=== PATIENT | male | born 1950 | race Caucasian/White ===

== ENCOUNTER 2019-10-19 05:33 | Outpatient (RCR) | payer MEDICARE, MEDICAID, SELFPAY | END 2019-10-20 00:01 | LOC: ONCRAD 05:33 | PROVIDERS: Family Provider Family Medicine; PCP Radiology Radiation Oncology; Referring Provider Thoracic Surgery (Cardiothoracic Vascular Surgery); Visit Provider Internal Medicine Hematology & Oncology | DX: Z51.11 Encounter for antineoplastic chemotherapy (principal); C34.12 Malignant neoplasm of upper lobe, left bronchus or lung; I71.4 Abdominal aortic aneurysm, without rupture; F17.210 Nicotine dependence, cigarettes, uncomplicated; G89.29 Other chronic pain; M54.9 Dorsalgia, unspecified; Z86.711 Personal history of pulmonary embolism; J43.9 Emphysema, unspecified; Z92.25 Personal history of immunosuppression therapy | CPT/HCPCS: 36415; 36591; 80053 ×2; 85025 ×2; 96366; 96367; 96375; 96413; 96417; 99213 ×2; 99214; J1100; J1453; J1642 ×3; J1940; J2469; J3475; J7040; J7050 ×2; J9060; J9201 ==

== ENCOUNTER 2019-11-19 05:38 | Outpatient (RCR) | payer MEDICARE, MEDICAID, SELFPAY ==
[2019-10-26 08:47] LABS: Hematocrit 42.3 % (42.0-52.0); Hemoglobin 14.2 g/dL (11.7-16.6); Lymphocytes # 1.1 10^3/uL (0.8-4.8); Lymphocytes % 23.4 %; Mean Corpuscular HGB Conc 33.6 g/dL (30.0-36.0); Mean Corpuscular Hemoglobin 28.6 pg (28.0-34.0); Mean Corpuscular Volume 85.3 fL (80-94); Mean Platelet Volume 9.6 fL (7.4-10.4); Monocytes % 0.9 %; Neutrophils # 3.4 10^3/uL (1.8-7.7); Neutrophils % 75.3 %; Nucleated Red Blood Cells % 0 %; Platelet Count 194 10^3/cmm (130-400); Red Blood Count 4.96 10^6/uL (4.1-5.3); White Blood Count 4.5 10^3/uL (4.0-10.0)
[2019-10-26 09:08] LABS: Alanine Aminotransferase 14 U/L (0-41); Alkaline Phosphatase 93 IU/L (40-130); Anion Gap 21.2 (5-19); Aspartate Amino Transferase 12 U/L (0-40); Blood Urea Nitrogen 18 mg/dL (8-23); Calcium 10.5 mg/Dl (8.8-10.2); Carbon Dioxide 23 mmol/L (22-29); Chloride 95 mmol/L (98-107); Globulin 2.2 g/dL (1.3-4.6); Glomerular Filtration Rate 83.9 mL/min (90-130); Glucose 199 mg/dL (74-106); Potassium 4.2 mmol/L (3.5-5.1); Sodium 135 mmol/L (136-145); Total Bilirubin 0.4 mg/dL (0.15-1.2); Total Protein 7.2 g/dL (6.6-8.7)
[2019-10-26] MEDS: prochlorperazine 10 mg Tablet PO (10:35)
--- NOTE | 2019-10-26 10:42 | ONC FU_ITS ---
[facility] Patient Note Patient: Raymundo Palm Unit #: [id number]: [id number] Dictated By: Jimbo ShieldsDate of Visit: Oct 26, 2019 Onc MED Follow-Up/Prog Note Chief Complaint: Lung cancer History of Present Illness: Mr. Palm is a 69-year-old gentleman with history of ascending aortic aneurysm, stable and now being observed. 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 He developed a chronic cough for which he underwent CT scan of chest. The scan showed possible narrowing of the superior segment bronchus to the left lower lobe. Mr Palm underwent bronchoscopy on 07/09/2018, which showed non-small cell carcinoma squamous cell type, low-grade keratinizing subsequently. On 07/26/[address] PET scan which showed poorly defined left upper lobe mass with mixed groundglass and solid components measuring 3.7 x 4.8 cm with SUV of 20.1; and malignant left upper hilar nodes with SUV of 12; multiple malignant mediastinal lymph nodes are present in the right paratracheal, precarinal, left peribronchial subcarinal and right hilar territories, with SUV of 8.6. He was not a candidate for surgical resection so recommended that he start on combined chemoradiation with weekly carboplatin and Taxol on 08/11/2018 Long-standing history of smoking and still smokes about half a pack. History of chronic back pain, as per patient, in the past Dr. Palm give him injection to his back, that controlled back pain for 5 months. He has completed combined chemoradiation with weekly carbo/taxol and began immunotherapy with Imfinzi. He presented with an episode of shaking, increased anxiety. He was nauseated and discussed all full in general. He was weak and dizzy. He was sent for a CT pulmonary angiogram after labs were drawn. His d-dimer was elevated warranting a CTA exam. The CTA was performed on 09/19/2018 and did confirm right lower lobe posterior segment and segmental pulmonary emboli. There was new left lobe superior segment atelectasis and consolidation with tumoral progression, postradiation changes and pneumonia being differential considerations. There is increased middle third esophageal, subcarinal and right upper lobe perihilar soft tissue attenuation. Chronic emphysema and arteriosclerotic and unchanged a sending thoracic aorta aneurysm at 5 cm . Mr. Palm was started on Lovenox 80 mg every [address] scan of chest done on 11/12/2018 showed continued improvement in the consolidation superior-medial left lower lobe. 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 Less stranding or soft tissue thickening and mediastinal fat, no significant lymph nodes or increased lymph node seen Mild diffuse circumferential thickening of mid esophagus may be due to postradiation changes; emphysema;Stable ascending thoracic aortic aneurysm at 4.[address] Austin his PMD has been following it for the last 3 years. Mr Palm began maintenance durvalumab on 11/20/2018. MRI scan of thoracic/lumbar spine showed no evidence of neoplastic process. But multiple disc protrusion causing nerve impingement at multiple levels. CT PET scan done on 02/21/2019 showed essential resolution of left lower lobe malignancy, only inflammatory appearing FDG uptake is present in the lung infiltrate. Uptake in malignant mediastinal lymphadenopathy seen on previously is now resolved. He continues immunotherapy with durvalumab and is tolerating it well. echo was done which showed ejection fraction with a 60% CT PET scan done on 09/12/2019 showed there is a new medial left lower lobe nodule measuring 1.1 x 1.7 cm with SUV of 6.1, strongly consistent with recurrent malignancy. New posterior left upper lobe nodules are too small to characterize. Bilateral mediastinal nodes in the bilateral hilar, right parabronchial, subcarinal territory are FDG positive. These may be reactive but recurrence cannot be excluded. Dr. Bill did discuss with Mr. Palm treatment options for the disease recurrence. The immunotherapy has been stopped. Mr. Palm was reluctant to proceed with any further radiation at this point due to toxicities. Therefore he was offered treatment with cisplatin and gemcitabine. He began his first cycle on 10/19/2019. Mr. Palm is here today for follow-up. He states overall he feels pretty good today. He has had no current nausea or vomiting and no diarrhea or constipation. He does have some left lower quadrant pain which is new onset. He states is been there for about 2 weeks and it comes and goes. He cannot find a triggering factor or anything that particularly relieves it either. It is very tender to touch. He denies any fever or chills. He has had no hearing changes. He denies any peripheral neuropathy. He states his appetite is good. His energy is fair. Other than the left lower quadrant pain he has no other concerns today. Mrs. Palm states that for several days after chemo (3 to 4 days) he was really draggy and fatigued. He did have some nausea but that was relieved with 1 tablet of the antiemetic. She states for the last several days he has felt good and has been able to do his normal activities. She states he has been complaining of the left lower quadrant pain coming and going for about approximately 2 weeks. He states he did have a big bowl of ice cream and a lot of popcorn for dinner last night. They state the pain was there prior to the popcorn however. His ECOG is 2. Past Medical History: Aortic anuerysm Bph Chronic obstructive pulmonary disease Hyperlipidemia Hypertension Past Surgical History: Bronchoscopy Colonoscopy Hernia repair Orif right leg Allergies: Bee Sting, Lopid, and Niaspan. Medications: Albuterol Sulfate 1 puff(s) (of 108 (90 base) mcg/act) Aerosol Powder, Breath Activated Inhalation daily Aspirin Adult Low Strength 1 (81 mg) Tablet, enteric coated Oral daily Cabergoline 1 Tablet (of 0.5 mg) Oral q 7 days Crestor 1 Tablet (of 10 mg) Oral daily Cyclobenzaprine HCl 2 Tablet (of 5 mg) Tablet Oral q 8 hours Flomax 1 Capsule (of 0.4 mg) Capsule Oral daily Gabapentin 1 Capsule (of 300 mg) Oral t.i.d. Irbesartan 1 Tablet (of 300 mg) Oral daily Levocetirizine Dihydrochloride 1 Tablet (of 5 mg) Oral daily PRN Metoprolol Tartrate 1 Tablet (of 50 mg) Oral daily predniSONE 3 Tablet (of 5 mg) Oral daily Ventolin HFA Aerosol, solution Inhalation Family History: The family history is unremarkable. Social History: Mr. Palm is and he is retired. He is an occasional smoker who has smoked 0.5 packs/day for 52 years. He has no history of drinking. He has indicated exposure to the following products: pipe. Review Of Symptoms: Constitutional Denies fevers, chills, night sweats, excessive fatigue or weight loss. Allergic/Immunologic No reactions. Eyes Denies significant visual changes. No diplopia. No amaurosis. ENMT Denies changes in hearing, sore throat, mouth sores, difficulty or changes in swallowing ability, and/or sinus drainage. Endocrine No diabetes, thyroid disease or hormone replacement. Denies hot flashes or night sweats. Hematologic/Lymphatic Denies easy bruising or bleeding. The patient denies any tender or palpable lymph nodes. Respiratory Denies dyspnea on exertion, chest pain, cough or hemoptysis. Denies orthopnea. Cardiovascular Denies anginal chest pain, palpitations or orthopnea. Gastrointestinal Denies nausea, vomiting, diarrhea, GI bleeding, or constipation. Denies change in bowel habits and/or stool color, no heartburn or early satiety. He states he is having left lower quadrant pain for about 2 weeks now. It was sudden onset. He states the pain comes and goes but is tender to touch. He denies any diarrhea or constipation. He denies any blood in his stool. Genitourinary (M) Denies hematuria, dysuria, increased frequency, urgency, hesitancy or incontinence. Musculoskeletal Denies joint pain, swelling or redness. No decreased range of motion. Integumentary Denies chronic rashes, inflammation, ulcerations or skin changes. Neurologic Denies headache, blurred vision, and no areas of focal weakness or numbness. Normal gait. No sensory problems. Psychiatric Denies insomnia, depression, chad or mood swings. Vital Signs: Performed on Oct 26, 2019 09:36 Height - 68.00 in Weight - 200.4 lbs (LOW) BSA - 2.05 sq.m BMI - 30.47 (HIGH) Temperature - 97.8 F (LOW) Pulse - 73 /min Respiration - 20 /min BP - 134/97 mm(hg) O2 Sat - 94 % (LOW) Pain - 8,2 - Ambulatory/capable of all self-care, unable to perform any work activities. Up and about more than 50% of waking hours. (ECOG) Physical Examination: Constitutional Alert, oriented, no acute distress. Skin pink, warm and dry. Head Normocephalic; atraumatic. Eyes Conjunctivae and sclerae are clear and without icterus. Pupils are reactive and equal. ENMT No oral exudates, ulcers, masses, thrush or mucositis. Oropharynx clear. Tongue normal. He denies any new hearing changes. He does have chronic hearing loss in the right ear. Neck Supple without masses or thyromegaly. No jugular venous distension. Hematologic/Lymphatic No petechiae or purpura. No tender or palpable lymph nodes in the cervical or supraclavicular areas. Respiratory Lungs are clear to auscultation without rhonchi or wheezing. Cardiovascular Regular rate and rhythm of heart without murmurs,clicks, gallops or rubs. Chest Left chest wall venous access site is unremarkable. Abdomen Non-tender except LLQ, non-distended, no masses, ascites. Good bowel sounds noted in all quads. He does have noticeable tenderness in the left lower quad. He states he has pain on palpation as well. Back/Spine Non-tender to palpation. Extremities No visible deformities, no cyanosis, clubbing or edema. Musculoskeletal No tenderness or swelling, normal range of motion without obvious weakness. Integumentary No rashes or lesions. Neurologic No sensory or motor deficits, normal cerebellar function, normal gait. Psychiatric Alert and oriented times three. Coherent speech. Verbalizes understanding of our discussions today. Laboratory:Test performed on Oct 26, 2019 09:52 Sodium 135 mmol/L Potassium 4.2 mmol/L Chloride 95 mmol/L CO2 23 mmol/L Anion Gap 21.2 BUN 18 mg/dL Creatinine 0.9 mg/dL Cr Clearance (Est) 102.10 mL/min eGFR 83.9 mL/min Glucose 199 mg/dL Calcium 10.5 mg/dL Protein, Total 7.2 g/dL Albumin 5.0 g/dL Globulin 2.2 g/dL Bilirubin, Total 0.4 mg/dL ALT (SGPT) 14 Units/L AST (SGOT) 12 Units/L Alkaline Phosphatase 93 IU/L WBC 4.5 10^3/uL RBC 4.96 10^6/uL HGB 14.2 g/dL HCT 42.3 % MCV 85.3 fl MCH 28.6 pg MCHC 33.6 g/dL RDW 14.0 % Platelet Count 194 10^3/uL MPV 9.6 fl Neutrophils 3.4 10^3/uL Lymphocytes 1.1 10^3/uL Monocytes 0.0 10^3/uL Eosinophils 0.0 10^3/uL Basophils 0.0 10^3/uL Neutrophil % 75.3 % Lymphocyte % 23.4 % Monocyte % 0.96 % Eosinophil % 0.0 % Basophils % 0.0 % Impression: Squamous cell carcinoma, low-grade more keratinizing of left upper lobe of lung per bronchoscopy/biopsy done on 07/09/2018 CT PET scan done on 07/26/2018 showed 3.7 x 4.8 cm mass in left upper lobe with SUV of 20.1 and malignant left upper hilar nodes with SUV of 12.7. Multiple malignant mediastinal lymph nodes are present in the right paratracheal, precarinal, left peribronchial, subcarinal and right hilar Territories c T2b , N3 (contralateral hilar lymph nodes involvement), MX, clinical stage IIIB MRI scan of head done on 08/08/2018 showed no evidence of metastatic disease As per cardiothoracic surgery he is not a candidate for surgery. He was started on combined chemoradiation with weekly carboplatin and Taxol on 08/11/2018. Hard of hearing in right ear, unknown etiology Chronic smoking, still active Ascending Aortic aneurysm, since 2014, stable, being followed by Dr. Luther Remote history of brain mass, as per patient and his , stable for the last 18 years A CTA was performed on 09/19/2018 and did report right lower lobe posterior segment and segmental pulmonary emboli. He was treated initially with Lovenox then transitioned to Eliquis. CT head done on 09/23/2018 showed no intracranial hemorrhage or mass effect and unchanged right mastoid air cell effusion with middle ear opacification. Chest x-ray done on 09/23/2018 shows decreased left perihilar mass or perihilar pneumonia Follow-up CT scan of chest done on 11/12/2018 showed continued improvement in the consolidation superior-medial left lower lobe. Mild residual opacification present which is probably radiation-induced pneumonitis or atelectasis and no significant lymphadenopathy seen. Mild diffuse circumferential thickening of mid esophagus may be due to postradiation changes. Emphysema. Stable ascending thoracic aortic aneurysm at 4.7 cm. History of chronic back pain, as per patient, in the past he he was given injection by Dr. Palm, that helped him for 5 months.MRI scan of thoracic/lumbar spine done on 01/30/2019 showed no evidence of metastatic disease but disc prolapse at multiple level with nerve impingement. Started on maintenance therapy with biweekly durvalumab 10 mg/kg on 11/20/2018. He tolerated it well but did have disease progression on PET/CT from 08/2019. Follow-up CT PET scan done on 02/21/2019 showed there is minimal inflammatory activity in mixed solid/groundglass left lower lobe infiltrate, consistent with residual uptake from radiation therapy, viable malignancy is unlikely, new left lower lobe subpleural nodule-like infiltrate is FDG negative, hypermetabolic mediastinal lymph node in the left hilar, left peribronchial, left precarinal, right hilar territories now demonstrated uptake no greater than mediastinal background, indicating positive response to therapy. He continued with immunotherapy. Follow-up PET/CT from 09/12/2019 reported new medial left lower lobe nodule measuring 1.1 x 1.7 cm with an SUV of 6.1, strongly consistent with recurrent malignancy. There was a new posterior left upper lobe nodules that were too small to characterize. Bilateral mediastinal nodes in the bilateral hilar, right parabronchial, and subcarinal territories are FDG positive. These may be reactive but recurrence cannot be excluded. Dr Bill discussed with Mr & Mrs Palm his disease status and treatment options. Mr Palm wass reluctant to consider radiation therapy due to related toxicity. Case was discussed with Dr. Vazquez radiation oncology, he agreed. Mr Palm was then offered treatment with systemic therapy with cisplatin 25 mg/m??? and gemcitabine 1000 mg/m??? day 1 and day 8 and repeat every 21 days ???3 cycles and repeat follow-up CT PET scan to assess the disease response and then plan accordingly. The immunotherapy was discontinued. Mr Palm began his first cycle of Cisplatin/Gemzar on 10/19/2019. Mrs. Palm states in general he tolerated it pretty well. She states he spent the first couple of days in bed just really washed out and tired. He did have some nausea but no vomiting. She did give him 1 anti-medic and that resolved the nausea. She states since then he has felt much better and has been up eating and doing his normal activities. He has developed new lower quadrant pain which is unexplained. Plan: 1. Proceed with cycle 1 day 8 gemcitabine???single agent. 2. Continue antiemetics as this is working generally well for him. 3. I requested a CT with and without contrast of the abdomen/pelvis for evaluation of the left lower quadrant pain which is new onset. 4. Today's labs were reviewed in detail and discussed with and Mrs. Palm and a copy was given to them. WBC 4.5, hemoglobin 14.2, platelets 194,000 ANC is 3400 potassium 4.2 random glucose is 199 (he states he had a big bowl of ice cream last night and popcorn). BUN is 0.9 LFTs are normal. 5. Mr. Palm is not currently on any medications for hyperglycemia but we will continue monitoring his sugars closely. 6. We will plan to check labs only next week and see him back in 2 weeks for consideration of cycle 2 cisplatin gemcitabine. He will need a CBC and CMP at that time. 7. Mrs. Palm was instructed to contact us in the interim should they have any questions or problems. 8. We did discuss the potential for hearing changes with cisplatin thus far they have not noted any changes at all. Signed By: Jimbo Shields-, CNP Shemar Bill MD <<Signature on File>>
--- NOTE | 2019-10-30 08:25 | CT_ITS ---
WS: [id number] CT scan of the abdomen and pelvis with Oral and with and without IV contrast. Additional two-dimensio nal coronal and sagittal reconstruction was performed. 10/30/2019 Clinical Data: NEW ONSET LLQ PAIN/METASTATIC LUNG CANCER Comparison: CT chest abdomen and pelvis, 03/06/2018. DLP: 2241.[address] scans at [facility] use at least one of these dose optimization techniques: automat ed exposure control; mA and/or kV adjustment per patient size (includes targeted exams where dose is matched to clinical indication); or iterative reconstruction. Findings: The lower lungs show no nodules, masses or effusions. The liver, gallbladder, spleen, adrenal glands and pancreas are normal. The kidneys show equal bilateral contrast excretion with small bilateral cortical cysts.. The abdominal aorta is normal in size with calcification in the wall.. No appendicitis or diverticulitis is seen. Oral contrast is in the stomach and small bowel and there is no bowel dilatation. The bladder is unremarkable. No inguinal hernia is seen. The bones of the lower thorax, lumbar spine, pelvis, and hips and no metastatic lesions. 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 CT/CT abdomen pelvis wo/w 14021 Impression: Negative for acute intra-abdominal or pelvic abnormalities.
[2019-10-30] MEDS: iohexol 300 mg/mL 50 mL Btl IV (09:00)
[2019-10-30] MEDS: iohexol 300 mg/mL 100 mL Btl IV (10:17)
[2019-11-02] MEDS: sodium chloride 0.9% 1,000 ML 999 ML IV (08:15)
[2019-11-02 08:49] LABS: Basophils % 0.6 %; Eosinophils % 2.2 %; Hematocrit 39.7 % (42.0-52.0); Hemoglobin 13.3 g/dL (11.7-16.6); Lymphocytes % 58.1 %; Mean Corpuscular HGB Conc 33.5 g/dL (30.0-36.0); Mean Corpuscular Hemoglobin 30.3 pg (28.0-34.0); Mean Corpuscular Volume 90.4 fL (80-94); Mean Platelet Volume 9.1 fL (7.4-10.4); Monocytes # 0.1 10^3/uL (0.2-0.9); Monocytes % 2.8 %; Neutrophils % 35.7 %; Nucleated Red Blood Cells % 0 %; Platelet Count 77 10^3/cmm (130-400); Red Blood Count 4.39 10^6/uL (4.1-5.3); Red Cell Distribution Width 13.7 % (12.1-15.1); White Blood Count 1.8 10^3/uL (4.0-10.0)
[2019-11-02 08:55] LABS: Neutrophils # 0.6 10^3/uL (1.8-7.7)
[2019-11-09 09:18] LABS: Basophils % 0.5 %; Hematocrit 41.5 % (42.0-52.0); Hemoglobin 13.6 g/dL (11.7-16.6); Lymphocytes # 0.6 10^3/uL (0.8-4.8); Mean Corpuscular HGB Conc 32.8 g/dL (30.0-36.0); Mean Corpuscular Hemoglobin 29.8 pg (28.0-34.0); Mean Corpuscular Volume 90.8 fL (80-94); Mean Platelet Volume 9.9 fL (7.4-10.4); Monocytes % 0.9 %; Neutrophils # 1.4 10^3/uL (1.8-7.7); Neutrophils % 67.7 %; Nucleated Red Blood Cells % 0 %; Platelet Count 489 10^3/cmm (130-400); Red Blood Count 4.57 10^6/uL (4.1-5.3); Red Cell Distribution Width 14.9 % (12.1-15.1); White Blood Count 2.1 10^3/uL (4.0-10.0)
[2019-11-09 09:32] LABS: Alanine Aminotransferase 25 U/L (0-41); Albumin Level 3.8 g/dL (3.5-5.2); Alkaline Phosphatase 106 IU/L (40-130); Anion Gap 20.9 (5-19); Aspartate Amino Transferase 17 U/L (0-40); Blood Urea Nitrogen 11 mg/dL (8-23); Calcium 9.9 mg/Dl (8.8-10.2); Carbon Dioxide 21 mmol/L (22-29); Chloride 97 mmol/L (98-107); Globulin 3.4 g/dL (1.3-4.6); Glomerular Filtration Rate 74.3 mL/min (90-130); Glucose 426 mg/dL (74-106); Potassium 3.9 mmol/L (3.5-5.1); Sodium 135 mmol/L (136-145); Total Bilirubin 0.3 mg/dL (0.15-1.2); Total Protein 7.2 g/dL (6.6-8.7)
[2019-11-09 09:41] LABS: Estmated Average Glucose 157; Hemoglobin A1C 7.1 % (4.0-6.0)
[2019-11-09 11:45] LABS: Add Urine Microscopic? NO
[2019-11-09 11:59] LABS: Bilirubin Urine Neg (NEGATIVE); Blood Urine Neg (Negative); Glucose Urine UA 4+ (Normal); Ketones Urine Negative (Negative); Leukocyte Esterase Urine Negative (Negative); Nitrate Urine Negative (Negative); Protein Urine Neg (Negative); Urine Appearance Clear (CLEAR); Urine Color Straw (Yellow); Urobilinogen Urine Norm (Negative)
--- NOTE | 2019-11-09 13:07 | ONC FU_ITS ---
Dr. Bill follow up note Patient: Raymundo Palm Unit #: [id number]: 1950 Dicatated By: Shemar Bill M.D.Date of Visit:Nov 09, 2019 Onc Med Follow-up/Prog Note History of Present Illness: Mr. Palm is a 69-year-old gentleman with history of ascending aortic aneurysm, stable and now being observed. 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 He developed a chronic cough for which he underwent CT scan of chest. The scan showed possible narrowing of the superior segment bronchus to the left lower lobe. Mr Palm underwent bronchoscopy on 07/09/2018, which showed non-small cell carcinoma squamous cell type, low-grade keratinizing subsequently. On 07/26/[address] PET scan which showed poorly defined left upper lobe mass with mixed groundglass and solid components measuring 3.7 x 4.8 cm with SUV of 20.1; and malignant left upper hilar nodes with SUV of 12; multiple malignant mediastinal lymph nodes are present in the right paratracheal, precarinal, left peribronchial subcarinal and right hilar territories, with SUV of 8.6. He was not a candidate for surgical resection so recommended that he start on combined chemoradiation with weekly carboplatin and Taxol on 08/11/2018 Long-standing history of smoking and still smokes about half a pack. History of chronic back pain, as per patient, in the past Dr. Palm give him injection to his back, that controlled back pain for 5 months. He has completed combined chemoradiation with weekly carbo/taxol and began immunotherapy with Imfinzi. He presented with an episode of shaking, increased anxiety. He was nauseated and discussed all full in general. He was weak and dizzy. He was sent for a CT pulmonary angiogram after labs were drawn. His d-dimer was elevated warranting a CTA exam. The CTA was performed on 09/19/2018 and did confirm right lower lobe posterior segment and segmental pulmonary emboli. There was new left lobe superior segment atelectasis and consolidation with tumoral progression, postradiation changes and pneumonia being differential considerations. There is increased middle third esophageal, subcarinal and right upper lobe perihilar soft tissue attenuation. Chronic emphysema and arteriosclerotic and unchanged a sending thoracic aorta aneurysm at 5 cm . Mr. Palm was started on Lovenox 80 mg every [address] scan of chest done on 11/12/2018 showed continued improvement in the consolidation superior-medial left lower lobe. 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 Less stranding or soft tissue thickening and mediastinal fat, no significant lymph nodes or increased lymph node seen Mild diffuse circumferential thickening of mid esophagus may be due to postradiation changes; emphysema;Stable ascending thoracic aortic aneurysm at 4.[address] Austin his PMD has been following it for the last 3 years. Mr Palm began maintenance durvalumab on 11/20/2018. MRI scan of thoracic/lumbar spine showed no evidence of neoplastic process. But multiple disc protrusion causing nerve impingement at multiple levels. CT PET scan done on 02/21/2019 showed essential resolution of left lower lobe malignancy, only inflammatory appearing FDG uptake is present in the lung infiltrate. Uptake in malignant mediastinal lymphadenopathy seen on previously is now resolved. He continues immunotherapy with durvalumab and is tolerating it well. echo was done which showed ejection fraction with a 60% CT PET scan done on 09/12/2019 showed there is a new medial left lower lobe nodule measuring 1.1 x 1.7 cm with SUV of 6.1, strongly consistent with recurrent malignancy. New posterior left upper lobe nodules are too small to characterize. Bilateral mediastinal nodes in the bilateral hilar, right parabronchial, subcarinal territory are FDG positive. These may be reactive but recurrence cannot be excluded. did discuss with Mr. Palm treatment options for the disease recurrence. The immunotherapy has been stopped. Mr. Palm was reluctant to proceed with any further radiation at this point due to toxicities. Therefore he was offered treatment with cisplatin and gemcitabine. He began his first cycle on 10/19/2019. Came for follow-up, complaining of lightheaded but responded well to IV fluids given in the morning, still complaining of generalized weakness and fatigue as per patient has been consuming lots of orange juice in the last few days. But no nausea or vomiting no diarrhea or constipation occasionally burning micturition but no fever or chills. Cough up whitish phlegm, still smoking about pack a day. No blurred vision or double vision, no focal weakness otherwise. No diarrhea or constipation, no hematuria or hemoptysis or hematemesis or jaundice. Medications: Albuterol Sulfate 1 puff(s) (of 108 (90 base) mcg/act) Aerosol Powder, Breath Activated Inhalation daily, Aspirin Adult Low Strength 1 (81 mg) Tablet, enteric coated Oral daily, Cabergoline 1 Tablet (of 0.5 mg) Oral q 7 days, Crestor 1 Tablet (of 10 mg) Oral daily, Cyclobenzaprine HCl 2 Tablet (of 5 mg) Tablet Oral q 8 hours, Flomax 1 Capsule (of 0.4 mg) Capsule Oral daily, Gabapentin 1 Capsule (of 300 mg) Oral t.i.d., Irbesartan 1 Tablet (of 300 mg) Oral daily, Levocetirizine Dihydrochloride 1 Tablet (of 5 mg) Oral daily PRN, Metoprolol Tartrate 1 Tablet (of 50 mg) Oral daily, Ventolin HFA Aerosol, solution Inhalation Allergies: Bee Sting, Lopid, and Niaspan. Review of Systems: Constitutional - Appetite is fair and weight is decreasing. No fever, chills, hot flashes, or night sweats. Energy level is decreasing, ENMT - No sinus congestion/drainage. No mouth sores. No sore throat or difficulty swallowing, Hematologic/Lymphatic - No abnormal bruising or bleeding, Respiratory - Positive for continued shortness of breath and cough. No pleuritic pain or hemoptysis, Cardiovascular - No angina pain. No palpitations, Gastrointestinal - No nausea or vomiting. No heartburn or acid reflux. No diarrhea or constipation. No blood in the stool or black stools, Genitourinary (M) - No dysuria or hematuria. No urinary frequency. No urgency or incontinence, Musculoskeletal - Pt reports chronic back pain, Neurologic - Pt denies any headache or dizziness, Psychiatric - No anxiety or depression. No insomnia. Vital Signs: Performed on Nov 09, 2019 11:02 Height - 68.00 in Weight - 205.0 lbs (HIGH) BSA - 2.07 sq.m BMI - 31.17 (HIGH) Temperature - 98.0 F (LOW) Pulse - 89 /min Respiration - 20 /min BP - 148/109 mm(hg) (HIGH) O2 Sat - 93 % (LOW) Pain - 0 Performed on Nov 09, 2019 08:47 Height - 68.00 in Temperature - 97 F (LOW) Pulse - 98 /min Respiration - 20 /min BP - 128/88 mm(hg) O2 Sat - 94 % (LOW) Pain - 0 Fatigue - 7 Performance Status: 2 - Ambulatory/capable of all self-care, unable to perform any work activities. Up and about more than 50% of waking hours. (ECOG) Physical Examination: ENMT - No oral exudates, ulcers, masses, thrush or mucositis. Oropharynx clear. Tongue normal, Respiratory - Lungs are clear to auscultation without rhonchi or wheezing, Cardiovascular - Regular rate and rhythm of heart, Abdomen - Non-tender, non-distended, Good bowel sounds. No guarding or rebound tenderness. No pulsatile masses, Extremities - no edema. Lab/Imaging: Test performed on Nov 09, 2019 11:26 Ua Color Straw Ua Appearance Clear Ua Specific [place] 1.010 Ua pH 5.0 Ua Protein Negative Ua Glucose 4+ Ua Ketones Negative Ua Blood Negative Ua Leuk Esterase Negative Ua Nitrites Negative Ua Bilirubin Negative Ua Urobilinogen Normal Test performed on Nov 09, 2019 09:21 WBC 2.1 10^9/L RBC 4.57 10^12/L HGB 13.6 g/dL HCT 41.5 % MCV 90.8 fl MCH 29.8 pg MCHC 32.8 g/dL RDW 14.9 % Platelet Count 489 10^9/L MPV 9.9 fL Neutrophils (Gran) 1.4 10^9/L Lymphocytes 0.6 10^9/L Monocytes 0 10^9/L Eosinophils 0 10^9/L Basophils 0 10^9/L Manual Lymphocytes 30.0 % Manual Monocytes 0.9 % Manual Eosinophils 0 % Manual Basophils 0.5 % NRBCs 0 /100 WBC Test performed on Nov 09, 2019 08:49 Glucose 157 mg/dL BUN 11 mg/dL Creatinine 1.0 mg/dL Cr Clearance (Est) 91.89 mL/min Sodium 135 mmol/L Potassium 3.9 mmol/L Chloride 97 mmol/L CO2 21 mmol/L Calcium 9.9 mg/dL Protein, Total 7.2 g/dL Albumin 3.8 g/dL Globulin 3.4 g/dL Bilirubin, Total 0.3 mg/dL Alkaline Phosphatase 106 IU/L AST (SGOT) 17 IU/L ALT (SGPT) 25 IU/L Hemoglobin A1C 7.1 % Neutrophil % 0.0 % Test performed on Oct 26, 2019 09:52 Anion Gap 21.2 eGFR 83.9 mL/min Lymphocyte % 23.4 % Monocyte % 0.96 % Eosinophil % 0.0 % Basophils % 0.0 % Test performed on Aug 04, 2019 08:09 Manual Neutrophils Abs 7.5 10 3/cmm Manual Lymphocytes Abs 2.1 10 3/cmm Manual Monocytes Abs 1.7 10 3/cmm Manual Basophils Abs 0.1 10 3/cmm Manual Segs % 57 % Manual Bands % 8.0 % Metamyelocytes % 1.0 % Platelet Estimate NORMAL Impression: Squamous cell carcinoma, low-grade more keratinizing of left upper lobe of lung per bronchoscopy/biopsy done on 07/09/2018 CT PET scan done on 07/26/2018 showed 3.7 x 4.8 cm mass in left upper lobe with SUV of 20.1 and malignant left upper hilar nodes with SUV of 12.7. Multiple malignant mediastinal lymph nodes are present in the right paratracheal, precarinal, left peribronchial, subcarinal and right hilar Territories c T2b , N3 (contralateral hilar lymph nodes involvement), MX, clinical stage IIIB MRI scan of head done on 08/08/2018 showed no evidence of metastatic disease As per cardiothoracic surgery he is not a candidate for surgery. H was started on combined chemoradiation with weekly carboplatin and Taxol on 08/11/2018. Hard of hearing in right ear, unknown etiology Chronic smoking, still active Ascending Aortic aneurysm, since 2015, stable, being followed by Dr. Luther Remote history of brain mass, as per patient and his , stable for the last 18 years A CTA was performed on 09/19/2018 and did report right lower lobe posterior segment and segmental pulmonary emboli. He was treated initially with Lovenox then transitioned to Eliquis. CT head done on 09/23/2018 showed no intracranial hemorrhage or mass effect and unchanged right mastoid air cell effusion with middle ear opacification. Chest x-ray done on 09/23/2018 shows decreased left perihilar mass or perihilar pneumonia .Follow-up CT scan of chest done on 11/12/2018 showed continued improvement in the consolidation superior-medial left lower lobe. 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 Austin his PMD has been following his aortic aneurysm for the last 3 years. History of chronic back pain, as per patient, in the past he he was given injection by Dr. Palm, that helped him for 5 months.MRI scan of thoracic/lumbar spine done on 01/30/2019 showed no evidence of metastatic disease but disc prolapse at multiple level with nerve impingement. Started on maintenance therapy with biweekly durvalumab 10 mg/kg on 11/20/2018. He is tolerating it well thus far. Follow-up CT PET scan done on 02/21/2019 showed there is minimal inflammatory activity in mixed solid/groundglass left lower lobe infiltrate, consistent with residual uptake from radiation therapy, viable malignancy is unlikely, new left lower lobe subpleural nodule-like infiltrate is FDG negative, hypermetabolic mediastinal lymph node in the left hilar, left peribronchial, left precarinal, right hilar territories now demonstrated uptake no greater than mediastinal background, indicating positive response to therapy. He continued with immunotherapy. Follow-up PET/CT from 09/12/2019 reported new medial left lower lobe nodule measuring 1.1 x 1.7 cm with an SUV of 6.1, strongly consistent with recurrent malignancy. There was a new posterior left upper lobe nodules that were too small to characterize. Bilateral mediastinal nodes in the bilateral hilar, right parabronchial, and subcarinal territories are FDG positive. These may be reactive but recurrence cannot be excluded. Dr Bill discussed with Mr & Mrs Palm his disease status and treatment options. Mr Palm wass reluctant to consider radiation therapy due to related toxicity. Case was discussed with Dr. Vazquez radiation oncology, he agreed. Mr Palm was then offered treatment with systemic therapy with cisplatin 25 mg/m??? and gemcitabine 1000 mg/m??? day 1 and day 8 and repeat every 21 days ???3 cycles and repeat follow-up CT PET scan to assess the disease response and then plan accordingly. The immunotherapy was discontinued. Mr Palm began his first cycle of Cisplatin/Gemzar on 10/19/2019. Mrs. Palm states in general he tolerated it pretty well. She states he spent the first couple of days in bed just really washed out and tired. He did have some nausea but no vomiting. She did give him 1 anti-medic and that resolved the nausea. She states since then he has felt much better and has been up eating and doing his normal activities. He has developed new lower quadrant pain which is unexplained. Plan: Discussed with patient regarding his labs white blood count 2.1 hemoglobin 13.6 crit 41.5 platelets 459,000 absolute neutrophil count 1400 CMP within normal limit except glucose 426 Clinically, patient is doing reasonably well, tolerating chemotherapy well but with expected side effects. He was due for his next cycle of chemotherapy today but because of progressive leukopenia/neutropenia we will hold his chemotherapy and also patient appears dehydrated due to to hyperglycemia and noncompliant with diabetic diet. Patient was advised to stop drinking orange juice rather follow diabetic diet and his repeat blood sugar is in the mid 300, he was given 8 units of regular insulin and was advised to follow sliding scale.Also advised to maintain hydration with plain water, He will return to clinic in 1 week with CBC CMP. We will also check his urinalysis and start him on prophylactic Levaquin 500 mg by mouth daily for 1 week. Patient was advised in case there is a worsening of symptoms he need to go to emergency room otherwise back in 1 week with CBC CMP and blood counts recover, will consider starting him on second cycle of chemotherapy. Signed By: Shemar Bill M.D. <<Signature on File>>
[2019-11-16] MEDS: sodium chlor 0.9% + KCl 20 mEq 20 MEQ/1,000 ML BAG 500 MEQ IV (08:30)
[2019-11-16 08:50] LABS: Basophils % 0.3 %; Hemoglobin 13.4 g/dL (11.7-16.6); Lymphocytes # 1.1 10^3/uL (0.8-4.8); Lymphocytes % 11.7 %; Mean Corpuscular HGB Conc 33.5 g/dL (30.0-36.0); Mean Corpuscular Hemoglobin 29.1 pg (28.0-34.0); Mean Platelet Volume 9.2 fL (7.4-10.4); Monocytes # 0.2 10^3/uL (0.2-0.9); Monocytes % 2.2 %; Neutrophils # 7.1 10^3/uL (1.8-7.7); Neutrophils % 74.2 %; Nucleated Red Blood Cells % 0 %; Platelet Count 344 10^3/cmm (130-400); Red Cell Distribution Width 15.3 % (12.1-15.1); White Blood Count 9.5 10^3/uL (4.0-10.0)
[2019-11-16 09:04] LABS: Alanine Aminotransferase 24 U/L (0-41); Alkaline Phosphatase 104 IU/L (40-130); Anion Gap 18.2 (5-19); Aspartate Amino Transferase 18 U/L (0-40); Blood Urea Nitrogen 16 mg/dL (8-23); Calcium 9.6 mg/dL (8.5-10.5); Carbon Dioxide 24 mmol/L (22-29); Chloride 99 mmol/L (98-107); Globulin 2.7 g/dL (1.3-4.6); Glomerular Filtration Rate 74.3 mL/min (90-130); Glucose 264 mg/dL (74-106); Potassium 4.2 mmol/L (3.5-5.1); Sodium 137 mmol/L (136-145); Total Bilirubin 0.2 mg/dL (0.15-1.2); Total Protein 6.7 g/dL (6.6-8.7)
[2019-11-16 09:50] LABS: Slide Review Slide Review Perform
--- NOTE | 2019-11-16 10:46 | ONC FU_ITS ---
Dr. Bill follow up note Patient: Raymundo Palm Unit #: [id number]: [id number] Dicatated By: Shemar Bill M.D.Date of Visit:Nov 16, 2019 Onc Med Follow-up/Prog Note History of Present Illness: Mr. Palm is a 69-year-old gentleman with history of ascending aortic aneurysm, stable and now being observed. 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 He developed a chronic cough for which he underwent CT scan of chest. The scan showed possible narrowing of the superior segment bronchus to the left lower lobe. Mr Palm underwent bronchoscopy on 07/09/2018, which showed non-small cell carcinoma squamous cell type, low-grade keratinizing subsequently. On 07/26/[address] PET scan which showed poorly defined left upper lobe mass with mixed groundglass and solid components measuring 3.7 x 4.8 cm with SUV of 20.1; and malignant left upper hilar nodes with SUV of 12; multiple malignant mediastinal lymph nodes are present in the right paratracheal, precarinal, left peribronchial subcarinal and right hilar territories, with SUV of 8.6. He was not a candidate for surgical resection so recommended that he start on combined chemoradiation with weekly carboplatin and Taxol on 08/11/2018 Long-standing history of smoking and still smokes about half a pack. History of chronic back pain, as per patient, in the past Dr. Palm give him injection to his back, that controlled back pain for 5 months. He has completed combined chemoradiation with weekly carbo/taxol and began immunotherapy with Imfinzi. He presented with an episode of shaking, increased anxiety. He was nauseated and discussed all full in general. He was weak and dizzy. He was sent for a CT pulmonary angiogram after labs were drawn. His d-dimer was elevated warranting a CTA exam. The CTA was performed on 09/19/2018 and did confirm right lower lobe posterior segment and segmental pulmonary emboli. There was new left lobe superior segment atelectasis and consolidation with tumoral progression, postradiation changes and pneumonia being differential considerations. There is increased middle third esophageal, subcarinal and right upper lobe perihilar soft tissue attenuation. Chronic emphysema and arteriosclerotic and unchanged a sending thoracic aorta aneurysm at 5 cm . Mr. Palm was started on Lovenox 80 mg every [address] scan of chest done on 11/12/2018 showed continued improvement in the consolidation superior-medial left lower lobe. 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 Less stranding or soft tissue thickening and mediastinal fat, no significant lymph nodes or increased lymph node seen Mild diffuse circumferential thickening of mid esophagus may be due to postradiation changes; emphysema;Stable ascending thoracic aortic aneurysm at 4.[address] Austin his PMD has been following it for the last 3 years. Mr Palm began maintenance durvalumab on 11/20/2018. MRI scan of thoracic/lumbar spine showed no evidence of neoplastic process. But multiple disc protrusion causing nerve impingement at multiple levels. CT PET scan done on 02/21/2019 showed essential resolution of left lower lobe malignancy, only inflammatory appearing FDG uptake is present in the lung infiltrate. Uptake in malignant mediastinal lymphadenopathy seen on previously is now resolved. He continues immunotherapy with durvalumab and is tolerating it well. echo was done which showed ejection fraction with a 60% CT PET scan done on 09/12/2019 showed there is a new medial left lower lobe nodule measuring 1.1 x 1.7 cm with SUV of 6.1, strongly consistent with recurrent malignancy. New posterior left upper lobe nodules are too small to characterize. Bilateral mediastinal nodes in the bilateral hilar, right parabronchial, subcarinal territory are FDG positive. These may be reactive but recurrence cannot be excluded. did discuss with Mr. Palm treatment options for the disease recurrence. The immunotherapy has been stopped. Mr. Palm was reluctant to proceed with any further radiation at this point due to toxicities. Therefore he was offered treatment with cisplatin and gemcitabine. He began his first cycle on 10/19/2019. Came for follow-up, denies any specific complaints, no fever or chills, no nausea or vomiting, no diarrhea constipation, more energetic. No diarrhea constipation, no mouth sores. Medications: Albuterol Sulfate 1 puff(s) (of 108 (90 base) mcg/act) Aerosol Powder, Breath Activated Inhalation daily, Aspirin Adult Low Strength 1 (81 mg) Tablet, enteric coated Oral daily, Cabergoline 1 Tablet (of 0.5 mg) Oral q 7 days, Crestor 1 Tablet (of 10 mg) Oral daily, Cyclobenzaprine HCl 2 Tablet (of 5 mg) Tablet Oral q 8 hours, Flomax 1 Capsule (of 0.4 mg) Capsule Oral daily, Gabapentin 1 Capsule (of 300 mg) Oral t.i.d., Irbesartan 1 Tablet (of 300 mg) Oral daily, Levocetirizine Dihydrochloride 1 Tablet (of 5 mg) Oral daily PRN, Metoprolol Tartrate 1 Tablet (of 50 mg) Oral daily, Ventolin HFA Aerosol, solution Inhalation Allergies: Bee Sting, Lopid, and Niaspan. Review of Systems: Constitutional - Appetite is fair and weight is decreasing. No fever, chills, hot flashes, or night sweats. Energy level is decreasing, ENMT - No sinus congestion/drainage. No mouth sores. No sore throat or difficulty swallowing, Hematologic/Lymphatic - No abnormal bruising or bleeding, Respiratory - Positive for continued shortness of breath and cough. No pleuritic pain or hemoptysis, Cardiovascular - No angina pain. No palpitations, Gastrointestinal - No nausea or vomiting. No heartburn or acid reflux. No diarrhea or constipation. No blood in the stool or black stools, Genitourinary (M) - No dysuria or hematuria. No urinary frequency. No urgency or incontinence, Musculoskeletal - Pt reports chronic back pain, Neurologic - Pt denies any headache or dizziness, Psychiatric - No anxiety or depression. No insomnia. Vital Signs: Performed on Nov 16, 2019 09:57 Height - 68.00 in Weight - 205.2 lbs (HIGH) BSA - 2.07 sq.m BMI - 31.20 (HIGH) Temperature - 97.6 F (LOW) Pulse - 82 /min Respiration - 24 /min BP - 129/92 mm(hg) O2 Sat - 96 % Pain - 0 Performance Status: 1 - No physically strenuous activity, but ambulatory and able to carry out light or sedentary work (e.g. office work, light house work). (ECOG) Physical Examination: ENMT - No oral exudates, ulcers, masses, thrush or mucositis. Oropharynx clear. Tongue normal, Respiratory - Lungs are clear to auscultation without rhonchi or wheezing, Cardiovascular - Regular rate and rhythm of heart, Abdomen - Non-tender, non-distended, Good bowel sounds. No guarding or rebound tenderness. No pulsatile masses, Extremities - no edema. Lab/Imaging: Test performed on Nov 09, 2019 11:26 Ua Color Straw Ua Appearance Clear Ua Specific [place] 1.010 Ua pH 5.0 Ua Protein Negative Ua Glucose 4+ Ua Ketones Negative Ua Blood Negative Ua Leuk Esterase Negative Ua Nitrites Negative Ua Bilirubin Negative Ua Urobilinogen Normal Test performed on Nov 09, 2019 09:21 WBC 2.1 10^9/L RBC 4.57 10^12/L HGB 13.6 g/dL HCT 41.5 % MCV 90.8 fl MCH 29.8 pg MCHC 32.8 g/dL RDW 14.9 % Platelet Count 489 10^9/L MPV 9.9 fL Neutrophils (Gran) 1.4 10^9/L Lymphocytes 0.6 10^9/L Monocytes 0 10^9/L Eosinophils 0 10^9/L Basophils 0 10^9/L Manual Lymphocytes 30.0 % Manual Monocytes 0.9 % Manual Eosinophils 0 % Manual Basophils 0.5 % NRBCs 0 /100 WBC Test performed on Nov 09, 2019 08:49 Glucose 157 mg/dL BUN 11 mg/dL Creatinine 1.0 mg/dL Cr Clearance (Est) 91.89 mL/min Sodium 135 mmol/L Potassium 3.9 mmol/L Chloride 97 mmol/L CO2 21 mmol/L Calcium 9.9 mg/dL Protein, Total 7.2 g/dL Albumin 3.8 g/dL Globulin 3.4 g/dL Bilirubin, Total 0.3 mg/dL Alkaline Phosphatase 106 IU/L AST (SGOT) 17 IU/L ALT (SGPT) 25 IU/L Hemoglobin A1C 7.1 % Neutrophil % 0.0 % Test performed on Oct 26, 2019 09:52 Anion Gap 21.2 eGFR 83.9 mL/min Lymphocyte % 23.4 % Monocyte % 0.96 % Eosinophil % 0.0 % Basophils % 0.0 % Test performed on Aug 04, 2019 08:09 Manual Neutrophils Abs 7.5 10 3/cmm Manual Lymphocytes Abs 2.1 10 3/cmm Manual Monocytes Abs 1.7 10 3/cmm Manual Basophils Abs 0.1 10 3/cmm Manual Segs % 57 % Manual Bands % 8.0 % Metamyelocytes % 1.0 % Platelet Estimate NORMAL Impression: Squamous cell carcinoma, low-grade more keratinizing of left upper lobe of lung per bronchoscopy/biopsy done on 07/09/2018 CT PET scan done on 07/26/2018 showed 3.7 x 4.8 cm mass in left upper lobe with SUV of 20.1 and malignant left upper hilar nodes with SUV of 12.7. Multiple malignant mediastinal lymph nodes are present in the right paratracheal, precarinal, left peribronchial, subcarinal and right hilar Territories c T2b , N3 (contralateral hilar lymph nodes involvement), MX, clinical stage IIIB MRI scan of head done on 08/08/2018 showed no evidence of metastatic disease As per cardiothoracic surgery he is not a candidate for surgery. H was started on combined chemoradiation with weekly carboplatin and Taxol on 08/11/2018. Hard of hearing in right ear, unknown etiology Chronic smoking, still active Ascending Aortic aneurysm, since 2014, stable, being followed by Dr. Luther Remote history of brain mass, as per patient and his , stable for the last 18 years A CTA was performed on 09/19/2018 and did report right lower lobe posterior segment and segmental pulmonary emboli. He was treated initially with Lovenox then transitioned to Eliquis. CT head done on 09/23/2018 showed no intracranial hemorrhage or mass effect and unchanged right mastoid air cell effusion with middle ear opacification. Chest x-ray done on 09/23/2018 shows decreased left perihilar mass or perihilar pneumonia .Follow-up CT scan of chest done on 11/12/2018 showed continued improvement in the consolidation superior-medial left lower lobe. 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 Austin his PMD has been following his aortic aneurysm for the last 3 years. History of chronic back pain, as per patient, in the past he he was given injection by Dr. Palm, that helped him for 5 months.MRI scan of thoracic/lumbar spine done on 01/30/2019 showed no evidence of metastatic disease but disc prolapse at multiple level with nerve impingement. Started on maintenance therapy with biweekly durvalumab 10 mg/kg on 11/20/2018. He is tolerating it well thus far. Follow-up CT PET scan done on 02/21/2019 showed there is minimal inflammatory activity in mixed solid/groundglass left lower lobe infiltrate, consistent with residual uptake from radiation therapy, viable malignancy is unlikely, new left lower lobe subpleural nodule-like infiltrate is FDG negative, hypermetabolic mediastinal lymph node in the left hilar, left peribronchial, left precarinal, right hilar territories now demonstrated uptake no greater than mediastinal background, indicating positive response to therapy. He continued with immunotherapy. Follow-up PET/CT from 09/12/2019 reported new medial left lower lobe nodule measuring 1.1 x 1.7 cm with an SUV of 6.1, strongly consistent with recurrent malignancy. There was a new posterior left upper lobe nodules that were too small to characterize. Bilateral mediastinal nodes in the bilateral hilar, right parabronchial, and subcarinal territories are FDG positive. These may be reactive but recurrence cannot be excluded. Dr Bill discussed with Mr & Mrs Palm his disease status and treatment options. Mr Palm wass reluctant to consider radiation therapy due to related toxicity. Case was discussed with Dr. Vazquez radiation oncology, he agreed. Mr Palm was then offered treatment with systemic therapy with cisplatin 25 mg/m??? and gemcitabine 1000 mg/m??? day 1 and day 8 and repeat every 21 days ???3 cycles and repeat follow-up CT PET scan to assess the disease response and then plan accordingly. The immunotherapy was discontinued. Mr Palm began his first cycle of Cisplatin/Gemzar on 10/19/2019. Mrs. Palm states in general he tolerated it pretty well. She states he spent the first couple of days in bed just really washed out and tired. He did have some nausea but no vomiting. She did give him 1 anti-medic and that resolved the nausea. She states since then he has felt much better and has been up eating and doing his normal activities. He has developed new lower quadrant pain which is unexplained. Plan: Discussed with patient regarding his labs white blood count 9.5 globin 13.4 crit 40 platelets 344,000 CMP within normal limit except glucose 264 Clinically, patient is doing well, his follow-up lab shows leukopenia/neutropenia has resolved. But persistent hyperglycemia. Patient was advised not to take steroids as premedication. And will proceed with cycle #2 day 1 with weekly cisplatin/gemcitabine. But to prevent chemotherapy-induced leukopenia/neutropenia seen after first cycle of chemotherapy we will consider Neupogen 480 ???g subcutaneous daily for 3 days in between chemotherapy cycles, to prevent chemotherapy-induced neutropenia and to maintain chemotherapy schedule. And also consider further dose reduction gemcitabine by 10% to reduce chemotherapy-induced thrombocytopenia. Patient was advised to quit smoking and was offered any assistance he may need. He was also advised to monitor his blood sugar and follow sliding scale and also follow diabetic diet.He will return to clinic in 1 week with CBC CMP and a blood count looks reasonable, for day 8 weekly cisplatin and gemcitabine and as planned we'll continue with weekly cisplatin/gemcitabine on day 1 and 8 and repeat every 21 days. Signed By: Shemar Bill M.D. <<Signature on File>>
[2019-11-16] MEDS: FUROsemide 10 mg/mL SDV 2mL 20 MG IV (13:01)
[2019-11-16] MEDS: sodium chloride 0.9% 250 ML 999 ML IV (13:10)
== END 2019-11-20 23:59 | disposition home or self-care (01) ==
LOC: ONCMED 05:38
PROVIDERS: Nurse Practitioner; Family Provider Family Medicine; PCP Radiology Radiation Oncology; Visit Provider Internal Medicine Hematology & Oncology
DX: Z51.11 Encounter for antineoplastic chemotherapy (principal); C34.12 Malignant neoplasm of upper lobe, left bronchus or lung; C77.1 Secondary and unspecified malignant neoplasm of intrathoracic lymph nodes; D70.1 Agranulocytosis secondary to cancer chemotherapy; D69.59 Other secondary thrombocytopenia; T45.1X5A Adverse effect of antineoplastic and immunosuppressive drugs, initial encounter; R73.9 Hyperglycemia, unspecified; R10.32 Left lower quadrant pain; I71.4 Abdominal aortic aneurysm, without rupture; F17.210 Nicotine dependence, cigarettes, uncomplicated; G89.29 Other chronic pain; M54.9 Dorsalgia, unspecified; J43.9 Emphysema, unspecified; N40.0 Benign prostatic hyperplasia without lower urinary tract symptoms; Z79.82 Long term (current) use of aspirin; Z79.899 Other long term (current) drug therapy; Z79.01 Long term (current) use of anticoagulants; Z79.51 Long term (current) use of inhaled steroids; Z92.3 Personal history of irradiation; Z92.25 Personal history of immunosuppression therapy; Z86.711 Personal history of pulmonary embolism
CPT/HCPCS: 74178; 80053; 81003; 83036; 85025; 96360; 96365; 96366; 96367; 96372; 96375; 96413; 96417; 99214; J1100; J1442; J1453; J1815; J1940; J2469; J3475; J3480; J7030; J7040; J7050; J9060; J9201; Q0164; Q9967

== ENCOUNTER 2019-11-23 10:39 | Emergency (ER) | payer MEDICARE, MEDICAID, SELFPAY ==
[2019-11-23 10:45] VITALS: BP 131/97; PULSE 74; RESP 23; TEMP 36.5; O2SAT 95; BMI 30.9
--- NOTE | 2019-11-23 10:55 | ED_ITS ---
HPI - SOB/Dyspnea General: Chief Complaint: Shortness of Breath/Dyspnea Stated Complaint: SOB Time Seen by Provider: 11/23/19 10:51 Source: patient Mode of arrival: ambulatory Limitations: no limitations History of Present Illness: HPI Narrative: 69-year-old male patient presents emergency department with wheezing and shortness of breath. Patient was seen at doctor's office today and was sent over here for a chest x-ray. Patient did have a CBC CMP and urinalysis done today at the doctor's office that has been resulted. Patient states that shortness of breath is been going on for 2 days. Patient does have COPD as well as lung cancer. Patient states he gets pneumonia frequently with the last episode in June and July. Patient denies any fever. Patient denies any chest pain. Patient denies any lower extremity edema. Patient denies any back pain or abdominal pain. Patient denies any urinary symptoms. Patient is currently receiving chemotherapy MD elicited complaint: shortness of breath and cough Pertinent past history: COPD and other (Lung cancer) Onset (ago): day(s) (2) Timing: progressively worsening Severity: moderate Exacerbating factors: exertion and coughing Relieving factors: nothing Known history of: COPD and other (Lung cancer, AAA) Associated symptoms: Reports cough and orthopnea; Deny abdominal pain, chest congestion, chest pain, diaphoresis, dizziness, extremity pain, fever(s), hemoptysis, lightheadedness, myalgias, nausea, palp itations, paresthesias, polydipsia, polyuria, rash, sense of impending doom, syncope or vomiting Treatment prior to arrival: none Related Data: Home oxygen amount: none Review of Systems Const: Denies: fever or diaphoresis ENMT: Denies: uvular edema Card: Reports: shortness of breath when lying down; Denies: chest pain, palpitations, lightheadedness or syncope Resp: Denies: coughing up blood or chest congestion GI: Denies: abdominal pain, nausea or vomiting Musc: Denies: extremity pain Neuro: Denies: dizziness Endo: Denies: excessive urination or excessive thirst PFSH ED PFSH: Statuses (acute, chronic, etc) shown below reflect problem list status as previously entered and may not be historically accurate Family History (Updated 11/03/19 @ 10:23 by Skylar Shankar LPN) Mother Cancer Father COPD (chronic obstructive pulmonary disease) Social History (Updated 11/03/19 @ 10:23 by Skylar Shankar LPN) Smoking and tobacco status: current every day smoker Physical Exam Const: COMMON NORMALS: no apparent distress, oriented x3, healthy appearing, alert and well nourished GENERAL APPEARANCE: cooperative, comfortable, well kempt and well developed; not ill appearing ORIENTATION/CONSCIOUSNESS: Yes awake, Yes oriented to person, Yes oriented to place and Yes oriented to time HENMT: COMMON NORMALS: normocephalic, head/scalp atraumatic, hearing grossly normal bilaterally, external ears normal, EAC's normal, TM's normal bilaterally, external nose normal, nasal mucous membranes and turbinates normal and moist oral mucous membranes HEAD & SCALP: normal to inspection, normocephalic and atraumatic FACE & SINUS: normal facial exam, sinuses nontender and face symmetric NOSE: external nose normal, nares normal, nasal mucous membranes and turbinates normal, no nasal discharge and external nose abnormal EXTERNAL EAR: Yes external ears normal and Yes mastoids normal EXTERNAL AUDITORY CANAL: EAC's normal TYMPANIC MEMBRANE: TM's normal bilaterally MOUTH: oral and palatal mucosa normal, lip normal, tongue normal and salivary glands and ducts normal THROAT: posterior oropharynx normal, tonsils normal and uvula midline; no uvular edema Eye: COMMON NORMALS: PERRL, EOMs intact bilaterally, conjunctivae normal, no scleral icterus and no papilledema GENERAL EYE: normal appearance of both eyes EYELID: eyelids normal CONJUNCTIVA: Yes conjunctivae normal SCL ERA: sclerae normal CORNEA: Yes corneas normal PUPIL: Yes PERRL DIRECT OPHTHALMOSCOPY: Yes no papilledema Neck/C-Spine: COMMON NORMALS: full ROM, no lymphadenopathy, supple, no meni ngeal signs, no JVD and thyroid normal GENERAL: Yes normal visual inspection and Yes trachea midline THYROID: thyroid normal CERVICAL SPINE: Yes cervical ROM normal Lymph: LYMPHATIC: no lymphadenopathy noted and no lymphedema noted Chest: COMMONS NORMALS: inspection of chest normal and palpation of chest normal Resp: COMMON NORMALS: normal respiratory effort, no retractions and no use of accessory muscles; negative for clear to auscultation bilaterally EFFORT & INSPECTION: Yes able to speak in complete sentences, Yes symmetric chest movement and Yes audible wheezes AUSCULTATION: not clear to auscultation bilaterally and wheezes expiratory wheezes, inspiratory wheezes, scattered wheezes and upper bilaterally Cardio: COMMON NORMALS: no JVD, regular rate and regular rhythm RATE: regular rate RHYTHM: regular rhythm GI: COMMON NORMALS: normal to inspection, nondistended, normoactive bowel sounds, soft to palpation, non-tender, no hepatosplenomegaly, no masses and no bruits INSPECTION: Yes normal to inspection AUSCULTATION: Yes normoactive bowel sounds PALPATION: Yes soft and Yes no hepatosplenomegaly PERCUSSION: normal to percussion RECTAL EXAM: Yes deferred : COMMON NORMALS: Yes no CVA tenderness BLADDER/KIDNEY EXAM: Yes no CVA tenderness Back/Pelvis: COMMON NORMALS: no CVA tenderness, thoracic and lumbar spine nor mal to inspection, no thoracic nor lumbar tenderness, thoraco-lumbar ROM normal and straight leg raise negative bilaterally THORACIC SPINE/UPPER BACK: Yes normal to inspection LUMBAR SPINE/LOWER BACK: Yes normal to inspection Extremity: COMMON NORMALS: normal to inspection, full ROM and normal capillary refill GENERAL: Yes normal exam except as noted Neuro: COMMON NORMALS: oriented x3, CN's II-XII intact bilaterally, moves all extremities, no focal motor deficits, no sensory deficits noted, deep tendon reflexes 2+ bilaterally and gait normal SENSORIUM/ORIENTATION: Yes alert, Yes oriented to person, Yes oriented to place and Yes oriented to time MENINGEAL SIGNS: Yes no meningeal signs CRANIAL NERVES: Yes CN normal except as noted SPEECH: speech normal GAIT: Yes normal gait SENSORY EXAM: Yes extremities MOTOR EXAM: strength 5/5 throughout Psych: COMMON NORMALS: mental status grossly normal, thought process normal, cooperative, affect normal, speech normal, activity/motor behavior normal, denies hallucinations, denies homicidal ideation and denies suicidal ideation APPEARANCE: Yes grossly normal and Yes well kempt ATTITUDE: Yes calm ACTIVITY/MOTOR BEHAVIOR: Yes appropriate eye contact SPEECH: Yes normal speech THOUGHT PROCESS: normal thought process THOUGHT CONTENT: Yes normal thought content ATTENTION/CONCENTRATION: Yes attention grossly intact MEMORY/COGNITION: Yes memory grossly intact INSIGHT: insight good JUDGEMENT: judgment good Skin: COMMON NORMALS: no rashes or lesions noted, no wounds, skin turgor normal, no jaundice, no petechiae and no mottling GENERAL SKIN EXAM: no rashes or lesions noted and turgor normal Course ED course: Patient is well-appearing nontoxic and in no acute distress. Patient is a cancer patient undergoing chemo treatment. Patient was seen by Dr. caruso and had labs performed and office there was no concerning findings there is no elevation of white blood count. Patient was sent here for chest x-ray. Chest x-ray did not show any areas of consolidation or infiltration. However given patient's past medical history of COPD and lung cancer I will go ahead and start patient on steroids and antibiotics at this time. Patient has albuterol at home advised patient to continue to use this as prescribed. Patient was given 125 mg of Solu-Medrol IV while here in the emergency department as well as a DuoNeb treatment. Patient did have clinical improvement with this. Patient had no signs of respiratory distress. Patient was not hypoxic. Patient ambulated without difficulty. Patient's vital signs are stable. Patient will follow-up with his primary care physician. Do not feel any further testing is warranted at this time. Patient was negative for influenza a and B. Patient is medically cleared and appropriate for discharge Vital Signs: Vital signs: Vital Signs Temperature 98.8 F 11/23/19 13:37 Pulse Rate 72 11/23/19 13:37 Respiratory Rate 16 11/23/19 13:37 Blood Pressure 121/85 11/23/19 13:37 Pulse Oximetry 93 11/23/19 13:37 MDM - SOB/Dyspnea Lab Data: Labs: Lab Results 11/23/19 Range/Units 11:28 Influenza Type A A g Negative (Negative) POC Influenza B Ag Negative (Negative) Discharge Plan Discharge Patient Disposition: Home, Self-Care Clinical Impression: Acute exacerbation of chronic obstructive airways disease Condition: Stable Prescriptions: New prednisone 20 mg tablet 20 mg PO BID 5 Days Qty: 10 RF: 0 doxycycline hyclate 100 mg capsule 100 mg PO BID 7 Days Qty: 14 RF: 0 No Action levocetirizine [Allergy Relief (levocetirizin)] 5 mg tablet 5 mg PO DAILY PRNRF: 0 cyclobenzaprine 5 mg tablet 10 mg PO Q8H PRNRF: 0 irbesartan 300 mg tablet 300 mg PO DAILY RF: 0 cabergoline 0.5 mg tablet 0.5 mg PO .weekly RF: 0 albuterol sulfate [Ventolin HFA] 90 mcg/actuation HFA aerosol inhaler 2 puff INHALATION Q6H RF: 0 metoprolol succinate 50 mg tablet extended release 24 hr 50 mg PO DAILY RF: 0 tamsulosin [Flomax] 0.4 mg capsule 0.4 mg PO DAILY RF: 0 gabapentin 300 mg capsule 300 mg PO TID RF: 0 rosuvastatin [Crestor] 10 mg tablet 10 mg PO DAILY RF: 0 Discharge Orders: Discharge Order (Routine); Ordered 11/23/19 Ordered By: Sherly Sorto Referrals: Raymundo Palm MD [Family Provider] - (Please followup as needed) Randy Vazquez [Primary Care Provider] - Discharge Diet: Usual diet Discharge Activity: Increase activity as tolerated Patient Instructions: Chronic Obstructive Pulmonary Disease (ED) Activity Restrictions/Additional Instructions: Please take medications as directed Please use Albuterol inhaler as prescribed Discharge Date/Time: 11/23/19 13:38 Coding Level of Care Code ED 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
--- NOTE | 2019-11-23 11:04 | XRR_ITS ---
PROCEDURE INFORMATION: Exam: XR Chest, 2 Views Exam date and time: 11/23/2019 11:26 AM Age: 69 years old Clinical indication: Shortness of breath; Prior surgery; Surgery date: 6+ months; Surgery type: Port; Additional info: SOB TECHNIQUE: Imaging protocol: XR of the chest Views: 2 views. COMPARISON: CR Chest 1 [place] [id number] 08/04/2019 9:20 AM FINDINGS: Tubes, catheters and devices: Mediport/chest port via the left subclavian approach with the tip projecting over the superior vena cava. Lungs: Emphysema Lungs are well aerated without a focal area of consolidation. Pleural space: Unremarkable. No pleural effusion. No pneumothorax. Heart/Mediastinum: Unremarkable. No cardiomegaly. Bones/joints: Unremarkable. XR/XR chest 2V* [id number] IMPRESSION: Lungs are well aerated without a focal area of consolidation.
--- NOTE | 2019-11-23 11:07 | ECG_ITS ---
Measurements Intervals [place] Rate: 72 P: 44 MS: 164 QRS: 66 QRSD: 86 T: 63 QT: 413 QTc: 454 SINUS RHYTHM Compared to ECG 08/04/2019 14:46:27 No significant changes Electronically Signed On 11-23-2019 21:01:41 IT RECRUITER by Albert Jackson M.D. [id number] f
[2019-11-23] MEDS: ipratropium-albuterol 3 mL Neb NEBULIZER (11:27)
[2019-11-23 11:30] VITALS: PULSE 75; RESP 16; O2SAT 93
[2019-11-23 11:34] VITALS: PULSE 78
[2019-11-23 12:02] LABS: Influenza A by IFA Negative (Negative); Influenza B by IFA Negative (Negative)
[2019-11-23 12:47] VITALS: BP 107/84; PULSE 70; RESP 16; O2SAT 90
[2019-11-23 13:00] VITALS: BP 118/78; PULSE 80; RESP 16; O2SAT 90
[2019-11-23 13:37] VITALS: BP 121/85; PULSE 72; RESP 16; TEMP 37.1; O2SAT 93
--- NOTE | 2019-11-23 13:51 | PC.NURSE ---
Patient had port access in place as he was in oncology prepping for chemo treatment when he was sent to ED. Port was deacessed at discharge as patient was not going to be able to receive treatment today.
== END 2019-11-23 13:38 | disposition home or self-care (01) ==
PROVIDERS: Emergency Provider Registered Nurse; Family Provider Family Medicine; PCP Radiology Radiation Oncology
DX: J44.1 Chronic obstructive pulmonary disease with (acute) exacerbation (principal); F17.210 Nicotine dependence, cigarettes, uncomplicated
CPT/HCPCS: 71046; 87804; 93005; 94640; 96375; 99282; 99284; J2930

== ENCOUNTER 2019-12-01 05:36 | Outpatient (RCR) | payer MEDICARE, MEDICAID, SELFPAY ==
[2019-11-23 09:02] LABS: Basophils # 0.1 10^3/uL (0.0-0.1); Basophils % 0.7 %; Eosinophils # 0.1 10^3/uL (0.0-0.8); Eosinophils % 0.8 %; Hematocrit 41.3 % (42.0-52.0); Hemoglobin 13.7 g/dL (11.7-16.6); Lymphocytes # 1.2 10^3/uL (0.8-4.8); Mean Corpuscular HGB Conc 33.2 g/dL (30.0-36.0); Mean Corpuscular Hemoglobin 29.1 pg (28.0-34.0); Mean Corpuscular Volume 87.7 fL (80-94); Mean Platelet Volume 9.8 fL (7.4-10.4); Monocytes # 0.6 10^3/uL (0.2-0.9); Monocytes % 7.1 %; Neutrophils % 68.7 %; Nucleated Red Blood Cells % 0.3 %; Platelet Count 77 10^3/cmm (130-400); Red Blood Count 4.71 10^6/uL (4.1-5.3); Red Cell Distribution Width 15.3 % (12.1-15.1); White Blood Count 8.7 10^3/uL (4.0-10.0)
[2019-11-23 09:15] LABS: Alanine Aminotransferase 23 U/L (0-41); Albumin Level 3.6 g/dL (3.5-5.2); Alkaline Phosphatase 123 IU/L (40-130); Anion Gap 17.2 (5-19); Aspartate Amino Transferase 15 U/L (0-40); Blood Urea Nitrogen 17 mg/dL (8-23); Calcium 10.1 mg/dL (8.5-10.5); Carbon Dioxide 25 mmol/L (22-29); Chloride 96 mmol/L (98-107); Globulin 3.6 g/dL (1.3-4.6); Glomerular Filtration Rate 112.1 mL/min (90-130); Glucose 133 mg/dL (74-106); Potassium 4.2 mmol/L (3.5-5.1); Sodium 134 mmol/L (136-145); Total Bilirubin 0.3 mg/dL (0.15-1.2); Total Protein 7.2 g/dL (6.6-8.7)
[2019-11-23 10:01] LABS: Slide Review Slide Review Perform
[2019-12-01 09:13] LABS: Basophils % 0.4 %; Eosinophils # 0.5 10^3/uL (0.0-0.8); Eosinophils % 6.7 %; Hematocrit 43.8 % (42.0-52.0); Hemoglobin 14.3 g/dL (11.7-16.6); Lymphocytes # 1.4 10^3/uL (0.8-4.8); Mean Corpuscular HGB Conc 32.6 g/dL (30.0-36.0); Mean Corpuscular Hemoglobin 29.9 pg (28.0-34.0); Mean Corpuscular Volume 91.6 fL (80-94); Mean Platelet Volume 10.2 fL (7.4-10.4); Monocytes # 0.8 10^3/uL (0.2-0.9); Monocytes % 10.9 %; Neutrophils # 4.3 10^3/uL (1.8-7.7); Neutrophils % 60.1 %; Nucleated Red Blood Cells % 0.4 %; Platelet Count 286 10^3/cmm (130-400); Red Blood Count 4.78 10^6/uL (4.1-5.3); Red Cell Distribution Width 16.5 % (12.1-15.1); White Blood Count 7.1 10^3/uL (4.0-10.0)
[2019-12-01 09:17] LABS: Alanine Aminotransferase 19 U/L (0-41); Albumin Level 3.8 g/dL (3.5-5.2); Alkaline Phosphatase 83 IU/L (40-130); Anion Gap 18.3 (5-19); Aspartate Amino Transferase 13 U/L (0-40); Blood Urea Nitrogen 21 mg/dL (8-23); Calcium 9.7 mg/dL (8.5-10.5); Carbon Dioxide 26 mmol/L (22-29); Chloride 100 mmol/L (98-107); Glomerular Filtration Rate 96.1 mL/min (90-130); Glucose 158 mg/dL (65-115); Potassium 4.3 mmol/L (3.5-5.1); Sodium 140 mmol/L (136-145); Total Bilirubin 0.5 mg/dL (0.15-1.2); Total Protein 6.8 g/dL (6.6-8.7)
[2019-12-01] MEDS: LORazepam 2 mg/mL INJ 1 mL 0.5 MG IV (09:35)
== END 2019-12-01 23:59 | disposition home or self-care (01) ==
LOC: ONCMED 05:36
PROVIDERS: Family Provider Family Medicine; PCP Radiology Radiation Oncology; Visit Provider Internal Medicine Hematology & Oncology
DX: C34.12 Malignant neoplasm of upper lobe, left bronchus or lung (principal); E83.42 Hypomagnesemia; E87.6 Hypokalemia; C77.1 Secondary and unspecified malignant neoplasm of intrathoracic lymph nodes; D69.59 Other secondary thrombocytopenia; T45.1X5A Adverse effect of antineoplastic and immunosuppressive drugs, initial encounter; I71.4 Abdominal aortic aneurysm, without rupture; F17.210 Nicotine dependence, cigarettes, uncomplicated; F41.9 Anxiety disorder, unspecified; J43.9 Emphysema, unspecified; G89.29 Other chronic pain; M54.9 Dorsalgia, unspecified; Z79.01 Long term (current) use of anticoagulants; Z79.899 Other long term (current) drug therapy; Z79.82 Long term (current) use of aspirin; Z79.51 Long term (current) use of inhaled steroids; Z92.3 Personal history of irradiation; Z86.711 Personal history of pulmonary embolism; Z92.25 Personal history of immunosuppression therapy
CPT/HCPCS: 36415; 80053; 85025; 96365; 96375; 99214; J2060; J2930; J3475; J3480; J7030

== ENCOUNTER 2019-12-01 09:57 | Observation (INO) | payer MEDICARE, MEDICAID, SELFPAY ==
[2019-12-01] VITALS (9 sets, daily range): BP systolic 93–145; BP diastolic 55–100; PULSE 69–112; RESP 16–26; TEMP 36.6–36.7; O2SAT 93–97; BMI 31.6
--- NOTE | 2019-12-01 10:07 | ED_ITS ---
Entered by Clary Powell, acting as scribe for HPI - SOB/Dyspnea General: Chief Complaint: Shortness of Breath/Dyspnea Stated Complaint: resp distress Time Seen by Provider: 12/01/19 10:04 Source: patient and family Mode of arrival: ambulatory Limitations: no limitations History of Present Illness: HPI Narrative: 69 yo male presents with a cough and increased shortness of breath. pt states this started today. pt is having a hard time swallowing, and choking on things. pt states this is worsened with liquids and solids. pt states nothing makes this better or worse. pt has a hx of chest and lung cancer, pt has had chemo and radiates. pt denies any other symptoms at this time. MD elicited complaint: shortness of breath and cough Onset (ago): day(s) (today) Timing: constant Severity: moderate Exacerbating factors: coughing and deep breaths Relieving factors: nothing Known history of: other (cancer- chemo and radiation) Associated symptoms: Reports chest congestion and cough Treatment prior to arrival: other (breathing treatments at home as needed) Related Data: Home oxygen amount: none Review of Systems General: Reports: 10 or more systems reviewed and unremarkable except in HPI and below Resp: Reports: chest congestion PFSH ED PFSH: Statuses (acute, chronic, etc) shown below reflect problem list status as previously entered and may not be historically accurate Medical History (Updated 12/01/19 @ 10:18 by Clary Powell) Cancer Family History (Updated 11/03/19 @ 10:23 by Skylar Shankar LPN) Mother Cancer Father COPD (chronic obstructive pulmonary disease) Social History (Updated 11/03/19 @ 10:23 by Skylar Shankar LPN) Smoking and tobacco status: current every day smoker Physical Exam Const: COMMON NORMALS: no apparent distress, average body habitus, oriented x3, no limitations, healthy appearing, alert and well nourished HENMT: COMMON NORMALS: normocephalic, head/scalp atraumatic, hearing grossly normal bilaterally, external ears normal, EAC's normal, TM's normal bilaterally, external nose normal, nasal mucous membranes and turbinates normal, moist oral mucous membranes, oropharynx normal, dentition normal and gingiva normal HEAD & SCALP: normocephalic and atraumatic NOSE: external nose normal and nasal mucous membranes and turbinates normal EXTERNAL EAR: Yes external ears normal EXTERNAL AUDITORY CANAL: EAC's normal TYMPANIC MEMBRANE: TM's normal bilaterally Eye: COMMON NORMALS: PERRL, EOMs intact bilaterally, conjunctivae normal, no scleral icterus, no papilledema, normal visual mata by confrontation and fundi normal bilaterally CONJUNCTIVA: Yes conjunctivae normal PUPIL: Yes PERRL DIRECT OPHTHALMOSCOPY: Yes no papilledema and Yes fundi normal bilaterally Neck/C-Spine: COMMON NORMALS: full ROM, no lymphadenopathy, supple, no meningeal signs, no JVD, thyroid normal and no carotid bruits THYROID: thyroid normal Chest: COMMONS NORMALS: inspection of chest normal and palpation of chest normal Cardio: COMMON NORMALS: no JVD, regular rate, regular rhythm, S1 normal heart sound, S2 normal heart sound, no gallops, no clicks, no murmurs, no rub and peripheral pulses 2+ throughout RATE: regular rate RHYTHM: regular rhythm HEART SOUNDS: S1 normal and S2 normal PERIPHERAL PULSES: pulses 2+ throughout GI: COMMON NORMALS: normal to inspection, nondistended, normoactive bowel sounds, soft to palpation, non-tender, no hepatosplenomegaly, no masses and no bruits PALPATION: Yes soft and Yes no hepatosplenomegaly : COMMON NORMALS: Yes no CVA tenderness BLADDER/KIDNEY EXAM: Yes no CVA tenderness Back/Pelvis: COMMON NORMALS: no CVA tenderness, thoracic and lumbar spine normal to inspection, no thoracic nor lumbar tenderness, thoraco-lumbar ROM normal and straight leg raise negative bilaterally Extremity: COMMON NORMALS: normal to inspection, full ROM, normal capillary refill, no joint enlargement, no clubbing, cyanosis or edema, no calf tenderness and no pedal edema Neuro: COMMON NORMALS: oriented x3 SENSORIUM/ORIENTATION: Yes alert MENINGEAL SIGNS: Yes no meningeal signs Skin: COMMON NORMALS: no rashes or lesions noted, no wounds, skin turgor normal, no jaundice, no petechiae and no mottling GENERAL SKIN EXAM: no rashes or lesions noted and turgor normal Course Vital Signs: Vital signs: Vital Signs Temperature 98.1 F 12/01/19 09:58 Pulse Rate 112 H 12/01/19 11:47 Respiratory Rate 18 12/01/19 11:47 Blood Pressure 130/79 12/01/19 11:47 Pulse Oximetry 93 12/01/19 11:47 MDM - SOB/Dyspnea Lab Data: Labs: Lab Results 12/01/19 12/01/19 12/01/19 Range/Units 10:30 10:30 10:30 WBC 6.7 (4.0-10.0) 10^3/ uL RBC 4.58 (4.1-5.3) 10^6/u L Hgb 13.5 (11.7-16.6) g/dL Hct 41.3 L (42.0-52.0) % MCV 90.2 (80-94) fL MCH 29.5 (28.0-34.0) pg MCHC 32.7 (30.0-36.0) g/dL RDW 16.7 H (12.1-15.1) % Plt Count 254 (130-400) 10^3/c mm MPV 9.7 (7.4-10.4) fL Neut % (Auto) 61.7 % Lymph % (Auto) 22.6 % Stokes % (Auto) 6.6 % Eos % (Auto) 6.0 % Baso % (Auto) 0.4 % Neut # (Auto) 4.1 (1.8-7.7) 10^3/u L Lymph # (Auto) 1.5 (0.8-4.8) 10^3/u L Stokes # (Auto) 0.4 (0.2-0.9) 10^3/u L Eos # (Auto) 0.4 (0.0-0.8) 10^3/u L Baso # (Auto) 0.0 (0.0-0.1) 10^3/u L Nucleated RBC % (a uto) 0 % Nucleated RBCs # 0.0 /100WBC Sodium 137 (136-145) mmol/L Potassium 4.4 (3.5-5.1) mmol/L Chloride 101 (98-107) mmol/L Carbon Dioxide 23 (22-29) mmol/L Anion Gap 17.4 (5-19) BUN 22 (8-23) mg/dL Creatinine 0.8 (0.7-1.2) mg/dL GFR Calculation 96.1 (90-130) mL/min Glucose 198 H (65-115) mg/dL Lactate 1.7 (0.5-2.2) mmol/L Calcium 9.8 (8.5-10.5) mg/dL Total Bilirubin 0.4 (0.15-1.2) mg/dL AST 13 (0-40) U/L ALT 20 (0-41) U/L Alkaline Phosphata se 77 (40-130) IU/L Troponin T Baselin e (0-15) ng/mL Troponin T 120 Min [place] (0-15) ng/mL Delta Troponin T (0-10) ABS# NT-Pro-B Natriuret Pep 127 H (0-125) pg/mL Total Protein 6.4 L (6.6-8.7) g/dL Albumin 3.8 (3.5-5.2) g/dL Globulin 2.6 (1.3-4.6) g/dL Lipase 14 (13-60) U/L Influenza Type A A g (Negative) POC Influenza B Ag (Negative) 12/01/19 12/01/19 12/01/19 Range/Units 10:30 10:30 12:38 WBC (4.0-10.0) 10^3/ uL RBC (4.1-5.3) 10^6/u L Hgb (11.7-16.6) g/dL Hct (42.0-52.0) % MCV (80-94) fL MCH (28.0-34.0) pg MCHC (30.0-36.0) g/dL RDW (12.1-15.1) % Plt Count (130-400) 10^3/c mm MPV (7.4-10.4) fL Neut % (Auto) % Lymph % (Auto) % Stokes % (Auto) % Eos % (Auto) % Baso % (Auto) % Neut # (Auto) (1.8-7.7) 10^3/u L Lymph # (Auto) (0.8-4.8) 10^3/u L Stokes # (Auto) (0.2-0.9) 10^3/u L Eos # (Auto) (0.0-0.8) 10^3/u L Baso # (Auto) (0.0-0.1) 10^3/u L Nucleated RBC % (a uto) % Nucleated RBCs # /100WBC Sodium (136-145) mmol/L Potassium (3.5-5.1) mmol/L Chloride (98-107) mmol/L Carbon Dioxide (22-29) mmol/L Anion Gap (5-19) BUN (8-23) mg/dL Creatinine (0.7-1.2) mg/dL GFR Calculation (90-130) mL/min Glucose (65-115) mg/dL Lactate (0.5-2.2) mmol/L Calcium (8.5-10.5) mg/dL Total Bilirubin (0.15-1.2) mg/dL AST (0-40) U/L ALT (0-41) U/L Alkaline Phosphata se (40-130) IU/L Troponin T Baselin e 14 (0-15) ng/mL Troponin T 120 Min [place] 13.27 (0-15) ng/mL Delta Troponin T -0.73 L (0-10) ABS# NT-Pro-B Natriuret Pep (0-125) pg/mL Total Protein (6.6-8.7) g/dL Albumin (3.5-5.2) g/dL Globulin (1.3-4.6) g/dL Lipase (13-60) U/L Influenza Type A A g Negative (Negative) POC Influenza B Ag Negative (Negative) Discharge Plan Discharge Prescriptions: No Action levocetirizine [Allergy Relief (levocetirizin)] 5 mg tablet 5 mg PO DAILY PRN (Reason: Allergy Symptoms) RF: 0 cyclobenzaprine 5 mg tablet 10 mg PO Q8H PRN (Reason: Spasms) RF: 0 irbesartan 300 mg tablet 300 mg PO DAILY RF: 0 cabergoline 0.5 mg tablet 0.5 mg PO .weekly RF: 0 albuterol sulfate [Ventolin HFA] 90 mcg/actuation HFA aerosol inhaler 2 puff INHALATION Q4H PRN (Reason: Shortness Of Breath) RF: 0 metoprolol succinate 50 mg tablet extended release 24 hr 50 mg PO DAILY RF: 0 tamsulosin [Flomax] 0.4 mg capsule 0.4 mg PO DAILY RF: 0 gabapentin 300 mg capsule 300 mg PO TID RF: 0 rosuvastatin [Crestor] 10 mg tablet 10 mg PO DAILY RF: 0 Aspir-Low 81 mg Tablet,Delayed Release (Dr/Ec) 162 mg PO DAILY RF: 0 Coding Level of Care Code ED Care Professional for Chg Fwd Exam Problem Focused The documentation recorded by the Andre kelly Bridget Annette, accurately reflects the service I personally performed and the decisions made by , Kevon Cox DO Dec 01, 2019 09:57
--- NOTE | 2019-12-01 10:21 | CT_ITS ---
WS: [id number] CT scan of the head, with and without IV contrast, 12/01/2019 Clinical Data: brain mets? Comparison: CT head, 10/15/2018. DLP: 1340.[address] scans at [facility] use at least one of these dose optimization techniques: automat ed exposure control; mA and/or kV adjustment per patient size (includes targeted exams where dose is matched to clinical indication); or iterative reconstruction. Findings: The ventricular system is normal without shift. No recent infarct or hemorrhage is seen. There are no abnormal intracerebral masses. The cerebellum and brainstem are not remarkable. No metastatic lesion s are seen. No abnormal contrast enhancement of any structure occurs. Bony windows of the skull and skull base show no fractures or erosions. The mastoid air cells, undergraduate internship al auditory canals, sella turcica, intraorbital contents, and paranasal sinuses are unremarkable. CT/CT head wo/w con [id number] Impression: Negative CT scan of the head with and without IV contrast.
--- NOTE | 2019-12-01 10:21 | XR_ITS ---
WS: [id number] Portable AP upright chest, 12/01/2019 Clinical Data: cough/dyspnea Comparison: PA and lateral chest, 11/23/2019 Findings: No nodules, masses or effusions are seen. The heart is normal. The pulmonary vascularity is not increased. No pneumonia or pneumothorax is seen. There is a left subclavian catheter ending in t he superior vena cava unchanged. The diaphragms are flattened. There are monitor leads over the chest wall. XR/XR chest 1V portable [id number] Impression: Poor inflation.
--- NOTE | 2019-12-01 10:23 | ECG_ITS ---
Measurements Intervals [place] Rate: 92 P: 47 AK: 154 QRS: 73 QRSD: 83 T: 32 QT: 357 QTc: [address] & T-WAVE ABNORMALITY INTERPRETATION BASED ON A DEFAULT AGE OF 40 YEARS Compared to ECG 11/23/2019 11:52:10 T-wave abnormality now present Electronically Signed On 12-01-2019 19:57:49 MOBILE EQUIPMENT SERVICER by Albert Jackson M.D. [id number] f
[2019-12-01] MEDS: sodium chloride 0.9% 500 ML IV (10:34)
[2019-12-01] MEDS: ondansetron 2 mg/ML SDV 2 mL 4 MG IVP (10:34)
[2019-12-01] MEDS: morphine 4 mg/mL SDV 1 mL IVP (10:34)
[2019-12-01 10:46] LABS: Basophils % 0.4 %; Eosinophils # 0.4 10^3/uL (0.0-0.8); Hematocrit 41.3 % (42.0-52.0); Hemoglobin 13.5 g/dL (11.7-16.6); Lymphocytes # 1.5 10^3/uL (0.8-4.8); Lymphocytes % 22.6 %; Mean Corpuscular HGB Conc 32.7 g/dL (30.0-36.0); Mean Corpuscular Hemoglobin 29.5 pg (28.0-34.0); Mean Corpuscular Volume 90.2 fL (80-94); Mean Platelet Volume 9.7 fL (7.4-10.4); Monocytes # 0.4 10^3/uL (0.2-0.9); Monocytes % 6.6 %; Neutrophils # 4.1 10^3/uL (1.8-7.7); Neutrophils % 61.7 %; Nucleated Red Blood Cells % 0 %; Platelet Count 254 10^3/cmm (130-400); Red Blood Count 4.58 10^6/uL (4.1-5.3); Red Cell Distribution Width 16.7 % (12.1-15.1); White Blood Count 6.7 10^3/uL (4.0-10.0)
[2019-12-01 11:02] LABS: Lactate (Lactic Acid level) 1.7 mmol/L (0.5-2.2)
[2019-12-01 11:04] LABS: Troponin(5th) Baseline 14 ng/mL (0-15)
[2019-12-01 11:06] LABS: Influenza A by IFA Negative (Negative); Influenza B by IFA Negative (Negative)
--- NOTE | 2019-12-01 11:09 | PC.PHAR ---
PTS STATES THAT PT IS NO LONGER TAKING THE DEXAMETHASONE, ATIVAN, AND COMPIZINE.
[2019-12-01 11:11] LABS: Alanine Aminotransferase 20 U/L (0-41); Albumin Level 3.8 g/dL (3.5-5.2); Alkaline Phosphatase 77 IU/L (40-130); Anion Gap 17.4 (5-19); Aspartate Amino Transferase 13 U/L (0-40); Blood Urea Nitrogen 22 mg/dL (8-23); Calcium 9.8 mg/dL (8.5-10.5); Carbon Dioxide 23 mmol/L (22-29); Chloride 101 mmol/L (98-107); Globulin 2.6 g/dL (1.3-4.6); Glomerular Filtration Rate 96.1 mL/min (90-130); Glucose 198 mg/dL (65-115); Lipase 14 U/L (13-60); NT Pro B Type Natriuretic Pept 127 pg/mL (0-125); Potassium 4.4 mmol/L (3.5-5.1); Sodium 137 mmol/L (136-145); Total Bilirubin 0.4 mg/dL (0.15-1.2); Total Protein 6.4 g/dL (6.6-8.7)
--- NOTE | 2019-12-01 11:11 | PC.PHAR ---
Addendum entered by Melisa Michel 12/01/19 11:16: PTS ALSO STATES THAT PT IS NO LONGER HAVING TO USE INSULIN Original Note: PTS STATES THAT HE NO LONGER TAKES DEXAMETHASONE, ATIVAN, OR COMPIZINE.
[2019-12-01] MEDS: iohexol 300 mg/mL 100 mL Btl IV (11:25)
--- NOTE | 2019-12-01 12:23 | ECG_ITS ---
Measurements Intervals [place] Rate: 78 P: 29 MN: 175 QRS: 66 QRSD: 87 T: 54 QT: 410 QTc: 468 SINUS RHYTHM Compared to ECG 11/23/2019 11:52:10 No significant changes Electronically Signed On 12-01-2019 20:08:31 CLOTHING WORKER by Albert Jackson M.D. [id number]
[2019-12-01 13:01] LABS: Troponin 5 2HR 13.27 ng/mL (0-15)
[2019-12-01 13:09] LABS: Troponin 5 2HR Delta -0.73 ABS# (0-10)
--- NOTE | 2019-12-01 16:23 | ECG_ITS ---
Measurements Intervals [place] Rate: 76 P: 48 [place]: 174 QRS: 67 QRSD: 92 T: 80 QT: 409 QTc: 461 SINUS RHYTHM POSSIBLE INFERIOR MYOCARDIAL INFARCTION , PROBABLY OLD WITH POSTERIOR EXTENSION [30 ms Q WAVE IN II/aVFPROMINENT R WAVE IN V1/ Compared to ECG 11/23/2019 11:52:10 Myocardial infarct finding now present Electronically Signed On 12-01-2019 20:10:48 IT SUPPORT CONSULTANT by Albert Jackson M.D. [id number]
--- NOTE | 2019-12-01 16:50 | PM.HP ---
Providers/Chief Complaint Primary Care Provider: Randy Vazquez MD,PhD Chief Complaint: resp distress History of Present Illness Raymundo Palm is a 69 year old male with NSCLC, COPD, not on oxygen, current smoker of 1 pack/day, HTN, BPH, thoracic aortic aneurysm, pituitary microadenoma was referred for assessment by his oncologist due to episode of unresponsiveness lasting several seconds today while undergoing chemotherapy after a prolonged episode of cough. Reportedly he has been having some shaking episodes recently, as well as intermittent episodes of syncope or unresponsiveness lasting a short time after either cough or eating, or when standing up and walking. It is somewhat difficult to grasp the exact nature of the problems as there appears to be multiple issues that may sound similar, and patient is not a very good historian. History regarding today's episode was obtained from his oncologist Dr. Bill. It appears patient was unresponsive for several seconds after a stent of cough. He woke up spontaneously, was anxious afterwards, received Ativan, and received a dose of Solu-Medrol. There was no seizure like activity, and he was keenly aware right afterward. Patient himself reports he had an episode of cough. Prescription with him and his , he has been having the feeling of food getting stuck in his chest, but also is coughing with food and drink. also states that he has been having episodes where he will get dizzy or syncopized after standing up and walking, with most recent episode like that about 2 weeks ago. These episodes apparently have been lasting for very long time. Episodes of tremors/shaking, and anxiety started appearing over the last 2 months after his dose of chemotherapy was increased per discussion with his . He is currently doing well. He denies any symptoms at this time. He denies any headache, any loss of vision bitemporally. Denies any palpitations. He reports he has been coughing, productive cough with colorful sputum. He denies any chest pain. Does not have any unilateral swelling. His blood pressures at home have been variable, a few weeks ago were as low as 105/60, and today in ER are 107/75. Occasionally blood pressures run as high as 180 systolic. His glucose reportedly has been variable, although has not been measured during today's episode. He takes irbesartan, metoprolol for hypertension. He takes tamsulosin for BPH. He denies being diagnosed with diabetes, is not on any medications, nor is his aware of him having diabetes, however, A1c is 7.1 on 11/09/2019. In ER he is noted to be mildly hypoxic, requiring 2 L of oxygen by nasal cannula. He is checked for rapid flu and this is negative. He is afebrile, without leukocytosis, without electrolyte abnormalities. Lactic acid is 1.7. Troponin is not elevated. BNP with minute elevation at 127. Lipase is normal. CT of the head was done with contrast to assess for possible metastatic disease to [employer], and was unremarkable. There is no mention of expanding pituitary lesion for which he takes cabergoline. Chest x-ray only shows poor inflation. CT abdomen pelvis on 10/30/2019 was unremarkable. Chronic ascending thoracic aortic aneurysm unchanged in size on echocardiogram in June 2019 at 46 mm. This is being followed by his primary care provider. Ejection fraction 75%. No valvular abnormality is noted. Review of Systems Const: Denies: fever, chills, body aches or malaise Eyes: Denies: change in vision or eye redness ENMT: Denies: throat pain, oral sores/lesions or ear pain Card: Reports: syncope, pre-syncope and shortness of breath on exertion; Denies: chest pain, palpitations or edema Resp: Reports: shortness of breath and productive cough; Denies: change in phlegm color or coughing up blood GI: Reports: difficulty swallowing; Denies: abdominal pain, nausea, vomiting, diarrhea, constipation, blood in stool or black tarry stool : Denies: flank pain, difficulty urinating, urinary frequency or blood in urine Musc: Denies: back pain, joint swelling or redness Skin/Breast: Denies: rash, sores or new lesion Neuro: Denies: headache, numbness in extremities, weakness in extremities, dizziness, confusion or seizure-like activity Endo: Denies: excessive urination or excessive thirst Iggy/Lymph: Denies: easy bleeding or purpura All/Imm: Denies: hives, throat swelling or tongue swelling Medications/Allergies Home Medications Medication Instructions Recorded Confirmed Last Taken Type aspirin [Aspir-Low] 162 mg PO DAILY 12/01/19 12/01/19 12/01/19 History Allergies Allergy/AdvReac Type Severity Reaction Status Date / Time gemfibrozil [From Lopid] Allergy Unknown Unknown Verified 12/01/19 10:07 niacin Allergy Unknown Unknown Verified 12/01/19 10:07 [From Niaspan Extended-Release] PFSH Acute PFSH: Statuses (acute, chronic, etc) shown below reflect problem list status as previously entered and may not be historically accurate Medical History Ascending aortic aneurysm BPH (benign prostatic hyperplasia) COPD (chronic obstructive pulmonary disease) Encounter for insertion of venous access port HLD (hyperlipidemia) HTN (hypertension) NSCLC of left lung Pituitary macroadenoma Smoking addiction Surgical History History of bronchoscopy Family History Mother Cancer Father COPD (chronic obstructive pulmonary disease) CAD (coronary artery disease) Social History Smoking and tobacco status: current every day smoker cigarettes Packs smoked per day: 1 Vitals/I&O/Wt Last Vital Signs Temp 98.1 F 12/01/19 09:58 Pulse 77 12/01/19 13:30 Resp 16 12/01/19 13:30 BP 110/85 12/01/19 13:30 Pulse Ox 95 12/01/19 13:30 Weight last 48 hrs Weight 94.347 kg Physical Exam Const: COMMON NORMALS: no apparent distress and oriented x3 HENMT: COMMON NORMALS: oropharynx normal Neck/C-Spine: COMMON NORMALS: no JVD Chest: CHEST: Yes vascular access (L chest port) Resp: COMMON NORMALS: normal respiratory effort and clear to auscultation bilaterally AUSCULTATION: wheezes throughout and diminished lung sounds Cardio: COMMON NORMALS: no JVD, regular rhythm, S1 normal heart sound, S2 normal heart sound and no murmurs RHYTHM: regular rhythm HEART SOUNDS: S1 normal and S2 normal GI: COMMON NORMALS: normal to inspection, nondistended, normoactive bowel sounds, soft to palpation and non-tender PALPATION: Yes soft Extremity: COMMON NORMALS: no joint enlargement and no pedal edema Neuro: COMMON NORMALS: oriented x3 and moves all extremities Skin: COMMON NORMALS: no rashes or lesions noted GENERAL SKIN EXAM: no rashes or lesions noted Data : 12/01/19 10:30 12/01/19 10:30 Micro: Microbiology 12/01/19 10:35 Blood Culture - Preliminary Blood SPECIMEN COLLECTED 12/01/19 10:30 Blood Culture - Preliminary Blood SPECIMEN COLLECTED A&P Assessment and plan (1) Syncope: With regards to his episodes of unresponsiveness/syncope there appears to be several things going on. For 1 he had a brief, several seconds episode of unresponsiveness today after a bout of cough while receiving chemotherapy. In ER he appears to be in exacerbation COPD, with wheezing throughout, hypoxic requiring 2 L of by nasal cannula whereas normally the not need oxygen. Today's few seconds of unresponsiveness appears to be related to episode of hypoxia due to COPD exacerbation probably triggered by prolonged tussive episode. Reports these episodes have been happening intermittently for a while, also with food getting stuck in his chest, as well as noting that he coughs anytime he eats or drinks. No seizure-like activity was reported. He became alert and aware right afterward, although anxious received Ativan and then Solu-Medrol. He has no chest pain, denies any palpitations, troponin is not elevated. There are no focal neurologic abnormalities. EKG with sinus rhythm. Echocardiogram in June with ejection fraction 75%, no valvular abnormalities. Stable ascending aortic aneurysm. CTA chest back in number without sign of PE. We will not repeat the studies. CT of the head does not show metastatic malignancy or obvious changes in pituitary macroadenoma, nor is he reporting visual symptoms, headaches, etc. due to this. We will monitor him on telemetry. Will treat COPD exacerbation, and I suspect he likely may need oxygen on discharge. There is a less common chance that cabergoline itself may cause orthostasis and syncope, although he has been on it for quite a while. In addition he and his report that he occasionally gets lightheaded standing up and walking, with intermittent episodes of syncope. This appears to be secondary to a different etiology related to orthostasis. Will request for orthostatic blood pressure. In ER his blood pressure is 107/70. His reports blood pressures are variable at home sometimes as high as 180s systolic. He takes blood pressure medication, and also is on Flomax for BPH which may exacerbate orthostasis. He and his reported that he has good appetite and has not been getting dehydrated. He denies polyuria. We will monitor I&O. Will request for orthostatic blood pressure. In case of severe orthostasis, Flomax dose may need to be cut back. He does have soft blood pressure, and mild hyponatremia with normal calcium, with history of seen ED, and steroid use, and adrenal component may need to be considered, although at this time cannot be assessed further since he just got Solu-Medrol. This will need to be followed up on outpatient side. He also appears to have this of which neither he nor his are aware. A1c was 7.1 in October. This I suspect may be at least in part iatrogenic. May be contributing to autonomic instability. There are also reported episodes of tremors and anxiety, and per discussion appears to have worsened starting several months ago when his chemotherapy dose was intensified per discussion with his . I will leave assessment of these to his oncologist. Discussed assessment and plan with patient and his , and they are agreeable. Status: Acute Code(s): R55 - Syncope and collapse (2) Acute exacerbation of chronic obstructive airways disease: At this time we will continue him on Solu-Medrol, start him on breathing treatments, will give antibiotic coverage with Zosyn due to concern for aspiration, with reported dysphagia. Provide oxygen support. He is not normally on oxygen, however, I suspect may need it on discharge. Continue to encourage smoking cessation as he still smokes 1 pack/day. Status: Acute Code(s): J44.1 - Chronic obstructive pulmonary disease with (acute) exacerbation (3) Dysphagia: This also appears may be multicomponent. He complains of food get stuck in his chest, but also reported cough with food or drink by his . He is oncologist is requesting for EGD as is been due to concern for possible sequela of bradycardia patient therapy, however, per discussion with the surgeon concierge receptionist upper GI study is a commended first as it may alter how subsequent EGD may be done. Discussed with radiology, and modified barium swallow which I would like to assess due to concern for oropharyngeal dysphagia can be combined with esophagram right afterward. Discussed with patient and his . Status: Acute Qualifiers: Dysphagia type: esophageal phase Qualified Code(s): R13.10 - Dysphagia, unspecified Code(s): R13.10 - Dysphagia, unspecified (4) NSCLC of left lung: Continue follow-up with oncology. Status: Acute Code(s): C34.92 - Malignant neoplasm of unspecified part of left bronchus or lung (5) Smoking addiction: Smokes 1 pack/day. Encourage cessation. Status: Acute Code(s): F17.200 - Nicotine dependence, unspecified, uncomplicated (6) Ascending aortic aneurysm: 46 mm on echo in June. 49 mm on CTA in June. From 5 centimeters on imaging in 2018. Status: Acute Code(s): I71.2 - Thoracic aortic aneurysm, without rupture (7) Pituitary macroadenoma: CT head with contrast not reporting any obvious changes. No changes to sella turcica. This does not appear to be symptomatic. He denies any bitemporal hemianopsia. No headaches. No seizure-like activity. He is on cabergoline which itself may sometimes cause orthostasis and could be, although suspicion for this would be lower as he has been on this in a long time. If symptoms persist despite addressing both problems, consider that this may be the culprit. Status: Acute Code(s): D35.2 - Benign neoplasm of pituitary gland Attestations Medical Necessity Statement*: Place in observation. Coding Level of Care Code Acute Manager Environmental Health for [facility] Fwd Diagnoses Syncope R55 Acute exacerbation of chronic obstructive airways disease J44.1 Dysphagia R13.10 Dysphagia type: esophageal phase NSCLC of left lung C34.92 Smoking addiction F17.200 Ascending aortic aneurysm I71.2 Pituitary macroadenoma D35.2
[2019-12-01 16:58] LABS: Troponin 5 6HR 10.85 ng/L (0-15)
[2019-12-01 16:59] LABS: Troponin 5 6HR Delta -3.15 ng/L (0-12)
[2019-12-01] MEDS: piperacillin-tazobactam 3.375 GM in sodium chloride 0.9% (plus) 50 ML IV (18:07)
[2019-12-01 21:18] LABS: Thyroid Stimulating Hormone 0.77 uIU/mL (0.27-4.20)
[2019-12-01] MEDS: enoxaparin 40 mg/0.4 mL Syringe SUBCUT (22:09)
[2019-12-01] MEDS: gabapentin 300 mg Capsule PO (22:09)
[2019-12-02] VITALS (13 sets, daily range): BP systolic 109–138; BP diastolic 74–89; PULSE 67–107; RESP 16–22; TEMP 36.4–37.1; O2SAT 88–97
--- NOTE | 2019-12-02 | FL_ITS ---
WS: [id number] MODIFIED BARIUM SWALLOW HISTORY: Oropharyngeal dysphagia FLUOROSCOPY TIME: 1.9 minutes. Modified barium swallow was performed by the speech pathologist. Fluoroscopy was provided with the pa tient in a lateral projection. Multiple food consistencies were provided. Patient swallowed liquids and food products without difficulty. Several times a small collection of l iquid or food was noted near the piriforms which vallecula which cleared with double swallows. No def inite diverticulum was identified. No aspiration or laryngeal penetration. Barium tablet was swallowe d without difficulty. Tablet became briefly lodged at the GE junction. There is mild delay in emptying of the esophagus. Mild distal esophageal stenosis is suspected. FL/FL barium swallow modifd 63716 IMPRESSION: 1. No aspiration or laryngeal penetration. 2. Suspect mild narrowing of the distal esophagus at the GE junction. Please see speech therapist report also for recommendations.
[2019-12-02] MEDS: ipratropium-albuterol 3 mL Neb INHALATION ×5 (00:14→19:43)
[2019-12-02] MEDS: piperacillin-tazobactam 3.375 GM in sodium chloride 0.9% (plus) 50 ML IV ×3 (02:09→18:09)
[2019-12-02 06:19] LABS: Basophils % 0.1 %; Eosinophils % 0.1 %; Hematocrit 39.6 % (42.0-52.0); Hemoglobin 12.9 g/dL (11.7-16.6); Lymphocytes # 1.1 10^3/uL (0.8-4.8); Lymphocytes % 13.3 %; Mean Corpuscular HGB Conc 32.6 g/dL (30.0-36.0); Mean Corpuscular Hemoglobin 29.3 pg (28.0-34.0); Mean Corpuscular Volume 89.8 fL (80-94); Mean Platelet Volume 9.6 fL (7.4-10.4); Monocytes # 0.6 10^3/uL (0.2-0.9); Neutrophils # 6.2 10^3/uL (1.8-7.7); Neutrophils % 77.7 %; Nucleated Red Blood Cells % 0.3 %; Platelet Count 286 10^3/cmm (130-400); Red Blood Count 4.41 10^6/uL (4.1-5.3); Red Cell Distribution Width 16.4 % (12.1-15.1)
[2019-12-02 06:33] LABS: Alanine Aminotransferase 17 U/L (0-41); Albumin Level 3.5 g/dL (3.5-5.2); Alkaline Phosphatase 73 IU/L (40-130); Anion Gap 15.2 (5-19); Aspartate Amino Transferase 11 U/L (0-40); Blood Urea Nitrogen 18 mg/dL (8-23); Calcium 9.3 mg/dL (8.5-10.5); Carbon Dioxide 26 mmol/L (22-29); Chloride 100 mmol/L (98-107); Globulin 2.7 g/dL (1.3-4.6); Glomerular Filtration Rate 83.9 mL/min (90-130); Glucose 192 mg/dL (65-115); Magnesium 2.3 mg/dL (1.7-2.3); Phosphorus 2.8 mg/dL (2.5-4.5); Potassium 4.2 mmol/L (3.5-5.1); Sodium 137 mmol/L (136-145); Total Bilirubin 0.4 mg/dL (0.15-1.2); Total Protein 6.2 g/dL (6.6-8.7)
--- NOTE | 2019-12-02 11:15 | PC.RESP ---
Pt having difficulty with IV placement, refused neb at this time for increased shaking post tx, thinking it would be harder to get IV.
--- NOTE | 2019-12-02 11:49 | PC.RESP ---
Patient given Pulmonary Rehab and Smoking Cessation information.
--- NOTE | 2019-12-02 14:44 | PM.PN ---
Subjective Subjective: Interval history: No new complaints today. Awiating modified ba swallow this afternoon at 2:30pm Medications: Reviewed: Yes Vitals/I&O/Wt Last Vital Signs Temp 97.8 F 12/02/19 11:09 Pulse 85 12/02/19 11:09 Resp 20 H 12/02/19 11:09 BP 125/88 12/02/19 11:09 Pulse Ox 91 12/02/19 11:09 12/01/19 12/02/19 12/02/19 22:59 06:59 14:59 Intake Total 50 / 50 50 / 100 Output Total 250 / 250 Balance 50 / 50 -200 / -150 Weight last 48 hrs Weight 94.347 kg Physical Exam Narrative: EXAM NARRATIVE: GEN: Awake, alert and oriented, no acute distress CVS: S1S2 N RS: CTA B/L Abd: Soft, nt/nd , bs+ COMMUNITY LIVING COACH: no focal neuro deficits Data : 12/02/19 05:37 12/02/19 05:37 Micro: Microbiology 12/01/19 10:30 Blood Culture - Preliminary Blood NEGATIVE TO DATE 12/01/19 10:35 Blood Culture - Preliminary Blood NEGATIVE TO DATE A&P Assessment and plan (1) Syncope: With regards to his episodes of unresponsiveness/syncope there appears to be several things going on. For 1 he had a brief, several seconds episode of unresponsiveness today after a bout of cough while receiving chemotherapy. In ER he appears to be in exacerbation COPD, with wheezing throughout, hypoxic requiring 2 L of by nasal cannula whereas normally the not need oxygen. Today's few seconds of unresponsiveness appears to be related to episode of hypoxia due to COPD exacerbation probably triggered by prolonged tussive episode. Reports these episodes have been happening intermittently for a while, also with food getting stuck in his chest, as well as noting that he coughs anytime he eats or drinks. No seizure-like activity was reported. He became alert and aware right afterward, although anxious received Ativan and then Solu-Medrol. He has no chest pain, denies any palpitations, troponin is not elevated. There are no focal neurologic abnormalities. EKG with sinus rhythm. Echocardiogram in June with ejection fraction 75%, no valvular abnormalities. Stable ascending aortic aneurysm. CTA chest back in number without sign of PE. We will not repeat the studies. CT of the head does not show metastatic malignancy or obvious changes in pituitary macroadenoma, nor is he reporting visual symptoms, headaches, etc. due to this. We will monitor him on telemetry. Will treat COPD exacerbation, and I suspect he likely may need oxygen on discharge. Home 02 evaluation has beeen ordered. Patient is currently on RA today. There is a less common chance that cabergoline itself may cause orthostasis and syncope, although he has been on it for quite a while. In addition he and his report that he occasionally gets lightheaded standing up and walking, with intermittent episodes of syncope. This appears to be secondary to a different etiology related to orthostasis. Will request for orthostatic blood pressure. In ER his blood pressure is 107/70. His reports blood pressures are variable at home sometimes as high as 180s systolic. He takes blood pressure medication, and also is on Flomax for BPH which may exacerbate orthostasis. He and his reported that he has good appetite and has not been getting dehydrated. He denies polyuria. We will monitor I&O. Will request for orthostatic blood pressure. In case of severe orthostasis, Flomax dose may need to be cut back. He does have soft blood pressure, and mild hyponatremia with normal calcium, with history of seen ED, and steroid use, and adrenal component may need to be considered, although at this time cannot be assessed further since he just got Solu-Medrol. This will need to be followed up on outpatient side. He also appears to have this of which neither he nor his are aware. A1c was 7.1 in October. This I suspect may be at least in part iatrogenic. May be contributing to autonomic instability. There are also reported episodes of tremors and anxiety, and per discussion appears to have worsened starting several months ago when his chemotherapy dose was intensified per discussion with his . I will leave assessment of these to his oncologist. Discussed assessment and plan with patient and his , and they are agreeable. Status: Acute Code(s): R55 - Syncope and collapse (2) Acute exacerbation of chronic obstructive airways disease: At this time we will continue him on Solu-Medrol, start him on breathing treatments, will give antibiotic coverage with Zosyn due to concern for aspiration, with reported dysphagia. Provide oxygen support. He is not normally on oxygen, however, I suspect may need it on discharge. Continue to encourage smoking cessation as he still smokes 1 pack/day. Status: Acute Code(s): J44.1 - Chronic obstructive pulmonary disease with (acute) exacerbation (3) Dysphagia: This also appears may be multicomponent. He complains of food get stuck in his chest, but also reported cough with food or drink by his . He is oncologist is requesting for EGD as is been due to concern for possible sequela of bradycardia patient therapy, however, per discussion with the surgeon manager database administration upper GI study is a commended first as it may alter how subsequent EGD may be done. Discussed with radiology, and modified barium swallow which I would like to assess due to concern for oropharyngeal dysphagia can be combined with esophagram right afterward. Discussed with patient and his . Status: Acute Qualifiers: Dysphagia type: esophageal phase Qualified Code(s): R13.10 - Dysphagia, unspecified Code(s): R13.10 - Dysphagia, unspecified (4) NSCLC of left lung: Continue follow-up with oncology. Status: Acute Code(s): C34.92 - Malignant neoplasm of unspecified part of left bronchus or lung (5) Smoking addiction: Smokes 1 pack/day. Encourage cessation. Status: Acute Code(s): F17.200 - Nicotine dependence, unspecified, uncomplicated (6) Ascending aortic aneurysm: 46 mm on echo in June. 49 mm on CTA in June. From 5 centimeters on imaging in 2018. Status: Acute Code(s): I71.2 - Thoracic aortic aneurysm, without rupture (7) Pituitary macroadenoma: CT head with contrast not reporting any obvious changes. No changes to sella turcica. This does not appear to be symptomatic. He denies any bitemporal hemianopsia. No headaches. No seizure-like activity. He is on cabergoline which itself may sometimes cause orthostasis and could be, although suspicion for this would be lower as he has been on this in a long time. If symptoms persist despite addressing both problems, consider that this may be the culprit. Status: Acute Code(s): D35.2 - Benign neoplasm of pituitary gland Attestations Medical Necessity Statement*: pending swallow studies for further evaluation today Coding Level of Care Code Acute Acute Dialysis Registered Nurse for [facility] Fwd Diagnoses Syncope R55 Acute exacerbation of chronic obstructive airways disease J44.1 Dysphagia R13.10 Dysphagia type: esophageal phase NSCLC of left lung C34.92 Smoking addiction F17.200 Ascending aortic aneurysm I71.2 Pituitary macroadenoma D35.2
[2019-12-02] MEDS: gabapentin 300 mg Capsule PO ×2 (15:59→22:14)
--- NOTE | 2019-12-02 20:00 | PC.NURSE ---
Introduction of staff and report received, aidet.
[2019-12-02] MEDS: enoxaparin 40 mg/0.4 mL Syringe SUBCUT (22:14)
[2019-12-03] VITALS (9 sets, daily range): BP systolic 123–150; BP diastolic 81–98; PULSE 76–100; RESP 17–20; TEMP 36.6–36.8; O2SAT 90–93
--- NOTE | 2019-12-03 | FL_ITS ---
WS: [id number] BARIUM SWALLOW WITH FLUOROSCOPY HISTORY: esophageal dysphagia, concern for stricture. COMPARISON: 12/02/2019 modified. FLUOROSCOPY TIME: 1.3 minutes. Patient swallowed the barium mixture without difficulty. There is a prominent RIGHT lateral pharyngea l pouch which is seen multiple times during this examination at the level of the vallecula. Various s izes depending on the amount of contrast retained. There are no filling defects within the pouch. Thi s pharyngeal pouch was also noted on the swallowing study which intermittently collected food product s. Mild esophageal dysmotility distally. There is no significant stricture of the distal esophagus. The barium tablet passed readily through the distal esophagus. There is a small hiatal hernia. No reflux. FL/FL barium swallow [id number] IMPRESSION: 1. Small RIGHT lateral pharyngeal pouch. This pouch may collect food products during eating. 2. Small hiatal hernia. 3. Mild esophageal dysmotility with a distal stricture.
[2019-12-03] MEDS: ipratropium-albuterol 3 mL Neb INHALATION ×2 (00:38→03:35)
[2019-12-03] MEDS: piperacillin-tazobactam 3.375 GM in sodium chloride 0.9% (plus) 50 ML IV ×2 (01:00→09:30)
[2019-12-03 05:22] LABS: Basophils % 0.3 %; Eosinophils # 0.2 10^3/uL (0.0-0.8); Eosinophils % 2.4 %; Hematocrit 40.8 % (42.0-52.0); Hemoglobin 13.2 g/dL (11.7-16.6); Lymphocytes # 2.2 10^3/uL (0.8-4.8); Lymphocytes % 25.1 %; Mean Corpuscular HGB Conc 32.4 g/dL (30.0-36.0); Mean Corpuscular Hemoglobin 29.1 pg (28.0-34.0); Mean Corpuscular Volume 90.1 fL (80-94); Mean Platelet Volume 9.9 fL (7.4-10.4); Monocytes # 0.9 10^3/uL (0.2-0.9); Monocytes % 10.6 %; Neutrophils # 5.2 10^3/uL (1.8-7.7); Neutrophils % 59.7 %; Nucleated Red Blood Cells % 0 %; Platelet Count 332 10^3/cmm (130-400); Red Blood Count 4.53 10^6/uL (4.1-5.3); Red Cell Distribution Width 16.9 % (12.1-15.1); White Blood Count 8.7 10^3/uL (4.0-10.0)
[2019-12-03 05:48] LABS: Alanine Aminotransferase 19 U/L (0-41); Albumin Level 4.2 g/dL (3.5-5.2); Alkaline Phosphatase 74 IU/L (40-130); Anion Gap 15.9 (5-19); Aspartate Amino Transferase 13 U/L (0-40); Blood Urea Nitrogen 24 mg/dL (8-23); Calcium 9.6 mg/dL (8.5-10.5); Carbon Dioxide 25 mmol/L (22-29); Chloride 103 mmol/L (98-107); Globulin 2.3 g/dL (1.3-4.6); Glomerular Filtration Rate 74.3 mL/min (90-130); Glucose 186 mg/dL (65-115); Potassium 3.9 mmol/L (3.5-5.1); Sodium 140 mmol/L (136-145); Total Bilirubin 0.2 mg/dL (0.15-1.2); Total Protein 6.5 g/dL (6.6-8.7)
[2019-12-03] MEDS: aspirin 81 mg EC Tablet 162 MG PO (09:24)
[2019-12-03] MEDS: losartan 50 mg Tablet 100 MG PO (09:25)
[2019-12-03] MEDS: tamsulosin 0.4 mg Capsule PO (09:25)
[2019-12-03] MEDS: metoprolol succinate ER (24 HR) 50 mg Tablet PO (09:27)
[2019-12-03] MEDS: atorvastatin 40 mg Tablet PO (09:27)
[2019-12-03] MEDS: gabapentin 300 mg Capsule PO (09:27)
--- NOTE | 2019-12-03 12:43 | PC.CHAP ---
Pastoral Care Encounter/Spiritual Assessment Type of Contact [] Declined band reamer machine operator visit [] Patient/Family/Request visit [] Outpatient visit [] Follow-up visit [] Physician referral [] Code/Alert [x] Routine visit [] Staff referral [] Actively dying [] Patient sleeping [] Family support [] [] Out of room [] Palliative care [] [] Receiving care in room [] Pre-surgical visit [] Trauma [] Long length of stay [] ICU visit [] Other: Relational/Emotional Strength [x] Patient feels connected with others/family/visitors/staff [] Distress [] Loneliness/isolation [] Abandonment Spirituality of Patient [x] Person of Brianna [x] Attends Faith of their Brianna [] Believes in Prayer [] Reads Bible or Advent materials [x] There are Spiritual issues to be addressed Motorcycle [employer] Interventions [x] Prayer [x] Active listening [x] Non-anxious presence [x] Spiritual/emotional support [] Crisis/trauma care [x] Spiritual counseling [] Bereavement support [] Provided bereavement packet [] Provided Bible/devotional materials [] Provided toy/stuffed animal, coloring book to patient or family member [] Provided Communion [] Anointing/[place] [] Salvation [] Completed spiritual assessment [] Other: Impact on Illness or Injury [] Angry [] Fearful [] Anxious [] Often cries [] Exhaustion [] Unable to work [] Unable to attend anglican [] Unable to walk/stand [] Unable to read [] Unable to drive [] Unable to eat/drink [] Unable to sleep [] Unable to be with family [] Patient intubated [x] Other: n/a Summary Patients was in the room with him. Time spent with patient
--- NOTE | 2019-12-03 14:46 | PC.NURSE ---
Discharge information given per the physician's orders. Patient verbalized understanding and did not have any further questions.
--- NOTE | 2019-12-03 20:25 | PM.DCS ---
Discharge Providers Date of Admission: 12/01/19 17:40 Date of Discharge: December 03, 2019 Attending Provider at Admission: Donnell Sellers Attending Provider at Discharge: Bonita Kurtz MD Primary Care Provider: Randy Vazquez MD,PhD Diagnoses at Discharge Discharge Diagnosis (1) Syncope: Status: Acute (2) Acute exacerbation of chronic obstructive airways disease: Status: Acute (3) Dysphagia: Status: Acute Qualifiers: Dysphagia type: esophageal phase Qualified Code(s): R13.10 - Dysphagia, unspecified (4) NSCLC of left lung: Status: Acute (5) Smoking addiction: Status: Acute (6) Ascending aortic aneurysm: Status: Acute (7) Pituitary macroadenoma: Status: Acute Reason for Visit Reason for Visit: Reason For Visit: resp distress Hospital Course Discharge Summary: Taken from H&P: Raymundo Palm is a 69 year old male with NSCLC, COPD, not on oxygen, current smoker of 1 pack/day, HTN, BPH, thoracic aortic aneurysm, pituitary microadenoma was referred for assessment by his oncologist due to episode of unresponsiveness lasting several seconds on day of admission while undergoing chemotherapy after a prolonged episode of cough. He woke up spontaneously, was anxious afterwards, received Ativan, and received a dose of Solu-Medrol. There was no seizure like activity, and he was keenly aware right afterward. He reported he has been coughing, productive cough with colorful sputum. In ER he was noted to be mildly hypoxic, requiring 2 L of oxygen by nasal cannula. He is checked for rapid flu and this is negative. He is afebrile, without leukocytosis, without electrolyte abnormalities. CXR was without any consolidation. CT abdomen pelvis on 10/30/2019 was unremarkable. Ejection fraction 75%. No valvular abnormality is noted. During course of observation in the hospital there were no further episodes of syncope. Per his he has had similar episodes recently when he gets nervous, hyperventilates and then syncopizes. No such events were noted during admission. He does report a history of dysphagia and recurrent pneumonias. Given his desaturation there was concern for possible aspiration event as well therefore he underwent a modified Ba swallow ans esophagogram which showed a lateral pharyngeal pouch and possible esophageal stricture. Above findings were discussed with dr. Robertson from ENT and outpatient follow up has been arranged. He received 3 days of iv zosyn, however this has bene discontinued upon discharge as patient remained afebrile, hemodynamically stable and no evidence of PNA on CXR. He also remained on room air during admission , declined homee 02 eval. Physical Exam Narrative: EXAM NARRATIVE: GEN: Awake, alert and oriented, no acute distress CVS: S1S2 N RS: CTA B/L Abd: Soft, nt/nd , bs+ CODING MANAGER: no focal neuro deficits Discharge Data Data Completed and Pending: Completed Studies During Hospitalization Category Date Time Status CT head wo/w con 40503 Urgent Cat Scan 12/01/19 10:21 Completed [place] barium swallow 90214 Routine Exams 12/03/19 Completed FL barium swallow modifd 49961 Rout ine Exams 12/02/19 Completed XR chest 1V chris ble 75125 Urgent Exams 12/01/19 10:21 Completed Pending at discharge Category Date Time Status Blood Culture Sta t Lab 12/01/19 10:35 Results Labs from last 24 hours 12/03/19 12/03/19 04:47 04:47 WBC 8.7 RBC 4.53 Hgb 13.2 Hct 40.8 L MCV 90.1 MCH 29.1 MCHC 32.4 RDW 16.9 H Plt Count 332 MPV 9.9 Neut % (Auto) 59.7 Lymph % (Auto) 25.1 Harlan % (Auto) 10.6 Eos % (Auto) 2.4 Baso % (Auto) 0.3 Neut # (Auto) 5.2 Lymph # (Auto) 2.2 Harlan # (Auto) 0.9 Eos # (Auto) 0.2 Baso # (Auto) 0.0 Nucleated RBC % (a uto) 0 Nucleated RBCs # 0.0 Sodium 140 Potassium 3.9 Chloride 103 Carbon Dioxide 25 Anion Gap 15.9 BUN 24 H Creatinine 1.0 GFR Calculation 74.3 L Glucose 186 H Calcium 9.6 Total Bilirubin 0.2 AST 13 ALT 19 Alkaline Phosphata se 74 Total Protein 6.5 L Albumin 4.2 Globulin 2.3 Vitals: Last Vital Signs Temp 97.8 F 12/03/19 14:11 Pulse 91 12/03/19 14:11 Resp 18 12/03/19 14:11 BP 123/81 12/03/19 14:11 Pulse Ox 92 12/03/19 14:11 Discharge Plan Discharge Patient Disposition: Home, Self-Care Condition: Fair Prescriptions: Continued levocetirizine [Allergy Relief (levocetirizin)] 5 mg tablet 5 mg PO DAILY PRN (Reason: Allergy Symptoms) RF: 0 cyclobenzaprine 5 mg tablet 10 mg PO Q8H PRN (Reason: Spasms) RF: 0 irbesartan 300 mg tablet 300 mg PO DAILY RF: 0 cabergoline 0.5 mg tablet 0.5 mg PO .weekly RF: 0 albuterol sulfate [Ventolin HFA] 90 mcg/actuation HFA aerosol inhaler 2 puff INHALATION Q4H PRN (Reason: Shortness Of Breath) RF: 0 metoprolol succinate 50 mg tablet extended release 24 hr 50 mg PO DAILY RF: 0 tamsulosin [Flomax] 0.4 mg capsule 0.4 mg PO DAILY RF: 0 gabapentin 300 mg capsule 300 mg PO TID RF: 0 rosuvastatin [Crestor] 10 mg tablet 10 mg PO DAILY RF: 0 Aspir-Low 81 mg Tablet,Delayed Release (Dr/Ec) 162 mg PO DAILY RF: 0 Discharge Orders: Discharge Order (Routine); Ordered 12/03/19 Ordered By: Bonita Kutrz Referrals: Beau Robertson MD [Physician] - 4-7 days (Please follow up with Dr. Robertson on December 09, 2019 at 3 pm.) Shemar Bill MD [Staff Physician] - 4-7 days (Please follow up with Dr. Bill on December 07, 2019 arrive at 8:30 or labs. Then, see Dr. Bill at 10 for possible chemo. They will set up transportation. ) Raymundo Palm MD [Family Provider] - (Please follow up with Dr. Palm on December 09, 2019 at 1 pm.) Randy Vazquez [Primary Care Provider] - Discharge Diet: GI Soft and Soft Mechanical Discharge Activity: Resume usual activity Patient Instructions: Abdominal Aortic Aneurysm, Syncope, How to Stop Smoking (DC), Syncope (DC) Discharge Date/Time: 12/03/19 14:47 Discharge Attestations Time Spent in Discharge Care*: greater than 30 min Quality Metrics Clinical Quality Measures During this hospital stay, did patient experience: None Coding Level of Care Code Acute Reserve Operator for [facility] Fwd Diagnoses Syncope R55 Acute exacerbation of chronic obstructive airways disease J44.1 Dysphagia R13.10 Dysphagia type: esophageal phase NSCLC of left lung C34.92 Smoking addiction F17.200 Ascending aortic aneurysm I71.2 Pituitary macroadenoma D35.2
== END 2019-12-03 14:47 | disposition home or self-care (01) ==
LOC: ER 13:38 → MEDSURG 19:02
PROVIDERS: Admitting Provider Internal Medicine; Emergency Provider Family Medicine; Family Provider Family Medicine; PCP Radiology Radiation Oncology; Visit Provider Student in an Organized Health Care Education/Training Program
DX: R55 Syncope and collapse (principal); R13.10 Dysphagia, unspecified; J44.1 Chronic obstructive pulmonary disease with (acute) exacerbation; C34.92 Malignant neoplasm of unspecified part of left bronchus or lung; F17.210 Nicotine dependence, cigarettes, uncomplicated; I71.2 Thoracic aortic aneurysm, without rupture; D35.2 Benign neoplasm of pituitary gland; N40.0 Benign prostatic hyperplasia without lower urinary tract symptoms; Z79.82 Long term (current) use of aspirin; Z82.49 Family history of ischemic heart disease and other diseases of the circulatory system; I10 Essential (primary) hypertension
CPT/HCPCS: 12345; 36415; 70470; 71045; 73221; 74220; 74230; 80053; 83605; 83690; 83735; 83880; 84100; 84443; 84484; 85025; 87040; 87804; 92611; 93005; 94640; 96361; 96365; 96372; 96374; 96375; 99284; 99285; G0378; J1642; J1650; J2270; J2405; J2543; J7040; Q9967

== ENCOUNTER → 2019-12-09 13:52 | Outpatient (BNVA) | payer MEDICARE, MEDICAID, SELFPAY | PROVIDERS: Family Provider Family Medicine; PCP Radiology Radiation Oncology; Visit Provider Otolaryngology | DX: R13.10 Dysphagia, unspecified (principal); C34.92 Malignant neoplasm of unspecified part of left bronchus or lung; I71.2 Thoracic aortic aneurysm, without rupture; F17.210 Nicotine dependence, cigarettes, uncomplicated | CPT/HCPCS: 99203; 99214 ==

== ENCOUNTER 2019-12-15 09:00 | Outpatient (RCR) | payer MEDICARE, MEDICAID, SELFPAY ==
[2019-12-07] MEDS: sodium chloride 0.9% 250 ML 999 ML IV (08:42)
[2019-12-07 09:01] LABS: Basophils # 0.1 10^3/uL (0.0-0.1); Basophils % 0.8 %; Eosinophils # 0.3 10^3/uL (0.0-0.8); Eosinophils % 4.1 %; Hematocrit 41.7 % (42.0-52.0); Hemoglobin 13.6 g/dL (11.7-16.6); Lymphocytes # 1.3 10^3/uL (0.8-4.8); Lymphocytes % 16.2 %; Mean Corpuscular HGB Conc 32.6 g/dL (30.0-36.0); Mean Corpuscular Hemoglobin 29.4 pg (28.0-34.0); Mean Corpuscular Volume 90.1 fL (80-94); Mean Platelet Volume 9.7 fL (7.4-10.4); Monocytes # 0.9 10^3/uL (0.2-0.9); Neutrophils # 4.9 10^3/uL (1.8-7.7); Neutrophils % 63.2 %; Nucleated Red Blood Cells % 0.3 %; Platelet Count 328 10^3/cmm (130-400); Red Blood Count 4.63 10^6/uL (4.1-5.3); Red Cell Distribution Width 16.7 % (12.1-15.1); White Blood Count 7.8 10^3/uL (4.0-10.0)
[2019-12-07 09:15] LABS: Alanine Aminotransferase 34 U/L (0-41); Albumin Level 3.8 g/dL (3.5-5.2); Alkaline Phosphatase 99 IU/L (40-130); Anion Gap 15.3 (5-19); Aspartate Amino Transferase 19 U/L (0-40); Blood Urea Nitrogen 15 mg/dL (8-23); Calcium 9.5 mg/dL (8.5-10.5); Carbon Dioxide 25 mmol/L (22-29); Chloride 101 mmol/L (98-107); Globulin 2.9 g/dL (1.3-4.6); Glomerular Filtration Rate 83.9 mL/min (90-130); Glucose 129 mg/dL (65-115); Potassium 4.3 mmol/L (3.5-5.1); Sodium 137 mmol/L (136-145); Total Bilirubin 0.3 mg/dL (0.15-1.2); Total Protein 6.7 g/dL (6.6-8.7)
--- NOTE | 2019-12-08 12:50 | ONC FU_ITS ---
Dr. Bill follow up note Patient: Raymundo Palm Unit #: [id number]: [id number] Dicatated By: Shemar Bill M.D.Date of Visit:Dec 07, 2019 Onc Med Follow-up/Prog Note History of Present Illness: Mr. Palm is a 69-year-old gentleman with history of ascending aortic aneurysm, stable and now being observed. 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 He developed a chronic cough for which he underwent CT scan of chest. The scan showed possible narrowing of the superior segment bronchus to the left lower lobe. Mr Palm underwent bronchoscopy on 07/09/2018, which showed non-small cell carcinoma squamous cell type, low-grade keratinizing subsequently. On 07/26/[address] PET scan which showed poorly defined left upper lobe mass with mixed groundglass and solid components measuring 3.7 x 4.8 cm with SUV of 20.1; and malignant left upper hilar nodes with SUV of 12; multiple malignant mediastinal lymph nodes are present in the right paratracheal, precarinal, left peribronchial subcarinal and right hilar territories, with SUV of 8.6. He was not a candidate for surgical resection so recommended that he start on combined chemoradiation with weekly carboplatin and Taxol on 08/11/2018 Long-standing history of smoking and still smokes about half a pack. History of chronic back pain, as per patient, in the past Dr. Palm give him injection to his back, that controlled back pain for 5 months. He has completed combined chemoradiation with weekly carbo/taxol and began immunotherapy with Imfinzi. He presented with an episode of shaking, increased anxiety. He was nauseated and discussed all full in general. He was weak and dizzy. He was sent for a CT pulmonary angiogram after labs were drawn. His d-dimer was elevated warranting a CTA exam. The CTA was performed on 09/19/2018 and did confirm right lower lobe posterior segment and segmental pulmonary emboli. There was new left lobe superior segment atelectasis and consolidation with tumoral progression, postradiation changes and pneumonia being differential considerations. There is increased middle third esophageal, subcarinal and right upper lobe perihilar soft tissue attenuation. Chronic emphysema and arteriosclerotic and unchanged a sending thoracic aorta aneurysm at 5 cm . Mr. Palm was started on Lovenox 80 mg every [address] scan of chest done on 11/12/2018 showed continued improvement in the consolidation superior-medial left lower lobe. 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 Less stranding or soft tissue thickening and mediastinal fat, no significant lymph nodes or increased lymph node seen Mild diffuse circumferential thickening of mid esophagus may be due to postradiation changes; emphysema;Stable ascending thoracic aortic aneurysm at 4.[address] Austin his PMD has been following it for the last 3 years. Mr Palm began maintenance durvalumab on 11/20/2018. MRI scan of thoracic/lumbar spine showed no evidence of neoplastic process. But multiple disc protrusion causing nerve impingement at multiple levels. CT PET scan done on 02/21/2019 showed essential resolution of left lower lobe malignancy, only inflammatory appearing FDG uptake is present in the lung infiltrate. Uptake in malignant mediastinal lymphadenopathy seen on previously is now resolved. He continues immunotherapy with durvalumab and is tolerating it well. echo was done which showed ejection fraction with a 60% CT PET scan done on 09/12/2019 showed there is a new medial left lower lobe nodule measuring 1.1 x 1.7 cm with SUV of 6.1, strongly consistent with recurrent malignancy. New posterior left upper lobe nodules are too small to characterize. Bilateral mediastinal nodes in the bilateral hilar, right parabronchial, subcarinal territory are FDG positive. These may be reactive but recurrence cannot be excluded. did discuss with Mr. Palm treatment options for the disease recurrence. The immunotherapy has been stopped. Mr. Palm was reluctant to proceed with any further radiation at this point due to toxicities. Therefore he was offered treatment with cisplatin and gemcitabine. He began his first cycle on 10/19/2019. On 12/01/2019, while in the clinic, receiving premedication for chemotherapy patient started having cough with shortness of breath subsequently choking sensation and near syncopal attack, as per patient has been having those episodes more often in the last few weeks and more often with anxiety and usually following swallowing. At that moment patient was sent to emergency room where he was admitted to the hospital treated with supportive care including IV antibiotics and patient underwent barium swallow and esophagogram which showed lateral pharyngeal pouch and possible esophageal stricture, those findings were discussed with Dr. Robertson, ENT who will follow him as an outpatient. Came for follow-up, denies any specific complaints, no more episode of choking sensation, no fever or chills, no nausea or vomiting, no diarrhea constipation, patient was recommended to use home oxygen but he refused and patient was also complaining of problem with a nebulizer treatment, as per patient nebulizer treatment also trigger choking sensation, now has an appointment with class c driver on 12/09/2019. Patient said he was also told about progressive thoracic aneurysm, think this may be causing choking sensation but not sure. Medications: Albuterol Sulfate 1 puff(s) (of 108 (90 base) mcg/act) Aerosol Powder, Breath Activated Inhalation daily, Aspirin Adult Low Strength 1 (81 mg) Tablet, enteric coated Oral daily, Cabergoline 1 Tablet (of 0.5 mg) Oral q 7 days, Crestor 1 Tablet (of 10 mg) Oral daily, Cyclobenzaprine HCl 2 Tablet (of 5 mg) Tablet Oral q 8 hours, Flomax 1 Capsule (of 0.4 mg) Capsule Oral daily, Gabapentin 1 Capsule (of 300 mg) Oral t.i.d., Irbesartan 1 Tablet (of 300 mg) Oral daily, Levocetirizine Dihydrochloride 1 Tablet (of 5 mg) Oral daily PRN, Metoprolol Tartrate 1 Tablet (of 50 mg) Oral daily, Ventolin HFA Aerosol, solution Inhalation Allergies: Bee Sting, Lopid, and Niaspan. Review of Systems: Review of Systems is not available for this patient. Vital Signs: Vitals are not available for this patient. Performance Status: 1 - No physically strenuous activity, but ambulatory and able to carry out light or sedentary work (e.g. office work, light house work). (ECOG) Physical Examination: ENMT - No oral exudates, ulcers, masses, thrush or mucositis. Oropharynx clear. Tongue normal, Respiratory - Lungs are clear to auscultation without rhonchi or wheezing, Cardiovascular - Regular rate and rhythm of heart, Abdomen - Non-tender, non-distended, Good bowel sounds. No guarding or rebound tenderness. No pulsatile masses, Extremities - no edema. Lab/Imaging: Test performed on Dec 01, 2019 08:30 Sodium 140 mmol/L Potassium 4.3 mmol/L Chloride 100 mmol/L CO2 26 mmol/L Anion Gap 18.3 BUN 21 mg/dL Creatinine 0.8 mg/dL Cr Clearance (Est) 116.3500 mL/min eGFR 96.1 mL/min Glucose 158 mg/dL Calcium 9.7 mg/dL Protein, Total 6.8 g/dL Albumin 3.8 g/dL Globulin 3.0 g/dL Bilirubin, Total 0.5 mg/dL ALT (SGPT) 19 U/L AST (SGOT) 13 U/L Alkaline Phosphatase 83 IU/L WBC 7.1 10 3/uL RBC 4.78 10 6/uL HGB 14.3 g/dL HCT 43.8 % MCV 91.6 fL MCH 29.9 pg MCHC 32.6 g/dL RDW 16.5 % Platelet Count 286 10 3/cmm MPV 10.2 fL Neutrophils 4.3 10 3/uL Lymphocytes 1.4 10 3/uL Monocytes 0.8 10 3/uL Eosinophils 0.5 10 3/uL Basophils 0.0 10 3/uL Neutrophil % 60.1 % Lymphocyte % 19.0 % Monocyte % 10.9 % Eosinophil % 6.7 % Basophils % 0.4 % Test performed on Nov 23, 2019 08:29 CBC Slide Review Slide Review Perform SLIDE REVIEW AGREES WITH AUTOMATED RESULTS ST Test performed on Nov 09, 2019 11:26 Ua Color Straw Ua Appearance Clear Ua Specific Calvin 1.010 Ua pH 5.0 Ua Protein Negative Ua Glucose 4+ Ua Ketones Negative Ua Blood Negative Ua Leuk Esterase Negative Ua Nitrites Negative Ua Bilirubin Negative Ua Urobilinogen Normal Test performed on Nov 09, 2019 09:21 Manual Lymphocytes 30.0 % Manual Monocytes 0.9 % Manual Eosinophils 0 % Manual Basophils 0.5 % NRBCs 0 /100 WBC Test performed on Nov 09, 2019 08:49 Hemoglobin A1C 7.1 % Test performed on Aug 04, 2019 08:09 Manual Neutrophils Abs 7.5 10 3/cmm Manual Lymphocytes Abs 2.1 10 3/cmm Manual Monocytes Abs 1.7 10 3/cmm Manual Basophils Abs 0.1 10 3/cmm Manual Segs % 57 % Manual Bands % 8.0 % Metamyelocytes % 1.0 % Platelet Estimate NORMAL Impression: Squamous cell carcinoma, low-grade more keratinizing of left upper lobe of lung per bronchoscopy/biopsy done on 07/09/2018 CT PET scan done on 07/26/2018 showed 3.7 x 4.8 cm mass in left upper lobe with SUV of 20.1 and malignant left upper hilar nodes with SUV of 12.7. Multiple malignant mediastinal lymph nodes are present in the right paratracheal, precarinal, left peribronchial, subcarinal and right hilar Territories c T2b , N3 (contralateral hilar lymph nodes involvement), MX, clinical stage IIIB MRI scan of head done on 08/08/2018 showed no evidence of metastatic disease As per cardiothoracic surgery he is not a candidate for surgery. H was started on combined chemoradiation with weekly carboplatin and Taxol on 08/11/2018. Hard of hearing in right ear, unknown etiology Chronic smoking, still active Ascending Aortic aneurysm, since 2014, stable, being followed by Dr. Luther Remote history of brain mass, as per patient and his , stable for the last 18 years A CTA was performed on 09/19/2018 and did report right lower lobe posterior segment and segmental pulmonary emboli. He was treated initially with Lovenox then transitioned to Eliquis. CT head done on 09/23/2018 showed no intracranial hemorrhage or mass effect and unchanged right mastoid air cell effusion with middle ear opacification. Chest x-ray done on 09/23/2018 shows decreased left perihilar mass or perihilar pneumonia .Follow-up CT scan of chest done on 11/12/2018 showed continued improvement in the consolidation superior-medial left lower lobe. 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 Austin his PMD has been following his aortic aneurysm for the last 3 years. History of chronic back pain, as per patient, in the past he he was given injection by Dr. Palm, that helped him for 5 months.MRI scan of thoracic/lumbar spine done on 01/30/2019 showed no evidence of metastatic disease but disc prolapse at multiple level with nerve impingement. Started on maintenance therapy with biweekly durvalumab 10 mg/kg on 11/20/2018. He is tolerating it well thus far. Follow-up CT PET scan done on 02/21/2019 showed there is minimal inflammatory activity in mixed solid/groundglass left lower lobe infiltrate, consistent with residual uptake from radiation therapy, viable malignancy is unlikely, new left lower lobe subpleural nodule-like infiltrate is FDG negative, hypermetabolic mediastinal lymph node in the left hilar, left peribronchial, left precarinal, right hilar territories now demonstrated uptake no greater than mediastinal background, indicating positive response to therapy. He continued with immunotherapy. Follow-up PET/CT from 09/12/2019 reported new medial left lower lobe nodule measuring 1.1 x 1.7 cm with an SUV of 6.1, strongly consistent with recurrent malignancy. There was a new posterior left upper lobe nodules that were too small to characterize. Bilateral mediastinal nodes in the bilateral hilar, right parabronchial, and subcarinal territories are FDG positive. These may be reactive but recurrence cannot be excluded. Dr Blil discussed with Mr & Mrs Palm his disease status and treatment options. Mr Palm wass reluctant to consider radiation therapy due to related toxicity. Case was discussed with Dr. Vazquez radiation oncology, he agreed. Mr Palm was then offered treatment with systemic therapy with cisplatin 25 mg/m??? and gemcitabine 1000 mg/m??? day 1 and day 8 and repeat every 21 days ???3 cycles and repeat follow-up CT PET scan to assess the disease response and then plan accordingly. The immunotherapy was discontinued. Mr Palm began his first cycle of Cisplatin/Gemzar on 10/19/2019. Mrs. Palm states in general he tolerated it pretty well. She states he spent the first couple of days in bed just really washed out and tired. He did have some nausea but no vomiting. She did give him 1 anti-medic and that resolved the nausea. She states since then he has felt much better and has been up eating and doing his normal activities. He has developed new lower quadrant pain which is unexplained. Plan: Discussed with patient regarding his labs white blood count 7.8 hemoglobin 13.6 crit 41.7 platelets 328,000 CMP within normal limits Clinically, patient is doing well tolerating palliative therapy with cisplatin/gemcitabine well but now chemotherapy is on hold, earlier due to progressive thrombocytopenia then due to repeated episode of choking sensations, requiring inpatient care. Now ENT evaluation is pending, also pulmonary evaluation. And patient is also concerned about thoracic aneurysm, we will refer him to Dr. Luther for evaluation and patient was encouraged to follow with ENT and pulmonology as planned during inpatient care. We will hold his chemotherapy pending ENT/pulmonary evaluation and return to clinic in 1 week Signed By: Shemar Bill M.D. <<Signature on File>>
[2019-12-14 08:42] LABS: Basophils # 0.1 10^3/uL (0.0-0.1); Basophils % 0.9 %; Eosinophils # 0.3 10^3/uL (0.0-0.8); Eosinophils % 3.8 %; Hematocrit 40.5 % (42.0-52.0); Lymphocytes # 1.4 10^3/uL (0.8-4.8); Lymphocytes % 17.2 %; Mean Corpuscular HGB Conc 32.1 g/dL (30.0-36.0); Mean Corpuscular Hemoglobin 29.1 pg (28.0-34.0); Mean Corpuscular Volume 90.8 fL (80-94); Mean Platelet Volume 9.5 fL (7.4-10.4); Monocytes # 0.7 10^3/uL (0.2-0.9); Monocytes % 8.5 %; Neutrophils # 5.5 10^3/uL (1.8-7.7); Neutrophils % 68.3 %; Nucleated Red Blood Cells % 0 %; Platelet Count 236 10^3/cmm (130-400); Red Blood Count 4.46 10^6/uL (4.1-5.3)
[2019-12-14 09:08] LABS: Alanine Aminotransferase 18 U/L (0-41); Albumin Level 3.7 g/dL (3.5-5.2); Alkaline Phosphatase 100 IU/L (40-130); Anion Gap 15.1 (5-19); Aspartate Amino Transferase 16 U/L (0-40); Blood Urea Nitrogen 13 mg/dL (8-23); Calcium 9.7 mg/dL (8.5-10.5); Carbon Dioxide 26 mmol/L (22-29); Chloride 101 mmol/L (98-107); Globulin 3.2 g/dL (1.3-4.6); Glomerular Filtration Rate 74.3 mL/min (90-130); Glucose 155 mg/dL (65-115); Potassium 4.1 mmol/L (3.5-5.1); Sodium 138 mmol/L (136-145); Total Bilirubin 0.4 mg/dL (0.15-1.2); Total Protein 6.9 g/dL (6.6-8.7)
--- NOTE | 2019-12-14 15:37 | ONC FU_ITS ---
Dr. Bill follow up note Patient: Raymundo Palm Unit #: [id number]: 1950 Dicatated By: Shemar Bill M.D.Date of Visit:Dec 14, 2019 Onc Med Follow-up/Prog Note History of Present Illness: Mr. Palm is a 69-year-old gentleman with history of ascending aortic aneurysm, stable and now being observed. 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 He developed a chronic cough for which he underwent CT scan of chest. The scan showed possible narrowing of the superior segment bronchus to the left lower lobe. Mr Palm underwent bronchoscopy on 07/09/2018, which showed non-small cell carcinoma squamous cell type, low-grade keratinizing subsequently. On 07/26/[address] PET scan which showed poorly defined left upper lobe mass with mixed groundglass and solid components measuring 3.7 x 4.8 cm with SUV of 20.1; and malignant left upper hilar nodes with SUV of 12; multiple malignant mediastinal lymph nodes are present in the right paratracheal, precarinal, left peribronchial subcarinal and right hilar territories, with SUV of 8.6. He was not a candidate for surgical resection so recommended that he start on combined chemoradiation with weekly carboplatin and Taxol on 08/11/2018 Long-standing history of smoking and still smokes about half a pack. History of chronic back pain, as per patient, in the past Dr. Palm give him injection to his back, that controlled back pain for 5 months. He has completed combined chemoradiation with weekly carbo/taxol and began immunotherapy with Imfinzi. He presented with an episode of shaking, increased anxiety. He was nauseated and discussed all full in general. He was weak and dizzy. He was sent for a CT pulmonary angiogram after labs were drawn. His d-dimer was elevated warranting a CTA exam. The CTA was performed on 09/19/2018 and did confirm right lower lobe posterior segment and segmental pulmonary emboli. There was new left lobe superior segment atelectasis and consolidation with tumoral progression, postradiation changes and pneumonia being differential considerations. There is increased middle third esophageal, subcarinal and right upper lobe perihilar soft tissue attenuation. Chronic emphysema and arteriosclerotic and unchanged a sending thoracic aorta aneurysm at 5 cm . Mr. Palm was started on Lovenox 80 mg every [address] scan of chest done on 11/12/2018 showed continued improvement in the consolidation superior-medial left lower lobe. 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 Less stranding or soft tissue thickening and mediastinal fat, no significant lymph nodes or increased lymph node seen Mild diffuse circumferential thickening of mid esophagus may be due to postradiation changes; emphysema;Stable ascending thoracic aortic aneurysm at 4.[address] Austin his PMD has been following it for the last 3 years. Mr Palm began maintenance durvalumab on 11/20/2018. MRI scan of thoracic/lumbar spine showed no evidence of neoplastic process. But multiple disc protrusion causing nerve impingement at multiple levels. CT PET scan done on 02/21/2019 showed essential resolution of left lower lobe malignancy, only inflammatory appearing FDG uptake is present in the lung infiltrate. Uptake in malignant mediastinal lymphadenopathy seen on previously is now resolved. He continues immunotherapy with durvalumab and is tolerating it well. echo was done which showed ejection fraction with a 60% CT PET scan done on 09/12/2019 showed there is a new medial left lower lobe nodule measuring 1.1 x 1.7 cm with SUV of 6.1, strongly consistent with recurrent malignancy. New posterior left upper lobe nodules are too small to characterize. Bilateral mediastinal nodes in the bilateral hilar, right parabronchial, subcarinal territory are FDG positive. These may be reactive but recurrence cannot be excluded. did discuss with Mr. Palm treatment options for the disease recurrence. The immunotherapy has been stopped. Mr. Palm was reluctant to proceed with any further radiation at this point due to toxicities. Therefore he was offered treatment with cisplatin and gemcitabine. He began his first cycle on 10/19/2019. On 12/01/2019, while in the clinic, receiving premedication for chemotherapy patient started having cough with shortness of breath subsequently choking sensation and near syncopal attack, as per patient has been having those episodes more often in the last few weeks and more often with anxiety and usually following swallowing. At that moment patient was sent to emergency room where he was admitted to the hospital treated with supportive care including IV antibiotics and patient underwent barium swallow and esophagogram which showed lateral pharyngeal pouch and possible esophageal stricture, those findings were discussed with Dr. Robertson, ENT who will follow him as an outpatient. Came for follow-up, denies any specific complaints except episode of to be sensation with swallowing, patient was seen by Dr. Robertson ENT physician and now upper esophageal dilatation is under consideration, as per patient Dr. Robertson is evaluating him with further scans scheduled for tomorrow. He was also seen by Dr. Luther for thoracic aortic aneurysm and Dr. Luther is requiring transthoracic echocardiogram for evaluation prior to his next visit. 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 Otherwise denies any fever chills denies any nausea vomiting denies any hemoptysis or hematemesis denies any chest pain or palpitation. His last dose of chemotherapy was given on 11/16/2019 with weekly cisplatin/gemcitabine. Medications: Albuterol Sulfate 1 puff(s) (of 108 (90 base) mcg/act) Aerosol Powder, Breath Activated Inhalation daily, Aspirin Adult Low Strength 1 (81 mg) Tablet, enteric coated Oral daily, Cabergoline 1 Tablet (of 0.5 mg) Oral q 7 days, Crestor 1 Tablet (of 10 mg) Oral daily, Cyclobenzaprine HCl 2 Tablet (of 5 mg) Tablet Oral q 8 hours, Flomax 1 Capsule (of 0.4 mg) Capsule Oral daily, Gabapentin 1 Capsule (of 300 mg) Oral t.i.d., Irbesartan 1 Tablet (of 300 mg) Oral daily, Levocetirizine Dihydrochloride 1 Tablet (of 5 mg) Oral daily PRN, Metoprolol Tartrate 1 Tablet (of 50 mg) Oral daily, Ventolin HFA Aerosol, solution Inhalation Allergies: Bee Sting, Lopid, and Niaspan. Review of Systems: Constitutional - Appetite is fair and weight is decreasing. No fever, chills, hot flashes, or night sweats. Energy level is decreasing, ENMT - No sinus congestion/drainage. No mouth sores. No sore throat or difficulty swallowing, Hematologic/Lymphatic - No abnormal bruising or bleeding, Respiratory - Positive for continued shortness of breath and cough. No pleuritic pain or hemoptysis, Cardiovascular - No angina pain. No palpitations, Gastrointestinal - No nausea or vomiting. No heartburn or acid reflux. No diarrhea or constipation. No blood in the stool or black stools, Genitourinary (M) - No dysuria or hematuria. No urinary frequency. No urgency or incontinence, Musculoskeletal - Pt reports chronic back pain, Neurologic - Pt denies any headache or dizziness, Psychiatric - No anxiety or depression. No insomnia. Vital Signs: Performed on Dec 14, 2019 09:45 Height - 68.00 in Weight - 205.0 lbs (HIGH) BSA - 2.07 sq.m BMI - 31.17 (HIGH) Temperature - 97.6 F (LOW) Pulse - 77 /min Respiration - 22 /min BP - 96/66 mm(hg) O2 Sat - 91 % (LOW) Pain - 0 Performance Status: 0 - Fully active, able to carry on all predisease activities without restrictions. (ECOG) Physical Examination: ENMT - No oral exudates, ulcers, masses, thrush or mucositis. Oropharynx clear. Tongue normal, Respiratory - Lungs are clear to auscultation without rhonchi or wheezing, Cardiovascular - Regular rate and rhythm of heart, Abdomen - Non-tender, non-distended,Good bowel sounds. No guarding or rebound tenderness. No pulsatile masses, Extremities - no edema. Lab/Imaging: Test performed on Dec 07, 2019 08:42 Sodium 137 mmol/L Potassium 4.3 mmol/L Chloride 101 mmol/L CO2 25 mmol/L Anion Gap 15.3 BUN 15 mg/dL Creatinine 0.9 mg/dL Cr Clearance (Est) 103.4200 mL/min eGFR 83.9 mL/min Glucose 129 mg/dL Calcium 9.5 mg/dL Protein, Total 6.7 g/dL Albumin 3.8 g/dL Globulin 2.9 g/dL Bilirubin, Total 0.3 mg/dL ALT (SGPT) 34 U/L AST (SGOT) 19 U/L Alkaline Phosphatase 99 IU/L WBC 7.8 10 3/uL RBC 4.63 10 6/uL HGB 13.6 g/dL HCT 41.7 % MCV 90.1 fL MCH 29.4 pg MCHC 32.6 g/dL RDW 16.7 % Platelet Count 328 10 3/cmm MPV 9.7 fL Neutrophils 4.9 10 3/uL Lymphocytes 1.3 10 3/uL Monocytes 0.9 10 3/uL Eosinophils 0.3 10 3/uL Basophils 0.1 10 3/uL Neutrophil % 63.2 % Lymphocyte % 16.2 % Monocyte % 12.0 % Eosinophil % 4.1 % Basophils % 0.8 % Test performed on Nov 23, 2019 08:29 CBC Slide Review Slide Review Perform SLIDE REVIEW AGREES WITH AUTOMATED RESULTS ST Test performed on Nov 09, 2019 11:26 Ua Color Straw Ua Appearance Clear Ua Specific [place] 1.010 Ua pH 5.0 Ua Protein Negative Ua Glucose 4+ Ua Ketones Negative Ua Blood Negative Ua Leuk Esterase Negative Ua Nitrites Negative Ua Bilirubin Negative Ua Urobilinogen Normal Test performed on Nov 09, 2019 09:21 Manual Lymphocytes 30.0 % Manual Monocytes 0.9 % Manual Eosinophils 0 % Manual Basophils 0.5 % NRBCs 0 /100 WBC Test performed on Nov 09, 2019 08:49 Hemoglobin A1C 7.1 % Test performed on Aug 04, 2019 08:09 Manual Neutrophils Abs 7.5 10 3/cmm Manual Lymphocytes Abs 2.1 10 3/cmm Manual Monocytes Abs 1.7 10 3/cmm Manual Basophils Abs 0.1 10 3/cmm Manual Segs % 57 % Manual Bands % 8.0 % Metamyelocytes % 1.0 % Platelet Estimate NORMAL Impression: Squamous cell carcinoma, low-grade more keratinizing of left upper lobe of lung per bronchoscopy/biopsy done on 07/09/2018 CT PET scan done on 07/26/2018 showed 3.7 x 4.8 cm mass in left upper lobe with SUV of 20.1 and malignant left upper hilar nodes with SUV of 12.7. Multiple malignant mediastinal lymph nodes are present in the right paratracheal, precarinal, left peribronchial, subcarinal and right hilar Territories c T2b , N3 (contralateral hilar lymph nodes involvement), MX, clinical stage IIIB MRI scan of head done on 08/08/2018 showed no evidence of metastatic disease As per cardiothoracic surgery he is not a candidate for surgery. H was started on combined chemoradiation with weekly carboplatin and Taxol on 08/11/2018. Hard of hearing in right ear, unknown etiology Chronic smoking, still active Ascending Aortic aneurysm, since 2015, stable, being followed by Dr. Luther Remote history of brain mass, as per patient and his , stable for the last 18 years A CTA was performed on 09/19/2018 and did report right lower lobe posterior segment and segmental pulmonary emboli. He was treated initially with Lovenox then transitioned to Eliquis. CT head done on 09/23/2018 showed no intracranial hemorrhage or mass effect and unchanged right mastoid air cell effusion with middle ear opacification. Chest x-ray done on 09/23/2018 shows decreased left perihilar mass or perihilar pneumonia .Follow-up CT scan of chest done on 11/12/2018 showed continued improvement in the consolidation superior-medial left lower lobe. 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 Austin his PMD has been following his aortic aneurysm for the last 3 years. History of chronic back pain, as per patient, in the past he he was given injection by Dr. Palm, that helped him for 5 months.MRI scan of thoracic/lumbar spine done on 01/30/2019 showed no evidence of metastatic disease but disc prolapse at multiple level with nerve impingement. Started on maintenance therapy with biweekly durvalumab 10 mg/kg on 11/20/2018. He is tolerating it well thus far. Follow-up CT PET scan done on 02/21/2019 showed there is minimal inflammatory activity in mixed solid/groundglass left lower lobe infiltrate, consistent with residual uptake from radiation therapy, viable malignancy is unlikely, new left lower lobe subpleural nodule-like infiltrate is FDG negative, hypermetabolic mediastinal lymph node in the left hilar, left peribronchial, left precarinal, right hilar territories now demonstrated uptake no greater than mediastinal background, indicating positive response to therapy. He continued with immunotherapy. Follow-up PET/CT from 09/12/2019 reported new medial left lower lobe nodule measuring 1.1 x 1.7 cm with an SUV of 6.1, strongly consistent with recurrent malignancy. There was a new posterior left upper lobe nodules that were too small to characterize. Bilateral mediastinal nodes in the bilateral hilar, right parabronchial, and subcarinal territories are FDG positive. These may be reactive but recurrence cannot be excluded. Dr Bill discussed with Mr & Mrs Palm his disease status and treatment options. Mr Palm wass reluctant to consider radiation therapy due to related toxicity. Case was discussed with Dr. Vazquez radiation oncology, he agreed. Mr Palm was then offered treatment with systemic therapy with cisplatin 25 mg/m??? and gemcitabine 1000 mg/m??? day 1 and day 8 and repeat every 21 days ???3 cycles and repeat follow-up CT PET scan to assess the disease response and then plan accordingly. The immunotherapy was discontinued. Mr Palm began his first cycle of Cisplatin/Gemzar on 10/19/2019. Mrs. Palm states in general he tolerated it pretty well. She states he spent the first couple of days in bed just really washed out and tired. He did have some nausea but no vomiting. She did give him 1 anti-medic and that resolved the nausea. She states since then he has felt much better and has been up eating and doing his normal activities. He has developed new lower quadrant pain which is unexplained. Plan: Discussed with patient regarding his labs white blood count 8 hemoglobin 13 crit 40.5 platelets 236,000 CMP normal limit except glucose 155 Clinically, patient is doing well, no new signs symptoms except off and on choking sensation with swallowing now being evaluated by ENT, Dr. Robertson and upper esophageal dilatation is under consideration. And also being evaluated by Dr. Luther regarding thoracic aorta aneurysm. Patient and his requesting to continue to hold his chemotherapy therapy until ENT and thoracic aortic evaluation is completed, We will continue to hold his chemotherapy for another 2 weeks and patient return to clinic in 2 weeks with CBC CMP and possibly to restart his systemic therapy with cisplatin/gemcitabine. Signed By: Shemar Bill M.D. <<Signature on File>>
--- NOTE | 2019-12-15 08:39 | CT_ITS ---
WS: [id number] CT NECK WITH CONTRAST HISTORY: dysphagia TECHNIQUE: Contiguous 5 mm axial images are performed through the neck with intravenous contrast. Sag ittal and coronal reformats are also submitted. All CT scans at [facility] use at least o ne of these dose optimization techniques: automated exposure control; mA and/or kV adjustment per pat ient size (includes targeted exams where dose is matched to clinical indication); or iterative recons truction. CONTRAST: CONTRAST: Omnipaque 300; 95 mL IV. DLP: 3052.42 mGycm COMPARISON: 12/16/2014 Nasopharynx, oropharynx, hypopharynx and larynx are unremarkable. No soft tissue masses or abnormal e nhancement. Torus tubarius and fossa of Rosenmuller and parapharyngeal fat are normal. No significant lymphadenopathy is identified. Thyroid gland and salivary glands are normally enhancing with no masses. Mild spondylitic changes at C5-6. No osseous destruction. No inferior displacement of the cerebellar tonsils. Remote lacunar infarct in the RIGHT caudate. Visualized orbits and globes are negative. Visualized sinuses are clear. Complete opacification of the RIGHT mastoid air cells has progressed si nce the prior study. Lung apices are clear. CT/CT neck w con* [id number] IMPRESSION: 1. No neck mass or adenopathy. 2. No significant pharyngeal diverticula identified. 3. Chronic RIGHT mastoiditis with progression since 2 04/15/2015.
[2019-12-15] MEDS: iohexol 300 mg/mL 100 mL Btl IV (09:05)
== END 2019-12-19 23:59 | disposition home or self-care (01) ==
LOC: ONCMED 09:00
PROVIDERS: Internal Medicine Hematology & Oncology; Family Provider Family Medicine; PCP Radiology Radiation Oncology; Visit Provider Otolaryngology
DX: C34.12 Malignant neoplasm of upper lobe, left bronchus or lung (principal); E83.42 Hypomagnesemia; E87.6 Hypokalemia; F17.210 Nicotine dependence, cigarettes, uncomplicated; G89.29 Other chronic pain; M54.9 Dorsalgia, unspecified; J43.9 Emphysema, unspecified; I25.10 Atherosclerotic heart disease of native coronary artery without angina pectoris; I71.4 Abdominal aortic aneurysm, without rupture; Z79.899 Other long term (current) drug therapy; Z79.51 Long term (current) use of inhaled steroids; Z79.82 Long term (current) use of aspirin; Z92.21 Personal history of antineoplastic chemotherapy; Z92.3 Personal history of irradiation
CPT/HCPCS: 36415; 70491; 80053; 85025; 96365; 96366; G0463; J3475; J3480; J7030; J7050; Q9967

== ENCOUNTER → 2019-12-29 08:49 | Outpatient (BNVA) | payer MEDICARE, MEDICAID, SELFPAY | PROVIDERS: Family Provider Family Medicine; Visit Provider Otolaryngology | DX: R13.10 Dysphagia, unspecified (principal); C34.92 Malignant neoplasm of unspecified part of left bronchus or lung; I71.2 Thoracic aortic aneurysm, without rupture; F17.210 Nicotine dependence, cigarettes, uncomplicated | CPT/HCPCS: 31575; 99214 ==

== ENCOUNTER 2020-01-12 05:36 | Outpatient (RCR) | payer MEDICARE, MEDICAID, SELFPAY ==
[2019-12-28] MEDS: sodium chloride 0.9% 250 ML 999 ML IV (08:30)
[2019-12-28 08:59] LABS: Basophils # 0.1 10^3/uL (0.0-0.1); Basophils % 0.9 %; Eosinophils # 0.3 10^3/uL (0.0-0.8); Eosinophils % 4.2 %; Hematocrit 40.7 % (42.0-52.0); Hemoglobin 13.2 g/dL (11.7-16.6); Lymphocytes # 1.8 10^3/uL (0.8-4.8); Mean Corpuscular HGB Conc 32.4 g/dL (30.0-36.0); Mean Corpuscular Hemoglobin 29.1 pg (28.0-34.0); Mean Corpuscular Volume 89.6 fL (80-94); Mean Platelet Volume 10.1 fL (7.4-10.4); Monocytes # 0.7 10^3/uL (0.2-0.9); Monocytes % 8.9 %; Neutrophils # 4.9 10^3/uL (1.8-7.7); Neutrophils % 62.5 %; Nucleated Red Blood Cells % 0 %; Platelet Count 247 10^3/cmm (130-400); Red Blood Count 4.54 10^6/uL (4.1-5.3); White Blood Count 7.9 10^3/uL (4.0-10.0)
[2019-12-28 09:09] LABS: Alanine Aminotransferase 15 U/L (0-41); Albumin Level 3.5 g/dL (3.5-5.2); Alkaline Phosphatase 92 IU/L (40-130); Aspartate Amino Transferase 15 U/L (0-40); Blood Urea Nitrogen 10 mg/dL (8-23); Calcium 9.9 mg/dL (8.5-10.5); Carbon Dioxide 24 mmol/L (22-29); Chloride 101 mmol/L (98-107); Globulin 3.6 g/dL (1.3-4.6); Glomerular Filtration Rate 83.9 mL/min (90-130); Glucose 132 mg/dL (65-115); Osmolality Calculated 280 mOsm/kg (285-295); Sodium 136 mmol/L (136-145); Total Bilirubin 0.3 mg/dL (0.15-1.2); Total Protein 7.1 g/dL (6.6-8.7)
--- NOTE | 2019-12-28 11:02 | ONC FU_ITS ---
Dr. Bill follow up note Patient: Raymundo Palm Unit #: [id number]: 1950 Dicatated By: Shemar Bill M.D.Date of Visit:Dec 28, 2019 Onc Med Follow-up/Prog Note History of Present Illness: Mr. Palm is a 69-year-old gentleman with history of ascending aortic aneurysm, stable and now being observed. 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 He developed a chronic cough for which he underwent CT scan of chest. The scan showed possible narrowing of the superior segment bronchus to the left lower lobe. Mr Palm underwent bronchoscopy on 07/09/2018, which showed non-small cell carcinoma squamous cell type, low-grade keratinizing subsequently. On 07/26/[address] PET scan which showed poorly defined left upper lobe mass with mixed groundglass and solid components measuring 3.7 x 4.8 cm with SUV of 20.1; and malignant left upper hilar nodes with SUV of 12; multiple malignant mediastinal lymph nodes are present in the right paratracheal, precarinal, left peribronchial subcarinal and right hilar territories, with SUV of 8.6. He was not a candidate for surgical resection so recommended that he start on combined chemoradiation with weekly carboplatin and Taxol on 08/11/2018 Long-standing history of smoking and still smokes about half a pack. History of chronic back pain, as per patient, in the past Dr. Palm give him injection to his back, that controlled back pain for 5 months. He has completed combined chemoradiation with weekly carbo/taxol and began immunotherapy with Imfinzi. He presented with an episode of shaking, increased anxiety. He was nauseated and discussed all full in general. He was weak and dizzy. He was sent for a CT pulmonary angiogram after labs were drawn. His d-dimer was elevated warranting a CTA exam. The CTA was performed on 09/19/2018 and did confirm right lower lobe posterior segment and segmental pulmonary emboli. There was new left lobe superior segment atelectasis and consolidation with tumoral progression, postradiation changes and pneumonia being differential considerations. There is increased middle third esophageal, subcarinal and right upper lobe perihilar soft tissue attenuation. Chronic emphysema and arteriosclerotic and unchanged a sending thoracic aorta aneurysm at 5 cm . Mr. Palm was started on Lovenox 80 mg every [address] scan of chest done on 11/12/2018 showed continued improvement in the consolidation superior-medial left lower lobe. 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 Less stranding or soft tissue thickening and mediastinal fat, no significant lymph nodes or increased lymph node seen Mild diffuse circumferential thickening of mid esophagus may be due to postradiation changes; emphysema;Stable ascending thoracic aortic aneurysm at 4.[address] Austin his PMD has been following it for the last 3 years. Mr Palm began maintenance durvalumab on 11/20/2018. MRI scan of thoracic/lumbar spine showed no evidence of neoplastic process. But multiple disc protrusion causing nerve impingement at multiple levels. CT PET scan done on 02/21/2019 showed essential resolution of left lower lobe malignancy, only inflammatory appearing FDG uptake is present in the lung infiltrate. Uptake in malignant mediastinal lymphadenopathy seen on previously is now resolved. He continues immunotherapy with durvalumab and is tolerating it well. echo was done which showed ejection fraction with a 60% CT PET scan done on 09/12/2019 showed there is a new medial left lower lobe nodule measuring 1.1 x 1.7 cm with SUV of 6.1, strongly consistent with recurrent malignancy. New posterior left upper lobe nodules are too small to characterize. Bilateral mediastinal nodes in the bilateral hilar, right parabronchial, subcarinal territory are FDG positive. These may be reactive but recurrence cannot be excluded. did discuss with Mr. Palm treatment options for the disease recurrence. The immunotherapy has been stopped. Mr. Palm was reluctant to proceed with any further radiation at this point due to toxicities. Therefore he was offered treatment with cisplatin and gemcitabine. He began his first cycle on 10/19/2019. On 12/01/2019, while in the clinic, receiving premedication for chemotherapy patient started having cough with shortness of breath subsequently choking sensation and near syncopal attack, as per patient has been having those episodes more often in the last few weeks and more often with anxiety and usually following swallowing. At that moment patient was sent to emergency room where he was admitted to the hospital treated with supportive care including IV antibiotics and patient underwent barium swallow and esophagogram which showed lateral pharyngeal pouch and possible esophageal stricture, those findings were discussed with Dr. Robertson, ENT who will follow him as an outpatient. Came for follow-up, denies any specific complaints but still having episodes of cough and near syncopal attacks but less frequently, patient is scheduled to see Dr. Robertson in the morning for evaluation and Dr. Luther regarding aortic aneurysm, on coming Saturday. Otherwise no fever or chills no nausea or vomiting no diarrhea constipation no hemoptysis or hematemesis. Medications: Albuterol Sulfate 1 puff(s) (of 108 (90 base) mcg/act) Aerosol Powder, Breath Activated Inhalation daily, Aspirin Adult Low Strength 1 (81 mg) Tablet, enteric coated Oral daily, Cabergoline 1 Tablet (of 0.5 mg) Oral q 7 days, Crestor 1 Tablet (of 10 mg) Oral daily, Cyclobenzaprine HCl 2 Tablet (of 5 mg) Tablet Oral q 8 hours, Flomax 1 Capsule (of 0.4 mg) Capsule Oral daily, Gabapentin 1 Capsule (of 300 mg) Oral t.i.d., Irbesartan 1 Tablet (of 300 mg) Oral daily, Levocetirizine Dihydrochloride 1 Tablet (of 5 mg) Oral daily PRN, Metoprolol Tartrate 1 Tablet (of 50 mg) Oral daily, Ventolin HFA Aerosol, solution Inhalation Allergies: Bee Sting, Lopid, and Niaspan. Review of Systems: Constitutional - Appetite is fair and weight is decreasing. No fever, chills, hot flashes, or night sweats. Energy level is decreasing, ENMT - No sinus congestion/drainage. No mouth sores. No sore throat or difficulty swallowing, Hematologic/Lymphatic - No abnormal bruising or bleeding, Respiratory - Positive for continued shortness of breath and cough. No pleuritic pain or hemoptysis, Cardiovascular - No angina pain. No palpitations, Gastrointestinal - No nausea or vomiting. No heartburn or acid reflux. No diarrhea or constipation. No blood in the stool or black stools, Genitourinary (M) - No dysuria or hematuria. No urinary frequency. No urgency or incontinence, Musculoskeletal - Pt reports chronic back pain, Neurologic - Pt denies any headache or dizziness, Psychiatric - No anxiety or depression. No insomnia. Vital Signs: Vitals are not available for this patient. Performance Status: 0 - Fully active, able to carry on all predisease activities without restrictions. (ECOG) Physical Examination: ENMT - . No oral exudates, ulcers, masses, thrush or mucositis. Oropharynx clear. Tongue normal, Respiratory - Lungs are clear to auscultation without rhonchi or wheezing, Cardiovascular - Regular rate and rhythm of heart, Abdomen - Non-tender, non-distended, Good bowel sounds. No guarding or rebound tenderness. No pulsatile masses, Extremities - no edema. Lab/Imaging: Test performed on Dec 14, 2019 08:25 Sodium 138 mmol/L Potassium 4.1 mmol/L Chloride 101 mmol/L CO2 26 mmol/L Anion Gap 15.1 BUN 13 mg/dL Creatinine 1.0 mg/dL Cr Clearance (Est) 93.0800 mL/min eGFR 74.3 mL/min Glucose 155 mg/dL Calcium 9.7 mg/dL Protein, Total 6.9 g/dL Albumin 3.7 g/dL Globulin 3.2 g/dL Bilirubin, Total 0.4 mg/dL ALT (SGPT) 18 U/L AST (SGOT) 16 U/L Alkaline Phosphatase 100 IU/L WBC 8.0 10 3/uL RBC 4.46 10 6/uL HGB 13.0 g/dL HCT 40.5 % MCV 90.8 fL MCH 29.1 pg MCHC 32.1 g/dL RDW 16.0 % Platelet Count 236 10 3/cmm MPV 9.5 fL Neutrophils 5.5 10 3/uL Lymphocytes 1.4 10 3/uL Monocytes 0.7 10 3/uL Eosinophils 0.3 10 3/uL Basophils 0.1 10 3/uL Neutrophil % 68.3 % Lymphocyte % 17.2 % Monocyte % 8.5 % Eosinophil % 3.8 % Basophils % 0.9 % Test performed on Nov 23, 2019 08:29 CBC Slide Review Slide Review Perform SLIDE REVIEW AGREES WITH AUTOMATED RESULTS ST Test performed on Nov 09, 2019 11:26 Ua Color Straw Ua Appearance Clear Ua Specific [place] 1.010 Ua pH 5.0 Ua Protein Negative Ua Glucose 4+ Ua Ketones Negative Ua Blood Negative Ua Leuk Esterase Negative Ua Nitrites Negative Ua Bilirubin Negative Ua Urobilinogen Normal Test performed on Nov 09, 2019 09:21 Manual Lymphocytes 30.0 % Manual Monocytes 0.9 % Manual Eosinophils 0 % Manual Basophils 0.5 % NRBCs 0 /100 WBC Test performed on Nov 09, 2019 08:49 Hemoglobin A1C 7.1 % Test performed on Aug 04, 2019 08:09 Manual Neutrophils Abs 7.5 10 3/cmm Manual Lymphocytes Abs 2.1 10 3/cmm Manual Monocytes Abs 1.7 10 3/cmm Manual Basophils Abs 0.1 10 3/cmm Manual Segs % 57 % Manual Bands % 8.0 % Metamyelocytes % 1.0 % Platelet Estimate NORMAL Impression: Squamous cell carcinoma, low-grade more keratinizing of left upper lobe of lung per bronchoscopy/biopsy done on 07/09/2018 CT PET scan done on 07/26/2018 showed 3.7 x 4.8 cm mass in left upper lobe with SUV of 20.1 and malignant left upper hilar nodes with SUV of 12.7. Multiple malignant mediastinal lymph nodes are present in the right paratracheal, precarinal, left peribronchial, subcarinal and right hilar Territories c T2b , N3 (contralateral hilar lymph nodes involvement), MX, clinical stage IIIB MRI scan of head done on 08/08/2018 showed no evidence of metastatic disease As per cardiothoracic surgery he is not a candidate for surgery. H was started on combined chemoradiation with weekly carboplatin and Taxol on 08/11/2018. Hard of hearing in right ear, unknown etiology Chronic smoking, still active Ascending Aortic aneurysm, since 2014, stable, being followed by Dr. Luther Remote history of brain mass, as per patient and his , stable for the last 18 years A CTA was performed on 09/19/2018 and did report right lower lobe posterior segment and segmental pulmonary emboli. He was treated initially with Lovenox then transitioned to Eliquis. CT head done on 09/23/2018 showed no intracranial hemorrhage or mass effect and unchanged right mastoid air cell effusion with middle ear opacification. Chest x-ray done on 09/23/2018 shows decreased left perihilar mass or perihilar pneumonia .Follow-up CT scan of chest done on 11/12/2018 showed continued improvement in the consolidation superior-medial left lower lobe. 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 Austin his PMD has been following his aortic aneurysm for the last 3 years. History of chronic back pain, as per patient, in the past he he was given injection by Dr. Palm, that helped him for 5 months.MRI scan of thoracic/lumbar spine done on 01/30/2019 showed no evidence of metastatic disease but disc prolapse at multiple level with nerve impingement. Started on maintenance therapy with biweekly durvalumab 10 mg/kg on 11/20/2018. He is tolerating it well thus far. Follow-up CT PET scan done on 02/21/2019 showed there is minimal inflammatory activity in mixed solid/groundglass left lower lobe infiltrate, consistent with residual uptake from radiation therapy, viable malignancy is unlikely, new left lower lobe subpleural nodule-like infiltrate is FDG negative, hypermetabolic mediastinal lymph node in the left hilar, left peribronchial, left precarinal, right hilar territories now demonstrated uptake no greater than mediastinal background, indicating positive response to therapy. He continued with immunotherapy. Follow-up PET/CT from 09/12/2019 reported new medial left lower lobe nodule measuring 1.1 x 1.7 cm with an SUV of 6.1, strongly consistent with recurrent malignancy. There was a new posterior left upper lobe nodules that were too small to characterize. Bilateral mediastinal nodes in the bilateral hilar, right parabronchial, and subcarinal territories are FDG positive. These may be reactive but recurrence cannot be excluded. Dr Bill discussed with Mr & Mrs Palm his disease status and treatment options. Mr Palm wass reluctant to consider radiation therapy due to related toxicity. Case was discussed with Dr. Vazquez radiation oncology, he agreed. Mr Palm was then offered treatment with systemic therapy with cisplatin 25 mg/m??? and gemcitabine 1000 mg/m??? day 1 and day 8 and repeat every 21 days ???3 cycles and repeat follow-up CT PET scan to assess the disease response and then plan accordingly. The immunotherapy was discontinued. Mr Palm began his first cycle of Cisplatin/Gemzar on 10/19/2019. Mrs. Palm states in general he tolerated it pretty well. She states he spent the first couple of days in bed just really washed out and tired. He did have some nausea but no vomiting. She did give him 1 anti-medic and that resolved the nausea. She states since then he has felt much better and has been up eating and doing his normal activities. He has developed new lower quadrant pain which is unexplained. Plan: Discussed with patient regarding his labs white blood count 7.9 hemoglobin 13.2 crit 40.7 platelets 247,000 CMP within normal limits Clinically, patient doing well with no signs symptoms suggestive of disease progression but his chemotherapy is on hold since 11/16/2019 because of having near syncopal attacks and now being evaluated by ENT. Patient is scheduled to see Dr. Marcelo HANKINS in the morning and Dr. Luther on Saturday. As per patient and his 's request will hold his chemotherapy for another week, by that time evaluation will be completed so, he will return to clinic in 1 week , may consider restarting his palliative therapy unless, ENT or Dr. Luther plans otherwise. Signed By: Shemar Bill M.D. <<Signature on File>>
[2020-01-05 08:39] LABS: Basophils # 0.1 10^3/uL (0.0-0.1); Eosinophils # 0.3 10^3/uL (0.0-0.8); Eosinophils % 4.2 %; Hematocrit 43.4 % (42.0-52.0); Hemoglobin 14.3 g/dL (11.7-16.6); Lymphocytes % 29.5 %; Mean Corpuscular HGB Conc 32.9 g/dL (30.0-36.0); Mean Corpuscular Hemoglobin 29.8 pg (28.0-34.0); Mean Corpuscular Volume 90.4 fL (80-94); Mean Platelet Volume 9.6 fL (7.4-10.4); Monocytes # 0.7 10^3/uL (0.2-0.9); Monocytes % 9.5 %; Neutrophils # 3.8 10^3/uL (1.8-7.7); Neutrophils % 55.4 %; Nucleated Red Blood Cells % 0 %; Platelet Count 293 10^3/cmm (130-400); Red Cell Distribution Width 15.7 % (12.1-15.1); White Blood Count 6.8 10^3/uL (4.0-10.0)
[2020-01-05 08:50] LABS: Alanine Aminotransferase 16 U/L (0-41); Albumin Level 4.1 g/dL (3.5-5.2); Alkaline Phosphatase 90 IU/L (40-130); Aspartate Amino Transferase 15 U/L (0-40); Blood Urea Nitrogen 11 mg/dL (8-23); Calcium 10.1 mg/dL (8.5-10.5); Carbon Dioxide 26 mmol/L (22-29); Chloride 99 mmol/L (98-107); Globulin 2.8 g/dL (1.3-4.6); Glomerular Filtration Rate 83.9 mL/min (90-130); Glucose 133 mg/dL (65-115); Osmolality Calculated 280 mOsm/kg (285-295); Sodium 136 mmol/L (136-145); Total Bilirubin 0.5 mg/dL (0.15-1.2); Total Protein 6.9 g/dL (6.6-8.7)
[2020-01-05] MEDS: sodium chloride 0.9% 250 ML 75 ML IV (11:50)
--- NOTE | 2020-01-05 12:24 | ONC FU_ITS ---
[facility] Patient Note Patient: Raymundo Palm Unit #: [id number]: 1950 Dictated By: Jimbo ShieldsDate of Visit: Jan 05, 2020 Onc MED Follow-Up/Prog Note Chief Complaint: Lung cancer History of Present Illness: Mr. Palm is a 69-year-old gentleman with history of ascending aortic aneurysm, stable and now being observed. 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 He developed a chronic cough for which he underwent CT scan of chest. The scan showed possible narrowing of the superior segment bronchus to the left lower lobe. Mr Palm underwent bronchoscopy on 07/09/2018, which showed non-small cell carcinoma squamous cell type, low-grade keratinizing subsequently. On 07/26/[address] PET scan which showed poorly defined left upper lobe mass with mixed groundglass and solid components measuring 3.7 x 4.8 cm with SUV of 20.1; and malignant left upper hilar nodes with SUV of 12; multiple malignant mediastinal lymph nodes are present in the right paratracheal, precarinal, left peribronchial subcarinal and right hilar territories, with SUV of 8.6. He was not a candidate for surgical resection so recommended that he start on combined chemoradiation with weekly carboplatin and Taxol on 08/11/2018 Long-standing history of smoking and still smokes about half a pack. History of chronic back pain, as per patient, in the past Dr. Palm give him injection to his back, that controlled back pain for 5 months. He has completed combined chemoradiation with weekly carbo/taxol and began immunotherapy with Imfinzi. He presented with an episode of shaking, increased anxiety. He was nauseated and discussed all full in general. He was weak and dizzy. He was sent for a CT pulmonary angiogram after labs were drawn. His d-dimer was elevated warranting a CTA exam. The CTA was performed on 09/19/2018 and did confirm right lower lobe posterior segment and segmental pulmonary emboli. There was new left lobe superior segment atelectasis and consolidation with tumoral progression, postradiation changes and pneumonia being differential considerations. There is increased middle third esophageal, subcarinal and right upper lobe perihilar soft tissue attenuation. Chronic emphysema and arteriosclerotic and unchanged a sending thoracic aorta aneurysm at 5 cm . Mr. Palm was started on Lovenox 80 mg every [address] scan of chest done on 11/12/2018 showed continued improvement in the consolidation superior-medial left lower lobe. 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 Less stranding or soft tissue thickening and mediastinal fat, no significant lymph nodes or increased lymph node seen Mild diffuse circumferential thickening of mid esophagus may be due to postradiation changes; emphysema;Stable ascending thoracic aortic aneurysm at 4.[address] Austin his PMD has been following it for the last 3 years. Mr Palm began maintenance durvalumab on 11/20/2018. MRI scan of thoracic/lumbar spine showed no evidence of neoplastic process. But multiple disc protrusion causing nerve impingement at multiple levels. CT PET scan done on 02/21/2019 showed essential resolution of left lower lobe malignancy, only inflammatory appearing FDG uptake is present in the lung infiltrate. Uptake in malignant mediastinal lymphadenopathy seen on previously is now resolved. He continues immunotherapy with durvalumab and is tolerating it well. echo was done which showed ejection fraction with a 60% CT PET scan done on 09/12/2019 showed there is a new medial left lower lobe nodule measuring 1.1 x 1.7 cm with SUV of 6.1, strongly consistent with recurrent malignancy. New posterior left upper lobe nodules are too small to characterize. Bilateral mediastinal nodes in the bilateral hilar, right parabronchial, subcarinal territory are FDG positive. These may be reactive but recurrence cannot be excluded. did discuss with Mr. Palm treatment options for the disease recurrence. The immunotherapy has been stopped. Mr. Palm was reluctant to proceed with any further radiation at this point due to toxicities. Therefore he was offered treatment with cisplatin and gemcitabine. He began his first cycle on 10/19/2019. On 12/01/2019, while in the clinic, receiving premedication for chemotherapy patient started having cough with shortness of breath subsequently choking sensation and near syncopal attack, as per patient has been having those episodes more often in the last few weeks and more often with anxiety and usually following swallowing. At that moment patient was sent to emergency room where he was admitted to the hospital treated with supportive care including IV antibiotics and patient underwent barium swallow and esophagogram which showed lateral pharyngeal pouch and possible esophageal stricture, those findings were discussed with Dr. Robertson, ENT who will follow him as an outpatient. Mr. Palm did see Dr. Robertson on 12/29/2019. 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 Small hiatal hernia. Mild esophageal dysmotility ability with distal stricture. CT of the neck from 12/15/2019 reported no abnormalities no adenopathy. He did have flexible fiberoptic nasopharyngeal scope and the hypopharynx and larynx were visualized secondary to hyperactive gag reflex. Mr. Palm stated that his symptoms had pretty well gone and had not reoccurred and he did not want to pursue any further treatment at this time. He has been unable to follow with Dr. Luther's office as they have opted to not see patients due to the coed 19 virus and current precautionary guidelines. Mr. Palm is here today to resume his chemotherapy with cisplatin and gemcitabine. IT has been on day 1 and 8 although he has not had day 8 treatments for a variety of reasons. He states that he feels good. He states he is ready to resume the chemotherapy. He recently got a new dog and is very excited about this. He has been helping care for the dog and taken at outside to use the restroom and tolerating this well. He denies any changes in his breathing. He has had no productive cough. He denies any fever or chills. He denies any nausea or vomiting. He denies any diarrhea or constipation. He states overall he feels that he is doing good but just wants to get back on the chemotherapy. His ECOG is 1. He recently got a dog for a family pet and this has made him excited and per Mrs Palm, it makes him get up more than he has been. t Past Medical History: Aortic anuerysm Bph Chronic obstructive pulmonary disease Hyperlipidemia Hypertension Past Surgical History: Bronchoscopy Colonoscopy Hernia repair Orif right leg Allergies: Bee Sting, Lopid, and Niaspan. Medications: Albuterol Sulfate 1 puff(s) (of 108 (90 base) mcg/act) Aerosol Powder, Breath Activated Inhalation daily Aspirin Adult Low Strength 1 (81 mg) Tablet, enteric coated Oral daily Cabergoline 1 Tablet (of 0.5 mg) Oral q 7 days Crestor 1 Tablet (of 10 mg) Oral daily Cyclobenzaprine HCl 2 Tablet (of 5 mg) Tablet Oral q 8 hours Flomax 1 Capsule (of 0.4 mg) Capsule Oral daily Gabapentin 1 Capsule (of 300 mg) Oral t.i.d. Irbesartan 1 Tablet (of 300 mg) Oral daily Levocetirizine Dihydrochloride 1 Tablet (of 5 mg) Oral daily PRN Metoprolol Tartrate 1 Tablet (of 50 mg) Oral daily Ventolin HFA Aerosol, solution Inhalation Family History: The family history is unremarkable. Social History: Mr. Palm is and he is retired. He is an occasional smoker who has smoked 0.5 packs/day for 52 years. He has no history of drinking. He has indicated exposure to the following products: pipe. Review Of Symptoms: Constitutional Denies fevers, chills, night sweats, excessive fatigue or weight loss. Allergic/Immunologic No reactions. Eyes Denies significant visual changes. No diplopia. No amaurosis. ENMT Denies changes in hearing, sore throat, mouth sores, difficulty in swallowing ability, and/or sinus drainage. No more swallowing spells since seeing Dr Robertson. Endocrine No diabetes, thyroid disease or hormone replacement. Denies hot flashes or night sweats. Hematologic/Lymphatic Denies easy bruising or bleeding. The patient denies any tender or palpable lymph nodes. Respiratory Denies dyspnea on exertion, chest pain, cough or hemoptysis. Denies orthopnea. Cardiovascular Denies anginal chest pain, palpitations or orthopnea. Gastrointestinal Denies nausea, vomiting, diarrhea, GI bleeding, or constipation. Denies change in bowel habits and/or stool color, no heartburn or early satiety. Genitourinary (M) Denies hematuria, dysuria, increased frequency, urgency, hesitancy or incontinence. Musculoskeletal Denies joint pain, swelling or redness. No decreased range of motion. Integumentary Denies chronic rashes, inflammation, ulcerations or skin changes. Neurologic Denies headache, blurred vision, and no areas of focal weakness or numbness. Normal gait. No sensory problems. Psychiatric Denies insomnia, depression, chad or mood swings. Vital Signs: Performed on Jan 05, 2020 10:08 Height - 68.00 in Weight - 199.2 lbs (LOW) BSA - 2.04 sq.m BMI - 30.29 (HIGH) Temperature - 97.5 F (LOW) Pulse - 72 /min Respiration - 24 /min BP - 156/99 mm(hg) (HIGH) O2 Sat - 92 % (LOW) Pain - 0,1 - No physically strenuous activity, but ambulatory and able to carry out light or sedentary work (e.g. office work, light house work). (ECOG) Physical Examination: Constitutional Alert, oriented, no acute distress. Skin pink, warm and dry. Head Normocephalic; atraumatic. Eyes Conjunctivae and sclerae are clear and without icterus. Pupils are reactive and equal. ENMT No oral exudates, ulcers, masses, thrush or mucositis. Oropharynx clear. Tongue normal. He denies any new hearing changes. He does have chronic hearing loss in the right ear. Neck Supple without masses or thyromegaly. No jugular venous distension. Hematologic/Lymphatic No petechiae or purpura. No tender or palpable lymph nodes in the cervical or supraclavicular areas. Respiratory Lungs are clear to auscultation without rhonchi or wheezing. Cardiovascular Regular rate and rhythm of heart without murmurs,clicks, gallops or rubs. Chest Left chest wall venous access site is unremarkable. Back/Spine Non-tender to palpation. Extremities No visible deformities, no cyanosis, clubbing or edema. Musculoskeletal No tenderness or swelling, normal range of motion without obvious weakness. Integumentary No rashes or lesions. Neurologic No sensory or motor deficits, normal cerebellar function, normal gait. Psychiatric Alert and oriented times three. Coherent speech. Verbalizes understanding of our discussions today. Laboratory:Test performed on Jan 05, 2020 08:20 Sodium 136 mmol/L Potassium 4.0 mmol/L Chloride 99 mmol/L CO2 26 mmol/L Anion Gap 15.0 BUN 11 mg/dL Creatinine 0.9 mg/dL Cr Clearance (Est) 103.4200 mL/min eGFR 83.9 mL/min Glucose 133 mg/dL Calcium 10.1 mg/dL Protein, Total 6.9 g/dL Albumin 4.1 g/dL Globulin 2.8 g/dL Bilirubin, Total 0.5 mg/dL ALT (SGPT) 16 U/L AST (SGOT) 15 U/L Alkaline Phosphatase 90 IU/L WBC 6.8 10 3/uL RBC 4.80 10 6/uL HGB 14.3 g/dL HCT 43.4 % MCV 90.4 fL MCH 29.8 pg MCHC 32.9 g/dL RDW 15.7 % Platelet Count 293 10 3/cmm MPV 9.6 fL Neutrophils 3.8 10 3/uL Lymphocytes 2.0 10 3/uL Monocytes 0.7 10 3/uL Eosinophils 0.3 10 3/uL Basophils 0.1 10 3/uL Neutrophil % 55.4 % Lymphocyte % 29.5 % Monocyte % 9.5 % Eosinophil % 4.2 % Basophils % 1.0 % Impression: Squamous cell carcinoma, low-grade more keratinizing of left upper lobe of lung per bronchoscopy/biopsy done on 07/09/2018 CT PET scan done on 07/26/2018 showed 3.7 x 4.8 cm mass in left upper lobe with SUV of 20.1 and malignant left upper hilar nodes with SUV of 12.7. Multiple malignant mediastinal lymph nodes are present in the right paratracheal, precarinal, left peribronchial, subcarinal and right hilar Territories c T2b , N3 (contralateral hilar lymph nodes involvement), MX, clinical stage IIIB MRI scan of head done on 08/08/2018 showed no evidence of metastatic disease As per cardiothoracic surgery he is not a candidate for surgery. H was started on combined chemoradiation with weekly carboplatin and Taxol on 08/11/2018. Hard of hearing in right ear, unknown etiology Chronic smoking, still active Ascending Aortic aneurysm, since 2015, stable, being followed by Dr. Luther Remote history of brain mass, as per patient and his , stable for the last 18 years A CTA was performed on 09/19/2018 and did report right lower lobe posterior segment and segmental pulmonary emboli. He was treated initially with Lovenox then transitioned to Eliquis. CT head done on 09/23/2018 showed no intracranial hemorrhage or mass effect and unchanged right mastoid air cell effusion with middle ear opacification. Chest x-ray done on 09/23/2018 shows decreased left perihilar mass or perihilar pneumonia .Follow-up CT scan of chest done on 11/12/2018 showed continued improvement in the consolidation superior-medial left lower lobe. 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 Austin his PMD has been following his aortic aneurysm for the last 3 years. History of chronic back pain, as per patient, in the past he he was given injection by Dr. Palm, that helped him for 5 months.MRI scan of thoracic/lumbar spine done on 01/30/2019 showed no evidence of metastatic disease but disc prolapse at multiple level with nerve impingement. Started on maintenance therapy with biweekly durvalumab 10 mg/kg on 11/20/2018. He is tolerating it well thus far. Follow-up CT PET scan done on 02/21/2019 showed there is minimal inflammatory activity in mixed solid/groundglass left lower lobe infiltrate, consistent with residual uptake from radiation therapy, viable malignancy is unlikely, new left lower lobe subpleural nodule-like infiltrate is FDG negative, hypermetabolic mediastinal lymph node in the left hilar, left peribronchial, left precarinal, right hilar territories now demonstrated uptake no greater than mediastinal background, indicating positive response to therapy. He continued with immunotherapy. Follow-up PET/CT from 09/12/2019 reported new medial left lower lobe nodule measuring 1.1 x 1.7 cm with an SUV of 6.1, strongly consistent with recurrent malignancy. There was a new posterior left upper lobe nodules that were too small to characterize. Bilateral mediastinal nodes in the bilateral hilar, right parabronchial, and subcarinal territories are FDG positive. These may be reactive but recurrence cannot be excluded. Dr Bill discussed with Mr & Mrs Palm his disease status and treatment options. Mr Palm wass reluctant to consider radiation therapy due to related toxicity. Case was discussed with Dr. Vazquez radiation oncology, he agreed. Mr Palm was then offered treatment with systemic therapy with cisplatin 25 mg/m??? and gemcitabine 1000 mg/m??? day 1 and day 8 and repeat every 21 days ???3 cycles and repeat follow-up CT PET scan to assess the disease response and then plan accordingly. The immunotherapy was discontinued. Mr Palm began his first cycle of Cisplatin/Gemzar on 10/19/2019. Mr Palm will resume treatment today as planned. Plan: 1. Resume palliative chemotherapy with cisplatin/gemcitabine. His last treatment was on 11/16/2019. 2. Continue support care as needed between cycles. 3. Today's labs were reviewed in detail and discussed with Mr & Mrs Palm and a copy was given to them. WBC 6.8, Hgb 14.3, platelets 293,000 and ANC 3800. 4. Will proceed with Neupogen as it was already ordered per Dr Bill and the starting ANC is 3800 and he has a history of chemo induced neutropenia. 5. Plan for day 8 followup with CBC, CMP in 1 week. 6. Mr Palm was instructed to call us in the interim if questions or problems arise. Signed By: Jimbo Shields MD <<Signature on File>>
[2020-01-05] MEDS: FUROsemide 10 mg/mL SDV 2mL 20 MG IV ×2 (13:31)
[2020-01-05] MEDS: potassium chloride 20 MEQ in sodium chloride 0.9% 500 ML 500 MEQ IV (13:35)
[2020-01-12 08:48] LABS: Basophils # 0.1 10^3/uL (0.0-0.1); Basophils % 0.7 %; Eosinophils # 0.1 10^3/uL (0.0-0.8); Eosinophils % 1.2 %; Lymphocytes # 1.5 10^3/uL (0.8-4.8); Lymphocytes % 20.1 %; Mean Corpuscular HGB Conc 33.3 g/dL (30.0-36.0); Mean Corpuscular Hemoglobin 30.5 pg (28.0-34.0); Mean Corpuscular Volume 91.5 fL (80-94); Mean Platelet Volume 9.2 fL (7.4-10.4); Monocytes # 0.4 10^3/uL (0.2-0.9); Monocytes % 5.8 %; Neutrophils # 5.1 10^3/uL (1.8-7.7); Nucleated Red Blood Cells % 0 %; Platelet Count 150 10^3/cmm (130-400); Red Blood Count 4.26 10^6/uL (4.1-5.3); Red Cell Distribution Width 15.2 % (12.1-15.1); White Blood Count 7.4 10^3/uL (4.0-10.0)
[2020-01-12 09:07] LABS: Alanine Aminotransferase 20 U/L (0-41); Alkaline Phosphatase 107 IU/L (40-130); Aspartate Amino Transferase 17 U/L (0-40); Blood Urea Nitrogen 13 mg/dL (8-23); Calcium 9.8 mg/dL (8.5-10.5); Carbon Dioxide 27 mmol/L (22-29); Chloride 96 mmol/L (98-107); Globulin 3.1 g/dL (1.3-4.6); Glomerular Filtration Rate 96.1 mL/min (90-130); Glucose 130 mg/dL (65-115); Osmolality Calculated 278 mOsm/kg (285-295); Sodium 135 mmol/L (136-145); Total Bilirubin 0.4 mg/dL (0.15-1.2); Total Protein 7.1 g/dL (6.6-8.7)
[2020-01-12] MEDS: potassium chloride 20 MEQ in sodium chloride 0.9% 500 ML 500 MEQ IV (09:55)
[2020-01-12] MEDS: FUROsemide 10 mg/mL SDV 2mL 20 MG IV (13:53)
--- NOTE | 2020-01-12 16:37 | ONC FU_ITS ---
Dr. Bill follow up note Patient: Raymundo Palm Unit #: [id number]: 1950 Dicatated By: Shemar Bill M.D.Date of Visit:Jan 12, 2020 Onc Med Follow-up/Prog Note History of Present Illness: Mr. Palm is a 69-year-old gentleman with history of ascending aortic aneurysm, stable and now being observed. 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 He developed a chronic cough for which he underwent CT scan of chest. The scan showed possible narrowing of the superior segment bronchus to the left lower lobe. Mr Palm underwent bronchoscopy on 07/09/2018, which showed non-small cell carcinoma squamous cell type, low-grade keratinizing subsequently. On 07/26/[address] PET scan which showed poorly defined left upper lobe mass with mixed groundglass and solid components measuring 3.7 x 4.8 cm with SUV of 20.1; and malignant left upper hilar nodes with SUV of 12; multiple malignant mediastinal lymph nodes are present in the right paratracheal, precarinal, left peribronchial subcarinal and right hilar territories, with SUV of 8.6. He was not a candidate for surgical resection so recommended that he start on combined chemoradiation with weekly carboplatin and Taxol on 08/11/2018 Long-standing history of smoking and still smokes about half a pack. History of chronic back pain, as per patient, in the past Dr. Palm give him injection to his back, that controlled back pain for 5 months. He has completed combined chemoradiation with weekly carbo/taxol and began immunotherapy with Imfinzi. He presented with an episode of shaking, increased anxiety. He was nauseated and discussed all full in general. He was weak and dizzy. He was sent for a CT pulmonary angiogram after labs were drawn. His d-dimer was elevated warranting a CTA exam. The CTA was performed on 09/19/2018 and did confirm right lower lobe posterior segment and segmental pulmonary emboli. There was new left lobe superior segment atelectasis and consolidation with tumoral progression, postradiation changes and pneumonia being differential considerations. There is increased middle third esophageal, subcarinal and right upper lobe perihilar soft tissue attenuation. Chronic emphysema and arteriosclerotic and unchanged a sending thoracic aorta aneurysm at 5 cm . Mr. Palm was started on Lovenox 80 mg every [address] scan of chest done on 11/12/2018 showed continued improvement in the consolidation superior-medial left lower lobe. 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 Less stranding or soft tissue thickening and mediastinal fat, no significant lymph nodes or increased lymph node seen Mild diffuse circumferential thickening of mid esophagus may be due to postradiation changes; emphysema;Stable ascending thoracic aortic aneurysm at 4.[address] Austin his PMD has been following it for the last 3 years. Mr Palm began maintenance durvalumab on 11/20/2018. MRI scan of thoracic/lumbar spine showed no evidence of neoplastic process. But multiple disc protrusion causing nerve impingement at multiple levels. CT PET scan done on 02/21/2019 showed essential resolution of left lower lobe malignancy, only inflammatory appearing FDG uptake is present in the lung infiltrate. Uptake in malignant mediastinal lymphadenopathy seen on previously is now resolved. He continues immunotherapy with durvalumab and is tolerating it well. echo was done which showed ejection fraction with a 60% CT PET scan done on 09/12/2019 showed there is a new medial left lower lobe nodule measuring 1.1 x 1.7 cm with SUV of 6.1, strongly consistent with recurrent malignancy. New posterior left upper lobe nodules are too small to characterize. Bilateral mediastinal nodes in the bilateral hilar, right parabronchial, subcarinal territory are FDG positive. These may be reactive but recurrence cannot be excluded. did discuss with Mr. Palm treatment options for the disease recurrence. The immunotherapy has been stopped. Mr. Palm was reluctant to proceed with any further radiation at this point due to toxicities. Therefore he was offered treatment with cisplatin and gemcitabine. He began his first cycle on 10/19/2019. On 12/01/2019, while in the clinic, receiving premedication for chemotherapy patient started having cough with shortness of breath subsequently choking sensation and near syncopal attack, as per patient has been having those episodes more often in the last few weeks and more often with anxiety and usually following swallowing. At that moment patient was sent to emergency room where he was admitted to the hospital treated with supportive care including IV antibiotics and patient underwent barium swallow and esophagogram which showed lateral pharyngeal pouch and possible esophageal stricture, those findings were discussed with Dr. Robertson, ENT who will follow him as an outpatient. Mr. Palm did see Dr. Robertson on 12/29/2019. 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 Small hiatal hernia. Mild esophageal dysmotility ability with distal stricture. CT of the neck from 12/15/2019 reported no abnormalities no adenopathy. He did have flexible fiberoptic nasopharyngeal scope and the hypopharynx and larynx were visualized secondary to hyperactive gag reflex. Mr. Palm stated that his symptoms had pretty well gone and had not reoccurred and he did not want to pursue any further treatment at this time. He has been unable to follow with Dr. Luther's office as they have opted to not see patients due to the coed 19 virus and current precautionary guidelines. resumed his chemotherapy with cisplatin and gemcitabine on 01/05/2020. Came for follow-up, denies any specific complaints, no nausea vomiting, no diarrhea constipation, tolerated chemotherapy well last week. No more choking sensation no more shortness of breath or near syncopal attack. Swallowing without problem. Medications: Albuterol Sulfate 1 puff(s) (of 108 (90 base) mcg/act) Aerosol Powder, Breath Activated Inhalation daily, Aspirin Adult Low Strength 1 (81 mg) Tablet, enteric coated Oral daily, Cabergoline 1 Tablet (of 0.5 mg) Oral q 7 days, Crestor 1 Tablet (of 10 mg) Oral daily, Cyclobenzaprine HCl 2 Tablet (of 5 mg) Tablet Oral q 8 hours, Flomax 1 Capsule (of 0.4 mg) Capsule Oral daily, Gabapentin 1 Capsule (of 300 mg) Oral t.i.d., Irbesartan 1 Tablet (of 300 mg) Oral daily, Levocetirizine Dihydrochloride 1 Tablet (of 5 mg) Oral daily PRN, Metoprolol Tartrate 1 Tablet (of 50 mg) Oral daily, Ventolin HFA Aerosol, solution Inhalation Allergies: Bee Sting, Lopid, and Niaspan. Review of Systems: Constitutional - Appetite is fair and weight is stable. No fever, chills, hot flashes, or night sweats. Energy level is fair today, ENMT - No sinus congestion/drainage. No mouth sores. No sore throat or difficulty swallowing, Hematologic/Lymphatic - No abnormal bruising or bleeding, Respiratory - No shortness of breathe or cough. No pleuritic pain or hemoptysis, Cardiovascular - No angina pain. No palpitations, Gastrointestinal - No nausea or vomiting. No heartburn or acid reflux. No diarrhea or constipation. No blood in the stool or black stools, Genitourinary (M) - No dysuria or hematuria. No urinary frequency. No urgency or incontinence, Musculoskeletal - Pt reports chronic back pain, Neurologic - Pt denies any headache or dizziness, Psychiatric - No anxiety or depression. No insomnia. Vital Signs: Performed on Jan 12, 2020 09:44 Height - 68.00 in Weight - 200.6 lbs (HIGH) BSA - 2.05 sq.m BMI - 30.50 (HIGH) Temperature - 98.2 F (LOW) Pulse - 77 /min Respiration - 18 /min BP - 118/82 mm(hg) O2 Sat - 92 % (LOW) Pain - 0 Performance Status: 0 - Fully active, able to carry on all predisease activities without restrictions. (ECOG) Physical Examination: ENMT - No oral exudates, ulcers, masses, thrush or mucositis. Oropharynx clear. Tongue normal, Respiratory - Lungs are clear to auscultation without rhonchi or wheezing, Cardiovascular - Regular rate and rhythm of heart, Abdomen - Non-tender, non-distended, Good bowel sounds. No guarding or rebound tenderness. No pulsatile masses, Extremities - no edema. Lab/Imaging: Test performed on Jan 05, 2020 08:20 Sodium 136 mmol/L Potassium 4.0 mmol/L Chloride 99 mmol/L CO2 26 mmol/L Anion Gap 15.0 BUN 11 mg/dL Creatinine 0.9 mg/dL Cr Clearance (Est) 103.4200 mL/min eGFR 83.9 mL/min Glucose 133 mg/dL Calcium 10.1 mg/dL Protein, Total 6.9 g/dL Albumin 4.1 g/dL Globulin 2.8 g/dL Bilirubin, Total 0.5 mg/dL ALT (SGPT) 16 U/L AST (SGOT) 15 U/L Alkaline Phosphatase 90 IU/L WBC 6.8 10 3/uL RBC 4.80 10 6/uL HGB 14.3 g/dL HCT 43.4 % MCV 90.4 fL MCH 29.8 pg MCHC 32.9 g/dL RDW 15.7 % Platelet Count 293 10 3/cmm MPV 9.6 fL Neutrophils 3.8 10 3/uL Lymphocytes 2.0 10 3/uL Monocytes 0.7 10 3/uL Eosinophils 0.3 10 3/uL Basophils 0.1 10 3/uL Neutrophil % 55.4 % Lymphocyte % 29.5 % Monocyte % 9.5 % Eosinophil % 4.2 % Basophils % 1.0 % Test performed on Nov 23, 2019 08:29 CBC Slide Review Slide Review Perform SLIDE REVIEW AGREES WITH AUTOMATED RESULTS ST Test performed on Nov 09, 2019 11:26 Ua Color Straw Ua Appearance Clear Ua Specific [place] 1.010 Ua pH 5.0 Ua Protein Negative Ua Glucose 4+ Ua Ketones Negative Ua Blood Negative Ua Leuk Esterase Negative Ua Nitrites Negative Ua Bilirubin Negative Ua Urobilinogen Normal Test performed on Nov 09, 2019 09:21 Manual Lymphocytes 30.0 % Manual Monocytes 0.9 % Manual Eosinophils 0 % Manual Basophils 0.5 % NRBCs 0 /100 WBC Test performed on Nov 09, 2019 08:49 Hemoglobin A1C 7.1 % Test performed on Aug 04, 2019 08:09 Manual Neutrophils Abs 7.5 10 3/cmm Manual Lymphocytes Abs 2.1 10 3/cmm Manual Monocytes Abs 1.7 10 3/cmm Manual Basophils Abs 0.1 10 3/cmm Manual Segs % 57 % Manual Bands % 8.0 % Metamyelocytes % 1.0 % Platelet Estimate NORMAL Impression: Squamous cell carcinoma, low-grade more keratinizing of left upper lobe of lung per bronchoscopy/biopsy done on 07/09/2018 CT PET scan done on 07/26/2018 showed 3.7 x 4.8 cm mass in left upper lobe with SUV of 20.1 and malignant left upper hilar nodes with SUV of 12.7. Multiple malignant mediastinal lymph nodes are present in the right paratracheal, precarinal, left peribronchial, subcarinal and right hilar Territories c T2b , N3 (contralateral hilar lymph nodes involvement), MX, clinical stage IIIB MRI scan of head done on 08/08/2018 showed no evidence of metastatic disease As per cardiothoracic surgery he is not a candidate for surgery. H was started on combined chemoradiation with weekly carboplatin and Taxol on 08/11/2018. Hard of hearing in right ear, unknown etiology Chronic smoking, still active Ascending Aortic aneurysm, since 2014, stable, being followed by Dr. Luther Remote history of brain mass, as per patient and his , stable for the last 18 years A CTA was performed on 09/19/2018 and did report right lower lobe posterior segment and segmental pulmonary emboli. He was treated initially with Lovenox then transitioned to Eliquis. CT head done on 09/23/2018 showed no intracranial hemorrhage or mass effect and unchanged right mastoid air cell effusion with middle ear opacification. Chest x-ray done on 09/23/2018 shows decreased left perihilar mass or perihilar pneumonia .Follow-up CT scan of chest done on 11/12/2018 showed continued improvement in the consolidation superior-medial left lower lobe. 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 Austin his PMD has been following his aortic aneurysm for the last 3 years. History of chronic back pain, as per patient, in the past he he was given injection by Dr. Palm, that helped him for 5 months.MRI scan of thoracic/lumbar spine done on 01/30/2019 showed no evidence of metastatic disease but disc prolapse at multiple level with nerve impingement. Started on maintenance therapy with biweekly durvalumab 10 mg/kg on 11/20/2018. He is tolerating it well thus far. Follow-up CT PET scan done on 02/21/2019 showed there is minimal inflammatory activity in mixed solid/groundglass left lower lobe infiltrate, consistent with residual uptake from radiation therapy, viable malignancy is unlikely, new left lower lobe subpleural nodule-like infiltrate is FDG negative, hypermetabolic mediastinal lymph node in the left hilar, left peribronchial, left precarinal, right hilar territories now demonstrated uptake no greater than mediastinal background, indicating positive response to therapy. He continued with immunotherapy. Follow-up PET/CT from 09/12/2019 reported new medial left lower lobe nodule measuring 1.1 x 1.7 cm with an SUV of 6.1, strongly consistent with recurrent malignancy. There was a new posterior left upper lobe nodules that were too small to characterize. Bilateral mediastinal nodes in the bilateral hilar, right parabronchial, and subcarinal territories are FDG positive. These may be reactive but recurrence cannot be excluded. Dr Bill discussed with Mr & Mrs Palm his disease status and treatment options. Mr Palm wass reluctant to consider radiation therapy due to related toxicity. Case was discussed with Dr. Vazquez radiation oncology, he agreed. Mr Palm was then offered treatment with systemic therapy with cisplatin 25 mg/m??? and gemcitabine 1000 mg/m??? day 1 and day 8 and repeat every 21 days ???3 cycles and repeat follow-up CT PET scan to assess the disease response and then plan accordingly. The immunotherapy was discontinued. Mr Palm began his first cycle of Cisplatin/Gemzar on 10/19/2019. Mr Palm will resume treatment today as planned. Plan: Discussed with patient regarding his labs white blood count 7.4 hemoglobin 13 hematocrit 39 platelets 150,000 CMP within normal limits Clinically, patient doing well, tolerating palliative therapy with cisplatin/gemcitabine well. We'll proceed with next dose e.g. day 8 chemotherapy with cisplatin/gemcitabine today and then return to clinic in 2 weeks with CBC CMP if reasonable and proceed with the next cycle. Signed By: Shemar Bill M.D. <<Signature on File>>
== END 2020-01-19 23:59 | disposition home or self-care (01) ==
LOC: ONCMED 05:36
PROVIDERS: Nurse Practitioner; Family Provider Family Medicine; Visit Provider Internal Medicine Hematology & Oncology
DX: Z51.11 Encounter for antineoplastic chemotherapy (principal); C34.12 Malignant neoplasm of upper lobe, left bronchus or lung; Z92.3 Personal history of irradiation; F17.210 Nicotine dependence, cigarettes, uncomplicated; G89.29 Other chronic pain; C77.1 Secondary and unspecified malignant neoplasm of intrathoracic lymph nodes; D70.1 Agranulocytosis secondary to cancer chemotherapy; T45.1X5A Adverse effect of antineoplastic and immunosuppressive drugs, initial encounter; M54.9 Dorsalgia, unspecified; J43.9 Emphysema, unspecified; I71.6 Thoracoabdominal aortic aneurysm, without rupture; Q38.7 Congenital pharyngeal pouch; N40.0 Benign prostatic hyperplasia without lower urinary tract symptoms; E78.5 Hyperlipidemia, unspecified; I10 Essential (primary) hypertension; I71.4 Abdominal aortic aneurysm, without rupture; Z79.01 Long term (current) use of anticoagulants; Z92.25 Personal history of immunosuppression therapy; Z86.711 Personal history of pulmonary embolism; Z79.51 Long term (current) use of inhaled steroids; Z79.82 Long term (current) use of aspirin
CPT/HCPCS: 80053; 85025; 96365; 96366; 96367; 96372; 96375; 96413; 96417; 99214; G0463; J1100; J1200; J1442; J1453; J1940; J2469; J3475; J3480; J7030; J7040; J7050; J9060; J9201

== ENCOUNTER 2020-01-26 06:55 | Outpatient (RCR) | payer MEDICARE, MEDICAID, SELFPAY ==
[2020-01-26 08:26] LABS: Basophils % 0.9 %; Eosinophils # 0.2 10^3/uL (0.0-0.8); Eosinophils % 3.7 %; Hematocrit 36.8 % (42.0-52.0); Hemoglobin 11.9 g/dL (11.7-16.6); Lymphocytes # 1.8 10^3/uL (0.8-4.8); Lymphocytes % 39.6 %; Mean Corpuscular HGB Conc 32.3 g/dL (30.0-36.0); Mean Corpuscular Volume 92.7 fL (80-94); Mean Platelet Volume 10.1 fL (7.4-10.4); Monocytes # 0.7 10^3/uL (0.2-0.9); Monocytes % 15.4 %; Neutrophils # 1.8 10^3/uL (1.8-7.7); Nucleated Red Blood Cells % 0.9 %; Platelet Count 332 10^3/cmm (130-400); Red Blood Count 3.97 10^6/uL (4.1-5.3); Red Cell Distribution Width 16.6 % (12.1-15.1); White Blood Count 4.6 10^3/uL (4.0-10.0)
[2020-01-26 08:33] LABS: Alanine Aminotransferase 18 U/L (0-41); Albumin Level 4.1 g/dL (3.5-5.2); Alkaline Phosphatase 102 IU/L (40-130); Anion Gap 17.2 (5-19); Aspartate Amino Transferase 17 U/L (0-40); Blood Urea Nitrogen 12 mg/dL (8-23); Calcium 9.7 mg/dL (8.5-10.5); Carbon Dioxide 23 mmol/L (22-29); Chloride 99 mmol/L (98-107); Globulin 3.2 g/dL (1.3-4.6); Glomerular Filtration Rate 74.3 mL/min (90-130); Glucose 139 mg/dL (65-115); Osmolality Calculated 278 mOsm/kg (285-295); Potassium 4.2 mmol/L (3.5-5.1); Sodium 135 mmol/L (136-145); Total Bilirubin 0.3 mg/dL (0.15-1.2); Total Protein 7.3 g/dL (6.6-8.7)
--- NOTE | 2020-01-26 12:14 | ONC FU_ITS ---
Dr. Bill follow up note Patient: Raymundo Palm Unit #: [id number]: [id number] Dicatated By: Shemar Bill M.D.Date of Visit:Jan 26, 2020 Onc Med Follow-up/Prog Note History of Present Illness: Mr. Palm is a 69-year-old gentleman with history of ascending aortic aneurysm, stable and now being observed. 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 He developed a chronic cough for which he underwent CT scan of chest. The scan showed possible narrowing of the superior segment bronchus to the left lower lobe. Mr Palm underwent bronchoscopy on 07/09/2018, which showed non-small cell carcinoma squamous cell type, low-grade keratinizing subsequently. On 07/26/[address] PET scan which showed poorly defined left upper lobe mass with mixed groundglass and solid components measuring 3.7 x 4.8 cm with SUV of 20.1; and malignant left upper hilar nodes with SUV of 12; multiple malignant mediastinal lymph nodes are present in the right paratracheal, precarinal, left peribronchial subcarinal and right hilar territories, with SUV of 8.6. He was not a candidate for surgical resection so recommended that he start on combined chemoradiation with weekly carboplatin and Taxol on 08/11/2018 Long-standing history of smoking and still smokes about half a pack. History of chronic back pain, as per patient, in the past Dr. Palm give him injection to his back, that controlled back pain for 5 months. He has completed combined chemoradiation with weekly carbo/taxol and began immunotherapy with Imfinzi. He presented with an episode of shaking, increased anxiety. He was nauseated and discussed all full in general. He was weak and dizzy. He was sent for a CT pulmonary angiogram after labs were drawn. His d-dimer was elevated warranting a CTA exam. The CTA was performed on 09/19/2018 and did confirm right lower lobe posterior segment and segmental pulmonary emboli. There was new left lobe superior segment atelectasis and consolidation with tumoral progression, postradiation changes and pneumonia being differential considerations. There is increased middle third esophageal, subcarinal and right upper lobe perihilar soft tissue attenuation. Chronic emphysema and arteriosclerotic and unchanged a sending thoracic aorta aneurysm at 5 cm . Mr. Palm was started on Lovenox 80 mg every [address] scan of chest done on 11/12/2018 showed continued improvement in the consolidation superior-medial left lower lobe. 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 Less stranding or soft tissue thickening and mediastinal fat, no significant lymph nodes or increased lymph node seen Mild diffuse circumferential thickening of mid esophagus may be due to postradiation changes; emphysema;Stable ascending thoracic aortic aneurysm at 4.[address] Austin his PMD has been following it for the last 3 years. Mr Palm began maintenance durvalumab on 11/20/2018. MRI scan of thoracic/lumbar spine showed no evidence of neoplastic process. But multiple disc protrusion causing nerve impingement at multiple levels. CT PET scan done on 02/21/2019 showed essential resolution of left lower lobe malignancy, only inflammatory appearing FDG uptake is present in the lung infiltrate. Uptake in malignant mediastinal lymphadenopathy seen on previously is now resolved. He continues immunotherapy with durvalumab and is tolerating it well. echo was done which showed ejection fraction with a 60% CT PET scan done on 09/12/2019 showed there is a new medial left lower lobe nodule measuring 1.1 x 1.7 cm with SUV of 6.1, strongly consistent with recurrent malignancy. New posterior left upper lobe nodules are too small to characterize. Bilateral mediastinal nodes in the bilateral hilar, right parabronchial, subcarinal territory are FDG positive. These may be reactive but recurrence cannot be excluded. did discuss with Mr. Palm treatment options for the disease recurrence. The immunotherapy has been stopped. Mr. Palm was reluctant to proceed with any further radiation at this point due to toxicities. Therefore he was offered treatment with cisplatin and gemcitabine. He began his first cycle on 10/19/2019. On 12/01/2019, while in the clinic, receiving premedication for chemotherapy patient started having cough with shortness of breath subsequently choking sensation and near syncopal attack, as per patient has been having those episodes more often in the last few weeks and more often with anxiety and usually following swallowing. At that moment patient was sent to emergency room where he was admitted to the hospital treated with supportive care including IV antibiotics and patient underwent barium swallow and esophagogram which showed lateral pharyngeal pouch and possible esophageal stricture, those findings were discussed with Dr. Robertson, ENT who will follow him as an outpatient. Mr. Palm did see Dr. Robertson on 12/29/2019. 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 Small hiatal hernia. Mild esophageal dysmotility ability with distal stricture. CT of the neck from 12/15/2019 reported no abnormalities no adenopathy. He did have flexible fiberoptic nasopharyngeal scope and the hypopharynx and larynx were visualized secondary to hyperactive gag reflex. Mr. Palm stated that his symptoms had pretty well gone and had not reoccurred and he did not want to pursue any further treatment at this time. He has been unable to follow with Dr. Luther's office as they have opted to not see patients due to the [place]ed 19 virus and current precautionary guidelines. resumed his chemotherapy with cisplatin and gemcitabine on 01/05/2020. Came for follow-up, denies any specific complaints, no fever or chills, no nausea or vomiting, no hemoptysis or hematemesis, no dysphagia, no diarrhea constipation. Tolerating systemic therapy with cisplatin/gemcitabine well . Medications: Albuterol Sulfate 1 puff(s) (of 108 (90 base) mcg/act) Aerosol Powder, Breath Activated Inhalation daily, Aspirin Adult Low Strength 1 (81 mg) Tablet, enteric coated Oral daily, Cabergoline 1 Tablet (of 0.5 mg) Oral q 7 days, Crestor 1 Tablet (of 10 mg) Oral daily, Cyclobenzaprine HCl 2 Tablet (of 5 mg) Tablet Oral q 8 hours, Flomax 1 Capsule (of 0.4 mg) Capsule Oral daily, Gabapentin 1 Capsule (of 300 mg) Oral t.i.d., Irbesartan 1 Tablet (of 300 mg) Oral daily, Levocetirizine Dihydrochloride 1 Tablet (of 5 mg) Oral daily PRN, Metoprolol Tartrate 1 Tablet (of 50 mg) Oral daily, Ventolin HFA Aerosol, solution Inhalation Allergies: Bee Sting, Lopid, and Niaspan. Review of Systems: Review of Systems is not available for this patient. Vital Signs: Performed on Jan 26, 2020 10:29 Height - 68.00 in Weight - 205.8 lbs (HIGH) BSA - 2.07 sq.m BMI - 31.29 (HIGH) Temperature - 97.3 F (LOW) Pulse - 72 /min Respiration - 22 /min BP - 128/92 mm(hg) O2 Sat - 93 % (LOW) Pain - 0 Performance Status: 0 - Fully active, able to carry on all predisease activities without restrictions. (ECOG) Physical Examination: ENMT - No oral exudates, ulcers, masses, thrush or mucositis. Oropharynx clear. Tongue normal, Respiratory - Lungs are clear, Cardiovascular - Regular rate and rhythm of heart, Abdomen - Non-tender, non-distended,Good bowel sounds. No guarding or rebound tenderness. No pulsatile masses, Extremities - no edema. Lab/Imaging: Test performed on Jan 12, 2020 08:20 Sodium 135 mmol/L Potassium 4.0 mmol/L Chloride 96 mmol/L CO2 27 mmol/L Anion Gap 16.0 BUN 13 mg/dL Creatinine 0.8 mg/dL Cr Clearance (Est) 116.3500 mL/min eGFR 96.1 mL/min Glucose 130 mg/dL Calcium 9.8 mg/dL Protein, Total 7.1 g/dL Albumin 4.0 g/dL Globulin 3.1 g/dL Bilirubin, Total 0.4 mg/dL ALT (SGPT) 20 U/L AST (SGOT) 17 U/L Alkaline Phosphatase 107 IU/L WBC 7.4 10 3/uL RBC 4.26 10 6/uL HGB 13.0 g/dL HCT 39.0 % MCV 91.5 fL MCH 30.5 pg MCHC 33.3 g/dL RDW 15.2 % Platelet Count 150 10 3/cmm MPV 9.2 fL Neutrophils 5.1 10 3/uL Lymphocytes 1.5 10 3/uL Monocytes 0.4 10 3/uL Eosinophils 0.1 10 3/uL Basophils 0.1 10 3/uL Neutrophil % 69.0 % Lymphocyte % 20.1 % Monocyte % 5.8 % Eosinophil % 1.2 % Basophils % 0.7 % Test performed on Nov 23, 2019 08:29 CBC Slide Review Slide Review Perform SLIDE REVIEW AGREES WITH AUTOMATED RESULTS ST Test performed on Nov 09, 2019 11:26 Ua Color Straw Ua Appearance Clear Ua Specific [place] 1.010 Ua pH 5.0 Ua Protein Negative Ua Glucose 4+ Ua Ketones Negative Ua Blood Negative Ua Leuk Esterase Negative Ua Nitrites Negative Ua Bilirubin Negative Ua Urobilinogen Normal Test performed on Nov 09, 2019 09:21 Manual Lymphocytes 30.0 % Manual Monocytes 0.9 % Manual Eosinophils 0 % Manual Basophils 0.5 % NRBCs 0 /100 WBC Test performed on Nov 09, 2019 08:49 Hemoglobin A1C 7.1 % Test performed on Aug 04, 2019 08:09 Manual Neutrophils Abs 7.5 10 3/cmm Manual Lymphocytes Abs 2.1 10 3/cmm Manual Monocytes Abs 1.7 10 3/cmm Manual Basophils Abs 0.1 10 3/cmm Manual Segs % 57 % Manual Bands % 8.0 % Metamyelocytes % 1.0 % Platelet Estimate NORMAL Impression: Squamous cell carcinoma, low-grade more keratinizing of left upper lobe of lung per bronchoscopy/biopsy done on 07/09/2018 CT PET scan done on 07/26/2018 showed 3.7 x 4.8 cm mass in left upper lobe with SUV of 20.1 and malignant left upper hilar nodes with SUV of 12.7. Multiple malignant mediastinal lymph nodes are present in the right paratracheal, precarinal, left peribronchial, subcarinal and right hilar Territories c T2b , N3 (contralateral hilar lymph nodes involvement), MX, clinical stage IIIB MRI scan of head done on 08/08/2018 showed no evidence of metastatic disease As per cardiothoracic surgery he is not a candidate for surgery. H was started on combined chemoradiation with weekly carboplatin and Taxol on 08/11/2018. Hard of hearing in right ear, unknown etiology Chronic smoking, still active Ascending Aortic aneurysm, since 2015, stable, being followed by Dr. Luther Remote history of brain mass, as per patient and his , stable for the last 18 years A CTA was performed on 09/19/2018 and did report right lower lobe posterior segment and segmental pulmonary emboli. He was treated initially with Lovenox then transitioned to Eliquis. CT head done on 09/23/2018 showed no intracranial hemorrhage or mass effect and unchanged right mastoid air cell effusion with middle ear opacification. Chest x-ray done on 09/23/2018 shows decreased left perihilar mass or perihilar pneumonia .Follow-up CT scan of chest done on 11/12/2018 showed continued improvement in the consolidation superior-medial left lower lobe. 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 Austin his PMD has been following his aortic aneurysm for the last 3 years. History of chronic back pain, as per patient, in the past he he was given injection by Dr. Palm, that helped him for 5 months.MRI scan of thoracic/lumbar spine done on 01/30/2019 showed no evidence of metastatic disease but disc prolapse at multiple level with nerve impingement. Started on maintenance therapy with biweekly durvalumab 10 mg/kg on 11/20/2018. He is tolerating it well thus far. Follow-up CT PET scan done on 02/21/2019 showed there is minimal inflammatory activity in mixed solid/groundglass left lower lobe infiltrate, consistent with residual uptake from radiation therapy, viable malignancy is unlikely, new left lower lobe subpleural nodule-like infiltrate is FDG negative, hypermetabolic mediastinal lymph node in the left hilar, left peribronchial, left precarinal, right hilar territories now demonstrated uptake no greater than mediastinal background, indicating positive response to therapy. He continued with immunotherapy. Follow-up PET/CT from 09/12/2019 reported new medial left lower lobe nodule measuring 1.1 x 1.7 cm with an SUV of 6.1, strongly consistent with recurrent malignancy. There was a new posterior left upper lobe nodules that were too small to characterize. Bilateral mediastinal nodes in the bilateral hilar, right parabronchial, and subcarinal territories are FDG positive. These may be reactive but recurrence cannot be excluded. Dr Bill discussed with Mr & Mrs Palm his disease status and treatment options. Mr Palm wass reluctant to consider radiation therapy due to related toxicity. Case was discussed with Dr. Vazquez radiation oncology, he agreed. Mr Palm was then offered treatment with systemic therapy with cisplatin 25 mg/m??? and gemcitabine 1000 mg/m??? day 1 and day 8 and repeat every 21 days ???3 cycles and repeat follow-up CT PET scan to assess the disease response and then plan accordingly. The immunotherapy was discontinued. Mr Palm began his first cycle of Cisplatin/Gemzar on 10/19/2019. Mr Palm will resume treatment today as planned. Plan: Discussed with patient regarding his labs white blood count 4.6 and globin 11.9 crit 36.8 platelets 332,000 CMP within normal limits except glucose 139 Clinically, patient is doing well, tolerating palliative chemotherapy with cisplatin/gemcitabine well but with expected side effects. Patient is due for next cycle of chemotherapy today but patient and his are requesting to hold chemotherapy until [place] virus episode is over, as per patient his a high risk. And we will respect their wishes and hold chemotherapy for a month and he'll return to clinic in one month with CBC CMP. Signed By: Shemar Bill M.D. <<Signature on File>>
== END 2020-02-18 23:59 | disposition home or self-care (01) ==
LOC: ONCMED 06:55
PROVIDERS: Family Provider Family Medicine; Visit Provider Internal Medicine Hematology & Oncology
DX: C34.12 Malignant neoplasm of upper lobe, left bronchus or lung (principal); H91.91 Unspecified hearing loss, right ear; I71.2 Thoracic aortic aneurysm, without rupture; N40.0 Benign prostatic hyperplasia without lower urinary tract symptoms; J44.9 Chronic obstructive pulmonary disease, unspecified; E78.5 Hyperlipidemia, unspecified; F17.210 Nicotine dependence, cigarettes, uncomplicated; I10 Essential (primary) hypertension; Z92.3 Personal history of irradiation; Z79.899 Other long term (current) drug therapy
CPT/HCPCS: 80053; 85025; 96365; 96366; G0463

== ENCOUNTER 2020-02-23 06:42 | Outpatient (RCR) | payer MEDICARE, MEDICAID, SELFPAY ==
[2020-02-22 13:15] LABS: Alanine Aminotransferase 12 U/L (0-41); Albumin Level 4.2 g/dL (3.5-5.2); Alkaline Phosphatase 109 IU/L (40-130); Anion Gap 17.2 (5-19); Aspartate Amino Transferase 14 U/L (0-40); Basophils # 0.1 10^3/uL (0.0-0.1); Basophils % 1.4 %; Blood Urea Nitrogen 12 mg/dL (8-23); Carbon Dioxide 23 mmol/L (22-29); Chloride 102 mmol/L (98-107); Eosinophils # 0.7 10^3/uL (0.0-0.8); Eosinophils % 9.3 %; Globulin 3.2 g/dL (1.3-4.6); Glomerular Filtration Rate 96.1 mL/min (90-130); Glucose 107 mg/dL (65-115); Hematocrit 42.9 % (42.0-52.0); Hemoglobin 13.8 g/dL (11.7-16.6); Lymphocytes # 1.9 10^3/uL (0.8-4.8); Lymphocytes % 27.3 %; Mean Corpuscular HGB Conc 32.2 g/dL (30.0-36.0); Mean Corpuscular Hemoglobin 30.9 pg (28.0-34.0); Mean Platelet Volume 10.7 fL (7.4-10.4); Monocytes # 0.6 10^3/uL (0.2-0.9); Monocytes % 8.6 %; Neutrophils # 3.7 10^3/uL (1.8-7.7); Neutrophils % 52.8 %; Nucleated Red Blood Cells % 0 %; Osmolality Calculated 283 mOsm/kg (285-295); Platelet Count 248 10^3/cmm (130-400); Potassium 4.2 mmol/L (3.5-5.1); Red Blood Count 4.47 10^6/uL (4.1-5.3); Red Cell Distribution Width 15.3 % (12.1-15.1); Sodium 138 mmol/L (136-145); Total Bilirubin 0.4 mg/dL (0.15-1.2); Total Protein 7.4 g/dL (6.6-8.7)
--- NOTE | 2020-02-23 11:12 | ONC FU_ITS ---
Dr. Bill follow up note Patient: Raymundo Palm Unit #: [id number]: 1950 Dicatated By: Shemar Bill M.D.Date of Visit:February 23, 2020 Onc Med Follow-up/Prog Note History of Present Illness: Mr. Palm is a 69-year-old gentleman with history of ascending aortic aneurysm, stable and now being observed. 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 He developed a chronic cough for which he underwent CT scan of chest. The scan showed possible narrowing of the superior segment bronchus to the left lower lobe. Mr Palm underwent bronchoscopy on 07/09/2018, which showed non-small cell carcinoma squamous cell type, low-grade keratinizing subsequently. On 07/26/[address] PET scan which showed poorly defined left upper lobe mass with mixed groundglass and solid components measuring 3.7 x 4.8 cm with SUV of 20.1; and malignant left upper hilar nodes with SUV of 12; multiple malignant mediastinal lymph nodes are present in the right paratracheal, precarinal, left peribronchial subcarinal and right hilar territories, with SUV of 8.6. He was not a candidate for surgical resection so recommended that he start on combined chemoradiation with weekly carboplatin and Taxol on 08/11/2018 Long-standing history of smoking and still smokes about half a pack. History of chronic back pain, as per patient, in the past Dr. Palm give him injection to his back, that controlled back pain for 5 months. He has completed combined chemoradiation with weekly carbo/taxol and began immunotherapy with Imfinzi. He presented with an episode of shaking, increased anxiety. He was nauseated and discussed all full in general. He was weak and dizzy. He was sent for a CT pulmonary angiogram after labs were drawn. His d-dimer was elevated warranting a CTA exam. The CTA was performed on 09/19/2018 and did confirm right lower lobe posterior segment and segmental pulmonary emboli. There was new left lobe superior segment atelectasis and consolidation with tumoral progression, postradiation changes and pneumonia being differential considerations. There is increased middle third esophageal, subcarinal and right upper lobe perihilar soft tissue attenuation. Chronic emphysema and arteriosclerotic and unchanged a sending thoracic aorta aneurysm at 5 cm . Mr. Palm was started on Lovenox 80 mg every [address] scan of chest done on 11/12/2018 showed continued improvement in the consolidation superior-medial left lower lobe. 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 Less stranding or soft tissue thickening and mediastinal fat, no significant lymph nodes or increased lymph node seen Mild diffuse circumferential thickening of mid esophagus may be due to postradiation changes; emphysema;Stable ascending thoracic aortic aneurysm at 4.[address] Austin his PMD has been following it for the last 3 years. Mr Palm began maintenance durvalumab on 11/20/2018. MRI scan of thoracic/lumbar spine showed no evidence of neoplastic process. But multiple disc protrusion causing nerve impingement at multiple levels. CT PET scan done on 02/21/2019 showed essential resolution of left lower lobe malignancy, only inflammatory appearing FDG uptake is present in the lung infiltrate. Uptake in malignant mediastinal lymphadenopathy seen on previously is now resolved. He continues immunotherapy with durvalumab and is tolerating it well. echo was done which showed ejection fraction with a 60% CT PET scan done on 09/12/2019 showed there is a new medial left lower lobe nodule measuring 1.1 x 1.7 cm with SUV of 6.1, strongly consistent with recurrent malignancy. New posterior left upper lobe nodules are too small to characterize. Bilateral mediastinal nodes in the bilateral hilar, right parabronchial, subcarinal territory are FDG positive. These may be reactive but recurrence cannot be excluded. did discuss with Mr. Palm treatment options for the disease recurrence. The immunotherapy has been stopped. Mr. Palm was reluctant to proceed with any further radiation at this point due to toxicities. Therefore he was offered treatment with cisplatin and gemcitabine. He began his first cycle on 10/19/2019. On 12/01/2019, while in the clinic, receiving premedication for chemotherapy patient started having cough with shortness of breath subsequently choking sensation and near syncopal attack, as per patient has been having those episodes more often in the last few weeks and more often with anxiety and usually following swallowing. At that moment patient was sent to emergency room where he was admitted to the hospital treated with supportive care including IV antibiotics and patient underwent barium swallow and esophagogram which showed lateral pharyngeal pouch and possible esophageal stricture, those findings were discussed with Dr. Robertson, ENT who will follow him as an outpatient. Mr. Palm did see Dr. Robertson on 12/29/2019. 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 Small hiatal hernia. Mild esophageal dysmotility ability with distal stricture. CT of the neck from 12/15/2019 reported no abnormalities no adenopathy. He did have flexible fiberoptic nasopharyngeal scope and the hypopharynx and larynx were visualized secondary to hyperactive gag reflex. Mr. Palm stated that his symptoms had pretty well gone and had not reoccurred and he did not want to pursue any further treatment at this time. He has been unable to follow with Dr. Luther's office as they have opted to not see patients due to the coed 19 virus and current precautionary guidelines. resumed his chemotherapy with cisplatin and gemcitabine on 01/05/2020. And received last dose on 01/12/2020, after that patient developed progressive weakness and fatigue and decided to hold chemotherapy until recover and he was also concerned about coronavirus. Came for follow-up, feeling much better, more energetic, much better quality of life. Appetite is good. No more episode of dizziness or lightheadedness. No dysphagia. No fever or chills, no nausea or vomiting, no diarrhea constipation, no shortness of breath, patient is also cutting down smoking. Said he is feeling much better since chemotherapy is off . Medications: Albuterol Sulfate 1 puff(s) (of 108 (90 base) mcg/act) Aerosol Powder, Breath Activated Inhalation daily, Aspirin Adult Low Strength 1 (81 mg) Tablet, enteric coated Oral daily, Crestor 1 Tablet (of 10 mg) Oral daily, Cyclobenzaprine HCl 2 Tablet (of 5 mg) Tablet Oral q 8 hours, Flomax 1 Capsule (of 0.4 mg) Capsule Oral daily, Gabapentin 1 Capsule (of 300 mg) Oral t.i.d., Irbesartan 1 Tablet (of 300 mg) Oral daily, Levocetirizine Dihydrochloride 1 Tablet (of 5 mg) Oral daily PRN, Metoprolol Tartrate 1 Tablet (of 50 mg) Oral daily, Ventolin HFA Aerosol, solution Inhalation Allergies: Bee Sting, Lopid, and Niaspan. Review of Systems: Review of Systems is not available for this patient. Vital Signs: Performed on February 23, 2020 08:27 Height - 68.00 in Weight - 200.6 lbs (LOW) BSA - 2.05 sq.m BMI - 30.50 (HIGH) Temperature - 98.0 F (LOW) Pulse - 90 /min Respiration - 17 /min BP - 171/110 mm(hg) (HIGH) O2 Sat - 94 % (LOW) Pain - 0 Performance Status: 0 - Fully active, able to carry on all predisease activities without restrictions. (ECOG) Physical Examination: ENMT - no mouth sores, no thrush, Respiratory - Lungs are clear, Cardiovascular - Regular rate and rhythm of heart, Abdomen - soft, bowel sounds present, Extremities - no visible edema. Lab/Imaging: Test performed on Jan 26, 2020 08:00 Sodium 135 mmol/L Potassium 4.2 mmol/L Chloride 99 mmol/L CO2 23 mmol/L Anion Gap 17.2 BUN 12 mg/dL Creatinine 1.0 mg/dL Cr Clearance (Est) 93.0800 mL/min eGFR 74.3 mL/min Glucose 139 mg/dL Calcium 9.7 mg/dL Protein, Total 7.3 g/dL Albumin 4.1 g/dL Globulin 3.2 g/dL Bilirubin, Total 0.3 mg/dL ALT (SGPT) 18 U/L AST (SGOT) 17 U/L Alkaline Phosphatase 102 IU/L WBC 4.6 10 3/uL RBC 3.97 10 6/uL HGB 11.9 g/dL HCT 36.8 % MCV 92.7 fL MCH 30.0 pg MCHC 32.3 g/dL RDW 16.6 % Platelet Count 332 10 3/cmm MPV 10.1 fL Neutrophils 1.8 10 3/uL Lymphocytes 1.8 10 3/uL Monocytes 0.7 10 3/uL Eosinophils 0.2 10 3/uL Basophils 0.0 10 3/uL Neutrophil % 40.0 % Lymphocyte % 39.6 % Monocyte % 15.4 % Eosinophil % 3.7 % Basophils % 0.9 % Test performed on Nov 23, 2019 08:29 CBC Slide Review Slide Review Perform SLIDE REVIEW AGREES WITH AUTOMATED RESULTS ST Test performed on Nov 09, 2019 11:26 Ua Color Straw Ua Appearance Clear Ua Specific [place] 1.010 Ua pH 5.0 Ua Protein Negative Ua Glucose 4+ Ua Ketones Negative Ua Blood Negative Ua Leuk Esterase Negative Ua Nitrites Negative Ua Bilirubin Negative Ua Urobilinogen Normal Test performed on Nov 09, 2019 09:21 Manual Lymphocytes 30.0 % Manual Monocytes 0.9 % Manual Eosinophils 0 % Manual Basophils 0.5 % NRBCs 0 /100 WBC Test performed on Nov 09, 2019 08:49 Hemoglobin A1C 7.1 % Impression: Squamous cell carcinoma, low-grade more keratinizing of left upper lobe of lung per bronchoscopy/biopsy done on 07/09/2018 CT PET scan done on 07/26/2018 showed 3.7 x 4.8 cm mass in left upper lobe with SUV of 20.1 and malignant left upper hilar nodes with SUV of 12.7. Multiple malignant mediastinal lymph nodes are present in the right paratracheal, precarinal, left peribronchial, subcarinal and right hilar Territories c T2b , N3 (contralateral hilar lymph nodes involvement), MX, clinical stage IIIB MRI scan of head done on 08/08/2018 showed no evidence of metastatic disease As per cardiothoracic surgery he is not a candidate for surgery. H was started on combined chemoradiation with weekly carboplatin and Taxol on 08/11/2018. Hard of hearing in right ear, unknown etiology Chronic smoking, still active Ascending Aortic aneurysm, since 2014, stable, being followed by Dr. Luther Remote history of brain mass, as per patient and his , stable for the last 18 years A CTA was performed on 09/19/2018 and did report right lower lobe posterior segment and segmental pulmonary emboli. He was treated initially with Lovenox then transitioned to Eliquis. CT head done on 09/23/2018 showed no intracranial hemorrhage or mass effect and unchanged right mastoid air cell effusion with middle ear opacification. Chest x-ray done on 09/23/2018 shows decreased left perihilar mass or perihilar pneumonia .Follow-up CT scan of chest done on 11/12/2018 showed continued improvement in the consolidation superior-medial left lower lobe. 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 Austin his PMD has been following his aortic aneurysm for the last 3 years. History of chronic back pain, as per patient, in the past he he was given injection by Dr. Palm, that helped him for 5 months.MRI scan of thoracic/lumbar spine done on 01/30/2019 showed no evidence of metastatic disease but disc prolapse at multiple level with nerve impingement. Started on maintenance therapy with biweekly durvalumab 10 mg/kg on 11/20/2018. He is tolerating it well thus far. Follow-up CT PET scan done on 02/21/2019 showed there is minimal inflammatory activity in mixed solid/groundglass left lower lobe infiltrate, consistent with residual uptake from radiation therapy, viable malignancy is unlikely, new left lower lobe subpleural nodule-like infiltrate is FDG negative, hypermetabolic mediastinal lymph node in the left hilar, left peribronchial, left precarinal, right hilar territories now demonstrated uptake no greater than mediastinal background, indicating positive response to therapy. He continued with immunotherapy. Follow-up PET/CT from 09/12/2019 reported new medial left lower lobe nodule measuring 1.1 x 1.7 cm with an SUV of 6.1, strongly consistent with recurrent malignancy. There was a new posterior left upper lobe nodules that were too small to characterize. Bilateral mediastinal nodes in the bilateral hilar, right parabronchial, and subcarinal territories are FDG positive. These may be reactive but recurrence cannot be excluded. discussed with Mr & Mrs Palm his disease status and treatment options. Mr Palm wass reluctant to consider radiation therapy due to related toxicity. Case was discussed with Dr. Vazquez radiation oncology, he agreed. Mr Palm was then offered treatment with systemic therapy with cisplatin 25 mg/m??? and gemcitabine 1000 mg/m??? day 1 and day 8 and repeat every 21 days ???3 cycles and repeat follow-up CT PET scan to assess the disease response and then plan accordingly. The immunotherapy was discontinued. Mr Palm began his first cycle of Cisplatin/Gemzar on 10/19/2019. Plan: Discussed with patient regarding his labs white blood count 7 globin 13.8 hematocrit 42.9 platelets 248,000 CMP within normal limits Clinically, patient is doing well, more energetic, with improvement in overall performance status since he is off chemotherapy. At this point we will consider follow-up CT PET scan and if it shows no evidence of disease progression or stable findings, then will continue to observe , on the other hand if there is evidence of disease progression, we will discuss about treatment options. Patient return to clinic in one month with a follow-up CT PET scan. Signed By: Shemar Bill M.D. <<Signature on File>>
== END 2020-03-20 23:59 | disposition home or self-care (01) ==
LOC: ONCMED 06:42
PROVIDERS: Family Provider Family Medicine; Visit Provider Internal Medicine Hematology & Oncology
DX: C34.12 Malignant neoplasm of upper lobe, left bronchus or lung (principal); J43.9 Emphysema, unspecified; I71.2 Thoracic aortic aneurysm, without rupture; G89.29 Other chronic pain; M54.9 Dorsalgia, unspecified; H91.91 Unspecified hearing loss, right ear; F17.210 Nicotine dependence, cigarettes, uncomplicated; N40.0 Benign prostatic hyperplasia without lower urinary tract symptoms; J44.9 Chronic obstructive pulmonary disease, unspecified; E78.5 Hyperlipidemia, unspecified; I10 Essential (primary) hypertension; Z92.21 Personal history of antineoplastic chemotherapy; Z92.3 Personal history of irradiation; Z45.2 Encounter for adjustment and management of vascular access device
CPT/HCPCS: 80053; 85025; 96523; G0463

== ENCOUNTER 2020-03-29 06:57 | Outpatient (RCR) | payer MEDICARE, MEDICAID, SELFPAY ==
--- NOTE | 2020-03-29 17:27 | ONC FU_ITS ---
Dr. Bill follow up note Patient: Raymundo Palm Unit #: [id number]: [id number] Dicatated By: Shemar Bill M.D.Date of Visit:Mar 29, 2020 Onc Med Follow-up/Prog Note History of Present Illness: Mr. Palm is a 69-year-old gentleman with history of ascending aortic aneurysm, stable and now being observed. 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 He developed a chronic cough for which he underwent CT scan of chest. The scan showed possible narrowing of the superior segment bronchus to the left lower lobe. Mr Palm underwent bronchoscopy on 07/09/2018, which showed non-small cell carcinoma squamous cell type, low-grade keratinizing subsequently. On 07/26/[address] PET scan which showed poorly defined left upper lobe mass with mixed groundglass and solid components measuring 3.7 x 4.8 cm with SUV of 20.1; and malignant left upper hilar nodes with SUV of 12; multiple malignant mediastinal lymph nodes are present in the right paratracheal, precarinal, left peribronchial subcarinal and right hilar territories, with SUV of 8.6. He was not a candidate for surgical resection so recommended that he start on combined chemoradiation with weekly carboplatin and Taxol on 08/11/2018 Long-standing history of smoking and still smokes about half a pack. History of chronic back pain, as per patient, in the past Dr. Palm give him injection to his back, that controlled back pain for 5 months. He has completed combined chemoradiation with weekly carbo/taxol and began immunotherapy with Imfinzi. He presented with an episode of shaking, increased anxiety. He was nauseated and discussed all full in general. He was weak and dizzy. He was sent for a CT pulmonary angiogram after labs were drawn. His d-dimer was elevated warranting a CTA exam. The CTA was performed on 09/19/2018 and did confirm right lower lobe posterior segment and segmental pulmonary emboli. There was new left lobe superior segment atelectasis and consolidation with tumoral progression, postradiation changes and pneumonia being differential considerations. There is increased middle third esophageal, subcarinal and right upper lobe perihilar soft tissue attenuation. Chronic emphysema and arteriosclerotic and unchanged a sending thoracic aorta aneurysm at 5 cm . Mr. Palm was started on Lovenox 80 mg every [address] scan of chest done on 11/12/2018 showed continued improvement in the consolidation superior-medial left lower lobe. 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 Less stranding or soft tissue thickening and mediastinal fat, no significant lymph nodes or increased lymph node seen Mild diffuse circumferential thickening of mid esophagus may be due to postradiation changes; emphysema;Stable ascending thoracic aortic aneurysm at 4.[address] Austin his PMD has been following it for the last 3 years. Mr Palm began maintenance durvalumab on 11/20/2018. MRI scan of thoracic/lumbar spine showed no evidence of neoplastic process. But multiple disc protrusion causing nerve impingement at multiple levels. CT PET scan done on 02/21/2019 showed essential resolution of left lower lobe malignancy, only inflammatory appearing FDG uptake is present in the lung infiltrate. Uptake in malignant mediastinal lymphadenopathy seen on previously is now resolved. He continues immunotherapy with durvalumab and is tolerating it well. echo was done which showed ejection fraction with a 60% CT PET scan done on 09/12/2019 showed there is a new medial left lower lobe nodule measuring 1.1 x 1.7 cm with SUV of 6.1, strongly consistent with recurrent malignancy. New posterior left upper lobe nodules are too small to characterize. Bilateral mediastinal nodes in the bilateral hilar, right parabronchial, subcarinal territory are FDG positive. These may be reactive but recurrence cannot be excluded. did discuss with Mr. Palm treatment options for the disease recurrence. The immunotherapy has been stopped. Mr. Palm was reluctant to proceed with any further radiation at this point due to toxicities. Therefore he was offered treatment with cisplatin and gemcitabine. He began his first cycle on 10/19/2019. On 12/01/2019, while in the clinic, receiving premedication for chemotherapy patient started having cough with shortness of breath subsequently choking sensation and near syncopal attack, as per patient has been having those episodes more often in the last few weeks and more often with anxiety and usually following swallowing. At that moment patient was sent to emergency room where he was admitted to the hospital treated with supportive care including IV antibiotics and patient underwent barium swallow and esophagogram which showed lateral pharyngeal pouch and possible esophageal stricture, those findings were discussed with Dr. Robertson, ENT who will follow him as an outpatient. Mr. Palm did see Dr. Robertson on 12/29/2019. 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 Small hiatal hernia. Mild esophageal dysmotility ability with distal stricture. CT of the neck from 12/15/2019 reported no abnormalities no adenopathy. He did have flexible fiberoptic nasopharyngeal scope and the hypopharynx and larynx were visualized secondary to hyperactive gag reflex. Mr. Palm stated that his symptoms had pretty well gone and had not reoccurred and he did not want to pursue any further treatment at this time. He has been unable to follow with Dr. Luther's office as they have opted to not see patients due to the coed 19 virus and current precautionary guidelines. resumed his chemotherapy with cisplatin and gemcitabine on 01/05/2020. And received last dose on 01/12/2020, after that patient developed progressive weakness and fatigue and decided to hold chemotherapy until recover and he was also concerned about coronavirus. Follow-up CT PET scan done on March 12, 2020 showed there has been no significant change in the medial left lower lobe nodule this is stable in size at 1.0 x 1.8 cm with an SUV of 7.4, no significant change. Other, nodule-like infiltrates in the left upper lobe and left lower lobe are unchanged in size and number and remained FDG negative. Same abnormality was seen on his previous CT PET scan done in August 2019, at that time case was discussed with radiation oncology regarding role of SBRT to this only active site but it was not considered as this nodules is present in the previously radiated lung field. . Came for follow-up, denies any specific complaints, no fever chills, no nausea or vomiting, overall feeling much better and quality of life is improving since he is off immunotherapy. Medications: Albuterol Sulfate 1 puff(s) (of 108 (90 base) mcg/act) Aerosol Powder, Breath Activated Inhalation daily, Aspirin Adult Low Strength 1 (81 mg) Tablet, enteric coated Oral daily, Crestor 1 Tablet (of 10 mg) Oral daily, Cyclobenzaprine HCl 2 Tablet (of 5 mg) Tablet Oral q 8 hours, Flomax 1 Capsule (of 0.4 mg) Capsule Oral daily, Gabapentin 1 Capsule (of 300 mg) Oral t.i.d., Irbesartan 1 Tablet (of 300 mg) Oral daily, Levocetirizine Dihydrochloride 1 Tablet (of 5 mg) Oral daily PRN, Metoprolol Tartrate 1 Tablet (of 50 mg) Oral daily, Ventolin HFA Aerosol, solution Inhalation Allergies: Bee Sting, Lopid, and Niaspan. Review of Systems: Review of Systems is not available for this patient. Vital Signs: Performed on Mar 29, 2020 13:45 Height - 68.00 in Weight - 201.0 lbs (HIGH) BSA - 2.05 sq.m BMI - 30.56 (HIGH) Temperature - 97.4 F (LOW) Pulse - 71 /min Respiration - 24 /min BP - 140/96 mm(hg) O2 Sat - 92 % (LOW) Pain - 0 Performance Status: 0 - Fully active, able to carry on all predisease activities without restrictions. (ECOG) Physical Examination: ENMT - No mouth sores, no thrush, no jaundice, Respiratory - Clear, Cardiovascular - Regular rate and rhythm of heart, Abdomen - Soft, bowel sounds present, Extremities - No visible edema. Lab/Imaging: Test performed on February 22, 2020 06:00 Sodium 138 mmol/L Potassium 4.2 mmol/L Chloride 102 mmol/L CO2 23 mmol/L Anion Gap 17.2 BUN 12 mg/dL Creatinine 0.8 mg/dL Cr Clearance (Est) 116.3500 mL/min eGFR 96.1 mL/min Glucose 107 mg/dL Calcium 10.0 mg/dL Protein, Total 7.4 g/dL Albumin 4.2 g/dL Globulin 3.2 g/dL Bilirubin, Total 0.4 mg/dL ALT (SGPT) 12 U/L AST (SGOT) 14 U/L Alkaline Phosphatase 109 IU/L WBC 7.0 10 3/uL RBC 4.47 10 6/uL HGB 13.8 g/dL HCT 42.9 % MCV 96.0 fL MCH 30.9 pg MCHC 32.2 g/dL RDW 15.3 % Platelet Count 248 10 3/cmm MPV 10.7 fL Neutrophils 3.7 10 3/uL Lymphocytes 1.9 10 3/uL Monocytes 0.6 10 3/uL Eosinophils 0.7 10 3/uL Basophils 0.1 10 3/uL Neutrophil % 52.8 % Lymphocyte % 27.3 % Monocyte % 8.6 % Eosinophil % 9.3 % Basophils % 1.4 % Test performed on Nov 23, 2019 08:29 CBC Slide Review Slide Review Perform SLIDE REVIEW AGREES WITH AUTOMATED RESULTS ST Test performed on Nov 09, 2019 11:26 Ua Color Straw Ua Appearance Clear Ua Specific [place] 1.010 Ua pH 5.0 Ua Protein Negative Ua Glucose 4+ Ua Ketones Negative Ua Blood Negative Ua Leuk Esterase Negative Ua Nitrites Negative Ua Bilirubin Negative Ua Urobilinogen Normal Test performed on Nov 09, 2019 09:21 Manual Lymphocytes 30.0 % Manual Monocytes 0.9 % Manual Eosinophils 0 % Manual Basophils 0.5 % NRBCs 0 /100 WBC Test performed on Nov 09, 2019 08:49 Hemoglobin A1C 7.1 % Impression: Squamous cell carcinoma, low-grade more keratinizing of left upper lobe of lung per bronchoscopy/biopsy done on 07/09/2018 CT PET scan done on 07/26/2018 showed 3.7 x 4.8 cm mass in left upper lobe with SUV of 20.1 and malignant left upper hilar nodes with SUV of 12.7. Multiple malignant mediastinal lymph nodes are present in the right paratracheal, precarinal, left peribronchial, subcarinal and right hilar Territories c T2b , N3 (contralateral hilar lymph nodes involvement), MX, clinical stage IIIB MRI scan of head done on 08/08/2018 showed no evidence of metastatic disease As per cardiothoracic surgery he is not a candidate for surgery. H was started on combined chemoradiation with weekly carboplatin and Taxol on 08/11/2018. Hard of hearing in right ear, unknown etiology Chronic smoking, still active Ascending Aortic aneurysm, since 2014, stable, being followed by Dr. Luther Remote history of brain mass, as per patient and his , stable for the last 18 years A CTA was performed on 09/19/2018 and did report right lower lobe posterior segment and segmental pulmonary emboli. He was treated initially with Lovenox then transitioned to Eliquis. CT head done on 09/23/2018 showed no intracranial hemorrhage or mass effect and unchanged right mastoid air cell effusion with middle ear opacification. Chest x-ray done on 09/23/2018 shows decreased left perihilar mass or perihilar pneumonia .Follow-up CT scan of chest done on 11/12/2018 showed continued improvement in the consolidation superior-medial left lower lobe. 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 Austin his PMD has been following his aortic aneurysm for the last 3 years. History of chronic back pain, as per patient, in the past he he was given injection by Dr. Palm, that helped him for 5 months.MRI scan of thoracic/lumbar spine done on 01/30/2019 showed no evidence of metastatic disease but disc prolapse at multiple level with nerve impingement. Started on maintenance therapy with biweekly durvalumab 10 mg/kg on 11/20/2018. He is tolerating it well thus far. Follow-up CT PET scan done on 02/21/2019 showed there is minimal inflammatory activity in mixed solid/groundglass left lower lobe infiltrate, consistent with residual uptake from radiation therapy, viable malignancy is unlikely, new left lower lobe subpleural nodule-like infiltrate is FDG negative, hypermetabolic mediastinal lymph node in the left hilar, left peribronchial, left precarinal, right hilar territories now demonstrated uptake no greater than mediastinal background, indicating positive response to therapy. He continued with immunotherapy. Follow-up PET/CT from 09/12/2019 reported new medial left lower lobe nodule measuring 1.1 x 1.7 cm with an SUV of 6.1, strongly consistent with recurrent malignancy. There was a new posterior left upper lobe nodules that were too small to characterize. Bilateral mediastinal nodes in the bilateral hilar, right parabronchial, and subcarinal territories are FDG positive. These may be reactive but recurrence cannot be excluded. discussed with Mr & Mrs Palm his disease status and treatment options. Mr Palm wass reluctant to consider radiation therapy due to related toxicity. Case was discussed with Dr. Vazquez radiation oncology, he agreed. Mr Palm was then offered treatment with systemic therapy with cisplatin 25 mg/m??? and gemcitabine 1000 mg/m??? day 1 and day 8 and repeat every 21 days ???3 cycles and repeat follow-up CT PET scan to assess the disease response and then plan accordingly. The immunotherapy was discontinued. Mr Palm began his first cycle of Cisplatin/Gemzar on 10/19/2019. Plan: Discussed with patient and his regarding his follow-up CT PET scan which was done on March 12, 2020, showed persistent but stable medial left lower lobe nodule, no other active disease and this nodule is unchanged since August 2019. Patient is off immunotherapy and his overall performance status and quality of life is improving, patient and his is very pleased with this improvement and with follow-up CT PET scan findings and would prefer no further treatment other than observation alone, knowing the risk versus benefits involved with observation alone. So at this point at patient's request we will continue to observe and we will flush his Port-A-Cath today and then monthly and will see him back in 3 months with CBC CMP unless patient has any new symptoms. Signed By: Shemar Bill M.D. <<Signature on File>>
== END 2020-04-19 23:59 | disposition home or self-care (01) ==
LOC: ONCMED 06:57
PROVIDERS: PCP Nurse Practitioner Family; Visit Provider Internal Medicine Hematology & Oncology
DX: C34.12 Malignant neoplasm of upper lobe, left bronchus or lung (principal); I71.4 Abdominal aortic aneurysm, without rupture; N40.0 Benign prostatic hyperplasia without lower urinary tract symptoms; J44.9 Chronic obstructive pulmonary disease, unspecified; I10 Essential (primary) hypertension; Z92.3 Personal history of irradiation; Z45.2 Encounter for adjustment and management of vascular access device
CPT/HCPCS: 96523; G0463

== ENCOUNTER 2020-04-28 07:03 | Outpatient (RCR) | payer MEDICARE, MEDICAID, SELFPAY | END 2020-05-20 23:59 | disposition home or self-care (01) | LOC: ONCMED 07:03 | PROVIDERS: PCP Nurse Practitioner Family; Visit Provider Internal Medicine Hematology & Oncology | DX: Z45.2 Encounter for adjustment and management of vascular access device (principal); C34.12 Malignant neoplasm of upper lobe, left bronchus or lung | CPT/HCPCS: 96523 ==

== ENCOUNTER 2020-05-27 05:44 | Outpatient (RCR) | payer MEDICARE, MEDICAID, SELFPAY | END 2020-06-20 23:59 | disposition home or self-care (01) | LOC: ONCMED 05:44 | PROVIDERS: PCP Nurse Practitioner Family; Visit Provider Internal Medicine Hematology & Oncology | DX: Z45.2 Encounter for adjustment and management of vascular access device (principal) | CPT/HCPCS: 96523 ==

== ENCOUNTER 2020-07-14 06:31 | Outpatient (CLI) | payer MEDICARE, MEDICAID, SELFPAY ==
[2020-07-14 12:05] LABS: Basophils # 0.1 10^3/uL (0.0-0.1); Eosinophils # 0.3 10^3/uL (0.0-0.8); Hematocrit 43.3 % (42.0-52.0); Hemoglobin 14.1 g/dL (11.7-16.6); Lymphocytes # 2.1 10^3/uL (0.8-4.8); Lymphocytes % 29.9 %; Mean Corpuscular HGB Conc 32.6 g/dL (30.0-36.0); Mean Corpuscular Volume 89.1 fL (80-94); Mean Platelet Volume 9.5 fL (7.4-10.4); Monocytes # 0.5 10^3/uL (0.2-0.9); Monocytes % 7.3 %; Neutrophils # 4.04 10^3/uL (1.8-7.7); Neutrophils % 57.5 %; Nucleated Red Blood Cells % 0 %; Platelet Count 258 10^3/cmm (130-400); Red Blood Count 4.86 10^6/uL (4.1-5.3)
[2020-07-14 12:25] LABS: Alanine Aminotransferase 13 U/L (0-41); Alkaline Phosphatase 105 IU/L (40-130); Anion Gap 15.1 (5-19); Aspartate Amino Transferase 19 U/L (0-40); Blood Urea Nitrogen 15 mg/dL (8-23); Calcium 9.5 mg/dL (8.5-10.5); Carbon Dioxide 24 mmol/L (22-29); Chloride 103 mmol/L (98-107); Globulin 2.8 g/dL (1.3-4.6); Glomerular Filtration Rate 83.7 mL/min (90-130); Glucose 109 mg/dL (65-115); Osmolality Calculated 287 mOsm/kg (285-295); Potassium 4.1 mmol/L (3.5-5.1); Sodium 138 mmol/L (136-145); Total Bilirubin 0.4 mg/dL (0.15-1.2); Total Protein 6.8 g/dL (6.6-8.7)
--- NOTE | 2020-07-14 14:42 | ONC FU_ITS ---
Dr. Bill follow up note Patient: Raymundo Palm Unit #: [id number]: [id number] Dicatated By: Shemar Bill M.D.Date of Visit:Jul 14, 2020 Onc Med Follow-up/Prog Note History of Present Illness: Mr. Palm is a 69-year-old gentleman with history of ascending aortic aneurysm, stable and now being observed. 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 He developed a chronic cough for which he underwent CT scan of chest. The scan showed possible narrowing of the superior segment bronchus to the left lower lobe. Mr Palm underwent bronchoscopy on 07/09/2018, which showed non-small cell carcinoma squamous cell type, low-grade keratinizing subsequently. On 07/26/[address] PET scan which showed poorly defined left upper lobe mass with mixed groundglass and solid components measuring 3.7 x 4.8 cm with SUV of 20.1; and malignant left upper hilar nodes with SUV of 12; multiple malignant mediastinal lymph nodes are present in the right paratracheal, precarinal, left peribronchial subcarinal and right hilar territories, with SUV of 8.6. He was not a candidate for surgical resection so recommended that he start on combined chemoradiation with weekly carboplatin and Taxol on 08/11/2018 Long-standing history of smoking and still smokes about half a pack. History of chronic back pain, as per patient, in the past Dr. Palm give him injection to his back, that controlled back pain for 5 months. He has completed combined chemoradiation with weekly carbo/taxol and began immunotherapy with Imfinzi. He presented with an episode of shaking, increased anxiety. He was nauseated and discussed all full in general. He was weak and dizzy. He was sent for a CT pulmonary angiogram after labs were drawn. His d-dimer was elevated warranting a CTA exam. The CTA was performed on 09/19/2018 and did confirm right lower lobe posterior segment and segmental pulmonary emboli. There was new left lobe superior segment atelectasis and consolidation with tumoral progression, postradiation changes and pneumonia being differential considerations. There is increased middle third esophageal, subcarinal and right upper lobe perihilar soft tissue attenuation. Chronic emphysema and arteriosclerotic and unchanged a sending thoracic aorta aneurysm at 5 cm . Mr. Palm was started on Lovenox 80 mg every [address] scan of chest done on 11/12/2018 showed continued improvement in the consolidation superior-medial left lower lobe. 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 Less stranding or soft tissue thickening and mediastinal fat, no significant lymph nodes or increased lymph node seen Mild diffuse circumferential thickening of mid esophagus may be due to postradiation changes; emphysema;Stable ascending thoracic aortic aneurysm at 4.[address] Austin his PMD has been following it for the last 3 years. Mr Palm began maintenance durvalumab on 11/20/2018. MRI scan of thoracic/lumbar spine showed no evidence of neoplastic process. But multiple disc protrusion causing nerve impingement at multiple levels. CT PET scan done on 02/21/2019 showed essential resolution of left lower lobe malignancy, only inflammatory appearing FDG uptake is present in the lung infiltrate. Uptake in malignant mediastinal lymphadenopathy seen on previously is now resolved. He continues immunotherapy with durvalumab and is tolerating it well. echo was done which showed ejection fraction with a 60% CT PET scan done on 09/12/2019 showed there is a new medial left lower lobe nodule measuring 1.1 x 1.7 cm with SUV of 6.1, strongly consistent with recurrent malignancy. New posterior left upper lobe nodules are too small to characterize. Bilateral mediastinal nodes in the bilateral hilar, right parabronchial, subcarinal territory are FDG positive. These may be reactive but recurrence cannot be excluded. did discuss with Mr. Palm treatment options for the disease recurrence. The immunotherapy has been stopped. Mr. Palm was reluctant to proceed with any further radiation at this point due to toxicities. Therefore he was offered treatment with cisplatin and gemcitabine. He began his first cycle on 10/19/2019. On 12/01/2019, while in the clinic, receiving premedication for chemotherapy patient started having cough with shortness of breath subsequently choking sensation and near syncopal attack, as per patient has been having those episodes more often in the last few weeks and more often with anxiety and usually following swallowing. At that moment patient was sent to emergency room where he was admitted to the hospital treated with supportive care including IV antibiotics and patient underwent barium swallow and esophagogram which showed lateral pharyngeal pouch and possible esophageal stricture, those findings were discussed with Dr. Robertson, ENT who will follow him as an outpatient. Mr. Palm did see Dr. Robertson on 12/29/2019. 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 Small hiatal hernia. Mild esophageal dysmotility ability with distal stricture. CT of the neck from 12/15/2019 reported no abnormalities no adenopathy. He did have flexible fiberoptic nasopharyngeal scope and the hypopharynx and larynx were visualized secondary to hyperactive gag reflex. Mr. Palm stated that his symptoms had pretty well gone and had not reoccurred and he did not want to pursue any further treatment at this time. He has been unable to follow with Dr. Luther's office as they have opted to not see patients due to the coed 19 virus and current precautionary guidelines. resumed his chemotherapy with cisplatin and gemcitabine on 01/05/2020. And received last dose on 01/12/2020, after that patient developed progressive weakness and fatigue and decided to hold chemotherapy until recover and he was also concerned about coronavirus. Follow-up CT PET scan done on March 12, 2020 showed there has been no significant change in the medial left lower lobe nodule this is stable in size at 1.0 x 1.8 cm with an SUV of 7.4, no significant change. Other, nodule-like infiltrates in the left upper lobe and left lower lobe are unchanged in size and number and remained FDG negative. Same abnormality was seen on his previous CT PET scan done in August 2019, at that time case was discussed with radiation oncology regarding role of SBRT to this only active site but it was not considered as this nodules is present in the previously radiated lung field. . Came for follow-up, denies any specific complaints, no fever chills, no nausea or vomiting, no diarrhea or constipation, no hemoptysis or hematemesis, no new bony pains overall feeling much better since he is off chemotherapy, quality of life is improving. Medications: Albuterol Sulfate 1 puff(s) (of 108 (90 base) mcg/act) Aerosol Powder, Breath Activated Inhalation daily, Aspirin Adult Low Strength 1 (81 mg) Tablet, enteric coated Oral daily, Crestor 1 Tablet (of 10 mg) Oral daily, Cyclobenzaprine HCl 2 Tablet (of 5 mg) Tablet Oral q 8 hours, Flomax 1 Capsule (of 0.4 mg) Capsule Oral daily, Gabapentin 1 Capsule (of 300 mg) Oral t.i.d., Irbesartan 1 Tablet (of 300 mg) Oral daily, Levocetirizine Dihydrochloride 1 Tablet (of 5 mg) Oral daily PRN, Metoprolol Tartrate 1 Tablet (of 50 mg) Oral daily, Ventolin HFA Aerosol, solution Inhalation Allergies: Bee Sting, Lopid, and Niaspan. Review of Systems: Review of Systems is not available for this patient. Vital Signs: Performed on Jul 14, 2020 13:35 Height - 68.00 in Weight - 193.0 lbs (LOW) BSA - 2.01 sq.m BMI - 29.35 Temperature - 98.2 F (LOW) Pulse - 65 /min Respiration - 20 /min BP - 151/94 mm(hg) (HIGH) O2 Sat - 94 % (LOW) Pain - 0 Performance Status: 0 - Fully active, able to carry on all predisease activities without restrictions. (ECOG) Physical Examination: ENMT - No mouth sores, no thrush, no jaundice, Respiratory - Bilateral mild wheezing otherwise clear, Cardiovascular - Regular rate and rhythm of heart, Abdomen - Soft, bowel sounds present, Extremities - No visible edema or rash. Lab/Imaging: Test performed on February 22, 2020 06:00 Sodium 138 mmol/L Potassium 4.2 mmol/L Chloride 102 mmol/L CO2 23 mmol/L Anion Gap 17.2 BUN 12 mg/dL Creatinine 0.8 mg/dL Cr Clearance (Est) 116.3500 mL/min eGFR 96.1 mL/min Glucose 107 mg/dL Calcium 10.0 mg/dL Protein, Total 7.4 g/dL Albumin 4.2 g/dL Globulin 3.2 g/dL Bilirubin, Total 0.4 mg/dL ALT (SGPT) 12 U/L AST (SGOT) 14 U/L Alkaline Phosphatase 109 IU/L WBC 7.0 10 3/uL RBC 4.47 10 6/uL HGB 13.8 g/dL HCT 42.9 % MCV 96.0 fL MCH 30.9 pg MCHC 32.2 g/dL RDW 15.3 % Platelet Count 248 10 3/cmm MPV 10.7 fL Neutrophils 3.7 10 3/uL Lymphocytes 1.9 10 3/uL Monocytes 0.6 10 3/uL Eosinophils 0.7 10 3/uL Basophils 0.1 10 3/uL Neutrophil % 52.8 % Lymphocyte % 27.3 % Monocyte % 8.6 % Eosinophil % 9.3 % Basophils % 1.4 % Impression: Squamous cell carcinoma, low-grade more keratinizing of left upper lobe of lung per bronchoscopy/biopsy done on 07/09/2018 CT PET scan done on 07/26/2018 showed 3.7 x 4.8 cm mass in left upper lobe with SUV of 20.1 and malignant left upper hilar nodes with SUV of 12.7. Multiple malignant mediastinal lymph nodes are present in the right paratracheal, precarinal, left peribronchial, subcarinal and right hilar Territories c T2b , N3 (contralateral hilar lymph nodes involvement), MX, clinical stage IIIB MRI scan of head done on 08/08/2018 showed no evidence of metastatic disease As per cardiothoracic surgery he is not a candidate for surgery. H was started on combined chemoradiation with weekly carboplatin and Taxol on 08/11/2018. Hard of hearing in right ear, unknown etiology Chronic smoking, still active Ascending Aortic aneurysm, since 2014, stable, being followed by Dr. Luther Remote history of brain mass, as per patient and his , stable for the last 18 years A CTA was performed on 09/19/2018 and did report right lower lobe posterior segment and segmental pulmonary emboli. He was treated initially with Lovenox then transitioned to Eliquis. CT head done on 09/23/2018 showed no intracranial hemorrhage or mass effect and unchanged right mastoid air cell effusion with middle ear opacification. Chest x-ray done on 09/23/2018 shows decreased left perihilar mass or perihilar pneumonia .Follow-up CT scan of chest done on 11/12/2018 showed continued improvement in the consolidation superior-medial left lower lobe. 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 Austin his PMD has been following his aortic aneurysm for the last 3 years. History of chronic back pain, as per patient, in the past he he was given injection by Dr. Palm, that helped him for 5 months.MRI scan of thoracic/lumbar spine done on 01/30/2019 showed no evidence of metastatic disease but disc prolapse at multiple level with nerve impingement. Started on maintenance therapy with biweekly durvalumab 10 mg/kg on 11/20/2018. He is tolerating it well thus far. Follow-up CT PET scan done on 02/21/2019 showed there is minimal inflammatory activity in mixed solid/groundglass left lower lobe infiltrate, consistent with residual uptake from radiation therapy, viable malignancy is unlikely, new left lower lobe subpleural nodule-like infiltrate is FDG negative, hypermetabolic mediastinal lymph node in the left hilar, left peribronchial, left precarinal, right hilar territories now demonstrated uptake no greater than mediastinal background, indicating positive response to therapy. He continued with immunotherapy. Follow-up PET/CT from 09/12/2019 reported new medial left lower lobe nodule measuring 1.1 x 1.7 cm with an SUV of 6.1, strongly consistent with recurrent malignancy. There was a new posterior left upper lobe nodules that were too small to characterize. Bilateral mediastinal nodes in the bilateral hilar, right parabronchial, and subcarinal territories are FDG positive. These may be reactive but recurrence cannot be excluded. discussed with Mr & Mrs Palm his disease status and treatment options. Mr Palm wass reluctant to consider radiation therapy due to related toxicity. Case was discussed with Dr. Vazquez radiation oncology, he agreed. Mr Palm was then offered treatment with systemic therapy with cisplatin 25 mg/m??? and gemcitabine 1000 mg/m??? day 1 and day 8 and repeat every 21 days ???3 cycles and repeat follow-up CT PET scan to assess the disease response and then plan accordingly. The immunotherapy was discontinued. Mr Palm began his first cycle of Cisplatin/Gemzar on 10/19/2019. Plan: Discussed with patient regarding his labs white blood count 7 hemoglobin 14.1 crit 43.3 platelets 258,000 CMP within normal limits Clinically, patient doing well with no signs symptom suggestive of disease progression his lab work-up is within normal range overall quality of life is improving. We will continue to monitor and he will return to clinic in 3 months with CBC CMP and follow-up CT scan of chest in the meantime continue with monthly port maintenance. Signed By: Shemar Bill M.D. <<Signature on File>>
== END 2020-07-14 06:32 | disposition home or self-care (01) ==
PROVIDERS: PCP Nurse Practitioner Family; Visit Provider Internal Medicine Hematology & Oncology
DX: C34.12 Malignant neoplasm of upper lobe, left bronchus or lung (principal); F17.210 Nicotine dependence, cigarettes, uncomplicated; I71.2 Thoracic aortic aneurysm, without rupture; J43.9 Emphysema, unspecified; G89.29 Other chronic pain; M54.9 Dorsalgia, unspecified; Z92.22 Personal history of monoclonal drug therapy
CPT/HCPCS: 36591; 80053; 85025; G0463

== ENCOUNTER 2020-08-11 06:21 | Outpatient (CLI) | payer MEDICARE, MEDICAID, SELFPAY | END 2020-08-11 06:22 | disposition home or self-care (01) | LOC: ONCMED 06:22 | PROVIDERS: PCP Nurse Practitioner Family; Visit Provider Internal Medicine Hematology & Oncology | DX: Z45.2 Encounter for adjustment and management of vascular access device (principal) | CPT/HCPCS: 96523 ==

== ENCOUNTER 2020-09-12 05:56 | Outpatient (CLI) | payer MEDICARE, MEDICAID, SELFPAY | END 2020-09-12 05:57 | disposition home or self-care (01) | LOC: ONCMED 06:01 | PROVIDERS: PCP Nurse Practitioner Family; Visit Provider Internal Medicine Hematology & Oncology | DX: Z45.2 Encounter for adjustment and management of vascular access device (principal) | CPT/HCPCS: 96523 ==

== ENCOUNTER 2020-11-10 14:13 | Outpatient (CLI) | payer MEDICARE, MEDICAID, SELFPAY ==
[2020-11-10 15:02] LABS: Basophils # 0.1 10^3/uL (0.0-0.1); Basophils % 0.9 %; Eosinophils # 0.4 10^3/uL (0.0-0.8); Eosinophils % 5.7 %; Hematocrit 44.2 % (42.0-52.0); Hemoglobin 14.4 g/dL (11.7-16.6); Lymphocytes # 2.2 10^3/uL (0.8-4.8); Lymphocytes % 33.5 %; Mean Corpuscular HGB Conc 32.6 g/dL (30.0-36.0); Mean Corpuscular Hemoglobin 29.6 pg (28.0-34.0); Mean Corpuscular Volume 90.9 fL (80-94); Mean Platelet Volume 9.6 fL (7.4-10.4); Monocytes # 0.5 10^3/uL (0.2-0.9); Neutrophils # 3.36 10^3/uL (1.8-7.7); Neutrophils % 51.6 %; Nucleated Red Blood Cells % 0 %; Platelet Count 261 10^3/cmm (130-400); Red Blood Count 4.86 10^6/uL (4.1-5.3); Red Cell Distribution Width 14.3 % (12.1-15.1); White Blood Count 6.5 10^3/uL (4.0-10.0)
[2020-11-10 15:20] LABS: Alanine Aminotransferase 15 U/L (0-41); Albumin Level 3.8 g/dL (3.5-5.2); Alkaline Phosphatase 111 IU/L (40-130); Aspartate Amino Transferase 14 U/L (0-40); Blood Urea Nitrogen 17 mg/dL (8-23); Calcium 9.2 mg/dL (8.5-10.5); Carbon Dioxide 28 mmol/L (22-29); Chloride 103 mmol/L (98-107); Glomerular Filtration Rate 43.1 mL/min (90-130); Glucose 130 mg/dL (65-115); Osmolality Calculated 291 mOsm/kg (285-295); Sodium 139 mmol/L (136-145); Total Bilirubin 0.5 mg/dL (0.15-1.2); Total Protein 6.8 g/dL (6.6-8.7)
--- NOTE | 2020-11-10 16:12 | ONC FU_ITS ---
Dr. Bill follow up note Patient: Raymundo Palm Unit #: [id number]: 1950 Dicatated By: Shemar Bill M.D.Date of Visit:Nov 10, 2020 Onc Med Follow-up/Prog Note History of Present Illness: Mr. Palm is a 70-year-old gentleman with history of ascending aortic aneurysm, stable and now being observed. 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 He developed a chronic cough for which he underwent CT scan of chest. The scan showed possible narrowing of the superior segment bronchus to the left lower lobe. Mr Palm underwent bronchoscopy on 07/09/2018, which showed non-small cell carcinoma squamous cell type, low-grade keratinizing subsequently. On 07/26/[address] PET scan which showed poorly defined left upper lobe mass with mixed groundglass and solid components measuring 3.7 x 4.8 cm with SUV of 20.1; and malignant left upper hilar nodes with SUV of 12; multiple malignant mediastinal lymph nodes are present in the right paratracheal, precarinal, left peribronchial subcarinal and right hilar territories, with SUV of 8.6. He was not a candidate for surgical resection so recommended that he start on combined chemoradiation with weekly carboplatin and Taxol on 08/11/2018 Long-standing history of smoking and still smokes about half a pack. History of chronic back pain, as per patient, in the past Dr. Palm give him injection to his back, that controlled back pain for 5 months. He has completed combined chemoradiation with weekly carbo/taxol and began immunotherapy with Imfinzi. He presented with an episode of shaking, increased anxiety. He was nauseated and discussed all full in general. He was weak and dizzy. He was sent for a CT pulmonary angiogram after labs were drawn. His d-dimer was elevated warranting a CTA exam. The CTA was performed on 09/19/2018 and did confirm right lower lobe posterior segment and segmental pulmonary emboli. There was new left lobe superior segment atelectasis and consolidation with tumoral progression, postradiation changes and pneumonia being differential considerations. There is increased middle third esophageal, subcarinal and right upper lobe perihilar soft tissue attenuation. Chronic emphysema and arteriosclerotic and unchanged a sending thoracic aorta aneurysm at 5 cm . Mr. Palm was started on Lovenox 80 mg every [address] scan of chest done on 11/12/2018 showed continued improvement in the consolidation superior-medial left lower lobe. 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 Less stranding or soft tissue thickening and mediastinal fat, no significant lymph nodes or increased lymph node seen Mild diffuse circumferential thickening of mid esophagus may be due to postradiation changes; emphysema;Stable ascending thoracic aortic aneurysm at 4.[address] Austin his PMD has been following it for the last 3 years. Mr Palm began maintenance durvalumab on 11/20/2018. MRI scan of thoracic/lumbar spine showed no evidence of neoplastic process. But multiple disc protrusion causing nerve impingement at multiple levels. CT PET scan done on 02/21/2019 showed essential resolution of left lower lobe malignancy, only inflammatory appearing FDG uptake is present in the lung infiltrate. Uptake in malignant mediastinal lymphadenopathy seen on previously is now resolved. He continues immunotherapy with durvalumab and is tolerating it well. echo was done which showed ejection fraction with a 60% CT PET scan done on 09/12/2019 showed there is a new medial left lower lobe nodule measuring 1.1 x 1.7 cm with SUV of 6.1, strongly consistent with recurrent malignancy. New posterior left upper lobe nodules are too small to characterize. Bilateral mediastinal nodes in the bilateral hilar, right parabronchial, subcarinal territory are FDG positive. These may be reactive but recurrence cannot be excluded. did discuss with Mr. Palm treatment options for the disease recurrence. The immunotherapy has been stopped. Mr. Palm was reluctant to proceed with any further radiation at this point due to toxicities. Therefore he was offered treatment with cisplatin and gemcitabine. He began his first cycle on 10/19/2019. On 12/01/2019, while in the clinic, receiving premedication for chemotherapy patient started having cough with shortness of breath subsequently choking sensation and near syncopal attack, as per patient has been having those episodes more often in the last few weeks and more often with anxiety and usually following swallowing. At that moment patient was sent to emergency room where he was admitted to the hospital treated with supportive care including IV antibiotics and patient underwent barium swallow and esophagogram which showed lateral pharyngeal pouch and possible esophageal stricture, those findings were discussed with Dr. Robertson, ENT who will follow him as an outpatient. Mr. Palm did see Dr. Robertson on 12/29/2019. 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 Small hiatal hernia. Mild esophageal dysmotility ability with distal stricture. CT of the neck from 12/15/2019 reported no abnormalities no adenopathy. He did have flexible fiberoptic nasopharyngeal scope and the hypopharynx and larynx were visualized secondary to hyperactive gag reflex. Mr. Palm stated that his symptoms had pretty well gone and had not reoccurred and he did not want to pursue any further treatment at this time. He has been unable to follow with Dr. Luther's office as they have opted to not see patients due to the coed 19 virus and current precautionary guidelines. resumed his chemotherapy with cisplatin and gemcitabine on 01/05/2020. And received last dose on 01/12/2020, after that patient developed progressive weakness and fatigue and decided to hold chemotherapy until recover and he was also concerned about coronavirus. Follow-up CT PET scan done on March 12, 2020 showed there has been no significant change in the medial left lower lobe nodule this is stable in size at 1.0 x 1.8 cm with an SUV of 7.4, no significant change. Other, nodule-like infiltrates in the left upper lobe and left lower lobe are unchanged in size and number and remained FDG negative. Same abnormality was seen on his previous CT PET scan done in August 2019, at that time case was discussed with radiation oncology regarding role of SBRT to this only active site but it was not considered as this nodules is present in the previously radiated lung field. . Came for follow-up, denies any specific complaints, except generalized weakness and fatigue. No fever chills, no nausea or vomiting, no diarrhea constipation, no hemoptysis hematemesis, no palpitation or dyspnea on exertion. No jaundice, no new bony pains, no headaches blurred vision or double vision., Still smoke about half pack a day Medications: Albuterol Sulfate 1 puff(s) (of 108 (90 base) mcg/act) Aerosol Powder, Breath Activated Inhalation daily, Aspirin Adult Low Strength 1 (81 mg) Tablet, enteric coated Oral daily, Crestor 1 Tablet (of 10 mg) Oral daily, Cyclobenzaprine HCl 2 Tablet (of 5 mg) Tablet Oral q 8 hours, Flomax 1 Capsule (of 0.4 mg) Capsule Oral daily, Gabapentin 1 Capsule (of 300 mg) Oral t.i.d., Irbesartan 1 Tablet (of 300 mg) Oral daily, Levocetirizine Dihydrochloride 1 Tablet (of 5 mg) Oral daily PRN, Metoprolol Tartrate 1 Tablet (of 50 mg) Oral daily, Ventolin HFA Aerosol, solution Inhalation Allergies: Bee Sting, Lopid, and Niaspan. Review of Systems: Review of Systems is not available for this patient. Vital Signs: Performed on Nov 10, 2020 15:32 Height - 68.00 in Weight - 196.0 lbs (HIGH) BSA - 2.03 sq.m BMI - 29.80 Temperature - 97.2 F (LOW) Pulse - 72 /min Respiration - 16 /min BP - 133/82 mm(hg) O2 Sat - 92 % (LOW) Pain - 0 Performance Status: 0 - Fully active, able to carry on all predisease activities without restrictions. (ECOG) Physical Examination: ENMT - No mouth sores, no thrush, no jaundice, Respiratory - Poor air entry with bilateral wheezing, Cardiovascular - Regular rate and rhythm of heart, Abdomen - Soft, bowel sounds present, Extremities - No visible edema. Lab/Imaging: Test performed on Jul 14, 2020 11:50 Sodium 138 mmol/L Potassium 4.1 mmol/L Chloride 103 mmol/L CO2 24 mmol/L Anion Gap 15.1 BUN 15 mg/dL Creatinine 0.9 mg/dL Cr Clearance (Est) 101.9800 mL/min eGFR 83.7 mL/min Glucose 109 mg/dL Osmolality - Calculated 287 mOsm/kg Calcium 9.5 mg/dL Protein, Total 6.8 g/dL Albumin 4.0 g/dL Globulin 2.8 g/dL Bilirubin, Total 0.4 mg/dL ALT (SGPT) 13 U/L AST (SGOT) 19 U/L Alkaline Phosphatase 105 IU/L WBC 7.0 10 3/uL RBC 4.86 10 6/uL HGB 14.1 g/dL HCT 43.3 % MCV 89.1 fL MCH 29.0 pg MCHC 32.6 g/dL RDW 16.0 % Platelet Count 258 10 3/cmm MPV 9.5 fL Neutrophils 4.04 10 3/uL Lymphocytes 2.1 10 3/uL Monocytes 0.5 10 3/uL Eosinophils 0.3 10 3/uL Basophils 0.1 10 3/uL Neutrophil % 57.5 % Lymphocyte % 29.9 % Monocyte % 7.3 % Eosinophil % 4.0 % Basophils % 1.0 % NRBC % 0 % Impression: Squamous cell carcinoma, low-grade more keratinizing of left upper lobe of lung per bronchoscopy/biopsy done on 07/09/2018 CT PET scan done on 07/26/2018 showed 3.7 x 4.8 cm mass in left upper lobe with SUV of 20.1 and malignant left upper hilar nodes with SUV of 12.7. Multiple malignant mediastinal lymph nodes are present in the right paratracheal, precarinal, left peribronchial, subcarinal and right hilar Territories c T2b , N3 (contralateral hilar lymph nodes involvement), MX, clinical stage IIIB MRI scan of head done on 08/08/2018 showed no evidence of metastatic disease As per cardiothoracic surgery he is not a candidate for surgery. H was started on combined chemoradiation with weekly carboplatin and Taxol on 08/11/2018. Hard of hearing in right ear, unknown etiology Chronic smoking, still active Ascending Aortic aneurysm, since 2014, stable, being followed by Dr. Luther Remote history of brain mass, as per patient and his , stable for the last 18 years A CTA was performed on 09/19/2018 and did report right lower lobe posterior segment and segmental pulmonary emboli. He was treated initially with Lovenox then transitioned to Eliquis. CT head done on 09/23/2018 showed no intracranial hemorrhage or mass effect and unchanged right mastoid air cell effusion with middle ear opacification. Chest x-ray done on 09/23/2018 shows decreased left perihilar mass or perihilar pneumonia .Follow-up CT scan of chest done on 11/12/2018 showed continued improvement in the consolidation superior-medial left lower lobe. 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 Austin his PMD has been following his aortic aneurysm for the last 3 years. History of chronic back pain, as per patient, in the past he he was given injection by Dr. Palm, that helped him for 5 months.MRI scan of thoracic/lumbar spine done on 01/30/2019 showed no evidence of metastatic disease but disc prolapse at multiple level with nerve impingement. Started on maintenance therapy with biweekly durvalumab 10 mg/kg on 11/20/2018. He is tolerating it well thus far. Follow-up CT PET scan done on 02/21/2019 showed there is minimal inflammatory activity in mixed solid/groundglass left lower lobe infiltrate, consistent with residual uptake from radiation therapy, viable malignancy is unlikely, new left lower lobe subpleural nodule-like infiltrate is FDG negative, hypermetabolic mediastinal lymph node in the left hilar, left peribronchial, left precarinal, right hilar territories now demonstrated uptake no greater than mediastinal background, indicating positive response to therapy. He continued with immunotherapy. Follow-up PET/CT from 09/12/2019 reported new medial left lower lobe nodule measuring 1.1 x 1.7 cm with an SUV of 6.1, strongly consistent with recurrent malignancy. There was a new posterior left upper lobe nodules that were too small to characterize. Bilateral mediastinal nodes in the bilateral hilar, right parabronchial, and subcarinal territories are FDG positive. These may be reactive but recurrence cannot be excluded. discussed with Mr & Mrs Palm his disease status and treatment options. Mr Palm wass reluctant to consider radiation therapy due to related toxicity. Case was discussed with Dr. Vazquez radiation oncology, he agreed. Mr Palm was then offered treatment with systemic therapy with cisplatin 25 mg/m??? and gemcitabine 1000 mg/m??? day 1 and day 8 and repeat every 21 days ???3 cycles and repeat follow-up CT PET scan to assess the disease response and then plan accordingly. The immunotherapy was discontinued. Mr Palm began his first cycle of Cisplatin/Gemzar on 10/19/2019.And chemotherapy was discontinued on January 12, 2020 as patient developed progressive weakness and fatigue and at patient's request chemotherapy was discontinued and observation was planned Plan: Discussed with patient regarding his labs white blood count 6.5 hemoglobin 14.4 hematocrit 44.2 platelets 261,000 CMP within normal limits except creatinine 1.6 Clinically, patient doing well with no new signs symptom suggestive of recurrence of disease, we will consider follow-up CT scan of chest and upper abdomen to assess disease status As for generalized weakness and fatigue concern is hemoglobin is in normal range, will check his TSH and testosterone level. If low, consider supplement Patient was advised to quit smoking was offered any assistance he may need Return to clinic after CT scan of chest and upper abdomen. Signed By: Shemar Bill M.D. <<Signature on File>>
== END 2020-11-10 14:14 | disposition home or self-care (01) ==
LOC: ONCMED 14:17
PROVIDERS: PCP Nurse Practitioner Family; Visit Provider Internal Medicine Hematology & Oncology
DX: C34.12 Malignant neoplasm of upper lobe, left bronchus or lung (principal); R53.1 Weakness; R53.83 Other fatigue; J43.9 Emphysema, unspecified; F17.200 Nicotine dependence, unspecified, uncomplicated; Z92.21 Personal history of antineoplastic chemotherapy; Z92.3 Personal history of irradiation
CPT/HCPCS: 36591; 80053; 85025; 99214

== ENCOUNTER 2020-11-11 07:49 | Outpatient (CLI) | payer MEDICARE, MEDICAID, SELFPAY ==
--- NOTE | 2020-11-11 08:07 | CT_ITS ---
WS: [id number] CT CHEST TECHNIQUE: Contrast enhanced CT of the chest with coronal and sagittal reformatted images. CLINICAL INFORMATION: LUNG CANCER COMPARISON: PET/CT 03/12/2020 and 09/12/[address] chest and DLP: 974.[address] scans at [facility] use at least one of these dose optimization techniques: automat ed exposure control; mA and/or kV adjustment per patient size (includes targeted exams where dose is matched to clinical indication); or iterative reconstruction. FINDINGS: Again seen is the previously described FDG positive nodule consistent with known malignancy in the le ft inferior hilum. This measures approximately 1.3 x 0.7 cm not significantly changed in size compare d to the prior PET/CT considering differences in technique. No evidence of disease progression.Slight patchy infiltrates or fibrosis in the perihilar region and left lower lobe medially likely due to ra diation pneumonitis. This is not significantly changed from the prior studies.Moderate chronic emphys ematous changes. Calcified granulomas right upper lobe.Tiny hazy ground glass nodule in the right upp er lobe measuring 4 mm is unchanged since 2019 Slightly ectatic ascending thoracic aorta measuring 4.6 cm. This is not significantly changed since t he prior examinations. Proximal main pulmonary arteries are normal. No progressed mediastinal or logan r lymphadenopathy. Adrenal glands are normal. Normal GE junction. CT/CT chest w con* [id number] IMPRESSION: 1. Left lower lobe previously described FDG avid nodule measures 1.3 x 0.7 cm not significantly changed from previous in the left inferior hilum. 2. Stable patchy infiltrates about the perihilar region and left lower lobe me dially likely due to treatment-related changes and radiation pneumonitis is sim ilar in appearance to the prior studies. 3. No evidence of progressed disease. 4. No progressed anterior mediastinal or hilar lymphadenopathy. 5. Stable ectatic ascending thoracic aorta measuring 4.6 cm 6. Tiny hazy ground glass nodule in the right upper lobe measuring 4 mm is unc hanged since 2018
[2020-11-11] MEDS: iodixanol 320 mg/mL 100mL Btl IV (08:28)
== END 2020-11-11 07:50 | disposition home or self-care (01) ==
LOC: RADWPI 07:53
PROVIDERS: PCP Nurse Practitioner Family; Visit Provider Internal Medicine Hematology & Oncology
DX: C34.12 Malignant neoplasm of upper lobe, left bronchus or lung (principal); R91.1 Solitary pulmonary nodule; I77.810 Thoracic aortic ectasia
CPT/HCPCS: 71260; Q9967

== ENCOUNTER 2020-11-23 05:48 | Outpatient (CLI) | payer MEDICARE, MEDICAID, SELFPAY ==
[2020-11-23 14:40] LABS: Basophils # 0.1 10^3/uL (0.0-0.1); Basophils % 1.2 %; Eosinophils # 0.4 10^3/uL (0.0-0.8); Hematocrit 43.8 % (42.0-52.0); Hemoglobin 14.4 g/dL (11.7-16.6); Lymphocytes # 2.4 10^3/uL (0.8-4.8); Lymphocytes % 32.5 %; Mean Corpuscular HGB Conc 32.9 g/dL (30.0-36.0); Mean Corpuscular Hemoglobin 29.8 pg (28.0-34.0); Mean Corpuscular Volume 90.7 fL (80-94); Mean Platelet Volume 9.6 fL (7.4-10.4); Monocytes # 0.7 10^3/uL (0.2-0.9); Monocytes % 8.8 %; Neutrophils % 52.2 %; Nucleated Red Blood Cells % 0 %; Platelet Count 248 10^3/cmm (130-400); Red Blood Count 4.83 10^6/uL (4.1-5.3); Red Cell Distribution Width 14.6 % (12.1-15.1); White Blood Count 7.5 10^3/uL (4.0-10.0)
[2020-11-23 15:09] LABS: Alanine Aminotransferase 14 U/L (0-41); Albumin Level 3.9 g/dL (3.5-5.2); Alkaline Phosphatase 116 IU/L (40-130); Aspartate Amino Transferase 12 U/L (0-40); Blood Urea Nitrogen 15 mg/dL (8-23); Calcium 9.3 mg/dL (8.5-10.5); Carbon Dioxide 28 mmol/L (22-29); Chloride 104 mmol/L (98-107); Globulin 2.9 g/dL (1.3-4.6); Glomerular Filtration Rate 83.7 mL/min (90-130); Glucose 89 mg/dL (65-115); Osmolality Calculated 290 mOsm/kg (285-295); Sodium 140 mmol/L (136-145); Thyroid Stimulating Hormone 3.27 uIU/mL (0.27-4.20); Total Bilirubin 0.3 mg/dL (0.15-1.2); Total Protein 6.8 g/dL (6.6-8.7)
[2020-11-23 15:45] LABS: Testosterone Total 126.2 ng/dL (193-740)
--- NOTE | 2020-11-25 13:19 | ONC FU_ITS ---
Dr. Bill follow up note Patient: Raymundo Palm Unit #: [id number]: 1950 Dicatated By: Shemar Bill M.D.Date of Visit:Nov 23, 2020 Onc Med Follow-up/Prog Note History of Present Illness: Mr. Palm is a 70-year-old gentleman with history of ascending aortic aneurysm, stable and now being observed. 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 He developed a chronic cough for which he underwent CT scan of chest. The scan showed possible narrowing of the superior segment bronchus to the left lower lobe. Mr Palm underwent bronchoscopy on 07/09/2018, which showed non-small cell carcinoma squamous cell type, low-grade keratinizing subsequently. On 07/26/[address] PET scan which showed poorly defined left upper lobe mass with mixed groundglass and solid components measuring 3.7 x 4.8 cm with SUV of 20.1; and malignant left upper hilar nodes with SUV of 12; multiple malignant mediastinal lymph nodes are present in the right paratracheal, precarinal, left peribronchial subcarinal and right hilar territories, with SUV of 8.6. He was not a candidate for surgical resection so recommended that he start on combined chemoradiation with weekly carboplatin and Taxol on 08/11/2018 Long-standing history of smoking and still smokes about half a pack. History of chronic back pain, as per patient, in the past Dr. Palm give him injection to his back, that controlled back pain for 5 months. He has completed combined chemoradiation with weekly carbo/taxol and began immunotherapy with Imfinzi. He presented with an episode of shaking, increased anxiety. He was nauseated and discussed all full in general. He was weak and dizzy. He was sent for a CT pulmonary angiogram after labs were drawn. His d-dimer was elevated warranting a CTA exam. The CTA was performed on 09/19/2018 and did confirm right lower lobe posterior segment and segmental pulmonary emboli. There was new left lobe superior segment atelectasis and consolidation with tumoral progression, postradiation changes and pneumonia being differential considerations. There is increased middle third esophageal, subcarinal and right upper lobe perihilar soft tissue attenuation. Chronic emphysema and arteriosclerotic and unchanged a sending thoracic aorta aneurysm at 5 cm . Mr. Plam was started on Lovenox 80 mg every [address] scan of chest done on 11/12/2018 showed continued improvement in the consolidation superior-medial left lower lobe. 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 Less stranding or soft tissue thickening and mediastinal fat, no significant lymph nodes or increased lymph node seen Mild diffuse circumferential thickening of mid esophagus may be due to postradiation changes; emphysema;Stable ascending thoracic aortic aneurysm at 4.[address] Austin his PMD has been following it for the last 3 years. Mr Palm began maintenance durvalumab on 11/20/2018. MRI scan of thoracic/lumbar spine showed no evidence of neoplastic process. But multiple disc protrusion causing nerve impingement at multiple levels. CT PET scan done on 02/21/2019 showed essential resolution of left lower lobe malignancy, only inflammatory appearing FDG uptake is present in the lung infiltrate. Uptake in malignant mediastinal lymphadenopathy seen on previously is now resolved. He continues immunotherapy with durvalumab and is tolerating it well. echo was done which showed ejection fraction with a 60% CT PET scan done on 09/12/2019 showed there is a new medial left lower lobe nodule measuring 1.1 x 1.7 cm with SUV of 6.1, strongly consistent with recurrent malignancy. New posterior left upper lobe nodules are too small to characterize. Bilateral mediastinal nodes in the bilateral hilar, right parabronchial, subcarinal territory are FDG positive. These may be reactive but recurrence cannot be excluded. did discuss with Mr. Palm treatment options for the disease recurrence. The immunotherapy has been stopped. Mr. Palm was reluctant to proceed with any further radiation at this point due to toxicities. Therefore he was offered treatment with cisplatin and gemcitabine. He began his first cycle on 10/19/2019. On 12/01/2019, while in the clinic, receiving premedication for chemotherapy patient started having cough with shortness of breath subsequently choking sensation and near syncopal attack, as per patient has been having those episodes more often in the last few weeks and more often with anxiety and usually following swallowing. At that moment patient was sent to emergency room where he was admitted to the hospital treated with supportive care including IV antibiotics and patient underwent barium swallow and esophagogram which showed lateral pharyngeal pouch and possible esophageal stricture, those findings were discussed with Dr. Robertson, ENT who will follow him as an outpatient. Mr. Palm did see Dr. Robertson on 12/29/2019. 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 Small hiatal hernia. Mild esophageal dysmotility ability with distal stricture. CT of the neck from 12/15/2019 reported no abnormalities no adenopathy. He did have flexible fiberoptic nasopharyngeal scope and the hypopharynx and larynx were visualized secondary to hyperactive gag reflex. Mr. Palm stated that his symptoms had pretty well gone and had not reoccurred and he did not want to pursue any further treatment at this time. He has been unable to follow with Dr. Luther's office as they have opted to not see patients due to the coed 19 virus and current precautionary guidelines. resumed his chemotherapy with cisplatin and gemcitabine on 01/05/2020. And received last dose on 01/12/2020, after that patient developed progressive weakness and fatigue and decided to hold chemotherapy until recover and he was also concerned about coronavirus. Follow-up CT PET scan done on March 12, 2020 showed there has been no significant change in the medial left lower lobe nodule this is stable in size at 1.0 x 1.8 cm with an SUV of 7.4, no significant change. Other, nodule-like infiltrates in the left upper lobe and left lower lobe are unchanged in size and number and remained FDG negative. Same abnormality was seen on his previous CT PET scan done in August 2019, at that time case was discussed with radiation oncology regarding role of SBRT to this only active site but it was not considered as this nodules is present in the previously radiated lung field. Follow-up CT scan of chest done on November 11, 2020 showed left lower lobe previously described FDG avid nodule 1.3 x 0.7 cm not significantly changed from previous in the left inferior hilum. Stable patchy infiltrate about perihilar region and left lower lobe medially likely to treatment related changes and radiation pneumonitis is similar in appearance. No progressed anterior mediastinal or hilar lymphadenopathy no evidence of progressive disease. Stable ectatic ascending thoracic aorta measuring 4.6 cm. Tiny hazy groundglass nodule in the right upper lobe measuring 4 mm unchanged since 2019 Came for follow-up, denies any specific complaints, no fever chills, no nausea or vomiting, no diarrhea constipation, no hemoptysis or hematemesis, no shortness of breath, overall more energetic, appetite is good. . Medications: Albuterol Sulfate 1 puff(s) (of 108 (90 base) mcg/act) Aerosol Powder, Breath Activated Inhalation daily, Aspirin Adult Low Strength 1 (81 mg) Tablet, enteric coated Oral daily, Crestor 1 Tablet (of 10 mg) Oral daily, Cyclobenzaprine HCl 2 Tablet (of 5 mg) Tablet Oral q 8 hours, Flomax 1 Capsule (of 0.4 mg) Capsule Oral daily, Gabapentin 1 Capsule (of 300 mg) Oral t.i.d., Irbesartan 1 Tablet (of 300 mg) Oral daily, Levocetirizine Dihydrochloride 1 Tablet (of 5 mg) Oral daily PRN, Metoprolol Tartrate 1 Tablet (of 50 mg) Oral daily, Ventolin HFA Aerosol, solution Inhalation Allergies: Bee Sting, Lopid, and Niaspan. Review of Systems: Review of Systems is not available for this patient. Vital Signs: Performed on Nov 23, 2020 15:54 Height - 68.00 in Weight - 195.8 lbs (LOW) BSA - 2.03 sq.m BMI - 29.77 Temperature - 96.9 F (LOW) Pulse - 73 /min Respiration - 16 /min BP - 146/87 mm(hg) (HIGH) O2 Sat - 90 % (LOW) Pain - 0 Performance Status: 0 - Fully active, able to carry on all predisease activities without restrictions. (ECOG) Physical Examination: ENMT - No mouth sores, no thrush, no jaundice, Respiratory - Poor air entry otherwise clear, Cardiovascular - Regular rate and rhythm of heart, Abdomen - Soft, bowel sounds present, Extremities - No visible edema. Lab/Imaging: Test performed on Jul 14, 2020 11:50 Sodium 138 mmol/L Potassium 4.1 mmol/L Chloride 103 mmol/L CO2 24 mmol/L Anion Gap 15.1 BUN 15 mg/dL Creatinine 0.9 mg/dL Cr Clearance (Est) 101.9800 mL/min eGFR 83.7 mL/min Glucose 109 mg/dL Osmolality - Calculated 287 mOsm/kg Calcium 9.5 mg/dL Protein, Total 6.8 g/dL Albumin 4.0 g/dL Globulin 2.8 g/dL Bilirubin, Total 0.4 mg/dL ALT (SGPT) 13 U/L AST (SGOT) 19 U/L Alkaline Phosphatase 105 IU/L WBC 7.0 10 3/uL RBC 4.86 10 6/uL HGB 14.1 g/dL HCT 43.3 % MCV 89.1 fL MCH 29.0 pg MCHC 32.6 g/dL RDW 16.0 % Platelet Count 258 10 3/cmm MPV 9.5 fL Neutrophils 4.04 10 3/uL Lymphocytes 2.1 10 3/uL Monocytes 0.5 10 3/uL Eosinophils 0.3 10 3/uL Basophils 0.1 10 3/uL Neutrophil % 57.5 % Lymphocyte % 29.9 % Monocyte % 7.3 % Eosinophil % 4.0 % Basophils % 1.0 % NRBC % 0 % Impression: Squamous cell carcinoma, low-grade more keratinizing of left upper lobe of lung per bronchoscopy/biopsy done on 07/09/2018 CT PET scan done on 07/26/2018 showed 3.7 x 4.8 cm mass in left upper lobe with SUV of 20.1 and malignant left upper hilar nodes with SUV of 12.7. Multiple malignant mediastinal lymph nodes are present in the right paratracheal, precarinal, left peribronchial, subcarinal and right hilar Territories c T2b , N3 (contralateral hilar lymph nodes involvement), MX, clinical stage IIIB MRI scan of head done on 08/08/2018 showed no evidence of metastatic disease As per cardiothoracic surgery he is not a candidate for surgery. H was started on combined chemoradiation with weekly carboplatin and Taxol on 08/11/2018. Hard of hearing in right ear, unknown etiology Chronic smoking, still active Ascending Aortic aneurysm, since 2014, stable, being followed by Dr. Luther Remote history of brain mass, as per patient and his , stable for the last 18 years A CTA was performed on 09/19/2018 and did report right lower lobe posterior segment and segmental pulmonary emboli. He was treated initially with Lovenox then transitioned to Eliquis. CT head done on 09/23/2018 showed no intracranial hemorrhage or mass effect and unchanged right mastoid air cell effusion with middle ear opacification. Chest x-ray done on 09/23/2018 shows decreased left perihilar mass or perihilar pneumonia .Follow-up CT scan of chest done on 11/12/2018 showed continued improvement in the consolidation superior-medial left lower lobe. 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 Austin his PMD has been following his aortic aneurysm for the last 3 years. History of chronic back pain, as per patient, in the past he he was given injection by Dr. Palm, that helped him for 5 months.MRI scan of thoracic/lumbar spine done on 01/30/2019 showed no evidence of metastatic disease but disc prolapse at multiple level with nerve impingement. Started on maintenance therapy with biweekly durvalumab 10 mg/kg on 11/20/2018. He is tolerating it well thus far. Follow-up CT PET scan done on 02/21/2019 showed there is minimal inflammatory activity in mixed solid/groundglass left lower lobe infiltrate, consistent with residual uptake from radiation therapy, viable malignancy is unlikely, new left lower lobe subpleural nodule-like infiltrate is FDG negative, hypermetabolic mediastinal lymph node in the left hilar, left peribronchial, left precarinal, right hilar territories now demonstrated uptake no greater than mediastinal background, indicating positive response to therapy. He continued with immunotherapy. Follow-up PET/CT from 09/12/2019 reported new medial left lower lobe nodule measuring 1.1 x 1.7 cm with an SUV of 6.1, strongly consistent with recurrent malignancy. There was a new posterior left upper lobe nodules that were too small to characterize. Bilateral mediastinal nodes in the bilateral hilar, right parabronchial, and subcarinal territories are FDG positive. These may be reactive but recurrence cannot be excluded. discussed with Mr & Mrs Palm his disease status and treatment options. Mr Palm wass reluctant to consider radiation therapy due to related toxicity. Case was discussed with Dr. Vazquez radiation oncology, he agreed. Mr Palm was then offered treatment with systemic therapy with cisplatin 25 mg/m??? and gemcitabine 1000 mg/m??? day 1 and day 8 and repeat every 21 days ???3 cycles and repeat follow-up CT PET scan to assess the disease response and then plan accordingly. The immunotherapy was discontinued. Mr Palm began his first cycle of Cisplatin/Gemzar on 10/19/2019.Follow-up CT scan of chest done on November 11, 2020 showed left lower lobe previously described FDG avid nodule 1.3 x 0.7 cm is not significantly changed No evidence of progressive disease. No progressed anterior mediastinal or hilar lymphadenopathy. Stable ectatic ascending thoracic aorta measuring 4.6 cm. Tiny hazy groundglass nodule in the right upper lobe measuring 4 mm unchanged since 2019 Stable patchy infiltrate about perihilar region and left lower lobe medially likely due to radiation-induced pneumonitis and stable Plan: Discussed with patient regarding his labs white blood count 7.5 hemoglobin 14.4 hematocrit 43.8 platelets 248,000 CMP within normal limits TSH 3.27 and follow-up CT scan of chest which shows no evidence of disease progression stable left lower lobe nodule Clinically, patient is doing well with no new signs symptoms just developed recurrence or progression of disease his follow-up CT scan chest shows stable left lower lobe nodule and no evidence of progressive disease. His lab work-up is within normal range. Overall patient is feeling better and more energetic and enjoying quality of life, will continue to monitor and he will return to clinic in 4 months with CBC CMP and CT chest scan in the meantime continue with monthly port maintenance Patient was advised to quit smoking and was offered any assistance he may need Signed By: Shemar Bill M.D. <<Signature on File>>
== END 2020-11-23 05:49 | disposition home or self-care (01) ==
PROVIDERS: PCP Family Medicine; Visit Provider Internal Medicine Hematology & Oncology
DX: C34.12 Malignant neoplasm of upper lobe, left bronchus or lung (principal); N40.0 Benign prostatic hyperplasia without lower urinary tract symptoms; J43.9 Emphysema, unspecified; F17.210 Nicotine dependence, cigarettes, uncomplicated; I71.9 Aortic aneurysm of unspecified site, without rupture; Z92.21 Personal history of antineoplastic chemotherapy; Z92.3 Personal history of irradiation
CPT/HCPCS: 36591; 80053; 84403; 84443; 85025; G0463

== ENCOUNTER 2020-12-23 05:49 | Outpatient (CLI) | payer MEDICARE, MEDICAID, SELFPAY | END 2020-12-23 05:50 | disposition home or self-care (01) | LOC: ONCMED 05:51 | PROVIDERS: PCP Family Medicine; Visit Provider Internal Medicine Hematology & Oncology | DX: Z45.2 Encounter for adjustment and management of vascular access device (principal) | CPT/HCPCS: 96523 ==

== ENCOUNTER → 2021-01-12 09:23 | Outpatient (BNVA) | payer MEDICARE, MEDICAID, SELFPAY | PROVIDERS: PCP Family Medicine; Visit Provider Family Medicine | DX: I10 Essential (primary) hypertension (principal); E78.2 Mixed hyperlipidemia; E11.9 Type 2 diabetes mellitus without complications; D35.2 Benign neoplasm of pituitary gland; F17.219 Nicotine dependence, cigarettes, with unspecified nicotine-induced disorders; Z12.5 Encounter for screening for malignant neoplasm of prostate | CPT/HCPCS: 80053; 80061; 81015; 82043; 83036; 84146; 85025; G0103 ==

== ENCOUNTER 2021-01-27 07:58 | Outpatient (CLI) | payer MEDICARE, MEDICAID, SELFPAY | END 2021-01-27 07:59 | disposition home or self-care (01) | LOC: ONCMED 08:00 | PROVIDERS: PCP Family Medicine; Visit Provider Internal Medicine Hematology & Oncology | DX: Z45.2 Encounter for adjustment and management of vascular access device (principal) | CPT/HCPCS: 96523 ==

== ENCOUNTER 2021-02-22 10:36 | Outpatient (CLI) | payer MEDICARE, MEDICAID, SELFPAY ==
--- NOTE | 2021-02-22 10:42 | CT_ITS ---
WS: [id number] CT CHEST TECHNIQUE: Contrast enhanced CT of the chest with coronal and sagittal reformatted images. CLINICAL INFORMATION: RESTAGING EVALUATION/LUNG CANCER COMPARISON: CT November 11, 2020 and PET/CT February 2020. PET CT August 2019. CTA chest June 2019. DLP: 817.[address] scans at [facility] use at least one of these dose optimization techniques: automat ed exposure control; mA and/or kV adjustment per patient size (includes targeted exams where dose is matched to clinical indication); or iterative reconstruction. FINDINGS: Previously described FDG avid nodule along the left inferior hilum measuring 13 x 6 mm is unchanged. There is new soft tissue thickening and nodularity about the right hilum and right mainstem bronchus measuring 17 x 12 mm with spiculation consistent with recurrent/progressed disease. Additional suspic ious spiculated nodule right upper lobe laterally also new from previous measuring 1.7 cm suspicious for metastatic disease. Adjacent noncalcified suspicious nodule measuring 5 mm is also new from previ ous. Patchy opacities in the left lower lobe and about the left inferior hilum are similar in appearance c ompared to previous. No new or progressive mediastinal lymphadenopathy. A few shotty anterior mediast inal lymph nodes. Stable ectatic ascending thoracic aorta measuring 4.6 cm. Proximal main pulmonary arteries are normal . No axillary lymphadenopathy. Adrenal glands are normal. Hepatomegaly with diffuse fatty infiltration. Normal GE junction. CT/CT chest w con* [id number] IMPRESSION: 1. New spiculated soft tissue nodules about the right hilum involving the righ t upper lobe bronchi. Largest nodule measures 17 x 12 mm consistent with recurr ent/progressed disease. This can be further evaluated with PET/CT. 2. In addition, right upper lobe suspicious spiculated opacity measuring 1.7 c m with adjacent 4 mm satellite nodule suspicious for metastatic disease. 3. No other significant changes from previous. 4. Small previously described FDG avid nodule along the left inferior hilum me asuring 13 x 6 mm is stable. 5. Patchy fibrotic opacities about the left hilum and left lower lobe are stab le. 6. Stable ectatic ascending thoracic aorta measuring 4.6 cm.
[2021-02-22] MEDS: iohexol 300 mg/mL 100 mL Btl IV (11:19)
== END 2021-02-22 10:37 | disposition home or self-care (01) ==
LOC: RAD 10:40
PROVIDERS: PCP Family Medicine; Visit Provider Internal Medicine Hematology & Oncology
DX: C34.12 Malignant neoplasm of upper lobe, left bronchus or lung (principal); I77.810 Thoracic aortic ectasia
CPT/HCPCS: 71260

== ENCOUNTER 2021-02-23 09:20 | Outpatient (CLI) | payer MEDICARE, MEDICAID, SELFPAY ==
[2021-02-23] MEDS: alteplase 1 mg/mL SDV 2 mL 2 MG IV (09:48)
[2021-02-23 10:11] LABS: Basophils # 0.1 10^3/uL (0.0-0.1); Basophils % 0.7 %; Eosinophils # 0.3 10^3/uL (0.0-0.8); Hematocrit 42.1 % (42.0-52.0); Hemoglobin 13.8 g/dL (11.7-16.6); Lymphocytes # 1.7 10^3/uL (0.8-4.8); Lymphocytes % 18.1 %; Mean Corpuscular HGB Conc 32.8 g/dL (30.0-36.0); Mean Corpuscular Hemoglobin 29.6 pg (28.0-34.0); Mean Corpuscular Volume 90.1 fL (80-94); Mean Platelet Volume 9.4 fL (7.4-10.4); Monocytes # 0.4 10^3/uL (0.2-0.9); Monocytes % 4.5 %; Neutrophils # 6.84 10^3/uL (1.8-7.7); Neutrophils % 73.1 %; Nucleated Red Blood Cells % 0 %; Platelet Count 380 10^3/cmm (130-400); Red Blood Count 4.67 10^6/uL (4.1-5.3); Red Cell Distribution Width 14.4 % (12.1-15.1); White Blood Count 9.4 10^3/uL (4.0-10.0)
[2021-02-23 10:43] LABS: Alanine Aminotransferase 16 U/L (0-41); Albumin Level 3.6 g/dL (3.5-5.2); Alkaline Phosphatase 125 IU/L (40-130); Anion Gap 12.4 (5-19); Aspartate Amino Transferase 11 U/L (0-40); Blood Urea Nitrogen 15 mg/dL (8-23); Carbon Dioxide 30 mmol/L (22-29); Chloride 101 mmol/L (98-107); Globulin 3.3 g/dL (1.3-4.6); Glomerular Filtration Rate 74.1 mL/min (90-130); Glucose 169 mg/dL (65-115); Osmolality Calculated 293 mOsm/kg (285-295); Potassium 4.4 mmol/L (3.5-5.1); Sodium 139 mmol/L (136-145); Total Bilirubin 0.3 mg/dL (0.15-1.2); Total Protein 6.9 g/dL (6.6-8.7)
== END 2021-02-23 09:21 | disposition home or self-care (01) ==
LOC: ONCMED 09:22
PROVIDERS: PCP Family Medicine; Visit Provider Internal Medicine Hematology & Oncology
DX: C34.12 Malignant neoplasm of upper lobe, left bronchus or lung (principal); Z92.3 Personal history of irradiation
CPT/HCPCS: 36593; 80053; 85025; 96374; J2997

== ENCOUNTER 2021-02-24 05:52 | Outpatient (CLI) | payer MEDICARE, MEDICAID, SELFPAY ==
--- NOTE | 2021-02-24 09:32 | ONC FU_ITS ---
Dr. Bill follow up note Patient: Raymundo Palm Unit #: [id number]: [id number] Dicatated By: Shemar Bill M.D.Date of Visit:February 24, 2021 Onc Med Follow-up/Prog Note History of Present Illness: Mr. Palm is a 70-year-old gentleman with history of ascending aortic aneurysm, stable and now being observed. 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 He developed a chronic cough for which he underwent CT scan of chest. The scan showed possible narrowing of the superior segment bronchus to the left lower lobe. Mr Palm underwent bronchoscopy on 07/09/2018, which showed non-small cell carcinoma squamous cell type, low-grade keratinizing subsequently. On 07/26/[address] PET scan which showed poorly defined left upper lobe mass with mixed groundglass and solid components measuring 3.7 x 4.8 cm with SUV of 20.1; and malignant left upper hilar nodes with SUV of 12; multiple malignant mediastinal lymph nodes are present in the right paratracheal, precarinal, left peribronchial subcarinal and right hilar territories, with SUV of 8.6. He was not a candidate for surgical resection so recommended that he start on combined chemoradiation with weekly carboplatin and Taxol on 08/11/2018 Long-standing history of smoking and still smokes about half a pack. History of chronic back pain, as per patient, in the past Dr. Palm give him injection to his back, that controlled back pain for 5 months. He has completed combined chemoradiation with weekly carbo/taxol and began immunotherapy with Imfinzi. He presented with an episode of shaking, increased anxiety. He was nauseated and discussed all full in general. He was weak and dizzy. He was sent for a CT pulmonary angiogram after labs were drawn. His d-dimer was elevated warranting a CTA exam. The CTA was performed on 09/19/2018 and did confirm right lower lobe posterior segment and segmental pulmonary emboli. There was new left lobe superior segment atelectasis and consolidation with tumoral progression, postradiation changes and pneumonia being differential considerations. There is increased middle third esophageal, subcarinal and right upper lobe perihilar soft tissue attenuation. Chronic emphysema and arteriosclerotic and unchanged a sending thoracic aorta aneurysm at 5 cm . Mr. Palm was started on Lovenox 80 mg every [address] scan of chest done on 11/12/2018 showed continued improvement in the consolidation superior-medial left lower lobe. 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 Less stranding or soft tissue thickening and mediastinal fat, no significant lymph nodes or increased lymph node seen Mild diffuse circumferential thickening of mid esophagus may be due to postradiation changes; emphysema;Stable ascending thoracic aortic aneurysm at 4.[address] Austin his PMD has been following it for the last 3 years. Mr Palm began maintenance durvalumab on 11/20/2018. MRI scan of thoracic/lumbar spine showed no evidence of neoplastic process. But multiple disc protrusion causing nerve impingement at multiple levels. CT PET scan done on 02/21/2019 showed essential resolution of left lower lobe malignancy, only inflammatory appearing FDG uptake is present in the lung infiltrate. Uptake in malignant mediastinal lymphadenopathy seen on previously is now resolved. He continues immunotherapy with durvalumab and is tolerating it well. echo was done which showed ejection fraction with a 60% CT PET scan done on 09/12/2019 showed there is a new medial left lower lobe nodule measuring 1.1 x 1.7 cm with SUV of 6.1, strongly consistent with recurrent malignancy. New posterior left upper lobe nodules are too small to characterize. Bilateral mediastinal nodes in the bilateral hilar, right parabronchial, subcarinal territory are FDG positive. These may be reactive but recurrence cannot be excluded. did discuss with Mr. Palm treatment options for the disease recurrence. The immunotherapy has been stopped. Mr. Palm was reluctant to proceed with any further radiation at this point due to toxicities. Therefore he was offered treatment with cisplatin and gemcitabine. He began his first cycle on 10/19/2019. On 12/01/2019, while in the clinic, receiving premedication for chemotherapy patient started having cough with shortness of breath subsequently choking sensation and near syncopal attack, as per patient has been having those episodes more often in the last few weeks and more often with anxiety and usually following swallowing. At that moment patient was sent to emergency room where he was admitted to the hospital treated with supportive care including IV antibiotics and patient underwent barium swallow and esophagogram which showed lateral pharyngeal pouch and possible esophageal stricture, those findings were discussed with Dr. Robertson, ENT who will follow him as an outpatient. Mr. Palm did see Dr. Robertson on 12/29/2019. 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 Small hiatal hernia. Mild esophageal dysmotility ability with distal stricture. CT of the neck from 12/15/2019 reported no abnormalities no adenopathy. He did have flexible fiberoptic nasopharyngeal scope and the hypopharynx and larynx were visualized secondary to hyperactive gag reflex. Mr. Palm stated that his symptoms had pretty well gone and had not reoccurred and he did not want to pursue any further treatment at this time. He has been unable to follow with Dr. Luther's office as they have opted to not see patients due to the coed 19 virus and current precautionary guidelines. resumed his chemotherapy with cisplatin and gemcitabine on 01/05/2020. And received last dose on 01/12/2020, after that patient developed progressive weakness and fatigue and decided to hold chemotherapy until recover and he was also concerned about coronavirus. Follow-up CT PET scan done on March 12, 2020 showed there has been no significant change in the medial left lower lobe nodule this is stable in size at 1.0 x 1.8 cm with an SUV of 7.4, no significant change. Other, nodule-like infiltrates in the left upper lobe and left lower lobe are unchanged in size and number and remained FDG negative. Same abnormality was seen on his previous CT PET scan done in August 2019, at that time case was discussed with radiation oncology regarding role of SBRT to this only active site but it was not considered as this nodules is present in the previously radiated lung field. Follow-up CT scan of chest done on November 11, 2020 showed left lower lobe previously described FDG avid nodule 1.3 x 0.7 cm not significantly changed from previous in the left inferior hilum. Stable patchy infiltrate about perihilar region and left lower lobe medially likely to treatment related changes and radiation pneumonitis is similar in appearance. No progressed anterior mediastinal or hilar lymphadenopathy no evidence of progressive disease. Stable ectatic ascending thoracic aorta measuring 4.6 cm. Tiny hazy groundglass nodule in the right upper lobe measuring 4 mm unchanged since 2019 Follow-up CT scan of the chest done on February 22, 2021 showed new spiculated soft tissue nodules along the right hilum and right mainstem bronchus measuring 17 x 12 mm with spiculation and additional suspicious spiculated nodule right upper lobe is also new from previous measuring 1.7 cm. Adjacent noncalcified suspicious nodule measuring 5 mm is also new. And along the left inferior hilum there is a 13 x 6 mm nodule which is unchanged. Patchy fibrotic opacities about the left hilum and left lower lobe are stable. Came for follow-up, denies any specific complaint except pain in the right lateral chest for the last 4 to 6 weeks, patient denies any trauma to the right chest wall denies any overlying skin changes or rash, denies any new exercise or stretching. Denies any hemoptysis or hematemesis. Denies any fever or chills but cough with runny nose, clear watery. No fever or chills. No jaundice. As per patient he was evaluated by PMD and MRI scan of the brain was ordered and due on March 02, 2021. . Medications: Albuterol Sulfate 1 puff(s) (of 108 (90 base) mcg/act) Aerosol Powder, Breath Activated Inhalation daily, Aspirin Adult Low Strength 1 (81 mg) Tablet, enteric coated Oral daily, Crestor 1 Tablet (of 10 mg) Oral daily, Flomax 1 Capsule (of 0.4 mg) Capsule Oral daily, Gabapentin 1 Capsule (of 300 mg) Oral t.i.d., Levocetirizine Dihydrochloride 1 Tablet (of 5 mg) Oral daily PRN, Metoprolol Tartrate 1 Tablet (of 50 mg) Oral daily Allergies: Bee Sting, Lopid, and Niaspan. Review of Systems: Review of Systems is not available for this patient. Vital Signs: Performed on February 24, 2021 08:32 Height - 68.00 in Weight - 192.0 lbs (LOW) BSA - 2.01 sq.m BMI - 29.19 Temperature - 97.0 F (LOW) Pulse - 68 /min Respiration - 18 /min BP - 145/96 mm(hg) (HIGH) O2 Sat - 94 % (LOW) Pain - 0 Performance Status: 1 - No physically strenuous activity, but ambulatory and able to carry out light or sedentary work (e.g. office work, light house work). (ECOG) Physical Examination: ENMT - No mouth sores, no thrush, no jaundice, Respiratory - Lungs are clear to auscultation without rhonchi or wheezing.Poor air entry mild wheezing otherwise clear, Discomfort/pain on deep palpation in the right lateral chest wall but no overlying skin changes, Cardiovascular - Regular rate and rhythm of heart, Abdomen - Soft, bowel sounds present, Extremities - No visible edema. Lab/Imaging: Test performed on Nov 23, 2020 14:21 Sodium 140 mmol/L Testosterone, Total 126.2 ng/dL TSH 3.27 uIU/mL Potassium 4.0 mmol/L Chloride 104 mmol/L CO2 28 mmol/L Anion Gap 12.0 BUN 15 mg/dL Creatinine 0.9 mg/dL Cr Clearance (Est) 101.9800 mL/min eGFR 83.7 mL/min Glucose 89 mg/dL Osmolality - Calculated 290 mOsm/kg Calcium 9.3 mg/dL Protein, Total 6.8 g/dL Albumin 3.9 g/dL Globulin 2.9 g/dL Bilirubin, Total 0.3 mg/dL ALT (SGPT) 14 U/L AST (SGOT) 12 U/L Alkaline Phosphatase 116 IU/L WBC 7.5 10 3/uL RBC 4.83 10 6/uL HGB 14.4 g/dL HCT 43.8 % MCV 90.7 fL MCH 29.8 pg MCHC 32.9 g/dL RDW 14.6 % Platelet Count 248 10 3/cmm MPV 9.6 fL Neutrophils 3.90 10 3/uL Lymphocytes 2.4 10 3/uL Monocytes 0.7 10 3/uL Eosinophils 0.4 10 3/uL Basophils 0.1 10 3/uL Neutrophil % 52.2 % Lymphocyte % 32.5 % Monocyte % 8.8 % Eosinophil % 5.0 % Basophils % 1.2 % NRBC % 0 % Impression: Squamous cell carcinoma, low-grade more keratinizing of left upper lobe of lung per bronchoscopy/biopsy done on 07/09/2018 CT PET scan done on 07/26/2018 showed 3.7 x 4.8 cm mass in left upper lobe with SUV of 20.1 and malignant left upper hilar nodes with SUV of 12.7. Multiple malignant mediastinal lymph nodes are present in the right paratracheal, precarinal, left peribronchial, subcarinal and right hilar Territories c T2b , N3 (contralateral hilar lymph nodes involvement), MX, clinical stage IIIB MRI scan of head done on 08/08/2018 showed no evidence of metastatic disease As per cardiothoracic surgery he is not a candidate for surgery. H was started on combined chemoradiation with weekly carboplatin and Taxol on 08/11/2018. Hard of hearing in right ear, unknown etiology Chronic smoking, still active Ascending Aortic aneurysm, since 2014, stable, being followed by Dr. Luther Remote history of brain mass, as per patient and his , stable for the last 18 years A CTA was performed on 09/19/2018 and did report right lower lobe posterior segment and segmental pulmonary emboli. He was treated initially with Lovenox then transitioned to Eliquis. CT head done on 09/23/2018 showed no intracranial hemorrhage or mass effect and unchanged right mastoid air cell effusion with middle ear opacification. Chest x-ray done on 09/23/2018 shows decreased left perihilar mass or perihilar pneumonia .Follow-up CT scan of chest done on 11/12/2018 showed continued improvement in the consolidation superior-medial left lower lobe. 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 Austin his PMD has been following his aortic aneurysm for the last 3 years. History of chronic back pain, as per patient, in the past he he was given injection by Dr. Palm, that helped him for 5 months.MRI scan of thoracic/lumbar spine done on 01/30/2019 showed no evidence of metastatic disease but disc prolapse at multiple level with nerve impingement. Started on maintenance therapy with biweekly durvalumab 10 mg/kg on 11/20/2018. He is tolerating it well thus far. Follow-up CT PET scan done on 02/21/2019 showed there is minimal inflammatory activity in mixed solid/groundglass left lower lobe infiltrate, consistent with residual uptake from radiation therapy, viable malignancy is unlikely, new left lower lobe subpleural nodule-like infiltrate is FDG negative, hypermetabolic mediastinal lymph node in the left hilar, left peribronchial, left precarinal, right hilar territories now demonstrated uptake no greater than mediastinal background, indicating positive response to therapy. He continued with immunotherapy. Follow-up PET/CT from 09/12/2019 reported new medial left lower lobe nodule measuring 1.1 x 1.7 cm with an SUV of 6.1, strongly consistent with recurrent malignancy. There was a new posterior left upper lobe nodules that were too small to characterize. Bilateral mediastinal nodes in the bilateral hilar, right parabronchial, and subcarinal territories are FDG positive. These may be reactive but recurrence cannot be excluded. discussed with & Mrs Palm his disease status and treatment options. Mr Palm wass reluctant to consider radiation therapy due to related toxicity. Case was discussed with Dr. Vazquez radiation oncology, he agreed. Mr Palm was then offered treatment with systemic therapy with cisplatin 25 mg/m??? and gemcitabine 1000 mg/m??? day 1 and day 8 and repeat every 21 days ???3 cycles and repeat follow-up CT PET scan to assess the disease response and then plan accordingly. The immunotherapy was discontinued. Mr Palm began his first cycle of Cisplatin/Gemzar on 10/19/2019.Follow-up CT scan of chest done on November 11, 2020 showed left lower lobe previously described FDG avid nodule 1.3 x 0.7 cm is not significantly changed No evidence of progressive disease. No progressed anterior mediastinal or hilar lymphadenopathy. Stable ectatic ascending thoracic aorta measuring 4.6 cm. Tiny hazy groundglass nodule in the right upper lobe measuring 4 mm unchanged since 2019 Stable patchy infiltrate about perihilar region and left lower lobe medially likely due to radiation-induced pneumonitis and stable Plan: Discussed With patient regarding his labs white blood count 9.4 hemoglobin 13.8 hematocrit 42.1 platelets 380,000 and CMP within normal limits and CT scan of the chest which showed new soft tissue nodules in the right upper lung Clinically, patient doing reasonably well in mild to moderate distress due to right chest wall pain as per patient pain is more when he sneeze or cough otherwise very mild with regular breathing. On exam there is no overlying skin changes but mild ribs tenderness on palpation. Which could be due to rib damage either due to cough or sneezing as patient has signs symptom suggestive of allergies e.g. runny nose postnasal drip cough with clear watery phlegm. At this point, will order CT PET scan to assess new findings seen on CT scan of chest. And also order plain right lateral rib films to rule out rib fracture. In the meantime patient was advised to Zyrtec or Claritin for allergies symptoms and gargles. Patient return to clinic after CT PET scan for further discussion. Patient was advised in case there is a worsening of right rib films he need to call us or go to hospital for evaluation. Patient was also advised to quit smoking and was offered any assistance he may need. Signed By: Shemar Bill M.D. <<Signature on File>>
== END 2021-02-24 05:53 | disposition home or self-care (01) ==
LOC: ONCMED 05:54
PROVIDERS: PCP Family Medicine; Visit Provider Internal Medicine Hematology & Oncology
DX: C34.12 Malignant neoplasm of upper lobe, left bronchus or lung (principal); C77.8 Secondary and unspecified malignant neoplasm of lymph nodes of multiple regions; F17.210 Nicotine dependence, cigarettes, uncomplicated; I71.4 Abdominal aortic aneurysm, without rupture; J43.9 Emphysema, unspecified; J18.9 Pneumonia, unspecified organism; I26.99 Other pulmonary embolism without acute cor pulmonale; Z79.01 Long term (current) use of anticoagulants; Z79.899 Other long term (current) drug therapy; Z92.21 Personal history of antineoplastic chemotherapy; Z92.3 Personal history of irradiation
CPT/HCPCS: 99214

== ENCOUNTER 2021-03-02 12:55 | Outpatient (CLI) | payer MEDICARE, MEDICAID, SELFPAY ==
--- NOTE | 2021-03-02 13:00 | MR_ITS ---
WS: [id number] MRI HEAD WITH CONTRAST TECHNIQUE: Sagittal T1, T2 axial, T2 axial FLAIR, axial susceptibility weighted imaging, axial diffus ion weighted images, and coronal T2 images were obtained. Pre and post-T1 axial and post T1 coronal i mages. ADC and FSPGR images. CLINICAL INFORMATION: pituatary microadenoma COMPARISON: MRI FINDINGS: No evidence of restricted diffusion to suggest acute ischemia. Ventricular system and basilar cistern s are patent. Mild small vessel changes. Moderate parenchymal volume loss. Chronic lacunar infarcts c erebellum bilaterally. Chronic lacunar infarct right caudate new from previous. Normal vascular flow voids at the skull base. No extra-axial fluid collections. No evidence of mass or mass effect. Partia l opacification of the right mastoid air cells. Paranasal sinuses are well aerated. No hemosiderin on the susceptibility weighted images. Prior history of treated pituitary macroadenoma with residual normal-appearing pituitary tissue in the right aspect of the sella unchanged from prev ious. No evidence of recurrent or progressive pituitary tumor. Normal optic chiasm. Incidental benign venous angioma in the left parasagittal frontal lobe. MR/MR head wo/w con [id number] IMPRESSION: 1. No evidence of restricted diffusion to suggest acute ischemia. 2. Mild small vessel changes with moderate parenchymal volume loss. 3. Chronic lacunar infarcts in the cerebellum. Chronic lacunar infarct in the r ight caudate new from previous. 4. Partial opacification of the right mastoid air cells. 6. Prior treated pituitary macroadenoma. No evidence of recurrent or progressiv e disease. No suprasellar lesions.
[2021-03-02] MEDS: gadobenate dimeglumine 20 mL vial IV (13:51)
== END 2021-03-02 12:56 | disposition home or self-care (01) ==
PROVIDERS: PCP Family Medicine; Visit Provider Family Medicine
DX: D35.2 Benign neoplasm of pituitary gland (principal); I63.81 Other cerebral infarction due to occlusion or stenosis of small artery
CPT/HCPCS: 70553; A9577

== ENCOUNTER 2021-03-30 08:06 | Outpatient (CLI) | payer MEDICARE, MEDICAID, SELFPAY | END 2021-03-30 08:07 | disposition home or self-care (01) | LOC: ONCMED 08:08 | PROVIDERS: PCP Family Medicine; Visit Provider Internal Medicine Hematology & Oncology | DX: Z45.2 Encounter for adjustment and management of vascular access device (principal) | CPT/HCPCS: 96523 ==

== ENCOUNTER 2021-04-14 06:57 | Outpatient (CLI) | payer MEDICARE, MEDICAID, SELFPAY ==
[2021-04-14 10:25] LABS: Basophils # 0.1 10^3/uL (0.0-0.1); Basophils % 1.2 %; Eosinophils # 0.3 10^3/uL (0.0-0.8); Eosinophils % 3.8 %; Hematocrit 41.4 % (42.0-52.0); Hemoglobin 13.4 g/dL (11.7-16.6); Lymphocytes # 1.9 10^3/uL (0.8-4.8); Lymphocytes % 28.8 %; Mean Corpuscular HGB Conc 32.4 g/dL (30.0-36.0); Mean Corpuscular Hemoglobin 29.1 pg (28.0-34.0); Mean Platelet Volume 9.5 fL (7.4-10.4); Monocytes # 0.5 10^3/uL (0.2-0.9); Neutrophils # 3.86 10^3/uL (1.8-7.7); Neutrophils % 57.9 %; Nucleated Red Blood Cells % 0 %; Platelet Count 286 10^3/cmm (130-400); Red Cell Distribution Width 15.9 % (12.1-15.1); White Blood Count 6.7 10^3/uL (4.0-10.0)
[2021-04-14 11:02] LABS: Alanine Aminotransferase 12 U/L (0-41); Albumin Level 3.9 g/dL (3.5-5.2); Alkaline Phosphatase 109 IU/L (40-130); Anion Gap 16.1 (5-19); Aspartate Amino Transferase 14 U/L (0-40); Blood Urea Nitrogen 12 mg/dL (8-23); Calcium 9.1 mg/dL (8.5-10.5); Carbon Dioxide 24 mmol/L (22-29); Chloride 102 mmol/L (98-107); Globulin 2.8 g/dL (1.3-4.6); Glomerular Filtration Rate 95.8 mL/min (90-130); Glucose 104 mg/dL (65-115); Osmolality Calculated 286 mOsm/kg (285-295); Potassium 4.1 mmol/L (3.5-5.1); Sodium 138 mmol/L (136-145); Testosterone Total 167.8 ng/dL (193-740); Thyroid Stimulating Hormone 2.05 uIU/mL (0.27-4.20); Total Bilirubin 0.3 mg/dL (0.15-1.2); Total Protein 6.7 g/dL (6.6-8.7)
== END 2021-04-14 06:58 | disposition home or self-care (01) ==
LOC: ONCMED 07:09
PROVIDERS: PCP Family Medicine; Visit Provider Internal Medicine Hematology & Oncology
DX: C34.12 Malignant neoplasm of upper lobe, left bronchus or lung (principal); C77.8 Secondary and unspecified malignant neoplasm of lymph nodes of multiple regions; E03.9 Hypothyroidism, unspecified; Z79.899 Other long term (current) drug therapy
CPT/HCPCS: 36591; 80053; 84403; 84443; 85025

== ENCOUNTER 2021-04-17 06:01 | Outpatient (CLI) | payer MEDICARE, MEDICAID, SELFPAY ==
--- NOTE | 2021-04-17 13:03 | ONC FU_ITS ---
Dr. Bill follow up note Patient: Raymundo Palm Unit #: [id number]: [id number] Dicatated By: Shemar Bill M.D.Date of Visit:Apr 17, 2021 Onc Med Follow-up/Prog Note History of Present Illness: Mr. Palm is a 70-year-old gentleman with history of ascending aortic aneurysm, stable and now being observed. 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 He developed a chronic cough for which he underwent CT scan of chest. The scan showed possible narrowing of the superior segment bronchus to the left lower lobe. Mr Palm underwent bronchoscopy on 07/09/2018, which showed non-small cell carcinoma squamous cell type, low-grade keratinizing subsequently. On 07/26/[address] PET scan which showed poorly defined left upper lobe mass with mixed groundglass and solid components measuring 3.7 x 4.8 cm with SUV of 20.1; and malignant left upper hilar nodes with SUV of 12; multiple malignant mediastinal lymph nodes are present in the right paratracheal, precarinal, left peribronchial subcarinal and right hilar territories, with SUV of 8.6. He was not a candidate for surgical resection so recommended that he start on combined chemoradiation with weekly carboplatin and Taxol on 08/11/2018 Long-standing history of smoking and still smokes about half a pack. History of chronic back pain, as per patient, in the past Dr. Palm give him injection to his back, that controlled back pain for 5 months. He has completed combined chemoradiation with weekly carbo/taxol and began immunotherapy with Imfinzi. He presented with an episode of shaking, increased anxiety. He was nauseated and discussed all full in general. He was weak and dizzy. He was sent for a CT pulmonary angiogram after labs were drawn. His d-dimer was elevated warranting a CTA exam. The CTA was performed on 09/19/2018 and did confirm right lower lobe posterior segment and segmental pulmonary emboli. There was new left lobe superior segment atelectasis and consolidation with tumoral progression, postradiation changes and pneumonia being differential considerations. There is increased middle third esophageal, subcarinal and right upper lobe perihilar soft tissue attenuation. Chronic emphysema and arteriosclerotic and unchanged a sending thoracic aorta aneurysm at 5 cm . Mr. Palm was started on Lovenox 80 mg every [address] scan of chest done on 11/12/2018 showed continued improvement in the consolidation superior-medial left lower lobe. 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 Less stranding or soft tissue thickening and mediastinal fat, no significant lymph nodes or increased lymph node seen Mild diffuse circumferential thickening of mid esophagus may be due to postradiation changes; emphysema;Stable ascending thoracic aortic aneurysm at 4.[address] Austin his PMD has been following it for the last 3 years. Mr Palm began maintenance durvalumab on 11/20/2018. MRI scan of thoracic/lumbar spine showed no evidence of neoplastic process. But multiple disc protrusion causing nerve impingement at multiple levels. CT PET scan done on 02/21/2019 showed essential resolution of left lower lobe malignancy, only inflammatory appearing FDG uptake is present in the lung infiltrate. Uptake in malignant mediastinal lymphadenopathy seen on previously is now resolved. He continues immunotherapy with durvalumab and is tolerating it well. echo was done which showed ejection fraction with a 60% CT PET scan done on 09/12/2019 showed there is a new medial left lower lobe nodule measuring 1.1 x 1.7 cm with SUV of 6.1, strongly consistent with recurrent malignancy. New posterior left upper lobe nodules are too small to characterize. Bilateral mediastinal nodes in the bilateral hilar, right parabronchial, subcarinal territory are FDG positive. These may be reactive but recurrence cannot be excluded. did discuss with Mr. Palm treatment options for the disease recurrence. The immunotherapy has been stopped. Mr. Palm was reluctant to proceed with any further radiation at this point due to toxicities. Therefore he was offered treatment with cisplatin and gemcitabine. He began his first cycle on 10/19/2019. On 12/01/2019, while in the clinic, receiving premedication for chemotherapy patient started having cough with shortness of breath subsequently choking sensation and near syncopal attack, as per patient has been having those episodes more often in the last few weeks and more often with anxiety and usually following swallowing. At that moment patient was sent to emergency room where he was admitted to the hospital treated with supportive care including IV antibiotics and patient underwent barium swallow and esophagogram which showed lateral pharyngeal pouch and possible esophageal stricture, those findings were discussed with Dr. Robertson, ENT who will follow him as an outpatient. Mr. Palm did see Dr. Robertson on 12/29/2019. 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 Small hiatal hernia. Mild esophageal dysmotility ability with distal stricture. CT of the neck from 12/15/2019 reported no abnormalities no adenopathy. He did have flexible fiberoptic nasopharyngeal scope and the hypopharynx and larynx were visualized secondary to hyperactive gag reflex. Mr. Palm stated that his symptoms had pretty well gone and had not reoccurred and he did not want to pursue any further treatment at this time. He has been unable to follow with Dr. Luther's office as they have opted to not see patients due to the coed 19 virus and current precautionary guidelines. resumed his chemotherapy with cisplatin and gemcitabine on 01/05/2020. And received last dose on 01/12/2020, after that patient developed progressive weakness and fatigue and decided to hold chemotherapy until recover and he was also concerned about coronavirus. Follow-up CT PET scan done on March 12, 2020 showed there has been no significant change in the medial left lower lobe nodule this is stable in size at 1.0 x 1.8 cm with an SUV of 7.4, no significant change. Other, nodule-like infiltrates in the left upper lobe and left lower lobe are unchanged in size and number and remained FDG negative. Same abnormality was seen on his previous CT PET scan done in August 2019, at that time case was discussed with radiation oncology regarding role of SBRT to this only active site but it was not considered as this nodules is present in the previously radiated lung field. Follow-up CT scan of chest done on November 11, 2020 showed left lower lobe previously described FDG avid nodule 1.3 x 0.7 cm not significantly changed from previous in the left inferior hilum. Stable patchy infiltrate about perihilar region and left lower lobe medially likely to treatment related changes and radiation pneumonitis is similar in appearance. No progressed anterior mediastinal or hilar lymphadenopathy no evidence of progressive disease. Stable ectatic ascending thoracic aorta measuring 4.6 cm. Tiny hazy groundglass nodule in the right upper lobe measuring 4 mm unchanged since 2019 Follow-up CT scan of the chest done on February 22, 2021 showed new spiculated soft tissue nodules along the right hilum and right mainstem bronchus measuring 17 x 12 mm with spiculation and additional suspicious spiculated nodule right upper lobe is also new from previous measuring 1.7 cm. Adjacent noncalcified suspicious nodule measuring 5 mm is also new. And along the left inferior hilum there is a 13 x 6 mm nodule which is unchanged. Patchy fibrotic opacities about the left hilum and left lower lobe are stable. Came for follow-up, denies any specific complaint except pain in the right lateral chest for the last 4 to 6 weeks, patient denies any trauma to the right chest wall denies any overlying skin changes or rash, denies any new exercise or stretching. Denies any hemoptysis or hematemesis. Denies any fever or chills but cough with runny nose, clear watery. No fever or chills. No jaundice. As per patient he was evaluated by PMD and MRI scan of the brain was ordered and due on March 02, 2021. CT PET scan to confirm CT findings done on March 04, 2021 showed left lower lobe nodule seen on prior studies mildly progressed, now with SUV of 8.4 from 7.4 previously on March 12, 2020. Other left inflammatory nodules are unchanged and remain FDG negative. There is new solid nodule in the right upper lobe measuring 1.6 x 1 cm with central cavitation and SUV of 7.4 consistent with new metastatic disease. A central right upper lobe nodule measuring 1.9 x 1.3 cm has an SUV of 5.4. Uptake in inferior right hilar node is slightly more prominent could be malignant called inflammatory Came for follow-up, denies any specific complaints, no fever chills, no nausea or vomiting, no diarrhea constipation, no hemoptysis or hematemesis, appetite is good, no new bony pains. . Medications: Albuterol Sulfate 1 puff(s) (of 108 (90 base) mcg/act) Aerosol Powder, Breath Activated Inhalation daily, Aspirin Adult Low Strength 1 (81 mg) Tablet, enteric coated Oral daily, Crestor 1 Tablet (of 10 mg) Oral daily, Flomax 1 Capsule (of 0.4 mg) Capsule Oral daily, Gabapentin 1 Capsule (of 300 mg) Oral t.i.d., Levocetirizine Dihydrochloride 1 Tablet (of 5 mg) Oral daily PRN, Metoprolol Tartrate 1 Tablet (of 50 mg) Oral daily Allergies: Bee Sting, Lopid, and Niaspan. Review of Systems: Review of Systems is not available for this patient. Vital Signs: Performed on Apr 17, 2021 11:54 Height - 68.00 in Weight - 192 lbs BSA - 2.01 sq.m BMI - 29.19 Temperature - 97.7 F (LOW) Pulse - 65 /min Respiration - 18 /min BP - 136/87 mm(hg) O2 Sat - 92 % (LOW) Pain - 0 Fatigue - 0 Performance Status: 0 - Fully active, able to carry on all predisease activities without restrictions. (ECOG) Physical Examination: ENMT - No mouth sores, no thrush, no jaundice, Respiratory - Lungs are clear to auscultation, Cardiovascular - Regular rate and rhythm of heart, Abdomen - Soft, bowel sounds present, Extremities - No visible edema. Lab/Imaging: Test performed on Nov 23, 2020 14:21 Sodium 140 mmol/L Testosterone, Total 126.2 ng/dL TSH 3.27 uIU/mL Potassium 4.0 mmol/L Chloride 104 mmol/L CO2 28 mmol/L Anion Gap 12.0 BUN 15 mg/dL Creatinine 0.9 mg/dL Cr Clearance (Est) 101.9800 mL/min eGFR 83.7 mL/min Glucose 89 mg/dL Osmolality - Calculated 290 mOsm/kg Calcium 9.3 mg/dL Protein, Total 6.8 g/dL Albumin 3.9 g/dL Globulin 2.9 g/dL Bilirubin, Total 0.3 mg/dL ALT (SGPT) 14 U/L AST (SGOT) 12 U/L Alkaline Phosphatase 116 IU/L WBC 7.5 10 3/uL RBC 4.83 10 6/uL HGB 14.4 g/dL HCT 43.8 % MCV 90.7 fL MCH 29.8 pg MCHC 32.9 g/dL RDW 14.6 % Platelet Count 248 10 3/cmm MPV 9.6 fL Neutrophils 3.90 10 3/uL Lymphocytes 2.4 10 3/uL Monocytes 0.7 10 3/uL Eosinophils 0.4 10 3/uL Basophils 0.1 10 3/uL Neutrophil % 52.2 % Lymphocyte % 32.5 % Monocyte % 8.8 % Eosinophil % 5.0 % Basophils % 1.2 % NRBC % 0 % Impression: Squamous cell carcinoma, low-grade more keratinizing of left upper lobe of lung per bronchoscopy/biopsy done on 07/09/2018 CT PET scan done on 07/26/2018 showed 3.7 x 4.8 cm mass in left upper lobe with SUV of 20.1 and malignant left upper hilar nodes with SUV of 12.7. Multiple malignant mediastinal lymph nodes are present in the right paratracheal, precarinal, left peribronchial, subcarinal and right hilar Territories c T2b , N3 (contralateral hilar lymph nodes involvement), MX, clinical stage IIIB MRI scan of head done on 08/08/2018 showed no evidence of metastatic disease As per cardiothoracic surgery he is not a candidate for surgery. H was started on combined chemoradiation with weekly carboplatin and Taxol on 08/11/2018. Hard of hearing in right ear, unknown etiology Chronic smoking, still active Ascending Aortic aneurysm, since 2014, stable, being followed by Dr. Luther Remote history of brain mass, as per patient and his , stable for the last 18 years A CTA was performed on 09/19/2018 and did report right lower lobe posterior segment and segmental pulmonary emboli. He was treated initially with Lovenox then transitioned to Eliquis. CT head done on 09/23/2018 showed no intracranial hemorrhage or mass effect and unchanged right mastoid air cell effusion with middle ear opacification. Chest x-ray done on 09/23/2018 shows decreased left perihilar mass or perihilar pneumonia .Follow-up CT scan of chest done on 11/12/2018 showed continued improvement in the consolidation superior-medial left lower lobe. 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 Austin his PMD has been following his aortic aneurysm for the last 3 years. History of chronic back pain, as per patient, in the past he he was given injection by Dr. Palm, that helped him for 5 months.MRI scan of thoracic/lumbar spine done on 01/30/2019 showed no evidence of metastatic disease but disc prolapse at multiple level with nerve impingement. Started on maintenance therapy with biweekly durvalumab 10 mg/kg on 11/20/2018. He is tolerating it well thus far. Follow-up CT PET scan done on 02/21/2019 showed there is minimal inflammatory activity in mixed solid/groundglass left lower lobe infiltrate, consistent with residual uptake from radiation therapy, viable malignancy is unlikely, new left lower lobe subpleural nodule-like infiltrate is FDG negative, hypermetabolic mediastinal lymph node in the left hilar, left peribronchial, left precarinal, right hilar territories now demonstrated uptake no greater than mediastinal background, indicating positive response to therapy. He continued with immunotherapy. Follow-up PET/CT from 09/12/2019 reported new medial left lower lobe nodule measuring 1.1 x 1.7 cm with an SUV of 6.1, strongly consistent with recurrent malignancy. There was a new posterior left upper lobe nodules that were too small to characterize. Bilateral mediastinal nodes in the bilateral hilar, right parabronchial, and subcarinal territories are FDG positive. These may be reactive but recurrence cannot be excluded. discussed with Mr & Mrs Palm his disease status and treatment options. Mr Palm wass reluctant to consider radiation therapy due to related toxicity. Case was discussed with Dr. Vazquez radiation oncology, he agreed. Mr Palm was then offered treatment with systemic therapy with cisplatin 25 mg/m??? and gemcitabine 1000 mg/m??? day 1 and day 8 and repeat every 21 days ???3 cycles and repeat follow-up CT PET scan to assess the disease response and then plan accordingly. The immunotherapy was discontinued. Mr Palm began his first cycle of Cisplatin/Gemzar on 10/19/2019.Follow-up CT scan of chest done on November 11, 2020 showed left lower lobe previously described FDG avid nodule 1.3 x 0.7 cm is not significantly changed No evidence of progressive disease. No progressed anterior mediastinal or hilar lymphadenopathy. Stable ectatic ascending thoracic aorta measuring 4.6 cm. 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 To new right upper lobe nodules representing metastatic disease. Probable reactive uptake in the inferior right hilar node. Plan: Discussed with patient regarding his labs white blood count 6.7 hemoglobin 13.4 hematocrit 41.4 platelets 286,000 CMP within normal limits CT PET scan done on March 04, 2021 showed rather confirmed to new right upper lobe nodules, mild progression in the left lower lobe nodule Clinically, patient doing well with no new signs symptom Suggestive of disease progression, but his follow-up CT PET scan confirmed development of 2 new right upper lobe nodules, FDG positive, at this point, will refer him to pulmonology for evaluation for possible bronchoscopy to confirm malignancy Patient return to clinic 1 week after pulmonary evaluation for further discussion, Patient is still smoking about 1 pack a day, he was advised to quit smoking and was offered any assistance he may need Signed By: Shemar Bill M.D. <<Signature on File>>
== END 2021-04-17 06:02 | disposition home or self-care (01) ==
LOC: ONCMED 06:04
PROVIDERS: PCP Family Medicine; Visit Provider Internal Medicine Hematology & Oncology
DX: C34.12 Malignant neoplasm of upper lobe, left bronchus or lung (principal); R91.1 Solitary pulmonary nodule; I71.4 Abdominal aortic aneurysm, without rupture; C77.8 Secondary and unspecified malignant neoplasm of lymph nodes of multiple regions
CPT/HCPCS: 99214

== ENCOUNTER → 2021-04-21 10:42 | Outpatient (BNVA) | payer MEDICARE, MEDICAID, SELFPAY | PROVIDERS: PCP Family Medicine; Visit Provider Internal Medicine Critical Care Medicine | DX: Z01.812 Encounter for preprocedural laboratory examination (principal); Z20.822 Contact with and (suspected) exposure to COVID-19 | CPT/HCPCS: 87635 ==

== ENCOUNTER 2021-04-25 05:43 | Day surgery (SDC) | payer MEDICARE, MEDICAID, SELFPAY ==
--- NOTE | 2021-04-25 | CT_ITS ---
Guided Bronchoscopy Planning CT images; total exam DLP: 886.52 mGy-cm MTDD
[2021-04-25 06:16] VITALS: BMI 28.8
[2021-04-25] MEDS: sodium chloride 0.9% 1,000 ML 30 ML IV (06:35)
--- NOTE | 2021-04-25 06:53 | ANES.PREANE2 ---
Pre-Anesthetic Assessment Pre-Anesthetic Assessment: Height/Weight: Height 1.73 m Weight 86.183 kg Preop Diagnosis: Lung cancer Proposed Procedure: Operation Date: 04/25/21 07:10 Proposed Procedures p Navigational Bronchoscopy [id number] R91.1(Not Applicable) - Janine Larry MD Familial anesthetic complications: none Was Beta Deidra taken within 24 hours: Yes Was Clonidine taken within 24 hours: N/A Last intake: Intake Last Liquid Date 04/24/21 Last Liquid Time 19:30 Last Solid Date 04/24/21 Last Solid Time 19:30 Last Intake: 19:30 Social: Social History: Tobacco and No alcohol Packs per day: 1ppd Pack years: 50+ Exam: Pre-Anes Outpt Exam: alert, oriented x 3, clear to auscultation bilaterally (wheezes bilaterally) and regular rate & rhythm Airway: Submandibular: WNL Cervical ROM: WNL MP: 2 Dentition: False Pulmonary: Pulmonary: COPD, Cough, RIOS and SOB Comments: lung CA. no radiation for 1 year CV/HEM: CV/HEM: HTN : : None reported Hepatic: Hepatic: None reported GI: GI: None reported Metabolic: Metabolic: None reported Musc/skel: Musc/skel: Lower Back Pain and OA/DJD Neuropsych: Neuropsych: CVA (Left sided numbness that resolved) Anesthetic Plan: ASA status: 3 Anesthesia: General Meds/Allergies Current Medications: Current Medications Generic Name Dose Route Start Last Admin Trade Name Freq PRN Reason Stop Dose Admin Sodium Chloride 1,000 mls @ 30 ml s/hr 04/25/21 06:30 04/25/21 06:35 Sodium Chloride 0.9% IV 30 mls/hr .Q24H ANTONETTE Administration PFSH Anesthesia PFSH: Medical History Angina pectoris, unspecified Ascending aortic aneurysm BPH (benign prostatic hyperplasia) COPD (chronic obstructive pulmonary disease) Diabetes mellitus Encounter for insertion of venous access port HLD (hyperlipidemia) HTN (hypertension) NSCLC of left lung Pituitary macroadenoma He was seeing endo in [place]. Smoking addiction Surgical History H/O hernia repair History of bronchoscopy S/P hernia repair Family History Mother Cancer Father COPD (chronic obstructive pulmonary disease) CAD (coronary artery disease) Social History Smoking and tobacco status: current every day smoker cigarettes Packs smoked per day: 0.5 Years cigarettes smoked: 54 Smoking risk assessment/counseling performed?: Yes Alcohol intake: former Counseling given: No Counseling given: No Lives independently: Yes Household members: spouse Marital status: Current occupational status: retired History of recent travel: No Current gender identity: Male Data Anesthesia Cardiac Studies: No Data to Display
--- NOTE | 2021-04-25 06:57 | P.HPUD_ITS ---
Surgery/Procedure H&P Update DATE OF PROCEDURE: April 25, 2021 DATE H&P PERFORMED: 04/19/21 H&P UPDATE INFORMATION: I have reviewed H&P completed within last 30 days, I have examined patient prior to procedure and No changes to prior documentation PREOP DIAGNOSIS: Lung cancer PLANNED PROCEDURE: Bronchoscopy with inspection of the airway, possible endobronchial biopsy, navigational bronchoscopy guided transbronchial needle biopsy, fine-needle aspiration of right upper lobe lung nodule. Operation Date: 04/25/21 07:10 Proposed Procedures p Navigational Bronchoscopy [id number] R91.1(Not Applicable) - [facility] MD Kendy
[2021-04-25] MEDS: lidocaine 1% INJ 20 mL XX (07:39)
--- NOTE | 2021-04-25 08:31 | PM.OP ---
Operative Report Date of procedure: April 25, 2021 Pre-op Diagnosis: Lung cancer Post-op diagnosis: same Brief History: This is a 70-year-old gentleman with previous history of metastatic cancer coming in for bronchoscopic evaluation for recently identified PET positive lung nodule. Procedure: Name of the procedure: Bronchoscopy with inspection of the airway, navigational bronchoscopy guided fine needle aspiration of right upper lobe lung nodule, endobronchial ultrasound-guided transbronchial needle aspiration of lymph nodes and control of bleeding. Indication: Suspected lung cancer Anesthesia: General anesthesia. Local anesthesia: The barron in the right and left mainstem bronchi were anesthetized with 1% lidocaine, 3 mL. Description of the procedure: The procedure was explained to the patient and the consent was obtained. The patient was brought to the OR. The patient underwent endotracheal intubation for general anesthesia. Following induction of general anesthesia, the bronchoscope was advanced through the ET tube. The lower trachea appeared to be normal. The barron was sharp. The barron, the right and left mainstem bronchi are anesthetized with 1% lidocaine. In a systematic manner bilateral bronchial tree was then examined. The bronchoscope was advanced into the left mainstem bronchus. The left upper lobe, lingula and left lower lobe bronchi were examined up to the third subsegmental level and no abnormalities were identified. There is no endobronchial lesion, active bleeding or mucous plug. The bronchoscope was then introduced into the right mainstem bronchus. The right upper lobe, right middle lobe and right lower lobe bronchi were examined up to the third subsegmental level and no abnormalities were identified. There was mucus throughout the lung. Using navigational bronchoscopy, fine-needle aspiration was obtained from right upper lobe lung nodule. Multiple samples were obtained and put in formalin. The endobronchial ultrasound was introduced through the ET tube. Mild right mediastinal lymphadenopathy was identified. Fine-needle aspiration was performed from station 10 R. Samples: 1. Right upper lobe lung nodule FNA was sent for histopathology. 2. The transbronchial needle aspiration of station 10R was sent for histopathology. Complications: There was no immediate complications.
[2021-04-25 08:40] VITALS: BP 121/84; PULSE 72; RESP 16; TEMP 36.6; O2SAT 100
[2021-04-25 08:45] VITALS: BP 120/80; PULSE 71; RESP 16; O2SAT 95
[2021-04-25 08:50] VITALS: BP 110/61; PULSE 75; RESP 18; O2SAT 94
[2021-04-25 08:55] VITALS: BP 108/70; PULSE 73; RESP 20; O2SAT 95
[2021-04-25 09:00] VITALS: BP 111/70; PULSE 71; RESP 18; TEMP 36.6; O2SAT 96
[2021-04-25 09:10] VITALS: BP 98/65; PULSE 71; RESP 18; TEMP 36.6; O2SAT 93
--- NOTE | 2021-04-25 14:02 | ANE.PACU2 ---
Inpatient post-anesthesia follow up: Airway intact: Yes Vital signs: Temperature 97.8 F Pulse Rate 71 Respiratory Rate 18 Blood Pressure 98/65 Pulse Oximetry 93 Oxygen Delivery Me thod Simple Mask Oxygen Flow Rate 5 Fraction of Inspir ed Oxygen Hydration adequate: Yes Nausea and vomiting: No Pain level: 1 Mental status: Baseline
== END 2021-04-25 09:50 | disposition home or self-care (01) ==
PROVIDERS: PCP Family Medicine; Visit Provider Internal Medicine Critical Care Medicine
PROC: 0BJ08ZZ Inspection of Tracheobronchial Tree, Via Natural or Artificial Opening Endoscopic (ICD-10-PCS; CPT 31622; principal; 2021-04-25 07:00)
PROC: BB4BZZZ Ultrasonography of Pleura (ICD-10-PCS; CPT 31652; 2021-04-25 07:00)
DX: C34.11 Malignant neoplasm of upper lobe, right bronchus or lung (principal); Z85.118 Personal history of other malignant neoplasm of bronchus and lung; Z92.3 Personal history of irradiation; F17.210 Nicotine dependence, cigarettes, uncomplicated; Z79.82 Long term (current) use of aspirin; J44.9 Chronic obstructive pulmonary disease, unspecified
CPT/HCPCS: 31652; 31622; 31627; 77011; 88305; 96360; 96361; J0330; J2370; J2405; J2704; J3490; J7030

== ENCOUNTER 2021-05-26 10:00 | Outpatient (CLI) | payer MEDICARE, MEDICAID, SELFPAY | END 2021-05-26 10:01 | disposition home or self-care (01) | LOC: ONCMED 10:02 | PROVIDERS: PCP Family Medicine; Visit Provider Internal Medicine Hematology & Oncology | DX: Z45.2 Encounter for adjustment and management of vascular access device (principal) | CPT/HCPCS: 96523 ==

== ENCOUNTER 2021-06-30 08:39 | Outpatient (CLI) | payer MEDICARE, MEDICAID, SELFPAY ==
[2021-06-30 09:47] LABS: Basophils # 0.1 10^3/uL (0.0-0.1); Basophils % 1.4 %; Eosinophils # 0.3 10^3/uL (0.0-0.8); Eosinophils % 4.3 %; Hemoglobin 14.5 g/dL (11.7-16.6); Lymphocytes # 2.2 10^3/uL (0.8-4.8); Lymphocytes % 33.1 %; Mean Corpuscular Hemoglobin 29.4 pg (28.0-34.0); Mean Corpuscular Volume 89.1 fl (80-94); Mean Platelet Volume 10.1 fL (7.4-10.4); Monocytes # 0.6 10^3/uL (0.2-0.9); Monocytes % 9.8 %; Neutrophils # 3.35 10^3/uL (1.8-7.7); Neutrophils % 51.2 %; Nucleated Red Blood Cells % 0 %; Platelet Count 238 10^3/cmm (130-400); Red Blood Count 4.94 10^6/uL (4.1-5.3); Red Cell Distribution Width 15.5 % (12.1-15.1); White Blood Count 6.5 10^3/uL (4.0-10.0)
[2021-06-30 10:02] LABS: Alanine Aminotransferase 15 U/L (0-41); Albumin Level 3.7 g/dL (3.5-5.2); Alkaline Phosphatase 103 IU/L (40-130); Anion Gap 14.2 (5-19); Aspartate Amino Transferase 14 U/L (0-40); Blood Urea Nitrogen 14 mg/dL (8-23); Calcium 8.8 mg/dL (8.5-10.5); Carbon Dioxide 27 mmol/L (22-29); Chloride 98 mmol/L (98-107); Globulin 3.5 g/dL (1.3-4.6); Glomerular Filtration Rate 95.6 mL/min (90-130); Glucose 95 mg/dL (65-115); Osmolality Calculated 280 mOsm/kg (285-295); Potassium 4.2 mmol/L (3.5-5.1); Sodium 135 mmol/L (136-145); Total Bilirubin 0.3 mg/dL (0.15-1.2); Total Protein 7.2 g/dL (6.6-8.7)
== END 2021-06-30 08:40 | disposition home or self-care (01) ==
LOC: ONCMED 08:43
PROVIDERS: PCP Family Medicine; Visit Provider Internal Medicine Hematology & Oncology
DX: C34.12 Malignant neoplasm of upper lobe, left bronchus or lung (principal)
CPT/HCPCS: 36591; 80053; 85025

== ENCOUNTER → 2021-07-03 09:19 | Outpatient (BNVA) | payer MEDICARE, MEDICAID, SELFPAY | PROVIDERS: PCP Family Medicine; Visit Provider Family Medicine | DX: E78.2 Mixed hyperlipidemia (principal); I10 Essential (primary) hypertension; J30.2 Other seasonal allergic rhinitis; F17.219 Nicotine dependence, cigarettes, with unspecified nicotine-induced disorders | CPT/HCPCS: 80061 ==

== ENCOUNTER 2021-07-04 06:04 | Outpatient (CLI) | payer MEDICARE, MEDICAID, SELFPAY ==
--- NOTE | 2021-07-04 17:13 | ONC FU_ITS ---
Dr. Bill follow up note Patient: Raymundo Palm Unit #: [id number]: 1950 Dicatated By: Shemar Bill M.D.Date of Visit:Jul 04, 2021 Onc Med Follow-up/Prog Note History of Present Illness: Mr. Palm is a 71 -year-old gentleman with history of ascending aortic aneurysm, stable and now being observed. 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 He developed a chronic cough for which he underwent CT scan of chest. The scan showed possible narrowing of the superior segment bronchus to the left lower lobe. Mr Palm underwent bronchoscopy on 07/09/2018, which showed non-small cell carcinoma squamous cell type, low-grade keratinizing subsequently. On 07/26/[address] PET scan which showed poorly defined left upper lobe mass with mixed groundglass and solid components measuring 3.7 x 4.8 cm with SUV of 20.1; and malignant left upper hilar nodes with SUV of 12; multiple malignant mediastinal lymph nodes are present in the right paratracheal, precarinal, left peribronchial subcarinal and right hilar territories, with SUV of 8.6. He was not a candidate for surgical resection so recommended that he start on combined chemoradiation with weekly carboplatin and Taxol on 08/11/2018 Long-standing history of smoking and still smokes about half a pack. History of chronic back pain, as per patient, in the past Dr. Palm give him injection to his back, that controlled back pain for 5 months. He has completed combined chemoradiation with weekly carbo/taxol and began immunotherapy with Imfinzi. He presented with an episode of shaking, increased anxiety. He was nauseated and discussed all full in general. He was weak and dizzy. He was sent for a CT pulmonary angiogram after labs were drawn. His d-dimer was elevated warranting a CTA exam. The CTA was performed on 09/19/2018 and did confirm right lower lobe posterior segment and segmental pulmonary emboli. There was new left lobe superior segment atelectasis and consolidation with tumoral progression, postradiation changes and pneumonia being differential considerations. There is increased middle third esophageal, subcarinal and right upper lobe perihilar soft tissue attenuation. Chronic emphysema and arteriosclerotic and unchanged a sending thoracic aorta aneurysm at 5 cm . Mr. Palm was started on Lovenox 80 mg every [address] scan of chest done on 11/12/2018 showed continued improvement in the consolidation superior-medial left lower lobe. 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 Less stranding or soft tissue thickening and mediastinal fat, no significant lymph nodes or increased lymph node seen Mild diffuse circumferential thickening of mid esophagus may be due to postradiation changes; emphysema;Stable ascending thoracic aortic aneurysm at 4.[address] Austin his PMD has been following it for the last 3 years. Mr Palm began maintenance durvalumab on 11/20/2018. MRI scan of thoracic/lumbar spine showed no evidence of neoplastic process. But multiple disc protrusion causing nerve impingement at multiple levels. CT PET scan done on 02/21/2019 showed essential resolution of left lower lobe malignancy, only inflammatory appearing FDG uptake is present in the lung infiltrate. Uptake in malignant mediastinal lymphadenopathy seen on previously is now resolved. He continues immunotherapy with durvalumab and is tolerating it well. echo was done which showed ejection fraction with a 60% CT PET scan done on 09/12/2019 showed there is a new medial left lower lobe nodule measuring 1.1 x 1.7 cm with SUV of 6.1, strongly consistent with recurrent malignancy. New posterior left upper lobe nodules are too small to characterize. Bilateral mediastinal nodes in the bilateral hilar, right parabronchial, subcarinal territory are FDG positive. These may be reactive but recurrence cannot be excluded. did discuss with Mr. Palm treatment options for the disease recurrence. The immunotherapy has been stopped. Mr. Palm was reluctant to proceed with any further radiation at this point due to toxicities. Therefore he was offered treatment with cisplatin and gemcitabine. He began his first cycle on 10/19/2019. On 12/01/2019, while in the clinic, receiving premedication for chemotherapy patient started having cough with shortness of breath subsequently choking sensation and near syncopal attack, as per patient has been having those episodes more often in the last few weeks and more often with anxiety and usually following swallowing. At that moment patient was sent to emergency room where he was admitted to the hospital treated with supportive care including IV antibiotics and patient underwent barium swallow and esophagogram which showed lateral pharyngeal pouch and possible esophageal stricture, those findings were discussed with Dr. Robertson, ENT who will follow him as an outpatient. Mr. Palm did see Dr. Robertson on 12/29/2019. 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 Small hiatal hernia. Mild esophageal dysmotility ability with distal stricture. CT of the neck from 12/15/2019 reported no abnormalities no adenopathy. He did have flexible fiberoptic nasopharyngeal scope and the hypopharynx and larynx were visualized secondary to hyperactive gag reflex. Mr. Palm stated that his symptoms had pretty well gone and had not reoccurred and he did not want to pursue any further treatment at this time. He has been unable to follow with Dr. Luther's office as they have opted to not see patients due to the coed 19 virus and current precautionary guidelines. resumed his chemotherapy with cisplatin and gemcitabine on 01/05/2020. And received last dose on 01/12/2020, after that patient developed progressive weakness and fatigue and decided to hold chemotherapy until recover and he was also concerned about coronavirus. Follow-up CT PET scan done on March 12, 2020 showed there has been no significant change in the medial left lower lobe nodule this is stable in size at 1.0 x 1.8 cm with an SUV of 7.4, no significant change. Other, nodule-like infiltrates in the left upper lobe and left lower lobe are unchanged in size and number and remained FDG negative. Same abnormality was seen on his previous CT PET scan done in August 2019, at that time case was discussed with radiation oncology regarding role of SBRT to this only active site but it was not considered as this nodules is present in the previously radiated lung field. Follow-up CT scan of chest done on November 11, 2020 showed left lower lobe previously described FDG avid nodule 1.3 x 0.7 cm not significantly changed from previous in the left inferior hilum. Stable patchy infiltrate about perihilar region and left lower lobe medially likely to treatment related changes and radiation pneumonitis is similar in appearance. No progressed anterior mediastinal or hilar lymphadenopathy no evidence of progressive disease. Stable ectatic ascending thoracic aorta measuring 4.6 cm. Tiny hazy groundglass nodule in the right upper lobe measuring 4 mm unchanged since 2019 Follow-up CT scan of the chest done on February 22, 2021 showed new spiculated soft tissue nodules along the right hilum and right mainstem bronchus measuring 17 x 12 mm with spiculation and additional suspicious spiculated nodule right upper lobe is also new from previous measuring 1.7 cm. Adjacent noncalcified suspicious nodule measuring 5 mm is also new. And along the left inferior hilum there is a 13 x 6 mm nodule which is unchanged. Patchy fibrotic opacities about the left hilum and left lower lobe are stable. Came for follow-up, denies any specific complaint except pain in the right lateral chest for the last 4 to 6 weeks, patient denies any trauma to the right chest wall denies any overlying skin changes or rash, denies any new exercise or stretching. Denies any hemoptysis or hematemesis. Denies any fever or chills but cough with runny nose, clear watery. No fever or chills. No jaundice. As per patient he was evaluated by PMD and MRI scan of the brain was ordered and due on March 02, 2021. CT PET scan to confirm CT findings done on March 04, 2021 showed left lower lobe nodule seen on prior studies mildly progressed, now with SUV of 8.4 from 7.4 previously on March 12, 2020. Other left inflammatory nodules are unchanged and remain FDG negative. There is new solid nodule in the right upper lobe measuring 1.6 x 1 cm with central cavitation and SUV of 7.4 consistent with new metastatic disease. A central right upper lobe nodule measuring 1.9 x 1.3 cm has an SUV of 5.4. Uptake in inferior right hilar node is slightly more prominent could be malignant called inflammatory, Underwent bronchoscopy on April 25, 2021, right hilar lymph node biopsy was negative for malignancy, right upper lobe nodule FNA shows no evidence of malignancy Came for follow-up, denies any specific complaint except generalized weakness and fatigue, dyspnea on exertion but no chest pain or palpitation, no hemoptysis or hematemesis, no melena or hematochezia, no fever chills, recently underwent bronchoscopy and transbronchial biopsy of right upper lobe lung nodule as well as lymph node both came back negative, patient still smoke about half pack a day. . Medications: Albuterol Sulfate 1 puff(s) (of 108 (90 base) mcg/act) Aerosol Powder, Breath Activated Inhalation daily, Aspirin Adult Low Strength 1 (81 mg) Tablet, enteric coated Oral daily, Crestor 1 Tablet (of 10 mg) Oral daily, Flomax 1 Capsule (of 0.4 mg) Capsule Oral daily, Gabapentin 1 Capsule (of 300 mg) Oral t.i.d., Levocetirizine Dihydrochloride 1 Tablet (of 5 mg) Oral daily PRN, Metoprolol Tartrate 1 Tablet (of 50 mg) Oral daily Allergies: Bee Sting, Lopid, and Niaspan. Review of Systems: Review of Systems is not available for this patient. Vital Signs: Performed on Jul 04, 2021 15:42 Height - 68.00 in Weight - 185.8 lbs (LOW) BSA - 1.98 sq.m BMI - 28.25 Temperature - 98.0 F (LOW) Pulse - 84 /min Respiration - 18 /min BP - 129/77 mm(hg) O2 Sat - 94 % (LOW) Pain - 0 Fatigue - 5 Performance Status: 0 - Fully active, able to carry on all predisease activities without restrictions. (ECOG) Physical Examination: ENMT - No mouth sores, no thrush, no jaundice, Respiratory - Poor air entry otherwise clear, Cardiovascular - Regular rate and rhythm of heart, Abdomen - Soft, bowel sounds present, Extremities - No visible edema. Lab/Imaging: Most recent lab results are not available for this patient. Impression: Squamous cell carcinoma, low-grade more keratinizing of left upper lobe of lung per bronchoscopy/biopsy done on 07/09/2018 CT PET scan done on 07/26/2018 showed 3.7 x 4.8 cm mass in left upper lobe with SUV of 20.1 and malignant left upper hilar nodes with SUV of 12.7. Multiple malignant mediastinal lymph nodes are present in the right paratracheal, precarinal, left peribronchial, subcarinal and right hilar Territories c T2b , N3 (contralateral hilar lymph nodes involvement), MX, clinical stage IIIB MRI scan of head done on 08/08/2018 showed no evidence of metastatic disease As per cardiothoracic surgery he is not a candidate for surgery. H was started on combined chemoradiation with weekly carboplatin and Taxol on 08/11/2018. Hard of hearing in right ear, unknown etiology Chronic smoking, still active Ascending Aortic aneurysm, since 2014, stable, being followed by Dr. Luther Remote history of brain mass, as per patient and his , stable for the last 18 years A CTA was performed on 09/19/2018 and did report right lower lobe posterior segment and segmental pulmonary emboli. He was treated initially with Lovenox then transitioned to Eliquis. CT head done on 09/23/2018 showed no intracranial hemorrhage or mass effect and unchanged right mastoid air cell effusion with middle ear opacification. Chest x-ray done on 09/23/2018 shows decreased left perihilar mass or perihilar pneumonia .Follow-up CT scan of chest done on 11/12/2018 showed continued improvement in the consolidation superior-medial left lower lobe. 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 Austin his PMD has been following his aortic aneurysm for the last 3 years. History of chronic back pain, as per patient, in the past he he was given injection by Dr. Palm, that helped him for 5 months.MRI scan of thoracic/lumbar spine done on 01/30/2019 showed no evidence of metastatic disease but disc prolapse at multiple level with nerve impingement. Started on maintenance therapy with biweekly durvalumab 10 mg/kg on 11/20/2018. He is tolerating it well thus far. Follow-up CT PET scan done on 02/21/2019 showed there is minimal inflammatory activity in mixed solid/groundglass left lower lobe infiltrate, consistent with residual uptake from radiation therapy, viable malignancy is unlikely, new left lower lobe subpleural nodule-like infiltrate is FDG negative, hypermetabolic mediastinal lymph node in the left hilar, left peribronchial, left precarinal, right hilar territories now demonstrated uptake no greater than mediastinal background, indicating positive response to therapy. He continued with immunotherapy. Follow-up PET/CT from 09/12/2019 reported new medial left lower lobe nodule measuring 1.1 x 1.7 cm with an SUV of 6.1, strongly consistent with recurrent malignancy. There was a new posterior left upper lobe nodules that were too small to characterize. Bilateral mediastinal nodes in the bilateral hilar, right parabronchial, and subcarinal territories are FDG positive. These may be reactive but recurrence cannot be excluded. discussed with Mr & Mrs Palm his disease status and treatment options. Mr Palm wass reluctant to consider radiation therapy due to related toxicity. Case was discussed with Dr. Vazquez radiation oncology, he agreed. Mr Palm was then offered treatment with systemic therapy with cisplatin 25 mg/m??? and gemcitabine 1000 mg/m??? day 1 and day 8 and repeat every 21 days ???3 cycles and repeat follow-up CT PET scan to assess the disease response and then plan accordingly. The immunotherapy was discontinued. Mr Palm began his first cycle of Cisplatin/Gemzar on 10/19/2019.Follow-up CT scan of chest done on November 11, 2020 showed left lower lobe previously described FDG avid nodule 1.3 x 0.7 cm is not significantly changed No evidence of progressive disease. No progressed anterior mediastinal or hilar lymphadenopathy. Stable ectatic ascending thoracic aorta measuring 4.6 cm. 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 To new right upper lobe nodules representing metastatic disease. Probable reactive uptake in the inferior right hilar node. Underwent bronchoscopy on April 25, 2021, right hilar lymph node biopsy was negative for malignancy, right upper lobe nodule FNA shows no evidence of malignancy Plan: Discussed with patient regarding his labs white blood count 6.5 hemoglobin 14.5 hematocrit 44 platelets 238,000 CMP within normal limits except sodium 135 Clinically, patient doing well with no new signs symptom suggestive of disease progression, recently underwent bronchoscopy and transbronchial biopsy of right upper lobe mass and hilar lymph node both came back negative for malignancy In that case, we will continue to monitor and patient will return to clinic in 2 months with follow-up CT scan of chest As far as generalized weakness and fatigue is concerned, his lab work-up is within normal limits, concern is whether patient is developing exertional hypoxemia, will consider exertional pulse oximetry if it shows hypoxia, we will request pulmonology to evaluate for possible home to oxygen, patient was also advised to try [id number] multivitamin and he will continue with monthly port maintenance and return to clinic in 2 months with follow-up CT scan of chest as mentioned above.Patient was also advised to quit smoking and was offered any assistance he may need Signed By: Shemar Bill M.D. <<Signature on File>>
== END 2021-07-04 06:05 | disposition home or self-care (01) ==
LOC: ONCMED 06:04
PROVIDERS: PCP Family Medicine; Visit Provider Internal Medicine Hematology & Oncology
DX: C34.12 Malignant neoplasm of upper lobe, left bronchus or lung (principal); I71.2 Thoracic aortic aneurysm, without rupture; J43.9 Emphysema, unspecified; G89.29 Other chronic pain; M54.9 Dorsalgia, unspecified; Z86.711 Personal history of pulmonary embolism; F17.210 Nicotine dependence, cigarettes, uncomplicated; Z79.82 Long term (current) use of aspirin; Z79.899 Other long term (current) drug therapy
CPT/HCPCS: 99214

== ENCOUNTER 2021-07-28 10:25 | Outpatient (CLI) | payer MEDICARE, MEDICAID, SELFPAY | END 2021-07-28 10:26 | disposition home or self-care (01) | LOC: ONCMED 10:28 | PROVIDERS: PCP Family Medicine; Visit Provider Internal Medicine Hematology & Oncology | DX: Z45.2 Encounter for adjustment and management of vascular access device (principal) | CPT/HCPCS: 82565; 96523 ==

== ENCOUNTER 2021-08-28 12:59 | Outpatient (CLI) | payer MEDICARE, SELFPAY ==
--- NOTE | 2021-08-28 13:10 | CT_ITS ---
WS: [id number] CT CHEST TECHNIQUE: Contrast enhanced CT of the chest with coronal and sagittal reformatted images. CLINICAL INFORMATION: MALIGNANT NEOPLASM OF UPPER LOBE, L BRONCHUS OR LUNG COMPARISON: CT February 22, 2021 and PET/CT March 04, 2021 DLP: 897.[address] scans at [facility] use at least one of these dose optimization techniques: automated e xposure control; mA and/or kV adjustment per patient size (includes targeted exams where dose is matc hed to clinical indication); or iterative reconstruction. FINDINGS:Mild chronic emphysematous changes. Previously described opacities in right upper lobe have nearly resolved with small residual opacity measuring 9 mm. Stable appearing atelectasis and bronchov ascular thickening along the left hilum. Stable appearing soft tissue thickening along the left infer ior hilum unchanged since prior PET/CT. Adjacent pleural thickening and slight patchy infiltrates lef t lower lobe posterior medially slightly progressed likely inflammatory. Ectatic ascending thoracic aorta measuring 4.6 cm is unchanged. Proximal main pulmonary arteries are normal. Bilateral bronchovascular thickening is unchanged. No mediastinal or hilar lymphadenopathy. No axillary lymphadenopathy. Adrenal glands are normal. Splenic granulomas. Normal GE junction. Small esophageal hiatal hernia. No other interval changes. Mild thoracic kyphosis. Moderate spondylitic changes thoracic spine with dis c space narrowing. CT/CT chest w con* [id number] IMPRESSION: 1. Previous described right upper lobe opacities have nearly resolved with sma ll residual 9 mm opacity. 2. Stable bilateral bronchovascular hilar thickening is 3. Stable soft tissue thickening along the left inferior hilum similar to prev ious 4. Stable ectatic ascending thoracic aorta. 5. No other significant change from previous.
[2021-08-28] MEDS: iohexol 300 mg/mL 100 mL Btl IV (14:20)
[2021-08-28 15:12] LABS: Blood Urea Nitrogen 16 mg/dL (8-23); Glomerular Filtration Rate 73.9 mL/min (90-130)
== END 2021-08-28 13:00 | disposition home or self-care (01) ==
PROVIDERS: PCP Family Medicine; Visit Provider Internal Medicine Hematology & Oncology
DX: C34.12 Malignant neoplasm of upper lobe, left bronchus or lung (principal); I77.810 Thoracic aortic ectasia
CPT/HCPCS: 71260; 82565; 84520; Q9967

== ENCOUNTER 2021-09-04 10:38 | Outpatient (CLI) | payer MEDICARE, MEDICAID, SELFPAY ==
[2021-09-04 11:09] LABS: Basophils # 0.1 10^3/uL (0.0-0.1); Basophils % 1.2 %; Eosinophils # 0.4 10^3/uL (0.0-0.8); Eosinophils % 6.4 %; Hematocrit 42.4 % (42.0-52.0); Hemoglobin 13.9 g/dL (11.7-16.6); Lymphocytes # 2.1 10^3/uL (0.8-4.8); Lymphocytes % 29.9 %; Mean Corpuscular HGB Conc 32.8 g/dL (30.0-36.0); Mean Corpuscular Hemoglobin 29.5 pg (28.0-34.0); Mean Platelet Volume 9.5 fL (7.4-10.4); Monocytes # 0.6 10^3/uL (0.2-0.9); Neutrophils # 3.68 10^3/uL (1.8-7.7); Neutrophils % 53.2 %; Nucleated Red Blood Cells % 0 %; Platelet Count 259 10^3/cmm (130-400); Red Blood Count 4.71 10^6/uL (4.1-5.3); White Blood Count 6.9 10^3/uL (4.0-10.0)
[2021-09-04 11:32] LABS: Alanine Aminotransferase 15 U/L (0-41); Albumin Level 3.8 g/dL (3.5-5.2); Alkaline Phosphatase 113 IU/L (40-130); Anion Gap 13.3 (5-19); Aspartate Amino Transferase 14 U/L (0-40); Blood Urea Nitrogen 13 mg/dL (8-23); Calcium 9.3 mg/dL (8.5-10.5); Carbon Dioxide 26 mmol/L (22-29); Chloride 102 mmol/L (98-107); Globulin 3.1 g/dL (1.3-4.6); Glomerular Filtration Rate 83.4 mL/min (90-130); Glucose 97 mg/dL (65-115); Osmolality Calculated 284 mOsm/kg (285-295); Potassium 4.3 mmol/L (3.5-5.1); Sodium 137 mmol/L (136-145); Total Bilirubin 0.4 mg/dL (0.15-1.2); Total Protein 6.9 g/dL (6.6-8.7)
--- NOTE | 2021-09-05 17:14 | ONC FU_ITS ---
Dr. Bill follow up note Patient: Raymundo Palm Unit #: [id number]: [id number] Dicatated By: Shemar Bill M.D.Date of Visit:Sep 04, 2021 Onc Med Follow-up/Prog Note History of Present Illness: Mr. Palm is a 71 -year-old gentleman with history of ascending aortic aneurysm, stable and now being observed. 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 He developed a chronic cough for which he underwent CT scan of chest. The scan showed possible narrowing of the superior segment bronchus to the left lower lobe. Mr Palm underwent bronchoscopy on 07/09/2018, which showed non-small cell carcinoma squamous cell type, low-grade keratinizing subsequently. On 07/26/[address] PET scan which showed poorly defined left upper lobe mass with mixed groundglass and solid components measuring 3.7 x 4.8 cm with SUV of 20.1; and malignant left upper hilar nodes with SUV of 12; multiple malignant mediastinal lymph nodes are present in the right paratracheal, precarinal, left peribronchial subcarinal and right hilar territories, with SUV of 8.6. He was not a candidate for surgical resection so recommended that he start on combined chemoradiation with weekly carboplatin and Taxol on 08/11/2018 Long-standing history of smoking and still smokes about half a pack. History of chronic back pain, as per patient, in the past Dr. Palm give him injection to his back, that controlled back pain for 5 months. He has completed combined chemoradiation with weekly carbo/taxol and began immunotherapy with Imfinzi. He presented with an episode of shaking, increased anxiety. He was nauseated and discussed all full in general. He was weak and dizzy. He was sent for a CT pulmonary angiogram after labs were drawn. His d-dimer was elevated warranting a CTA exam. The CTA was performed on 09/19/2018 and did confirm right lower lobe posterior segment and segmental pulmonary emboli. There was new left lobe superior segment atelectasis and consolidation with tumoral progression, postradiation changes and pneumonia being differential considerations. There is increased middle third esophageal, subcarinal and right upper lobe perihilar soft tissue attenuation. Chronic emphysema and arteriosclerotic and unchanged a sending thoracic aorta aneurysm at 5 cm . Mr. Palm was started on Lovenox 80 mg every [address] scan of chest done on 11/12/2018 showed continued improvement in the consolidation superior-medial left lower lobe. 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 Less stranding or soft tissue thickening and mediastinal fat, no significant lymph nodes or increased lymph node seen Mild diffuse circumferential thickening of mid esophagus may be due to postradiation changes; emphysema;Stable ascending thoracic aortic aneurysm at 4.[address] Austin his PMD has been following it for the last 3 years. Mr Palm began maintenance durvalumab on 11/20/2018. MRI scan of thoracic/lumbar spine showed no evidence of neoplastic process. But multiple disc protrusion causing nerve impingement at multiple levels. CT PET scan done on 02/21/2019 showed essential resolution of left lower lobe malignancy, only inflammatory appearing FDG uptake is present in the lung infiltrate. Uptake in malignant mediastinal lymphadenopathy seen on previously is now resolved. He continues immunotherapy with durvalumab and is tolerating it well. echo was done which showed ejection fraction with a 60% CT PET scan done on 09/12/2019 showed there is a new medial left lower lobe nodule measuring 1.1 x 1.7 cm with SUV of 6.1, strongly consistent with recurrent malignancy. New posterior left upper lobe nodules are too small to characterize. Bilateral mediastinal nodes in the bilateral hilar, right parabronchial, subcarinal territory are FDG positive. These may be reactive but recurrence cannot be excluded. did discuss with Mr. Palm treatment options for the disease recurrence. The immunotherapy has been stopped. Mr. Palm was reluctant to proceed with any further radiation at this point due to toxicities. Therefore he was offered treatment with cisplatin and gemcitabine. He began his first cycle on 10/19/2019. On 12/01/2019, while in the clinic, receiving premedication for chemotherapy patient started having cough with shortness of breath subsequently choking sensation and near syncopal attack, as per patient has been having those episodes more often in the last few weeks and more often with anxiety and usually following swallowing. At that moment patient was sent to emergency room where he was admitted to the hospital treated with supportive care including IV antibiotics and patient underwent barium swallow and esophagogram which showed lateral pharyngeal pouch and possible esophageal stricture, those findings were discussed with Dr. Robertson, ENT who will follow him as an outpatient. Mr. Paml did see Dr. Robertson on 12/29/2019. 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 Small hiatal hernia. Mild esophageal dysmotility ability with distal stricture. CT of the neck from 12/15/2019 reported no abnormalities no adenopathy. He did have flexible fiberoptic nasopharyngeal scope and the hypopharynx and larynx were visualized secondary to hyperactive gag reflex. Mr. Palm stated that his symptoms had pretty well gone and had not reoccurred and he did not want to pursue any further treatment at this time. He has been unable to follow with Dr. Luther's office as they have opted to not see patients due to the coed 19 virus and current precautionary guidelines. resumed his chemotherapy with cisplatin and gemcitabine on 01/05/2020. And received last dose on 01/12/2020, after that patient developed progressive weakness and fatigue and decided to hold chemotherapy until recover and he was also concerned about coronavirus. Follow-up CT PET scan done on March 12, 2020 showed there has been no significant change in the medial left lower lobe nodule this is stable in size at 1.0 x 1.8 cm with an SUV of 7.4, no significant change. Other, nodule-like infiltrates in the left upper lobe and left lower lobe are unchanged in size and number and remained FDG negative. Same abnormality was seen on his previous CT PET scan done in August 2019, at that time case was discussed with radiation oncology regarding role of SBRT to this only active site but it was not considered as this nodules is present in the previously radiated lung field. Follow-up CT scan of chest done on November 11, 2020 showed left lower lobe previously described FDG avid nodule 1.3 x 0.7 cm not significantly changed from previous in the left inferior hilum. Stable patchy infiltrate about perihilar region and left lower lobe medially likely to treatment related changes and radiation pneumonitis is similar in appearance. No progressed anterior mediastinal or hilar lymphadenopathy no evidence of progressive disease. Stable ectatic ascending thoracic aorta measuring 4.6 cm. Tiny hazy groundglass nodule in the right upper lobe measuring 4 mm unchanged since 2019 Follow-up CT scan of the chest done on February 22, 2021 showed new spiculated soft tissue nodules along the right hilum and right mainstem bronchus measuring 17 x 12 mm with spiculation and additional suspicious spiculated nodule right upper lobe is also new from previous measuring 1.7 cm. Adjacent noncalcified suspicious nodule measuring 5 mm is also new. And along the left inferior hilum there is a 13 x 6 mm nodule which is unchanged. Patchy fibrotic opacities about the left hilum and left lower lobe are stable. Came for follow-up, denies any specific complaint except pain in the right lateral chest for the last 4 to 6 weeks, patient denies any trauma to the right chest wall denies any overlying skin changes or rash, denies any new exercise or stretching. Denies any hemoptysis or hematemesis. Denies any fever or chills but cough with runny nose, clear watery. No fever or chills. No jaundice. As per patient he was evaluated by PMD and MRI scan of the brain was ordered and due on March 02, 2021. CT PET scan to confirm CT findings done on March 04, 2021 showed left lower lobe nodule seen on prior studies mildly progressed, now with SUV of 8.4 from 7.4 previously on March 12, 2020. Other left inflammatory nodules are unchanged and remain FDG negative. There is new solid nodule in the right upper lobe measuring 1.6 x 1 cm with central cavitation and SUV of 7.4 consistent with new metastatic disease. A central right upper lobe nodule measuring 1.9 x 1.3 cm has an SUV of 5.4. Uptake in inferior right hilar node is slightly more prominent could be malignant called inflammatory, Underwent bronchoscopy on April 25, 2021, right hilar lymph node biopsy was negative for malignancy, right upper lobe nodule FNA shows no evidence of malignancy Follow-up CT scan of chest done on August 28, 2021 shows previous described right upper lobe opacities have nearly resolved with small residual 9 mm opacity. Stable soft tissue thickening along the left inferior hilar similar to previous. Came for follow-up, denies any specific complaints, no fever chills, no nausea or vomiting, no diarrhea constipation, no hemoptysis or hematemesis, no headaches blurred vision double vision, no new bony pains, still smoking about pack a day AGAINST MEDICAL ADVICE . Medications: Albuterol Sulfate 1 puff(s) (of 108 (90 base) mcg/act) Aerosol Powder, Breath Activated Inhalation daily, Aspirin Adult Low Strength 1 (81 mg) Tablet, enteric coated Oral daily, Crestor 1 Tablet (of 10 mg) Oral daily, Flomax 1 Capsule (of 0.4 mg) Capsule Oral daily, Gabapentin 1 Capsule (of 300 mg) Oral t.i.d., Levocetirizine Dihydrochloride 1 Tablet (of 5 mg) Oral daily PRN, Metoprolol Tartrate 1 Tablet (of 50 mg) Oral daily Allergies: Bee Sting, Lopid, and Niaspan. Review of Systems: Review of Systems is not available for this patient. Vital Signs: Performed on Sep 04, 2021 15:49 Height - 68.00 in Weight - 187 lbs (HIGH) BSA - 1.99 sq.m BMI - 28.43 Temperature - 98.3 F (LOW) Pulse - 71 /min Respiration - 18 /min BP - 144/91 mm(hg) (HIGH) O2 Sat - 94 % (LOW) Pain - 0 Fatigue - 0 Performance Status: 0 - Fully active, able to carry on all predisease activities without restrictions. (ECOG) Physical Examination: ENMT - No mouth sores, no thrush, no jaundice, Respiratory - Poor air entry otherwise clear, Cardiovascular - Regular rate and rhythm of heart, Abdomen - Soft, bowel sounds present, Extremities - No visible edema. Lab/Imaging: Most recent lab results are not available for this patient. Impression: Squamous cell carcinoma, low-grade more keratinizing of left upper lobe of lung per bronchoscopy/biopsy done on 07/09/2018 CT PET scan done on 07/26/2018 showed 3.7 x 4.8 cm mass in left upper lobe with SUV of 20.1 and malignant left upper hilar nodes with SUV of 12.7. Multiple malignant mediastinal lymph nodes are present in the right paratracheal, precarinal, left peribronchial, subcarinal and right hilar Territories c T2b , N3 (contralateral hilar lymph nodes involvement), MX, clinical stage IIIB MRI scan of head done on 08/08/2018 showed no evidence of metastatic disease As per cardiothoracic surgery he is not a candidate for surgery. H was started on combined chemoradiation with weekly carboplatin and Taxol on 08/11/2018. Hard of hearing in right ear, unknown etiology Chronic smoking, still active Ascending Aortic aneurysm, since 2014, stable, being followed by Dr. Luther Remote history of brain mass, as per patient and his , stable for the last 18 years A CTA was performed on 09/19/2018 and did report right lower lobe posterior segment and segmental pulmonary emboli. He was treated initially with Lovenox then transitioned to Eliquis. CT head done on 09/23/2018 showed no intracranial hemorrhage or mass effect and unchanged right mastoid air cell effusion with middle ear opacification. Chest x-ray done on 09/23/2018 shows decreased left perihilar mass or perihilar pneumonia .Follow-up CT scan of chest done on 11/12/2018 showed continued improvement in the consolidation superior-medial left lower lobe. 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 Austin his PMD has been following his aortic aneurysm for the last 3 years. History of chronic back pain, as per patient, in the past he he was given injection by Dr. Palm, that helped him for 5 months.MRI scan of thoracic/lumbar spine done on 01/30/2019 showed no evidence of metastatic disease but disc prolapse at multiple level with nerve impingement. Started on maintenance therapy with biweekly durvalumab 10 mg/kg on 11/20/2018. He is tolerating it well thus far. Follow-up CT PET scan done on 02/21/2019 showed there is minimal inflammatory activity in mixed solid/groundglass left lower lobe infiltrate, consistent with residual uptake from radiation therapy, viable malignancy is unlikely, new left lower lobe subpleural nodule-like infiltrate is FDG negative, hypermetabolic mediastinal lymph node in the left hilar, left peribronchial, left precarinal, right hilar territories now demonstrated uptake no greater than mediastinal background, indicating positive response to therapy. He continued with immunotherapy. Follow-up PET/CT from 09/12/2019 reported new medial left lower lobe nodule measuring 1.1 x 1.7 cm with an SUV of 6.1, strongly consistent with recurrent malignancy. There was a new posterior left upper lobe nodules that were too small to characterize. Bilateral mediastinal nodes in the bilateral hilar, right parabronchial, and subcarinal territories are FDG positive. These may be reactive but recurrence cannot be excluded. discussed with Mr & Mrs Palm his disease status and treatment options. Mr Palm wass reluctant to consider radiation therapy due to related toxicity. Case was discussed with Dr. Vazquez radiation oncology, he agreed. Mr Palm was then offered treatment with systemic therapy with cisplatin 25 mg/m??? and gemcitabine 1000 mg/m??? day 1 and day 8 and repeat every 21 days ???3 cycles and repeat follow-up CT PET scan to assess the disease response and then plan accordingly. The immunotherapy was discontinued. Mr Palm began his first cycle of Cisplatin/Gemzar on 10/19/2019.Follow-up CT scan of chest done on November 11, 2020 showed left lower lobe previously described FDG avid nodule 1.3 x 0.7 cm is not significantly changed No evidence of progressive disease. No progressed anterior mediastinal or hilar lymphadenopathy. Stable ectatic ascending thoracic aorta measuring 4.6 cm. 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 To new right upper lobe nodules representing metastatic disease. Probable reactive uptake in the inferior right hilar node. Plan: Discussed with patient regarding his labs white blood count 6.9 hemoglobin 13.9 hematocrit 42.4 platelets 259,000 CMP within normal limits and CT scan of chest shows no new lesions rather near resolution of previously described right upper lobe opacities have nearly resolved with small residual 9 mm pasty Clinically, patient doing well with no new signs symptom suggestive of recurrence of disease, overall, doing well with excellent quality of life. Patient continues to smoke AGAINST MEDICAL ADVICE, patient was advised to quit smoking and was offered any assistance he may need, patient return to clinic in 4 months with CBC CMP Signed By: Shemar Bill M.D. <<Signature on File>>
== END 2021-09-04 10:39 | disposition home or self-care (01) ==
LOC: ONCMED 10:41
PROVIDERS: PCP Family Medicine; Visit Provider Internal Medicine Hematology & Oncology
DX: Z08 Encounter for follow-up examination after completed treatment for malignant neoplasm (principal); Z85.118 Personal history of other malignant neoplasm of bronchus and lung; F17.210 Nicotine dependence, cigarettes, uncomplicated; I71.4 Abdominal aortic aneurysm, without rupture; I26.99 Other pulmonary embolism without acute cor pulmonale; Z79.01 Long term (current) use of anticoagulants; J43.9 Emphysema, unspecified; Z79.899 Other long term (current) drug therapy; Z92.21 Personal history of antineoplastic chemotherapy
CPT/HCPCS: 36591; 80053; 85025; 99214

== ENCOUNTER 2021-11-28 08:43 | Outpatient (CLI) | payer MEDICARE, MEDICAID, SELFPAY | END 2021-11-28 08:44 | disposition home or self-care (01) | PROVIDERS: PCP Family Medicine; Visit Provider Internal Medicine Hematology & Oncology | DX: Z45.2 Encounter for adjustment and management of vascular access device (principal) | CPT/HCPCS: 96523 ==

== ENCOUNTER 2021-12-25 11:52 | Outpatient (CLI) | payer MEDICARE, MEDICAID, SELFPAY ==
[2021-12-25 12:25] LABS: Basophils # 0.1 10^3/uL (0.0-0.1); Basophils % 0.8 %; Eosinophils # 0.5 10^3/uL (0.0-0.8); Eosinophils % 5.5 %; Hematocrit 42.6 % (42.0-52.0); Lymphocytes # 2.6 10^3/uL (0.8-4.8); Lymphocytes % 30.9 %; Mean Corpuscular HGB Conc 32.9 g/dL (30.0-36.0); Mean Corpuscular Hemoglobin 29.8 pg (28.0-34.0); Mean Corpuscular Volume 90.6 fl (80-94); Mean Platelet Volume 10.3 fL (7.4-10.4); Monocytes # 0.7 10^3/uL (0.2-0.9); Monocytes % 8.1 %; Neutrophils # 4.57 10^3/uL (1.8-7.7); Neutrophils % 54.5 %; Nucleated Red Blood Cells % 0 %; Platelet Count 157 10^3/cmm (130-400); Red Cell Distribution Width 14.9 % (12.1-15.1); White Blood Count 8.4 10^3/uL (4.0-10.0)
--- NOTE | 2021-12-25 13:32 | ONC FU_ITS ---
Brooke Avila Progress Note Patient: Raymundo Palm Unit #: [id number]: [id number] Dicatated By: Brooke Avila N.P.Date of Visit:Dec 25, 2021 Onc MED Follow-up/Prog Note Chief Complaint: Lung cancer History of Present Illness: Mr. Palm is a 71 -year-old gentleman with history of ascending aortic aneurysm, stable and now being observed. 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 He developed a chronic cough for which he underwent CT scan of chest. The scan showed possible narrowing of the superior segment bronchus to the left lower lobe. Mr Palm underwent bronchoscopy on 07/09/2018, which showed non-small cell carcinoma squamous cell type, low-grade keratinizing subsequently. On 07/26/[address] PET scan which showed poorly defined left upper lobe mass with mixed groundglass and solid components measuring 3.7 x 4.8 cm with SUV of 20.1; and malignant left upper hilar nodes with SUV of 12; multiple malignant mediastinal lymph nodes are present in the right paratracheal, precarinal, left peribronchial subcarinal and right hilar territories, with SUV of 8.6. He was not a candidate for surgical resection so recommended that he start on combined chemoradiation with weekly carboplatin and Taxol on 08/11/2018 Long-standing history of smoking and still smokes about half a pack. History of chronic back pain, as per patient, in the past Dr. Palm give him injection to his back, that controlled back pain for 5 months. He has completed combined chemoradiation with weekly carbo/taxol and began immunotherapy with Imfinzi. He presented with an episode of shaking, increased anxiety. He was nauseated and discussed all full in general. He was weak and dizzy. He was sent for a CT pulmonary angiogram after labs were drawn. His d-dimer was elevated warranting a CTA exam. The CTA was performed on 09/19/2018 and did confirm right lower lobe posterior segment and segmental pulmonary emboli. There was new left lobe superior segment atelectasis and consolidation with tumoral progression, postradiation changes and pneumonia being differential considerations. There is increased middle third esophageal, subcarinal and right upper lobe perihilar soft tissue attenuation. Chronic emphysema and arteriosclerotic and unchanged a sending thoracic aorta aneurysm at 5 cm . Mr. Palm was started on Lovenox 80 mg every [address] scan of chest done on 11/12/2018 showed continued improvement in the consolidation superior-medial left lower lobe. 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 Less stranding or soft tissue thickening and mediastinal fat, no significant lymph nodes or increased lymph node seen Mild diffuse circumferential thickening of mid esophagus may be due to postradiation changes; emphysema;Stable ascending thoracic aortic aneurysm at 4.[address] Austin his PMD has been following it for the last 3 years. Mr Palm began maintenance durvalumab on 11/20/2018. MRI scan of thoracic/lumbar spine showed no evidence of neoplastic process. But multiple disc protrusion causing nerve impingement at multiple levels. CT PET scan done on 02/21/2019 showed essential resolution of left lower lobe malignancy, only inflammatory appearing FDG uptake is present in the lung infiltrate. Uptake in malignant mediastinal lymphadenopathy seen on previously is now resolved. He continues immunotherapy with durvalumab and is tolerating it well. echo was done which showed ejection fraction with a 60% CT PET scan done on 09/12/2019 showed there is a new medial left lower lobe nodule measuring 1.1 x 1.7 cm with SUV of 6.1, strongly consistent with recurrent malignancy. New posterior left upper lobe nodules are too small to characterize. Bilateral mediastinal nodes in the bilateral hilar, right parabronchial, subcarinal territory are FDG positive. These may be reactive but recurrence cannot be excluded. did discuss with Mr. Palm treatment options for the disease recurrence. The immunotherapy has been stopped. Mr. Palm was reluctant to proceed with any further radiation at this point due to toxicities. Therefore he was offered treatment with cisplatin and gemcitabine. He began his first cycle on 10/19/2019. On 12/01/2019, while in the clinic, receiving premedication for chemotherapy patient started having cough with shortness of breath subsequently choking sensation and near syncopal attack, as per patient has been having those episodes more often in the last few weeks and more often with anxiety and usually following swallowing. At that moment patient was sent to emergency room where he was admitted to the hospital treated with supportive care including IV antibiotics and patient underwent barium swallow and esophagogram which showed lateral pharyngeal pouch and possible esophageal stricture, those findings were discussed with Dr. Robertson, ENT who will follow him as an outpatient. Mr. Palm did see Dr. Robertson on 12/29/2019. 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 Small hiatal hernia. Mild esophageal dysmotility ability with distal stricture. CT of the neck from 12/15/2019 reported no abnormalities no adenopathy. He did have flexible fiberoptic nasopharyngeal scope and the hypopharynx and larynx were visualized secondary to hyperactive gag reflex. Mr. Palm stated that his symptoms had pretty well gone and had not reoccurred and he did not want to pursue any further treatment at this time. He has been unable to follow with Dr. Luther's office as they have opted to not see patients due to the coed 19 virus and current precautionary guidelines. resumed his chemotherapy with cisplatin and gemcitabine on 01/05/2020. And received last dose on 01/12/2020, after that patient developed progressive weakness and fatigue and decided to hold chemotherapy until recover and he was also concerned about coronavirus. Follow-up CT PET scan done on March 12, 2020 showed there has been no significant change in the medial left lower lobe nodule this is stable in size at 1.0 x 1.8 cm with an SUV of 7.4, no significant change. Other, nodule-like infiltrates in the left upper lobe and left lower lobe are unchanged in size and number and remained FDG negative. Same abnormality was seen on his previous CT PET scan done in August 2019, at that time case was discussed with radiation oncology regarding role of SBRT to this only active site but it was not considered as this nodules is present in the previously radiated lung field. Follow-up CT scan of chest done on November 11, 2020 showed left lower lobe previously described FDG avid nodule 1.3 x 0.7 cm not significantly changed from previous in the left inferior hilum. Stable patchy infiltrate about perihilar region and left lower lobe medially likely to treatment related changes and radiation pneumonitis is similar in appearance. No progressed anterior mediastinal or hilar lymphadenopathy no evidence of progressive disease. Stable ectatic ascending thoracic aorta measuring 4.6 cm. Tiny hazy groundglass nodule in the right upper lobe measuring 4 mm unchanged since [address] Follow-[address] CT scan of the chest done on February 22, 2021 showed new spiculated soft tissue nodules along the right hilum and right mainstem bronchus measuring 17 x 12 mm with spiculation and additional suspicious spiculated nodule right upper lobe is also new from previous measuring 1.7 cm. Adjacent noncalcified suspicious nodule measuring 5 mm is also new. And along the left inferior hilum there is a 13 x 6 mm nodule which is unchanged. Patchy fibrotic opacities about the left hilum and left lower lobe are stable. CT PET scan to confirm CT findings done on March 04, 2021 showed left lower lobe nodule seen on prior studies mildly progressed, now with SUV of 8.4 from 7.4 previously on March 12, 2020. Other left inflammatory nodules are unchanged and remain FDG negative. There is new solid nodule in the right upper lobe measuring 1.6 x 1 cm with central cavitation and SUV of 7.4 consistent with new metastatic disease. A central right upper lobe nodule measuring 1.9 x 1.3 cm has an SUV of 5.4. Uptake in inferior right hilar node is slightly more prominent could be malignant called inflammatory, Underwent bronchoscopy on April 25, 2021, right hilar lymph node biopsy was negative for malignancy, right upper lobe nodule FNA shows no evidence of malignancy Follow-up CT scan of chest done on August 28, 2021 shows previous described right upper lobe opacities have nearly resolved with small residual 9 mm opacity. Stable soft tissue thickening along the left inferior hilar similar to previous. Patient presents today for follow-up. He states he has been feeling good and has been able to do work around the house. He denies fever chills, night sweats. No shortness of breath, or chest pain. He has occasional cough and wheezing for which he uses an inhaler. He denies any GI or problems. No joint pain or muscle pain. No headaches or dizziness. He states he has decreased his cigarette use to 6 cigarettes/day. Review Of Symptoms: See above. Past Medical History: Aortic anuerysm Bph Chronic obstructive pulmonary disease Hyperlipidemia Hypertension Past Surgical History: Bronchoscopy Colonoscopy Hernia repair Orif right leg Covid vaccine #3 in 2020 Allergies: Bee Sting, Lopid, and Niaspan. Medications: Albuterol Sulfate 1 puff(s) (of 108 (90 base) mcg/act) Aerosol Powder, Breath Activated Inhalation daily Aspirin Adult Low Strength 1 (81 mg) Tablet, enteric coated Oral daily Crestor 1 Tablet (of 10 mg) Oral daily Flomax 1 Capsule (of 0.4 mg) Capsule Oral daily Gabapentin 1 Capsule (of 300 mg) Oral t.i.d. Levocetirizine Dihydrochloride 1 Tablet (of 5 mg) Oral daily PRN Metoprolol Tartrate 1 Tablet (of 50 mg) Oral daily Family History: The family history is unremarkable. Social History: Mr. Palm has a life partner and he is retired. He is an occasional smoker who has smoked 0.5 packs/day for 54 years. He has no history of drinking. He has indicated exposure to the following products: pipe. Physical Examination: Performed on Dec 25, 2021 12:55: Height - 68.00 in, Weight - 192.6 lbs (HIGH), BSA - 2.01 sq.m, BMI - 29.28, Temperature - 97.7 F (LOW), Pulse - 82 /min, Respiration - 16 /min, BP - 103/69 mm(hg), O2 Sat - 94 % (LOW), Pain - 0, and Fatigue - 5. Performance Status: 0 - Fully active, able to carry on all predisease activities without restrictions. (ECOG) Constitutional Alert, cooperative, oriented. Mood and affect appropriate. Appears close to chronological age. Well nourished. Well developed. Head Normocephalic; no scars. Eyes Conjunctivae and sclerae are clear and without icterus. Pupils are reactive and equal. Respiratory Diminished breath sounds bases of lungs bilaterally. Cardiovascular Regular rate and rhythm of heart without murmurs, gallops or rubs. Abdomen Non-tender, non-distended, no masses, ascites or hepatosplenomegaly. Good bowel sounds. No guarding or rebound tenderness. Extremities No visible deformities, no cyanosis, clubbing or edema. Pulses 3+ and equal bilaterally. Musculoskeletal No tenderness or swelling, normal range of motion without obvious weakness. Psychiatric Alert and oriented times three. Coherent speech. Verbalizes understanding of our discussions today. Laboratory: Test performed on Dec 25, 2021 12:15 WBC 8.4 10 3/uL RBC 4.70 10 6/uL HGB 14.0 g/dL HCT 42.6 % MCV 90.6 fl MCH 29.8 pg MCHC 32.9 g/dL RDW 14.9 % Platelet Count 157 10 3/cmm MPV 10.3 fL Neutrophils 4.57 10 3/uL Lymphocytes 2.6 10 3/uL Monocytes 0.7 10 3/uL Eosinophils 0.5 10 3/uL Basophils 0.1 10 3/uL Neutrophil % 54.5 % Lymphocyte % 30.9 % Monocyte % 8.1 % Eosinophil % 5.5 % Basophils % 0.8 % NRBC % 0 % Impression: Squamous cell carcinoma, low-grade more keratinizing of left upper lobe of lung per bronchoscopy/biopsy done on 07/09/2018 CT PET scan done on 07/26/2018 showed 3.7 x 4.8 cm mass in left upper lobe with SUV of 20.1 and malignant left upper hilar nodes with SUV of 12.7. Multiple malignant mediastinal lymph nodes are present in the right paratracheal, precarinal, left peribronchial, subcarinal and right hilar Territories c T2b , N3 (contralateral hilar lymph nodes involvement), MX, clinical stage IIIB MRI scan of head done on 08/08/2018 showed no evidence of metastatic disease As per cardiothoracic surgery he is not a candidate for surgery. H was started on combined chemoradiation with weekly carboplatin and Taxol on 08/11/2018. Hard of hearing in right ear, unknown etiology Chronic smoking, still active Ascending Aortic aneurysm, since 2014, stable, being followed by Dr. Luther Remote history of brain mass, as per patient and his , stable for the last 18 years A CTA was performed on 09/19/2018 and did report right lower lobe posterior segment and segmental pulmonary emboli. He was treated initially with Lovenox then transitioned to Eliquis. CT head done on 09/23/2018 showed no intracranial hemorrhage or mass effect and unchanged right mastoid air cell effusion with middle ear opacification. Chest x-ray done on 09/23/2018 shows decreased left perihilar mass or perihilar pneumonia .Follow-up CT scan of chest done on 11/12/2018 showed continued improvement in the consolidation superior-medial left lower lobe. 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 Austin his PMD has been following his aortic aneurysm for the last 3 years. History of chronic back pain, as per patient, in the past he he was given injection by Dr. Palm, that helped him for 5 months.MRI scan of thoracic/lumbar spine done on 01/30/2019 showed no evidence of metastatic disease but disc prolapse at multiple level with nerve impingement. Started on maintenance therapy with biweekly durvalumab 10 mg/kg on 11/20/2018. He is tolerating it well thus far. Follow-up CT PET scan done on 02/21/2019 showed there is minimal inflammatory activity in mixed solid/groundglass left lower lobe infiltrate, consistent with residual uptake from radiation therapy, viable malignancy is unlikely, new left lower lobe subpleural nodule-like infiltrate is FDG negative, hypermetabolic mediastinal lymph node in the left hilar, left peribronchial, left precarinal, right hilar territories now demonstrated uptake no greater than mediastinal background, indicating positive response to therapy. He continued with immunotherapy. Follow-up PET/CT from 09/12/2019 reported new medial left lower lobe nodule measuring 1.1 x 1.7 cm with an SUV of 6.1, strongly consistent with recurrent malignancy. There was a new posterior left upper lobe nodules that were too small to characterize. Bilateral mediastinal nodes in the bilateral hilar, right parabronchial, and subcarinal territories are FDG positive. These may be reactive but recurrence cannot be excluded. discussed with Mr & Mrs Palm his disease status and treatment options. Mr Palm wass reluctant to consider radiation therapy due to related toxicity. Case was discussed with Dr. Vazquze radiation oncology, he agreed. Mr Palm was then offered treatment with systemic therapy with cisplatin 25 mg/m??? and gemcitabine 1000 mg/m??? day 1 and day 8 and repeat every 21 days ???3 cycles and repeat follow-up CT PET scan to assess the disease response and then plan accordingly. The immunotherapy was discontinued. Mr Palm began his first cycle of Cisplatin/Gemzar on 10/19/2019.Follow-up CT scan of chest done on November 11, 2020 showed left lower lobe previously described FDG avid nodule 1.3 x 0.7 cm is not significantly changed No evidence of progressive disease. No progressed anterior mediastinal or hilar lymphadenopathy. Stable ectatic ascending thoracic aorta measuring 4.6 cm. Tiny hazy groundglass nodule in the right upper lobe measuring 4 mm unchanged since 2018 Stable patchy infiltrate about perihilar region and left lower lobe medially likely due to radiation-induced pneumonitis and stable Follow-up CT PET scan done on March 04, 2021 showed mild progression of left lower lobe perihilar nodule. To new right upper lobe nodules representing metastatic disease. Probable reactive uptake in the inferior right hilar node. Plan: Labs were reviewed with patient. WBC 8.4, hemoglobin 14.0, hematocrit 42.6, and platelet count is 157,000. Patient is doing well without signs or symptoms of disease progression. We will repeat CT scan of the chest in February just prior to follow-up appointment with CBC and CMP. Signed By: Brooke Avila N.Ashleigh. <<Signature on File>>
== END 2021-12-25 11:53 | disposition home or self-care (01) ==
PROVIDERS: PCP Family Medicine; Visit Provider Internal Medicine Hematology & Oncology
DX: C34.32 Malignant neoplasm of lower lobe, left bronchus or lung (principal); I71.2 Thoracic aortic aneurysm, without rupture; J43.9 Emphysema, unspecified; N40.0 Benign prostatic hyperplasia without lower urinary tract symptoms; E78.5 Hyperlipidemia, unspecified; I10 Essential (primary) hypertension; F17.210 Nicotine dependence, cigarettes, uncomplicated; Z79.899 Other long term (current) drug therapy; Z92.21 Personal history of antineoplastic chemotherapy
CPT/HCPCS: 36591; 85025; 99214

== ENCOUNTER 2022-01-26 08:02 | Outpatient (CLI) | payer MEDICARE, MEDICAID, SELFPAY | END 2022-01-26 08:03 | disposition home or self-care (01) | PROVIDERS: PCP Family Medicine; Visit Provider Internal Medicine Hematology & Oncology | DX: Z45.2 Encounter for adjustment and management of vascular access device (principal) | CPT/HCPCS: 96523 ==

== ENCOUNTER 2022-01-26 08:43 | Emergency (ER) | payer MEDICARE, MEDICAID, SELFPAY ==
[2022-01-26 09:03] VITALS: BP 142/100; PULSE 62; RESP 16; TEMP 36.6; O2SAT 93
--- NOTE | 2022-01-26 09:12 | ED_ITS ---
HPI - Dizziness General: Chief Complaint: Dizziness Stated Complaint: dizziness Time Seen by Provider: 01/26/22 09:05 Source: patient Mode of arrival: ambulatory Limitations: no limitations History of Present Illness: HPI Narrative: 71-year-old male presents emergency room with complaint of lightheadedness and dizziness near syncopal episode he was at the doctor's office at the cancer center and when he sat up he became extremely dizzy. Did reposition him to flush his port. Patient states he has this frequently at home. They became concerned and advised him to come here to be evaluated he had no chest pain he is been otherwise asymptomatic no recent fever sweats chills cough or shortness of breath and he is not currently receiving any treatment for his lung cancer. MD elicited complaint: dizziness, lightheadedness and near syncope Onset (ago): minute(s) Timing: sudden onset Severity: mild Description: lightheadedness Exacerbating factors: nothing Relieving factors: nothing Associated symptoms: Denies change in hearing, chest pain, chills, cough, diaphoresis, ear discharge, ear pressure, fevers/chills, headache(s), malaise, nausea, nasal congestion, palpitations, rash, short of breath, syncope, tinnitus, vomiting or weakness Associated neuro symptoms: Deny confusion, difficulty speaking, dysphagia, dipl opia, extremity weakness, facial numbness, facial weakness, gait changes, numbness in extremities or visual changes Review of Systems Const: Denies: chills, malaise or diaphoresis ENMT: Denies: ear discharge, change in hearing, tinnitus or nasal congestion Card: Denies: chest pain, palpitations or syncope GI: Denies: abdominal pain, nausea, vomiting or dysphagia Neuro: Denies: headache(s), numbness in extremities or confusion PFSH ED PFSH: Medical History Angina pectoris, unspecified Ascending aortic aneurysm BPH (benign prostatic hyperplasia) COPD (chronic obstructive pulmonary disease) Diabetes mellitus Encounter for insertion of venous access port HLD (hyperlipidemia) HTN (hypertension) NSCLC of left lung Pituitary macroadenoma He was seeing endo in [place]. Smoking addiction Surgical History H/O hernia repair History of bronchoscopy S/P hernia repair Family History Mother Cancer Father COPD (chronic obstructive pulmonary disease) CAD (coronary artery disease) Social History Smoking and tobacco status: current every day smoker cigarettes Packs smoked per day: 0.5 Years cigarettes smoked: 54 Smoking risk assessment/counseling performed?: Yes Alcohol intake: former Counseling given: No Counseling given: No Lives independently: Yes Household members: spouse Marital status: Current occupational status: retired History of recent travel: No Current gender identity: Male Physical Exam Const: COMMON NORMALS: average body habitus, patient oriented x3 and alert GENERAL APPEARANCE: cooperative, comfortable, well kempt and well developed NUTRITIONAL APPEARANCE: obese ORIENTATION/CONSCIOUSNESS: Yes awake, Yes oriented to person and Yes oriented to place HENMT: COMMON NORMALS: normocephalic and atraumatic HEAD & SCALP: normocephalic and atraumatic Neck/C-Spine: COMMON NORMALS: no meningeal signs Resp: COMMON NORMALS: normal respiratory effort, No retractions, No use of accessory muscles and clear to auscultation bilaterally AUSCULTATION: clear to auscultation bilaterally Cardio: COMMON NORMALS: regular rate and regular rhythm RATE: regular rate RHYTHM: regular rhythm HEART SOUNDS: no murmurs GI: COMMON NORMALS: Normal to inspection, nondistended, normoactive bowel sounds present, Soft to palpation and No hepatosplenomegaly present PALPATION: Yes Soft to palpation and Yes No hepatosplenomegaly present : COMMON NORMALS: Yes no CVA tenderness BLADDER/KIDNEY EXAM: Yes no CVA tenderness Back/Pelvis: COMMON NORMALS: no CVA tenderness LUMBAR SPINE/LOWER BACK: Yes normal to inspection Extremity: COMMON NORMALS: no clubbing, cyanosis or edema, no calf tenderness and no pedal edema Neuro: COMMON NORMALS: patient oriented x3 SENSORIUM/ORIENTATION: Yes alert, Yes oriented to person and Yes oriented to place MENINGEAL SIGNS: Yes no meningeal signs Psych: APPEARANCE: Yes well kempt Skin: COMMON NORMALS: no rashes or lesions noted and turgor normal GENERAL SKIN EXAM: no rashes or lesions noted and turgor normal Course Vital Signs: Vital signs: Vital Signs Temperature 97.9 F 01/26/22 09:16 Pulse Rate 60 01/26/22 10:50 Respiratory Rate 16 01/26/22 09:16 Blood Pressure 145/95 01/26/22 10:50 Pulse Oximetry 94 01/26/22 10:50 MDM - Dizziness Medical Decision Making Labs and imaging reviewed. Exam is normal patient states she is feeling much better. We will go discharged home and he has had some postural hypotension is resolved follow-up as needed. Medical Records I reviewed the patient's medical records. Lab Data I reviewed the patient's lab results. : 01/26/22 09:40 01/26/22 09:40 Laboratory Results WBC 7.2 10^3/uL (4.0-10.0) 01/26/22 09:40 RBC 4.89 10^6/uL (4.1-5.3) 01/26/22 09:40 Hgb 14.5 g/dL (11.7-16.6) 01/26/22 09:40 Hct 44.2 % (42.0-52.0) 01/26/22 09:40 MCV 90.4 fl (80-94) 01/26/22 09:40 MCH 29.7 pg (28.0-34.0) 01/26/22 09:40 MCHC 32.8 g/dL (30.0-36.0) 01/26/22 09:40 RDW 15.4 % (12.1-15.1) H 01/26/22 09:40 Plt Count 273 10^3/cmm (130-400) 01/26/22 09:40 MPV 9.2 fL (7.4-10.4) 01/26/22 09:40 Neut % (Auto) 54.8 % 01/26/22 09:40 Lymph % (Auto) 28.8 % 01/26/22 09:40 [place] % (Auto) 8.7 % 01/26/22 09:40 Eos % (Auto) 6.4 % 01/26/22 09:40 Baso % (Auto) 1.0 % 01/26/22 09:40 Neut # (Auto) 3.92 10^3/uL (1.8-7.7) 01/26/22 09:40 Lymph # (Auto) 2.1 10^3/uL (0.8-4.8) 01/26/22 09:40 [place] # (Auto) 0.6 10^3/uL (0.2-0.9) 01/26/22 09:40 Eos # (Auto) 0.5 10^3/uL (0.0-0.8) 01/26/22 09:40 Baso # (Auto) 0.1 10^3/uL (0.0-0.1) 01/26/22 09:40 Nucleated RBC % (auto) 0 % 01/26/22 09:40 Nucleated RBCs # 0.0 /100WBC 01/26/22 09:40 Sodium 135 mmol/L (136-145) L 01/26/22 09:40 Potassium 4.5 mmol/L (3.5-5.1) 01/26/22 09:40 Chloride 103 mmol/L (98-107) 01/26/22 09:40 Carbon Dioxide 23 mmol/L (22-29) 01/26/22 09:40 Anion Gap 13.5 (5-19) 01/26/22 09:40 BUN 12 mg/dL (8-23) 01/26/22 09:40 Creatinine 0.8 mg/dL (0.7-1.2) 01/26/22 09:40 GFR Calculation 95.6 mL/min (90-130) 01/26/22 09:40 Glucose 121 mg/dL (65-115) H 01/26/22 09:40 Calculated Osmolality 281 mOsm/kg (285-295) L 01/26/22 09:40 Calcium 9.3 mg/dL (8.5-10.5) 01/26/22 09:40 Total Bilirubin 0.4 mg/dL (0.15-1.2) 01/26/22 09:40 AST 25 U/L (0-40) 01/26/22 09:40 ALT 27 U/L (0-41) 01/26/22 09:40 Alkaline Phosphatase 123 IU/L (40-130) 01/26/22 09:40 Total Protein 6.8 g/dL (6.6-8.7) 01/26/22 09:40 Albumin 4.0 g/dL (3.5-5.2) 01/26/22 09:40 Globulin 2.8 g/dL (1.3-4.6) 01/26/22 09:40 Urine Color Yellow (Yellow) 01/26/22 09:27 Urine Appearance Clear (CLEAR) 01/26/22 09:27 Urine pH 5 (5-7) 01/26/22 09:27 Ur Specific [place] 1.020 (1.005-1.030) 01/26/22 09:27 Urine Protein Neg (Negative) 01/26/22 09:27 Urine Glucose (UA) Norm (Normal) 01/26/22 09:27 Urine Ketones Negative (Negative) 01/26/22 09:27 Urine Blood Neg (Negative) 01/26/22 09:27 Urine Nitrate Negative (Negative) 01/26/22 09:27 Urine Bilirubin Neg (Negative) 01/26/22 09:27 Urine Urobilinogen Norm mg/dL (Negative) 01/26/22 09:27 Ur Leukocyte Esterase Negative (Negative) 01/26/22 09:27 Discharge Plan Discharge Patient Disposition: Home Clinical Impression: Postural hypotension Condition: Stable Prescriptions: No Action Bevespi Aerosphere 9-4.8 mcg HFA aerosol inhaler 2 puff inhalation BID 30 Days Qty: 10.7 3RF albuterol sulfate [Ventolin HFA] 90 mcg/actuation HFA aerosol inhaler 2 puff INHALATION Q4H PRN (Reason: Shortness Of Breath) 0RF gabapentin 300 mg capsule 900 mg PO QAM 0RF sumatriptan succinate 100 mg tablet See Rx Instructions .ROUTE .COMPLEX Qty: 9 2RF Dose Instruction: TAKE 1 TABLET BY MOUTH EVERY 2 HOURS NEEDED FOR MIGRAINE HEADACHE, MAX 2 TABLETS IN 24 HOURS Rx Instructions: TAKE 1 TABLET BY MOUTH EVERY 2 HOURS NEEDED FOR MIGRAINE HEADACHE, MAX 2 TABLETS IN 24 HOURS aspirin [Aspir-81] 81 mg Tablet,Delayed Release (Dr/Ec) 162 mg PO QAM 0RF metoprolol succinate 50 mg tablet extended release 24 hr 50 mg PO QAM 0RF tamsulosin [Flomax] 0.4 mg capsule 0.4 mg PO QAM 0RF fluticasone propionate [Flonase Allergy Relief] 50 mcg/actuation spray,suspension 2 spray intranasal DAILY PRN (Reason: Allergy Symptoms) 0RF Rx Instructions: administer into each nostril rosuvastatin [Crestor] 10 mg tablet 10 mg PO QAM 0RF levocetirizine [Allergy Relief (levocetirizin)] 5 mg tablet 5 mg PO QAM 0RF Discharge Orders: Discharge ED (Routine); Ordered 01/26/22 Ordered By: Stan Marroquin Referrals: Krystal Queen DO [Primary Care Provider] - Coding Level of Care Code ED [address] [facility] Bailiff for Adrianna Sanchez
[2022-01-26 09:16] VITALS: BP 142/100; PULSE 62; RESP 16; TEMP 36.6; O2SAT 93
[2022-01-26] MEDS: lactated ringers 1,000 ML 999 ML IV (09:26)
[2022-01-26 09:39] LABS: Add Urine Microscopic? NO; Charge for UA Resulting for Rev
[2022-01-26 09:46] LABS: Basophils # 0.1 10^3/uL (0.0-0.1); Eosinophils # 0.5 10^3/uL (0.0-0.8); Eosinophils % 6.4 %; Hematocrit 44.2 % (42.0-52.0); Hemoglobin 14.5 g/dL (11.7-16.6); Lymphocytes # 2.1 10^3/uL (0.8-4.8); Lymphocytes % 28.8 %; Mean Corpuscular HGB Conc 32.8 g/dL (30.0-36.0); Mean Corpuscular Hemoglobin 29.7 pg (28.0-34.0); Mean Corpuscular Volume 90.4 fl (80-94); Mean Platelet Volume 9.2 fL (7.4-10.4); Monocytes # 0.6 10^3/uL (0.2-0.9); Monocytes % 8.7 %; Neutrophils # 3.92 10^3/uL (1.8-7.7); Neutrophils % 54.8 %; Nucleated Red Blood Cells % 0 %; Platelet Count 273 10^3/cmm (130-400); Red Blood Count 4.89 10^6/uL (4.1-5.3); Red Cell Distribution Width 15.4 % (12.1-15.1); White Blood Count 7.2 10^3/uL (4.0-10.0)
[2022-01-26 09:47] LABS: Bilirubin Urine Neg (Negative); Blood Urine Neg (Negative); Glucose Urine UA Norm (Normal); Ketones Urine Negative (Negative); Leukocyte Esterase Urine Negative (Negative); Nitrate Urine Negative (Negative); Protein Urine Neg (Negative); Urine Appearance Clear (CLEAR); Urine Color Yellow (Yellow); Urobilinogen Urine Norm (Negative); pH Urine 5 (5-7)
[2022-01-26 10:08] LABS: Alanine Aminotransferase 27 U/L (0-41); Alkaline Phosphatase 123 IU/L (40-130); Anion Gap 13.5 (5-19); Aspartate Amino Transferase 25 U/L (0-40); Blood Urea Nitrogen 12 mg/dL (8-23); Calcium 9.3 mg/dL (8.5-10.5); Carbon Dioxide 23 mmol/L (22-29); Chloride 103 mmol/L (98-107); Globulin 2.8 g/dL (1.3-4.6); Glomerular Filtration Rate 95.6 mL/min (90-130); Glucose 121 mg/dL (65-115); Osmolality Calculated 281 mOsm/kg (285-295); Potassium 4.5 mmol/L (3.5-5.1); Sodium 135 mmol/L (136-145); Total Bilirubin 0.4 mg/dL (0.15-1.2); Total Protein 6.8 g/dL (6.6-8.7)
[2022-01-26 10:40] VITALS: BP 142/97; BP 145/95; BP 150/103; PULSE 54; PULSE 56; PULSE 60
[2022-01-26 10:50] VITALS: BP 145/95; PULSE 60; O2SAT 94
== END 2022-01-26 10:51 | disposition home or self-care (01) ==
PROVIDERS: Physician Assistant; Emergency Provider Family Medicine; PCP Family Medicine
DX: I95.1 Orthostatic hypotension (principal); I10 Essential (primary) hypertension; E11.9 Type 2 diabetes mellitus without complications; E78.5 Hyperlipidemia, unspecified; J44.9 Chronic obstructive pulmonary disease, unspecified; F17.210 Nicotine dependence, cigarettes, uncomplicated; Z79.899 Other long term (current) drug therapy
CPT/HCPCS: 80053; 81003; 85025; 96360; 99284

== ENCOUNTER 2022-02-26 12:44 | Oncology outpatient (recurring) (ONCR) | payer MEDICARE, MEDICAID, SELFPAY ==
[2022-02-26 13:18] VITALS: BP 109/70; PULSE 77; RESP 18; TEMP 36.1; O2SAT 93
== END 2022-03-20 23:59 | disposition home or self-care (01) ==
PROVIDERS: PCP Family Medicine; Visit Provider Internal Medicine Hematology & Oncology
DX: C34.12 Malignant neoplasm of upper lobe, left bronchus or lung (principal)
CPT/HCPCS: 96523

== ENCOUNTER 2022-03-28 14:01 | Oncology outpatient (recurring) (ONCR) | payer MEDICARE, MEDICAID, SELFPAY ==
--- NOTE | 2022-03-27 10:19 | CT_ITS ---
WS: [id number] CT CHEST TECHNIQUE: Contrast enhanced CT of the chest with coronal and sagittal reformatted images. CLINICAL INFORMATION: LUNG CANCER COMPARISON: CT August 28, 2021 and PET/CT March 04, 2021 DLP: 696.[address] scans at [facility] use at least one of these dose optimization techniques: automated e xposure control; mA and/or kV adjustment per patient size (includes targeted exams where dose is matc hed to clinical indication); or iterative reconstruction. FINDINGS: Stable ectatic ascending thoracic aorta measuring 4.9 CM. Previously described atelectasis and bronch ovascular thickening along the LEFT hilum extending along the LEFT inferior hilum is unchanged since the prior studies. Associated pleural thickening. No evidence of progression. 9 mm nodule RIGHT upper lobe is unchanged. Tree-in-bud nodularity in the RIGHT upper lobe is unchanged in appearance. Tiny hazy nodule RIGHT upp er lobe measuring 3 mm is unchanged. No mediastinal or hilar lymphadenopathy. No axillary lymphadenopathy. Adrenal glands are normal. Smal l esophageal hiatal hernia. Mild thoracic kyphosis. Moderate spondylitic changes thoracic spine. CT/CT chest w con* [id number] IMPRESSION: 1. No significant changes compared to August 28, 2021 2. Stable soft tissue thickening at the LEFT hilum and inferior hilum is uncha nged. No evidence of progression. 3. 9 mm nodule RIGHT upper lobe is unchanged. 4. Stable ectatic ascending thoracic aorta. 5. No other significant interval changes.
[2022-03-27 10:33] LABS: Alanine Aminotransferase 25 U/L (0-41); Alkaline Phosphatase 115 IU/L (40-130); Anion Gap 11.6 (5-19); Aspartate Amino Transferase 16 U/L (0-40); Blood Urea Nitrogen 12 mg/dL (8-23); Calcium 9.2 mg/dL (8.5-10.5); Carbon Dioxide 27 mmol/L (22-29); Chloride 103 mmol/L (98-107); Globulin 2.9 g/dL (1.3-4.6); Glomerular Filtration Rate 95.6 mL/min (90-130); Glucose 112 mg/dL (65-115); Osmolality Calculated 285 mOsm/kg (285-295); Potassium 4.6 mmol/L (3.5-5.1); Sodium 137 mmol/L (136-145); Total Bilirubin 0.2 mg/dL (0.15-1.2); Total Protein 6.9 g/dL (6.6-8.7)
[2022-03-27 10:34] LABS: Basophils # 0.1 10^3/uL (0.0-0.1); Basophils % 1.1 %; Eosinophils # 0.5 10^3/uL (0.0-0.8); Eosinophils % 6.3 %; Hematocrit 42.9 % (42.0-52.0); Lymphocytes # 2.1 10^3/uL (0.8-4.8); Lymphocytes % 27.7 %; Mean Corpuscular HGB Conc 32.6 g/dL (30.0-36.0); Mean Corpuscular Hemoglobin 29.5 pg (28.0-34.0); Mean Corpuscular Volume 90.5 fl (80-94); Mean Platelet Volume 9.8 fL (7.4-10.4); Monocytes # 0.8 10^3/uL (0.2-0.9); Neutrophils # 4.15 10^3/uL (1.8-7.7); Neutrophils % 54.6 %; Nucleated Red Blood Cells % 0 %; Platelet Count 268 10^3/cmm (130-400); Red Blood Count 4.74 10^6/uL (4.1-5.3); White Blood Count 7.6 10^3/uL (4.0-10.0)
[2022-03-27] MEDS: iohexol 300 mg/mL 100 mL Btl IV (10:55)
== END 2022-04-19 23:59 | disposition home or self-care (01) ==
PROVIDERS: Nurse Practitioner Family; PCP Family Medicine; Visit Provider Internal Medicine Hematology & Oncology
DX: C34.12 Malignant neoplasm of upper lobe, left bronchus or lung (principal); J44.9 Chronic obstructive pulmonary disease, unspecified; I10 Essential (primary) hypertension; Z87.891 Personal history of nicotine dependence; E11.9 Type 2 diabetes mellitus without complications; D35.2 Benign neoplasm of pituitary gland
CPT/HCPCS: 36591; 71260; 80053; 85025; 99214; Q9967

== ENCOUNTER 2022-05-04 08:10 | Oncology outpatient (recurring) (ONCR) | payer MEDICARE, MEDICAID, SELFPAY | END 2022-05-20 23:59 | disposition home or self-care (01) | PROVIDERS: PCP Family Medicine; Visit Provider Internal Medicine Hematology & Oncology | DX: Z45.2 Encounter for adjustment and management of vascular access device (principal) | CPT/HCPCS: 96523 ==

== ENCOUNTER 2022-05-28 14:53 | Oncology outpatient (recurring) (ONCR) | payer MEDICARE, MEDICAID, SELFPAY ==
[2022-05-28 15:09] VITALS: BP 122/79; PULSE 71; RESP 16; TEMP 36.4; O2SAT 94
== END 2022-06-20 23:59 | disposition home or self-care (01) ==
LOC: ONCMED 14:53
PROVIDERS: PCP Family Medicine; Visit Provider Internal Medicine Hematology & Oncology
DX: Z45.2 Encounter for adjustment and management of vascular access device (principal)
CPT/HCPCS: 96523

== ENCOUNTER → 2022-06-26 08:33 | Outpatient (BNVA) | payer MEDICARE, MEDICAID, SELFPAY | PROVIDERS: PCP Family Medicine; Visit Provider Family Medicine | DX: E78.2 Mixed hyperlipidemia (principal); J30.2 Other seasonal allergic rhinitis; I10 Essential (primary) hypertension; J43.1 Panlobular emphysema; C34.12 Malignant neoplasm of upper lobe, left bronchus or lung; N40.1 Benign prostatic hyperplasia with lower urinary tract symptoms; R35.1 Nocturia; F17.219 Nicotine dependence, cigarettes, with unspecified nicotine-induced disorders | CPT/HCPCS: 80061 ==

== ENCOUNTER 2022-06-29 09:29 | Oncology outpatient (recurring) (ONCR) | payer MEDICARE, MEDICAID, SELFPAY | END 2022-07-20 23:59 | disposition home or self-care (01) | LOC: ONCMED 09:30 | PROVIDERS: PCP Family Medicine; Visit Provider Internal Medicine Hematology & Oncology | DX: Z45.2 Encounter for adjustment and management of vascular access device (principal) | CPT/HCPCS: 96523 ==

== ENCOUNTER 2022-07-30 15:06 | Oncology outpatient (recurring) (ONCR) | payer MEDICARE, MEDICAID, SELFPAY | END 2022-08-20 23:59 | disposition home or self-care (01) | LOC: ONCMED 15:07 | PROVIDERS: PCP Family Medicine; Visit Provider Internal Medicine Hematology & Oncology | DX: Z45.2 Encounter for adjustment and management of vascular access device (principal) | CPT/HCPCS: 96523 ==

== ENCOUNTER 2022-08-24 13:43 | Outpatient (CLI) | payer MEDICARE, MEDICAID, SELFPAY ==
[2022-08-24] MEDS: iohexol 350 mg/mL 100 mL Btl IV (14:08)
--- NOTE | 2022-08-24 14:30 | CT_ITS ---
WS: [id number] Exam: CT chest w con* [id number] Date/Time of Exam: 08/24/2022 1:45 PM Reason For Exam: Compare to last DLP: 763.[address] scans at [facility] use at least one of these dose optimization techniques: automated e xposure control; mA and/or kV adjustment per patient size (includes targeted exams where dose is matc hed to clinical indication); or iterative reconstruction. Comparison 03/27/2022. Stable appearing 9 mm irregular nodule in the right upper lobe. The lungs are fully expanded. Stable appearing soft tissue thickening and fibrosis involving the left hilar and suprahilar region. Unchang ed atelectasis and scarring in the medial aspect of the left upper lobe. Stable nodularity along the posterior pleura in the apex of the right pleural cavity. The airway is patent. Again noted is ectati c dilatation of the ascending aorta it is stable in appearance. Benign-appearing fatty replaced lymph node in the anterior pericarinal region. No suspicious mediastinal lymphadenopathy. No pleural or pe ricardial effusion seen. Stable subcarinal lymph node measuring 10.7 mm at greatest short axis dimens ion. Pulmonary hyperinflation. No destructive bone lesions seen. Degenerative changes of the T-spine. Intact chest wall. CT/CT chest w con* [id number] IMPRESSION: 1. Stable soft tissue thickening and fibrosis involving the left hilar and supr ahilar region. Stable atelectasis in the medial aspect of the left upper lobe. 2. Slightly prominent subcarinal lymph node measuring slightly over a centimete r greatest short axis dimension unchanged. No new suspicious lymphadenopathy. 3. Stable appearing 9 mm nodule in the right upper lobe. 4. Dilatation and ectasia of the ascending aorta unchanged in appearance. No di ssection seen.
[2022-08-24 14:57] LABS: Blood Urea Nitrogen 18 mg/dL (8-23)
== END 2022-08-24 13:44 | disposition home or self-care (01) ==
LOC: RAD 13:43
PROVIDERS: PCP Family Medicine; Visit Provider Internal Medicine Hematology & Oncology
DX: C34.12 Malignant neoplasm of upper lobe, left bronchus or lung (principal); J98.11 Atelectasis; I77.810 Thoracic aortic ectasia; R91.1 Solitary pulmonary nodule
CPT/HCPCS: 71260; 82565; 84520

== ENCOUNTER 2022-08-29 09:04 | Inpatient (IN) | payer MEDICARE, MEDICAID, SELFPAY ==
[2022-08-29] VITALS (26 sets, daily range): BP systolic 89–127; BP diastolic 62–92; PULSE 61–114; RESP 15–27; TEMP 36.6; O2SAT 87–99; BMI 27.3
--- NOTE | 2022-08-29 10:17 | ECG_ITS ---
[facility] Test Date: 2022-08-29 Pat Name: Raymundo Palm Department: Room: Gender: Male Visitor Information Assistant: : 1950 Requested By: Stan Rosa Order Number: [id number] Chacho MD: Nadia Lynne M.D. Measurements Intervals [place] Rate: 99 P: 65 MT: 166 QRS: 80 QRSD: 84 T: 64 QT: 339 QTc: 436 Interpretive Statements SINUS RHYTHM MINIMAL ST DEPRESSION [0.025+ mV ST DEPRESSION] Compared to ECG 12/01/2019 16:57:14 ST (T wave) deviation now present Myocardial infarct finding no longer present Electronically Signed On 08-30-2022 11:38:03 ANNEALING OVEN OPERATOR by Nadia Lynne M.D. [id number]
--- NOTE | 2022-08-29 10:42 | XR_ITS ---
WS: [id number] Portable AP upright chest, 08/29/2022 Clinical Data: dyspnea/cough Comparison: Portable chest, 12/01/2019. Findings: No nodules, masses or effusions are seen. The heart is normal. The pulmonary vascularity is not increased. No pneumonia or pneumothorax is seen. There is a left infusion catheter ending in the superior vena cava. The diaphragms are flattened. The aortic arch shows mild calcification and tortu osity. There is a levoscoliosis. Monitor leads are on the chest wall. XR/XR chest 1V portable [id number] Impression: Atherosclerosis and hyperinflation.
--- NOTE | 2022-08-29 10:51 | PC.NURSE ---
PT PLACED ON CONTINUOUS NIBP, SPO2, AND CM
[2022-08-29 10:54] LABS: Basophils % 0.3 %; Eosinophils % 0.2 %; Hematocrit 42.7 % (42.0-52.0); Hemoglobin 13.9 g/dL (11.7-16.6); Lymphocytes # 1.6 10^3/uL (0.8-4.8); Lymphocytes % 12.5 %; Mean Corpuscular HGB Conc 32.6 g/dL (30.0-36.0); Mean Corpuscular Hemoglobin 28.3 pg (28.0-34.0); Mean Corpuscular Volume 86.8 fl (80-94); Mean Platelet Volume 9.8 fL (7.4-10.4); Monocytes # 0.9 10^3/uL (0.2-0.9); Monocytes % 7.2 %; Neutrophils # 9.94 10^3/uL (1.8-7.7); Neutrophils % 78.9 %; Nucleated Red Blood Cells % 0 %; Platelet Count 249 10^3/cmm (130-400); Red Blood Count 4.92 10^6/uL (4.1-5.3); Red Cell Distribution Width 15.5 % (12.1-15.1); White Blood Count 12.6 10^3/uL (4.0-10.0)
[2022-08-29 11:00] LABS: ABG PCO2 35.3 mmHg (35-45); ABG PH Result 7.44 (7.35-7.45); Alveolar-Arterial Oxygen Gradi 26.8 mmHg (5-10); Arterial Blood Gas Hematocrit 41.1 % (42-52); Base Excess ABG 0.4 mmol/L (-2.0-2.0); Blood Gas Operator Identificat AMH; Blood Gas Sample Site Brachial, left; Blood Gas Sample Type Arterial; HCO3 ABG 24.1 mmol/L (22-26); Ionized Calcium Level - ABG 1.1 mmol/L (1.1-1.4); Methemoglobin 0.7 % (0.4-1.5); Oxygen Device NC; Oxygen Saturation ABG 94.6; PO2 ABG 65.3 mmHg (80.0-100.0); Total Hemoglobin 13.4 g/dL (14-18)
--- NOTE | 2022-08-29 11:04 | CT_ITS ---
WS: [id number] CT CHEST ANGIOGRAPHY WITH REFORMATS HISTORY: hypoxia/hx lung CA TECHNIQUE: Contiguous axial images are obtained through the chest during arterial injection of intrav enous contrast. Images are reconstructed to evaluate the pulmonary arteries. MIP imaging also reviewe d. All CT scans at [facility] use at least one of these dose optimization techniques: automat ed exposure control; mA and/or kV adjustment per patient size (includes targeted exams where dose is matched to clinical indication); or iterative reconstruction. CONTRAST: Omnipaque 350; 81 mL IV. DLP: 374.66 mGy.cm COMPARISON: 08/24/2022 Good opacification of the pulmonary artery. No central and proximal pulmonary artery emboli. Ectasia thoracic aorta. Mild aneurysmal dilatation of 4.6 cm is unchanged. Postsurgical fibrosis and scarring at the LEFT hilum and along the medial LEFT lower lobe is stable. New tree-in-bud airspace disease in the LEFT upper and LEFT lower lobes. No change in the spiculated nodule at the RIGHT apex. No adenopathy. Small mediastinal and hilar lymph nodes. Cirrhotic appearance of the liver. No adrenal mass. Very slight hyperplasia of the LEFT adrenal gland . Moderate thoracic spondylosis. CT/CT angio chest PE protcl [id number] IMPRESSION: 1. No pulmonary embolism. 2. New tree-in-bud airspace disease is moderate throughout the LEFT upper and lower lobes. Endobronchial pneumonia. Aspiration pneumonia may appear similar. 3. Posttreatment changes with fibrosis and atelectasis in the central LEFT claudio g are unchanged.
--- NOTE | 2022-08-29 11:06 | ED_ITS ---
HPI - SOB/Dyspnea General: Chief Complaint: Shortness of Breath/Dyspnea Stated Complaint: Congestion, cough, SOB Time Seen by Provider: 08/29/22 09:09 Source: patient Mode of arrival: ambulatory History of Present Illness: HPI Narrative: 72-year-old male with a history of lung CA is currently thought to be in remission is followed by Dr. Bill. Presents emergency room complaining of shortness of breath congestion wheezing weakness fever sweats and chills productive cough for the last 5 to 6 days. He is progressively been getting worse. He denies any hemoptysis. He has not had any diarrhea. Has not been anybody around his been known to have COVID. He has been immunized. Recent CT shows some fibrotic changes in the left hilum and suprahilar region but no suspicious lymphadenopathy there is a nodule in the right upper lobe that appeared to be stable. That CT was done on August 24 he did not have an angiogram at that time. MD elicited complaint: shortness of breath and cough Pertinent past history: COPD Onset (ago): minute(s) Timing: constant Severity: mild Exacerbating factors: nothing Relieving factors: nothing Known history of: COPD Associated symptoms: Reports cough, diaphoresis and fever(s); Deny abdominal pain, chest congestion, chest pain, dizziness, extremity pain, hemoptysis, lightheadedness, myalgias, nausea, orthopnea, palpitations, paresthesias, polydipsia, polyuria, rash, sense of impending doom, syncope or vomiting Treatment prior to arrival: oxygen Review of Systems Const: Reports: fever(s), chills, fatigue, malaise and diaphoresis ENMT: Denies: throat pain, ear or mastoid pain, nasal discharge or nasal congestion Card: Denies: chest pain, palpitations, lightheadedness, syncope or orthopnea Resp: Reports: dyspnea, productive cough and wheezing; Denies: hemoptysis or chest congestion GI: Denies: abdominal pain, nausea or vomiting : Denies: flank pain, dysuria, urinary frequency or urinary urgency Musc: Denies: extremity pain Skin/Breast: Denies: rash or pruritus Neuro: Denies: dizziness Endo: Denies: polyuria or polydipsia PFSH ED PFSH: Medical History Angina pectoris, unspecified Ascending aortic aneurysm BPH (benign prostatic hyperplasia) COPD (chronic obstructive pulmonary disease) Diabetes mellitus Encounter for insertion of venous access port HLD (hyperlipidemia) HTN (hypertension) Migraine headache with aura Nicotine dependence, cigarettes, with unspecified nicotine-induced disorders NSCLC of left lung Pituitary macroadenoma He was seeing endo in [place]. Smoking addiction Surgical History H/O hernia repair History of bronchoscopy S/P hernia repair Family History Mother Cancer Father COPD (chronic obstructive pulmonary disease) CAD (coronary artery disease) Social History (Updated 08/29/22 @ 12:38 by Miles Franklin MD) Smoking and tobacco status: current some day smoker cigarettes Packs smoked per day: 0.5 Years cigarettes smoked: 54 Smoking risk assessment/counseling performed?: Yes Alcohol intake: former Counseling given: No Counseling given: No Lives independently: Yes Household members: spouse Marital status: Current occupational status: retired History of recent travel: No Current gender identity: Male Physical Exam Const: COMMON NORMALS: no acute distress GENERAL APPEARANCE: cooperative and comfortable ORIENTATION/CONSCIOUSNESS: Yes awake, Yes oriented to person, Yes oriented to place and Yes oriented to time HENMT: COMMON NORMALS: normocephalic and atraumatic HEAD & SCALP: normocephalic and atraumatic Resp: AUSCULTATION: rhonchi and wheezes Cardio: COMMON NORMALS: regular rate, regular rhythm and No murmurs present (Cardio) RATE: regular rate RHYTHM: regular rhythm GI: COMMON NORMALS: Soft to palpation and No hepatosplenomegaly present AUSCULTATION: Yes normoactive bowel sounds PALPATION: Yes Soft to palpation, No Tenderness to palpation present (GI), No Guarding due to palpation present (GI) and Yes No hepatosplenomegaly present Extremity: COMMON NORMALS: normal to inspection, capillary refill normal, no clubbing, cyanosis or edema, no calf tenderness and no pedal edema Neuro: SENSORIUM/ORIENTATION: Yes oriented to person, Yes oriented to place and Yes oriented to time Skin: COMMON NORMALS: no rashes or lesions noted GENERAL SKIN EXAM: no rashes or lesions noted Course Vital Signs: Vital signs: Vital Signs Pulse Rate 85 08/29/22 12:01 Respiratory Rate 21 H 08/29/22 12:01 Blood Pressure 98/68 08/29/22 11:32 Pulse Oximetry 95 08/29/22 12:01 Oxygen Delivery Me thod 08/29/22 12:01 Oxygen Flow Rate 10 08/29/22 12:01 MDM - SOB/Dyspnea Medical Decision Making CTA is negative for PE possible Endo bronchial pneumonia with new tree-in-bud signs. There is also question of aspiration. Patient is hypotensive and hypoxic requiring large amounts of oxygen discussed with hospitalist initially given Levaquin and fluids as he was hypotensive. His blood pressure improved with the fluids. There was no sign of recurrence of cancer no PE patient admitted to the ICU. Medical Records I reviewed the patient's medical records. Lab Data I reviewed the patient's lab results. : 08/29/22 10:45 08/29/22 10:45 Labs/Radiology: Radiology Impressions Chest X-Ray 08/29/22 10:42 Impression: Atherosclerosis and hyperinflation. Chest CTA 08/29/22 11:04 IMPRESSION: 1. No pulmonary embolism. 2. New tree-in-bud airspace disease is moderate throughout the LEFT upper and lower lobes. Endobronchial pneumonia. Aspiration pneumonia may appear similar. 3. Posttreatment changes with fibrosis and atelectasis in the central LEFT lung are unchanged. Laboratory Results WBC 12.6 10^3/uL (4.0-10.0) H 08/29/22 10:45 RBC 4.92 10^6/uL (4.1-5.3) 08/29/22 10:45 Hgb 13.9 g/dL (11.7-16.6) 08/29/22 10:45 Hct 42.7 % (42.0-52.0) 08/29/22 10:45 MCV 86.8 fl (80-94) 08/29/22 10:45 MCH 28.3 pg (28.0-34.0) 08/29/22 10:45 MCHC 32.6 g/dL (30.0-36.0) 08/29/22 10:45 RDW 15.5 % (12.1-15.1) H 08/29/22 10:45 Plt Count 249 10^3/cmm (130-400) 08/29/22 10:45 MPV 9.8 fL (7.4-10.4) 08/29/22 10:45 Neut % (Auto) 78.9 % 08/29/22 10:45 Lymph % (Auto) 12.5 % 08/29/22 10:45 [place] % (Auto) 7.2 % 08/29/22 10:45 Eos % (Auto) 0.2 % 08/29/22 10:45 Baso % (Auto) 0.3 % 08/29/22 10:45 Neut # (Auto) 9.94 10^3/uL (1.8-7.7) H 08/29/22 10:45 Lymph # (Auto) 1.6 10^3/uL (0.8-4.8) 08/29/22 10:45 [place] # (Auto) 0.9 10^3/uL (0.2-0.9) 08/29/22 10:45 Eos # (Auto) 0.0 10^3/uL (0.0-0.8) 08/29/22 10:45 Baso # (Auto) 0.0 10^3/uL (0.0-0.1) 08/29/22 10:45 Nucleated RBC % (auto) 0 % 08/29/22 10:45 Nucleated RBCs # 0.0 /100WBC 08/29/22 10:45 Specimen Type Arterial 08/29/22 10:48 Sample Site Brachial, left 08/29/22 10:48 ABG pH 7.44 (7.35-7.45) 08/29/22 10:48 ABG pCO2 35.3 mmHg (35-45) 08/29/22 10:48 ABG pO2 65.3 mmHg (80.0-100.0) L 08/29/22 10:48 ABG HCO3 24.1 mmol/L (22-26) 08/29/22 10:48 ABG O2 Saturation 94.6 08/29/22 10:48 ABG Base Excess 0.4 mmol/L (-2.0-2.0) 08/29/22 10:48 Jovani Test N/a 08/29/22 10:48 A-a O2 Gradient 26.8 mmHg (5-10) H 08/29/22 10:48 Hematocrit 41.1 % (42-52) L 08/29/22 10:48 Hgb O2 Saturation 92.0 % (95-100) L 08/29/22 10:48 Carboxyhemoglobin 2.0 %THgb (0.4-20.1) 08/29/22 10:48 Methemoglobin 0.7 % (0.4-1.5) 08/29/22 10:48 Total Hemoglobin 13.4 g/dL (14-18) L 08/29/22 10:48 Sodium 130.0 mmol/L (131-143) L 08/29/22 10:48 Potassium 4.0 mmol/L (3.5-5.0) 08/29/22 10:48 Glucose 150.0 mg/dL (70-115) H 08/29/22 10:48 Ionized Calcium 1.1 mmol/L (1.1-1.4) 08/29/22 10:48 O2 Delivery Device Nc 08/29/22 10:48 O2 Liters/Min 6.0 % 08/29/22 10:48 FiO2 44.0 % 08/29/22 10:48 Traveling Crane Operator ID [id number] 08/29/22 10:48 Sodium 131 mmol/L (136-145) L 08/29/22 10:45 Potassium 4.2 mmol/L (3.5-5.1) 08/29/22 10:45 Chloride 94 mmol/L (98-107) L 08/29/22 10:45 Carbon Dioxide 23 mmol/L (22-29) 08/29/22 10:45 Anion Gap 18.2 (5-19) 08/29/22 10:45 BUN 17 mg/dL (8-23) 08/29/22 10:45 Creatinine 1.2 mg/dL (0.7-1.2) 08/29/22 10:45 GFR Calculation Not Reportable 08/29/22 10:45 Glucose 144 mg/dL (65-115) H 08/29/22 10:45 Calculated Osmolality 276 mOsm/kg (285-295) L 08/29/22 10:45 Lactic Acid 2.0 mmol/L (0.5-2.2) 08/29/22 10:45 Calcium 8.8 mg/dL (8.5-10.5) 08/29/22 10:45 Total Bilirubin 0.4 mg/dL (0.15-1.2) 08/29/22 10:45 AST 15 U/L (0-40) 08/29/22 10:45 ALT 14 U/L (0-41) 08/29/22 10:45 Alkaline Phosphatase 135 U/L (40-130) H 08/29/22 10:45 Total Protein 7.6 g/dL (6.6-8.7) 08/29/22 10:45 Albumin 3.5 g/dL (3.5-5.2) 08/29/22 10:45 Globulin 4.1 g/dL (1.3-4.6) 08/29/22 10:45 Coronavirus 229E (PCR) Not detected (NOT DETECT) 08/29/22 10:45 Parainfluenza 1 (PCR) Detected (NOT DETECT) A 08/29/22 13:18 Parainfluenza 2 (PCR) Not detected (NOT DETECT) 08/29/22 13:18 Parainfluenza 3 (PCR) Not detected (NOT DETECT) 08/29/22 13:18 Parainfluenza 4 (PCR) Not detected (NOT DETECT) 08/29/22 13:18 SARS-CoV-2 (PCR) Not detected (NOT DETECT) 08/29/22 10:45 Discharge Plan Discharge Patient Disposition: Admitted As Inpatient Clinical Impression: Pneumonia, Malignant neoplasm of upper lobe, left bronchus or lung, Acute exacerbation of chronic obstructive airways disease Condition: Stable Prescriptions: No Action sumatriptan succinate 100 mg tablet See Rx Instructions .ROUTE .COMPLEX Qty: 9 2RF Dose Instruction: TAKE 1 TABLET BY MOUTH EVERY 2 HOURS NEEDED FOR MIGRAINE HEADACHE, MAX 2 TABLETS IN 24 HOURS Rx Instructions: TAKE 1 TABLET BY MOUTH EVERY 2 HOURS NEEDED FOR MIGRAINE HEADACHE, MAX 2 TABLETS IN 24 HOURS levocetirizine [Allergy Relief (levocetirizin)] 5 mg tablet 5 mg PO QAM Qty: 90 1RF metoprolol succinate 50 mg tablet extended release 24 hr 50 mg PO DAILY Flomax 0.4 mg capsule 0.4 mg PO BEDTIME montelukast 10 mg tablet 10 mg PO QPM ProAir HFA 90 mcg/actuation HFA aerosol inhaler 2 puff inhalation Q4H PRN (Reason: Shortness Of Breath Or Wheezing) rosuvastatin 10 mg tablet 10 mg PO QAM aspirin [Aspir-81] 81 mg Tablet,Delayed Release (Dr/Ec) 162 mg PO QAM Referrals: Krystal Queen DO [Primary Care Provider] - Patient Instructions: Opioid Safety, Pain Management Coding Level of Care Code ED Film Coater for Chg Fwd Exam Detailed
[2022-08-29 11:13] LABS: Alanine Aminotransferase 14 U/L (0-41); Albumin Level 3.5 g/dL (3.5-5.2); Alkaline Phosphatase 135 U/L (40-130); Anion Gap 18.2 (5-19); Aspartate Amino Transferase 15 U/L (0-40); Blood Urea Nitrogen 17 mg/dL (8-23); Calcium 8.8 mg/dL (8.5-10.5); Carbon Dioxide 23 mmol/L (22-29); Chloride 94 mmol/L (98-107); Globulin 4.1 g/dL (1.3-4.6); Glucose 144 mg/dL (65-115); Osmolality Calculated 276 mOsm/kg (285-295); Potassium 4.2 mmol/L (3.5-5.1); Sodium 131 mmol/L (136-145); Total Bilirubin 0.4 mg/dL (0.15-1.2); Total Protein 7.6 g/dL (6.6-8.7)
[2022-08-29] MEDS: sodium chloride 0.9% 2,449.41 ML 2449.41 ML IV (11:13)
[2022-08-29] MEDS: iohexol 350 mg/mL 500 mL Btl (per mL) IV (11:42)
[2022-08-29] MEDS: ipratropium-albuterol 3 mL Neb INHALATION ×2 (11:54→20:40)
--- NOTE | 2022-08-29 12:35 | PM.HP ---
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 He reports he is worsened to such a degree he finally came in. He typically does not use home oxygen but currently is requiring 10 L in the emergency department. He denies any chest discomfort, other than that with coughing. He reports occasionally there is a little bit of blood in his sputum. He has had no diarrhea. He reports no prior history of pulmonary embolism. Review of Systems General: Reports: 10 or more systems reviewed and unremarkable except in HPI and below Const: Reports: fever(s), chills, fatigue and malaise Eyes: Denies: change in vision ENMT: Denies: throat pain Card: Denies: chest pain Resp: Reports: dyspnea, productive cough and wheezing GI: Reports: vomiting; Denies: abdominal pain, hematemesis, hematochezia or melena : Denies: flank pain Musc: Denies: neck pain Skin/Breast: Denies: rash Neuro: Denies: headache(s) Psych: Denies: anxiety or depression Endo: Denies: polyuria Iggy/Lymph: Denies: easy bruising All/Imm: Denies: urticaria Medications/Allergies Home Medications Medication Instructions Recorded Confirmed Last Taken Type sumatriptan succinate 100 mg tablet See Rx Instructions .Route 01/12/22 08/29/22 Unknown Rx .COMPLEX #9 tabs aspirin 81 mg tablet,delayed 162 mg PO QAM 01/26/22 08/29/22 08/29/22 History release levocetirizine 5 mg tablet 5 mg PO QAM #90 tabs 08/16/22 08/29/22 08/29/22 Rx (Allergy Relief (levocetirizine)) albuterol sulfate 90 mcg/actuation 2 puff inhalation Q4H PRN 08/29/22 08/29/22 Unknown History aerosol inhaler (ProAir HFA) Shortness Of Breath Or Wheezing metoprolol succinate 50 mg 50 mg PO DAILY 08/29/22 08/29/22 08/29/22 History tablet,extended release 24 hr montelukast 10 mg tablet 10 mg PO QPM 08/29/22 08/29/22 08/28/22 History rosuvastatin 10 mg tablet 10 mg PO QAM 08/29/22 08/29/22 08/29/22 History tamsulosin 0.4 mg capsule (Flomax) 0.4 mg PO BEDTIME 08/29/22 08/29/22 08/28/22 History Allergies Allergy/AdvReac Type Severity Reaction Status Date / Time bee venom protein (honey bee) Allergy Severe Unknown Verified 08/29/22 10:49 gemfibrozil [From Lopid] Allergy Unknown Unknown Verified 08/29/22 10:49 niacin Allergy Unknown Unknown Verified 08/29/22 10:49 [From Niaspan Extended-Release] PFSH Acute PFSH: Medical History Angina pectoris, unspecified Ascending aortic aneurysm BPH (benign prostatic hyperplasia) COPD (chronic obstructive pulmonary disease) Diabetes mellitus Encounter for insertion of venous access port HLD (hyperlipidemia) HTN (hypertension) Migraine headache with aura Nicotine dependence, cigarettes, with unspecified nicotine-induced disorders NSCLC of left lung Pituitary macroadenoma He was seeing endo in [place]. Smoking addiction Surgical History H/O hernia repair History of bronchoscopy S/P hernia repair Family History Mother Cancer Father COPD (chronic obstructive pulmonary disease) CAD (coronary artery disease) Social History (Updated 08/29/22 @ 12:38 by Miles Franklin MD) Smoking and tobacco status: current some day smoker cigarettes Packs smoked per day: 0.5 Years cigarettes smoked: 54 Smoking risk assessment/counseling performed?: Yes Alcohol intake: former Counseling given: No Counseling given: No Lives independently: Yes Household members: spouse Marital status: Current occupational status: retired History of recent travel: No Current gender identity: Male Vitals/I&O/Wt Last Vital Signs Pulse 85 08/29/22 12:01 Resp 21 H 08/29/22 12:01 BP 98/68 08/29/22 11:32 Pulse Ox 95 08/29/22 12:01 O2 Del Method 08/29/22 12:01 O2 Flow Rate 10 08/29/22 12:01 Weight last 48 hrs Weight 81.647 kg Physical Exam Narrative: General exam is a white male, on 10 L of oxygen, with tachypnea and persistent coughing. Audible wheezing is noted. HEENT: Atraumatic normocephalic. Pupils equally round. Oropharynx clear. Neck is supple no lymphadenopathy thyromegaly Cardiovascular regular rate and rhythm, no murmur. Port is noted Lungs bilateral expiratory wheezes. Coarse breath sounds bilaterally Abdomen is soft with positive bowel sounds. No obvious organomegaly exam deferred Extremities no cyanosis clubbing or edema, cap refill brisk Skin no rash Neuro no obvious focal deficits. Data : 08/29/22 10:45 08/29/22 10:45 Other Labs: Chest x-ray appears clear with changes consistent with COPD EKG demonstrates normal sinus rhythm with nonspecific ST-T wave changes and normal axis ABG in the emergency department demonstrated a pH of 7.44, PCO2 35, PO2 of 65 on 44% FiO2, 6 L LFTs are normal with the exception of alk phos of 135 Calcium 8.8 Lactic acid 2.0 Coronavirus PCR pending CTA chest no pulmonary embolism, infiltrate left lung upper and lower lobes consistent with pneumonia as well as some posttreatment changes of fibrosis. Micro: Microbiology 08/29/22 11:05 Blood Culture - Preliminary Blood SPECIMEN COLLECTED 08/29/22 10:58 Blood Culture - Preliminary Blood SPECIMEN COLLECTED A&P Assessment and plan (1) Acute respiratory failure with hypoxemia: Secondary to pneumonia Wean oxygen as tolerated High risk for worsening, need for intubation. (2) Pneumonia: IV antibiotics consisting of Zosyn and vancomycin Sputum and blood cultures Check MRSA PCR Wean oxygen as tolerated N.p.o. for now (3) NSCLC of left lung: Recently had PET scan, with concern of recurrence. Oncology is to follow-up regarding this. (4) Acute exacerbation of chronic obstructive airways disease: IV steroids, Solu-Medrol 60 mg every 12 hours Budesonide twice daily DuoNeb every 4 hours (5) Dysphagia: N.p.o. for now As improves consider speech therapy evaluation Qualifiers: Dysphagia type: esophageal phase Qualified Code(s): R13.10 - Dysphagia, unspecified (6) Diabetes mellitus: Sliding scale insulin Qualifiers: Diabetes mellitus type: type 2 Diabetes mellitus filler leaf cutter long insulin use: without nursing home use Diabetes mellitus complication status: without complication Qualified Code(s): E11.9 - Type 2 diabetes mellitus without complications Plan Multiple other medical problems as outlined in past medical history Full code currently Lovenox for DVT prophylaxis Attestations Medical Necessity Statement*: Will require greater than 2 midnight stay secondary to acute COPD exacerbation with high oxygen need and high risk for decompensation Coding Level of Care Code Acute Commercial Collections Driver for [facility] Diagnoses Acute respiratory failure with hypoxemia J96.01 Pneumonia J18.9 NSCLC of left lung C34.92 Acute exacerbation of chronic obstructive airways disease J44.1 Dysphagia R13.10 Dysphagia type: esophageal phase Diabetes mellitus E11.9 Diabetes mellitus type: type 2 Diabetes mellitus filler leaf cutter long insulin use: without nursing home use Diabetes mellitus complication status: without complication
[2022-08-29] MEDS: levofloxacin-dextrose 5 % 750 MG/150 ML PREMIX 100 MG IV (12:40)
[2022-08-29 12:45] LABS: Adenovirus Not Detected (NOT DETECT); Chlamydia Pneumoniae Not Detected (NOT DETECT); Coronavirus 229E,HKU1,NL63,OC4 Not Detected (NOT DETECT); Human Metapneumovirus Not Detected (NOT DETECT); Human Rhinovirus/Enterovirus Not Detected (NOT DETECT); Influenza A Not Detected (NOT DETECT); Influenza A H1 Not Detected (NOT DETECT); Influenza A H1-2009 Not Detected (NOT DETECT); Influenza A H3 Not Detected (NOT DETECT); Influenza B Not Detected (NOT DETECT); Mycoplasma Pneumoniae Not Detected (NOT DETECT); Parainfluenza Virus Type 1 Detected (NOT DETECT); Parainfluenza Virus Type 2 Not Detected (NOT DETECT); Parainfluenza Virus Type 3 Not Detected (NOT DETECT); Parainfluenza Virus Type 4 Not Detected (NOT DETECT); Respiratory Syncytial Virus A Not Detected (NOT DETECT); Respiratory Syncytial Virus B Not Detected (NOT DETECT); SARS-COV-2 Not Detected (NOT DETECT)
[2022-08-29 13:20] LABS: Parainfluenza Virus Type 1 Detected (NOT DETECT); Parainfluenza Virus Type 2 Not Detected (NOT DETECT); Parainfluenza Virus Type 3 Not Detected (NOT DETECT); Parainfluenza Virus Type 4 Not Detected (NOT DETECT); Results from Genmark
[2022-08-29] MEDS: enoxaparin 40 mg/0.4 mL Syringe SUBCUT (19:20)
[2022-08-29] MEDS: lactated ringers 1,000 ML 75 ML IV (19:21)
[2022-08-29] MEDS: famotidine 20 mg/2 mL INJ IVP (19:21)
[2022-08-29] MEDS: vancomycin 1,250 MG/250 ML PIGGYBACK 250 MG IV (19:21)
[2022-08-29] MEDS: budesonide 0.5 mg/2 mL Neb INHALATION (20:41)
[2022-08-29 20:44] LABS: Glucose Point of Care 165 mg/dL (70-110)
[2022-08-29] MEDS: tamsulosin 0.4 mg Capsule PO (20:48)
[2022-08-29] MEDS: montelukast sodium 10 mg Tablet PO (20:48)
[2022-08-29] MEDS: insulin lispro 100 unit/1 mL SUBCUT (20:49)
[2022-08-29] MEDS: piperacillin-tazobactam 3.375 GM in sodium chloride 0.9% (plus) 50 ML IV (20:49)
[2022-08-30] VITALS (26 sets, daily range): BP systolic 84–127; BP diastolic 59–80; PULSE 60–104; RESP 13–27; TEMP 36.4–36.6; O2SAT 90–97
[2022-08-30] MEDS: ipratropium-albuterol 3 mL Neb INHALATION ×7 (00:08→23:35)
[2022-08-30 03:45] LABS: Add Urine Microscopic? YES; Bilirubin Urine Neg (Negative); Blood Urine Neg (Negative); Glucose Urine UA Norm (Normal); Ketones Urine 1+ (Negative); Leukocyte Esterase Urine Negative (Negative); Nitrate Urine Negative (Negative); Protein Urine Trace (Negative); Specific Gravity, Urine 1.015 (1.005-1.030); Urine Appearance Clear (CLEAR); Urine Color Yellow (Yellow); Urobilinogen Urine Norm (Negative); pH Urine 5 (5-7)
[2022-08-30 03:46] LABS: Add Urine Culture? No; Amorphous Sediment Urine 1+ /hpf; Fine Granular Casts Urine 0-4 /lpf; Hyaline Casts Urine 0-4 /lpf; Mucus Urine N /hpf; Other Crystals Urine N /hpf; Other Sediment, Urine N; Renal Epithelial Cells Urine 0-2 /hpf; Uric Acid Crystals Urine N /hpf
[2022-08-30 04:10] LABS: Basophils % 0.2 %; Hematocrit 35.7 % (42.0-52.0); Hemoglobin 11.6 g/dL (11.7-16.6); Lymphocytes # 0.8 10^3/uL (0.8-4.8); Lymphocytes % 6.3 %; Mean Corpuscular HGB Conc 32.5 g/dL (30.0-36.0); Mean Corpuscular Hemoglobin 28.6 pg (28.0-34.0); Mean Corpuscular Volume 87.9 fl (80-94); Mean Platelet Volume 9.7 fL (7.4-10.4); Monocytes # 0.3 10^3/uL (0.2-0.9); Monocytes % 2.4 %; Neutrophils # 11.12 10^3/uL (1.8-7.7); Neutrophils % 90.2 %; Nucleated Red Blood Cells % 0 %; Platelet Count 220 10^3/cmm (130-400); Red Blood Count 4.06 10^6/uL (4.1-5.3); Red Cell Distribution Width 15.8 % (12.1-15.1); White Blood Count 12.3 10^3/uL (4.0-10.0)
[2022-08-30 04:33] LABS: Anion Gap 14.8 (5-19); Blood Urea Nitrogen 16 mg/dL (8-23); Carbon Dioxide 23 mmol/L (22-29); Chloride 101 mmol/L (98-107); Creatinine Clr Calc Pharmacy 78.4756; Glucose 196 mg/dL (65-115); Magnesium 1.9 mg/dL (1.7-2.3); Osmolality Calculated 287 mOsm/kg (285-295); Potassium 3.8 mmol/L (3.5-5.1); Sodium 135 mmol/L (136-145)
[2022-08-30] MEDS: atorvastatin 40 mg Tablet PO (05:29)
[2022-08-30] MEDS: aspirin 81 mg EC Tablet 162 MG PO (05:29)
[2022-08-30] MEDS: budesonide 0.5 mg/2 mL Neb INHALATION ×3 (07:44→20:11)
[2022-08-30 07:50] LABS: Glucose Point of Care 189 mg/dL (70-110)
[2022-08-30] MEDS: lactated ringers 1,000 ML 75 ML IV (08:50)
--- NOTE | 2022-08-30 08:50 | P.PN_ITS ---
Subjective Subjective: Raymundo reports he feels better. Still coughing quite a bit but less. Less sputum production. Not as short of breath. Oxygen has been able to be reduced to 3 L. Medications: Reviewed: Yes Vitals/I&O/Wt Last Vital Signs Temp 97.8 F 08/30/22 04:00 Pulse 76 08/30/22 07:50 Resp 18 08/30/22 07:45 BP 105/72 08/30/22 06:00 Pulse Ox 94 08/30/22 07:45 O2 Del Method 08/30/22 07:45 O2 Flow Rate 3 08/30/22 07:45 08/29/22 08/30/22 08/30/22 22:59 06:59 14:59 Intake Total 2909.41 / 2909.41 170 / 3079.41 Output Total 500 / 500 Balance 2909.41 / 2909.41 -330 / 2579.41 Weight last 48 hrs Weight 84.459 kg Weight 81.647 kg Physical Exam Narrative: General exam is a white male, on 3 L of oxygen, who appears more comfortable. Still some residual wheezing. Neck is supple no lymphadenopathy thyromegaly Cardiovascular regular rate and rhythm, no murmur. Port is noted Lungs bilateral expiratory wheezes. More clear than yesterday. Abdomen is soft with positive bowel sounds. No obvious organomegaly Extremities no cyanosis clubbing or edema, cap refill brisk Skin no rash Data : 08/30/22 03:15 08/30/22 03:15 Micro: Microbiology 08/29/22 11:05 Blood Culture - Preliminary Blood SPECIMEN COLLECTED 08/29/22 10:58 Blood Culture - Preliminary Blood SPECIMEN COLLECTED A&P Assessment and plan (1) Acute respiratory failure with hypoxemia: Secondary to pneumonia Wean oxygen as tolerated Appears to be improving Can transfer out of ICU (2) Pneumonia: Continue IV antibiotics consisting of Zosyn and vancomycin Await sputum and blood cultures MRSA PCR pending Parainfluenza virus positive. COVID-negative. Wean oxygen as tolerated Speech therapy consult. He has had some dysphagia, and concerns for aspiration in the past. (3) NSCLC of left lung: Recently had PET scan, with concern of recurrence. Oncology is to follow-up regarding this. (4) Acute exacerbation of chronic obstructive airways disease: Continue Solu-Medrol 60 mg every 12 hours Budesonide twice daily DuoNeb every 4 hours Add incentive hysterometry (5) Dysphagia: Speech therapy consultation Qualifiers: Dysphagia type: esophageal phase Qualified Code(s): R13.10 - Dysphagia, unspecified (6) Diabetes mellitus: Sliding scale insulin Qualifiers: Diabetes mellitus type: type 2 Diabetes mellitus medical terminologist insulin use: without medical terminologist use Diabetes mellitus complication status: without complication Qualified Code(s): E11.9 - Type 2 diabetes mellitus without complications Plan Multiple other medical problems as outlined in past medical history Full code currently Lovenox for DVT prophylaxis Attestations Medical Necessity Statement*: Needs continued hospital stay for IV antibiotics secondary to pneumonia. Coding Level of Care Code Acute Powerhouse Engineer for [facility] Diagnoses Acute respiratory failure with hypoxemia J96.01 Pneumonia J18.9 NSCLC of left lung C34.92 Acute exacerbation of chronic obstructive airways disease J44.1 Dysphagia R13.10 Dysphagia type: esophageal phase Diabetes mellitus E11.9 Diabetes mellitus type: type 2 Diabetes mellitus medical terminologist insulin use: without medical terminologist use Diabetes mellitus complication status: without complication
[2022-08-30] MEDS: famotidine 20 mg/2 mL INJ IVP (08:51)
[2022-08-30] MEDS: insulin lispro 100 unit/1 mL SUBCUT ×4 (08:52→21:58)
[2022-08-30 12:08] LABS: Glucose Point of Care 267 mg/dL (70-110)
[2022-08-30] MEDS: vancomycin 1,250 MG/250 ML PIGGYBACK 250 MG IV (12:13)
[2022-08-30] MEDS: famotidine 20 mg Tablet PO ×2 (14:25→17:45)
[2022-08-30] MEDS: piperacillin-tazobactam 3.375 GM in sodium chloride 0.9% (plus) 50 ML IV (14:25)
[2022-08-30 17:00] LABS: Glucose Point of Care 271 mg/dL (70-110)
[2022-08-30] MEDS: montelukast sodium 10 mg Tablet PO (17:45)
[2022-08-30] MEDS: enoxaparin 40 mg/0.4 mL Syringe SUBCUT (17:45)
[2022-08-30] MEDS: tamsulosin 0.4 mg Capsule PO (20:37)
[2022-08-30 21:43] LABS: Glucose Point of Care 196 mg/dL (70-110)
[2022-08-31] VITALS (12 sets, daily range): BP systolic 105–126; BP diastolic 60–86; PULSE 68–91; RESP 16–20; TEMP 36.5–36.8; O2SAT 86–96
[2022-08-31] MEDS: ipratropium-albuterol 3 mL Neb INHALATION ×3 (03:44→12:04)
[2022-08-31 05:48] LABS: Basophils % 0.2 %; Hematocrit 37.1 % (42.0-52.0); Hemoglobin 11.6 g/dL (11.7-16.6); Lymphocytes # 0.8 10^3/uL (0.8-4.8); Lymphocytes % 4.5 %; Mean Corpuscular HGB Conc 31.3 g/dL (30.0-36.0); Mean Corpuscular Volume 89.6 fl (80-94); Mean Platelet Volume 9.5 fL (7.4-10.4); Monocytes # 0.5 10^3/uL (0.2-0.9); Monocytes % 2.9 %; Neutrophils # 14.86 10^3/uL (1.8-7.7); Neutrophils % 90.2 %; Nucleated Red Blood Cells % 0 %; Platelet Count 243 10^3/cmm (130-400); Red Blood Count 4.14 10^6/uL (4.1-5.3); Red Cell Distribution Width 16.1 % (12.1-15.1); White Blood Count 16.5 10^3/uL (4.0-10.0)
[2022-08-31 06:18] LABS: Anion Gap 13.2 (5-19); Blood Urea Nitrogen 19 mg/dL (8-23); Carbon Dioxide 25 mmol/L (22-29); Chloride 101 mmol/L (98-107); Glucose 213 mg/dL (65-115); Osmolality Calculated 289 mOsm/kg (285-295); Potassium 4.2 mmol/L (3.5-5.1); Sodium 135 mmol/L (136-145)
[2022-08-31 06:19] LABS: Vancomycin Trough 8.5 ug/mL (10-15)
[2022-08-31 06:32] LABS: Glucose Point of Care 202 mg/dL (70-110)
[2022-08-31] MEDS: aspirin 81 mg EC Tablet 162 MG PO (06:39)
[2022-08-31] MEDS: vancomycin 1,250 MG/250 ML PIGGYBACK 250 MG IV (06:39)
[2022-08-31] MEDS: atorvastatin 40 mg Tablet PO (06:39)
[2022-08-31] MEDS: insulin lispro 100 unit/1 mL SUBCUT (08:33)
[2022-08-31] MEDS: piperacillin-tazobactam 3.375 GM in sodium chloride 0.9% (plus) 50 ML IV (08:34)
[2022-08-31] MEDS: famotidine 20 mg Tablet PO (08:35)
[2022-08-31] MEDS: metoprolol succinate ER (24 HR) 50 mg Tablet 25 MG PO (08:36)
[2022-08-31] MEDS: budesonide 0.5 mg/2 mL Neb INHALATION (09:01)
--- NOTE | 2022-08-31 09:21 | PM.DCS ---
Discharge Providers Date of Admission: 08/29/22 12:39 Date of Discharge: August 31, 2022 Attending Provider at Admission: Miles Franklin MD Attending Provider at Discharge: Miles Franklin MD Primary Care Provider: Krystal Queen DO Diagnoses at Discharge Discharge Diagnosis (1) Acute respiratory failure with hypoxemia: Status: Acute (2) Pneumonia: Status: Acute (3) NSCLC of left lung: Status: Acute (4) Acute exacerbation of chronic obstructive airways disease: Status: Acute (5) Dysphagia: Status: Acute Qualifiers: Dysphagia type: esophageal phase Qualified Code(s): R13.10 - Dysphagia, unspecified (6) Diabetes mellitus: Status: Chronic Qualifiers: Diabetes mellitus type: type 2 Diabetes mellitus terminal block assembler insulin use: without [facility] use Diabetes mellitus complication status: without complication Qualified Code(s): E11.9 - Type 2 diabetes mellitus without complications Reason for Visit Reason for Visit: Congestion, cough, SOB Hospital Course Hospital Course Raymundo is a 72-year-old white male who presented to the hospital with coughing, wheezing, and significantly short of breath. He initially required 10 L of oxygen. COVID testing was done which was negative, parainfluenza positive. He was placed on relatively broad-spectrum antibiotics on admission. He was placed on IV steroids, and received pulmonary toilet. With these treatments he rapidly improved and weaned to 2 L of oxygen by August 31. He remained afebrile. MRSA PCR of sputum was negative. He reported that he wanted to go home on August 31. I discussed with him that I would prefer to keep him 1 more day to ensure that he weaned off oxygen. Both him and his were adamant that he go home, and were willing to have home oxygen to be delivered as needed. I discussed with him there is a fair chance that he might need to be readmitted should he worsen and he agreed he would come in for any worsening. He will have home oxygen evaluation prior to discharge, finish up 3 days of steroids, finish up Augmentin as his antibiotic and see his primary care provider in 4 to 7 days. CTA was done on admission which demonstrated pneumonia left lung, no pulmonary embolism, and some postradiation treatment changes left thorax. Physical Exam Narrative: General exam no distress, seems much more comfortable Neck is supple no lymphadenopathy or thyromegaly Cardiovascular regular rate and rhythm, no murmur Lungs a few faint expiratory wheezes, but improved aeration from yesterday Abdomen is soft nontender positive bowel sounds Extremities no cyanosis clubbing or edema, cap refill brisk Skin no rash Discharge Data Studies Completed and Pending Completed Studies During Hospitalization Category Date Time Status CT angio chest PE protcl [id number] Stat Cat Scan 08/29/22 11:04 Completed XR chest 1V portable [id number] Stat Exams 08/29/22 10:42 Completed Pending at discharge Category Date Time Status Blood Culture Stat Lab 08/29/22 11:05 Results Sputum Culture and Gram Stain Stat Lab 08/29/22 11:52 Results Radiology Impressions Chest X-Ray 08/29/22 10:42 Impression: Atherosclerosis and hyperinflation. Chest CTA 08/29/22 11:04 IMPRESSION: 1. No pulmonary embolism. 2. New tree-in-bud airspace disease is moderate throughout the LEFT upper and lower lobes. Endobronchial pneumonia. Aspiration pneumonia may appear similar. 3. Posttreatment changes with fibrosis and atelectasis in the central LEFT lung are unchanged. Laboratory Results WBC 16.5 10^3/uL (4.0-10.0) H 08/31/22 05:30 RBC 4.14 10^6/uL (4.1-5.3) 08/31/22 05:30 Hgb 11.6 g/dL (11.7-16.6) L 08/31/22 05:30 Hct 37.1 % (42.0-52.0) L 08/31/22 05:30 MCV 89.6 fl (80-94) 08/31/22 05:30 MCH 28.0 pg (28.0-34.0) 08/31/22 05:30 MCHC 31.3 g/dL (30.0-36.0) 08/31/22 05:30 RDW 16.1 % (12.1-15.1) H 08/31/22 05:30 Plt Count 243 10^3/cmm (130-400) 08/31/22 05:30 MPV 9.5 fL (7.4-10.4) 08/31/22 05:30 Neut % (Auto) 90.2 % 08/31/22 05:30 Lymph % (Auto) 4.5 % 08/31/22 05:30 Tillman % (Auto) 2.9 % 08/31/22 05:30 Eos % (Auto) 0.0 % 08/31/22 05:30 Baso % (Auto) 0.2 % 08/31/22 05:30 Neut # (Auto) 14.86 10^3/uL (1.8-7.7) H 08/31/22 05:30 Lymph # (Auto) 0.8 10^3/uL (0.8-4.8) 08/31/22 05:30 Tillman # (Auto) 0.5 10^3/uL (0.2-0.9) 08/31/22 05:30 Eos # (Auto) 0.0 10^3/uL (0.0-0.8) 08/31/22 05:30 Baso # (Auto) 0.0 10^3/uL (0.0-0.1) 08/31/22 05:30 Nucleated RBC % (auto) 0 % 08/31/22 05:30 Nucleated RBCs # 0.0 /100WBC 08/31/22 05:30 Specimen Type Arterial 08/29/22 10:48 Sample Site Brachial, left 08/29/22 10:48 ABG pH 7.44 (7.35-7.45) 08/29/22 10:48 ABG pCO2 35.3 mmHg (35-45) 08/29/22 10:48 ABG pO2 65.3 mmHg (80.0-100.0) L 08/29/22 10:48 ABG HCO3 24.1 mmol/L (22-26) 08/29/22 10:48 ABG O2 Saturation 94.6 08/29/22 10:48 ABG Base Excess 0.4 mmol/L (-2.0-2.0) 08/29/22 10:48 Jovani Test N/a 08/29/22 10:48 A-a O2 Gradient 26.8 mmHg (5-10) H 08/29/22 10:48 Hematocrit 41.1 % (42-52) L 08/29/22 10:48 Hgb O2 Saturation 92.0 % (95-100) L 08/29/22 10:48 Carboxyhemoglobin 2.0 %THgb (0.4-20.1) 08/29/22 10:48 Methemoglobin 0.7 % (0.4-1.5) 08/29/22 10:48 Total Hemoglobin 13.4 g/dL (14-18) L 08/29/22 10:48 Sodium 130.0 mmol/L (131-143) L 08/29/22 10:48 Potassium 4.0 mmol/L (3.5-5.0) 08/29/22 10:48 Glucose 150.0 mg/dL (70-115) H 08/29/22 10:48 Ionized Calcium 1.1 mmol/L (1.1-1.4) 08/29/22 10:48 O2 Delivery Device Nc 08/29/22 10:48 O2 Liters/Min 6.0 % 08/29/22 10:48 FiO2 44.0 % 08/29/22 10:48 Senior Cobol Developer ID Amh 08/29/22 10:48 Sodium 135 mmol/L (136-145) L 08/31/22 05:30 Potassium 4.2 mmol/L (3.5-5.1) 08/31/22 05:30 Chloride 101 mmol/L (98-107) 08/31/22 05:30 Carbon Dioxide 25 mmol/L (22-29) 08/31/22 05:30 Anion Gap 13.2 (5-19) 08/31/22 05:30 BUN 19 mg/dL (8-23) 08/31/22 05:30 Creatinine 0.8 mg/dL (0.7-1.2) 08/31/22 05:30 GFR Calculation Not Reportable 08/31/22 05:30 Glucose 213 mg/dL (65-115) H 08/31/22 05:30 POC Glucose 202 mg/dL (70-110) H 08/31/22 06:08 Calculated Osmolality 289 mOsm/kg (285-295) 08/31/22 05:30 Lactic Acid 2.0 mmol/L (0.5-2.2) 08/29/22 10:45 Calcium 9.0 mg/dL (8.5-10.5) 08/31/22 05:30 Magnesium 1.9 mg/dL (1.7-2.3) 08/30/22 03:15 Total Bilirubin 0.4 mg/dL (0.15-1.2) 08/29/22 10:45 AST 15 U/L (0-40) 08/29/22 10:45 ALT 14 U/L (0-41) 08/29/22 10:45 Alkaline Phosphatase 135 U/L (40-130) H 08/29/22 10:45 Total Protein 7.6 g/dL (6.6-8.7) 08/29/22 10:45 Albumin 3.5 g/dL (3.5-5.2) 08/29/22 10:45 Globulin 4.1 g/dL (1.3-4.6) 08/29/22 10:45 Urine Color Yellow (Yellow) 08/30/22 02:45 Urine Appearance Clear (CLEAR) 08/30/22 02:45 Urine pH 5 (5-7) 08/30/22 02:45 Ur Specific Thatcher 1.015 (1.005-1.030) 08/30/22 02:45 Urine Protein Trace (Negative) 08/30/22 02:45 Urine Glucose (UA) Norm (Normal) 08/30/22 02:45 Urine Ketones 1+ (Negative) H 08/30/22 02:45 Urine Blood Neg (Negative) 08/30/22 02:45 Urine Nitrate Negative (Negative) 08/30/22 02:45 Urine Bilirubin Neg (Negative) 08/30/22 02:45 Urine Urobilinogen Norm mg/dL (Negative) 08/30/22 02:45 Ur Leukocyte Esterase Negative (Negative) 08/30/22 02:45 Urine RBC None /hpf (0-2) 08/30/22 02:45 Urine WBC None /hpf (0-5) 08/30/22 02:45 Ur Squamous Epith Cells None /hpf (0-5) 08/30/22 02:45 Ur Transition Epith Cell None /hpf 08/30/22 02:45 Ur Renal Epithelial Cell 0-2 /hpf 08/30/22 02:45 Calcium Oxalate Crystal None /hpf 08/30/22 02:45 Uric Acid Crystals N /hpf 08/30/22 02:45 Triple Phos Crystals None /hpf 08/30/22 02:45 Other Crystals N /hpf 08/30/22 02:45 Amorphous Sediment 1+ /hpf 08/30/22 02:45 Urine Bacteria None /hpf (NONE) 08/30/22 02:45 Hyaline Casts 0-4 /lpf H 08/30/22 02:45 Fine Granular Casts 0-4 /lpf H 08/30/22 02:45 Urine Mucus N /hpf 08/30/22 02:45 Vancomycin Trough 8.5 ug/mL (10-15) L 08/31/22 05:30 Coronavirus 229E (PCR) Not detected (NOT DETECT) 08/29/22 10:45 Parainfluenza 1 (PCR) Detected (NOT DETECT) A 08/29/22 13:18 Parainfluenza 2 (PCR) Not detected (NOT DETECT) 08/29/22 13:18 Parainfluenza 3 (PCR) Not detected (NOT DETECT) 08/29/22 13:18 Parainfluenza 4 (PCR) Not detected (NOT DETECT) 08/29/22 13:18 SARS-CoV-2 (PCR) Not detected (NOT DETECT) 08/29/22 10:45 Vitals Last Vital Signs Temp 97.7 F 08/31/22 08:00 Pulse 79 08/31/22 09:10 Resp 18 08/31/22 09:10 BP 126/83 08/31/22 08:00 Pulse Ox 91 08/31/22 09:10 O2 Del Method 08/31/22 09:10 O2 Flow Rate 2 08/31/22 09:10 Discharge Plan Discharge Patient Disposition: Home Condition: Stable Prescriptions: New budesonide 0.5 mg/2 mL Suspension For Nebulization 0.5 mg inhalation BID Qty: 120 0RF ipratropium-albuterol 0.5 mg-3 mg(2.5 mg base)/3 mL Solution For Nebulization 3 ml inhalation QID Qty: 360 0RF metoprolol succinate 50 mg Tablet Extended Release 24 Hr 25 mg PO DAILY Qty: 15 0RF prednisone 20 mg Tablet 40 mg PO DAILY Qty: 6 0RF amoxicillin-pot clavulanate 875-125 mg tablet 1 tab PO BID Qty: 14 0RF Continued sumatriptan succinate 100 mg tablet See Rx Instructions .ROUTE .COMPLEX Qty: 9 2RF Dose Instruction: TAKE 1 TABLET BY MOUTH EVERY 2 HOURS NEEDED FOR MIGRAINE HEADACHE, MAX 2 TABLETS IN 24 HOURS Rx Instructions: TAKE 1 TABLET BY MOUTH EVERY 2 HOURS NEEDED FOR MIGRAINE HEADACHE, MAX 2 TABLETS IN 24 HOURS levocetirizine [Allergy Relief (levocetirizin)] 5 mg tablet 5 mg PO QAM Qty: 90 1RF metoprolol succinate 50 mg tablet extended release 24 hr 50 mg PO DAILY Flomax 0.4 mg capsule 0.4 mg PO BEDTIME montelukast 10 mg tablet 10 mg PO QPM ProAir HFA 90 mcg/actuation HFA aerosol inhaler 2 puff inhalation Q4H PRN (Reason: Shortness Of Breath Or Wheezing) rosuvastatin 10 mg tablet 10 mg PO QAM aspirin [Aspir-81] 81 mg Tablet,Delayed Release (Dr/Ec) 162 mg PO QAM Discharge Orders: Discharge Order (Routine); Ordered 08/31/22 Ordered By: Miles Franklin Other Ambulatory Orders: DME: Nebulizer with Neb Kit (Order) Location: None Selected Ordered By: Miles Franklin Referrals: Krystal Queen DO [Primary Care Provider] - 4-7 days Discharge Diet: Soft Mechanical Discharge Activity: Increase activity as tolerated Patient Instructions: Opioid Safety, Pain Management Activity Restrictions/Additional Instructions: Home oxygen evaluation prior to discharge Follow-up with primary care provider 4 to 7 days Use nebulizer 4 times daily with DuoNeb, twice daily with budesonide. Wash mouth out after use of budesonide. Avoid all tobacco Soft mechanical diet Return for any worsening Take all medicine including antibiotics as prescribed Patient's Health Concerns: Cough, wheezing Assessment: COPD exacerbation, pneumonia, question aspiration, positive for parainfluenza Plan of Treatment: Finish course of steroids, antibiotics Neb treatments as arranged Discharge Attestations Time Spent in Discharge Care*: greater than 30 min Quality Metrics Clinical Quality Measures [ No reported AMI, CVA or VTE this stay] Coding Level of Care Code Acute [facility] note Diagnoses Acute respiratory failure with hypoxemia J96.01 Pneumonia J18.9 NSCLC of left lung C34.92 Acute exacerbation of chronic obstructive airways disease J44.1 Dysphagia R13.10 Dysphagia type: esophageal phase Diabetes mellitus E11.9 Diabetes mellitus type: type 2 Diabetes mellitus [facility] insulin use: without terminal block assembler use Diabetes mellitus complication status: without complication
[2022-08-31] MEDS: predniSONE 20 mg Tablet 40 MG PO (09:56)
[2022-08-31 10:59] LABS: Glucose Point of Care 244 mg/dL (70-110)
== END 2022-08-31 13:10 | disposition home or self-care (01) | DRG 193 ==
LOC: ER 14:01 → ICU 18:16 → MEDSURG 08-30 12:25
PROVIDERS: Admitting Provider Internal Medicine; Emergency Provider Family Medicine; PCP Family Medicine; Visit Provider Internal Medicine
DX: J18.9 Pneumonia, unspecified organism (principal); J96.01 Acute respiratory failure with hypoxia; C34.92 Malignant neoplasm of unspecified part of left bronchus or lung; J44.0 Chronic obstructive pulmonary disease with (acute) lower respiratory infection; J44.1 Chronic obstructive pulmonary disease with (acute) exacerbation; Z92.21 Personal history of antineoplastic chemotherapy; Z92.3 Personal history of irradiation; I71.40 Abdominal aortic aneurysm, without rupture, unspecified; N40.0 Benign prostatic hyperplasia without lower urinary tract symptoms; E11.9 Type 2 diabetes mellitus without complications; E78.5 Hyperlipidemia, unspecified; I10 Essential (primary) hypertension; F17.210 Nicotine dependence, cigarettes, uncomplicated; D35.2 Benign neoplasm of pituitary gland; R13.10 Dysphagia, unspecified; B34.8 Other viral infections of unspecified site; Z79.51 Long term (current) use of inhaled steroids; Z79.82 Long term (current) use of aspirin
CPT/HCPCS: 36415; 36416; 36600; 71045; 71275; 80048; 80051; 80053; 80202; 81001; 82330; 82805; 82962; 83605; 83735; 85025; 87040; 87070; 87077; 87186; 87205; 87631; 87635; 87641; 92523; 92610; 93005; 94640; 94760; 96365; 96372; 96375; 99285; J1650; J1815; J1956; J2543; J2930; J3370; J3490; J7030; J7120; J7512; J7626; Q9967

== ENCOUNTER 2022-09-25 11:41 | Emergency (ER) | payer MEDICARE, MEDICAID, SELFPAY ==
[2022-09-25 11:52] VITALS: BP 94/64; PULSE 85; RESP 18; TEMP 36.7; O2SAT 95
--- NOTE | 2022-09-25 12:12 | W.ED.NAVMDI ---
HPI - Nausea/Vomiting/Diarrhea General: Chief complaint: Nausea/Vomiting/Diarrhea Stated complaint: Chest pains and bleeding Time Seen by Provider: 09/25/22 12:12 History of Present Illness: Mr. Palm is a 72-year-old gentleman with history of hypertension, hyperlipidemia, diabetes, ascending aortic aneurysm, lung cancer and readmission presenting to the emergency department due to abdominal pain, chest pain, and generalized illness. He notes symptom onset approximately 2 days ago with lightheadedness and indigestion feeling with belching. He subsequently has had vomit with bloody emesis. Intensity symptoms has worsened and is moderate to severe. Patient is not on anticoagulation. No other specific changes in health, exacerbating, or alleviating factors identified. Onset (ago): day(s) Description of vomiting: bloody Associated nausea: Yes Associated abdominal pain: Yes Location of pain: Epigastric Pain consistency: constant Severity: moderate Quality: cramping and aching Exacerbating factors: vomiting Relieving factors: none Associated symtoms: Reports nausea Review of Systems General: Reports: 10 or more systems reviewed and unremarkable except in HPI and below GI: Reports: nausea PFSH ED PFSH: Medical History Angina pectoris, unspecified Ascending aortic aneurysm BPH (benign prostatic hyperplasia) COPD (chronic obstructive pulmonary disease) Diabetes mellitus Encounter for insertion of venous access port HLD (hyperlipidemia) HTN (hypertension) Migraine headache with aura Nicotine dependence, cigarettes, with unspecified nicotine-induced disorders NSCLC of left lung Pituitary macroadenoma He was seeing endo in [place]. Smoking addiction Surgical History H/O hernia repair History of bronchoscopy S/P hernia repair Family History Mother Cancer Father COPD (chronic obstructive pulmonary disease) CAD (coronary artery disease) Social History Smoking and tobacco status: current some day smoker cigarettes Packs smoked per day: 0.5 Years cigarettes smoked: 54 Smoking risk assessment/counseling performed?: Yes Alcohol intake: former Counseling given: No Counseling given: No Lives independently: Yes Household members: spouse Marital status: Current occupational status: retired History of recent travel: No Current gender identity: Male Physical Exam Const: COMMON NORMALS: alert GENERAL APPEARANCE: cooperative, well developed and ill appearing (Mildly) HENMT: COMMON NORMALS: normocephalic and atraumatic HEAD & SCALP: normocephalic and atraumatic THROAT: posterior oropharynx normal Eye: COMMON NORMALS: conjunctivae normal CONJUNCTIVA: Yes conjunctivae normal SCLERA: sclerae normal Neck/C-Spine: COMMON NORMALS: supple GENERAL: Yes trachea midline Resp: COMMON NORMALS: normal respiratory effort EFFORT & INSPECTION: Yes able to speak in complete sentences AUSCULTATION: rhonchi (Scattered mild) Cardio: COMMON NORMALS: regular rate and regular rhythm RATE: regular rate RHYTHM: regular rhythm GI: COMMON NORMALS: Soft to palpation PALPATION: Yes Soft to palpation, Yes Tenderness to palpation present (GI), No Guarding due to palpation present (GI) and No Rigid due to palpation Extremity: GENERAL: Yes normal exam except as noted and No edema Neuro: COMMON NORMALS: moves all extremities SENSORIUM/ORIENTATION: Yes alert and No Orientation impaired Psych: COMMON NORMALS: mental status grossly normal and Normal thought process present THOUGHT PROCESS: Normal thought process present Course Vital Signs: Vital signs: Vital Signs Temperature 98.1 F 09/25/22 11:52 Pulse Rate 73 09/25/22 16:40 Respiratory Rate 18 09/25/22 13:01 Blood Pressure 124/88 09/25/22 16:40 Pulse Oximetry 98 09/25/22 16:40 Oxygen Delivery Me thod 09/25/22 16:40 Oxygen Flow Rate 2 09/25/22 13:15 MDM - Nausea/Vomiting/Diarrhea Medical Decision Making 72-year-old gentleman presenting with abdominal and chest symptoms as well as concern over hematemesis. Exam as above. EKG notable for sinus rhythm, no STEMI. Labs notable for no leukocytosis, hemoglobin is approximately baseline, platelet count is normal. Coags normal. Metabolic panel without significant derangement to explain symptoms. 2-hour delta troponin is negative. Viral studies negative. Chest x-ray with no lobar consolidation or pneumothorax. CTA without obvious pathology to explain symptoms, there is fluid-filled esophagus. Incidental findings discussed with the patient. Patient improved with antiemetic, fluids, analgesia, also administered pantoprazole. I discussed possible dispositions with the patient and he prefers outpatient management with strict return precautions. Plan to refer for endoscopy. The results of ED evaluation were discussed with the patient including prescriptions and/or symptomatic cares (if applicable) including appropriate and responsible use, followup plan, and return precautions. The patient verbalized understanding and felt safe for discharge. Medical Records I reviewed the patient's medical records. Lab Data I reviewed the patient's lab results. 09/25/22 13:00 09/25/22 13:00 Radiology Impressions Chest X-Ray 09/25/22 12:13 IMPRESSION: 1. No acute findings. 2. Left central line in the SVC Chest/Abdomen/Pelvis CTA 09/25/22 12:58 IMPRESSION: 1. Negative for pulmonary embolism. 2. Ascending thoracic aortic aneurysm. 3. Left perihilar parenchymal density possible mass lesion 4. Ectatic abdominal aorta with scattered calcifications. 5. Mesenteric vessels and renal arteries do not show significant stenosis. 6. Negative for right heart strain. 7. Dilate fluid-filled esophagus. 8. Sigmoid colon diverticulosis. 9. Dorsolumbar spine osteoarthritis Laboratory Results WBC 8.0 10^3/uL (4.0-10.0) 09/25/22 13:00 RBC 4.18 10^6/uL (4.1-5.3) 09/25/22 13:00 Hgb 11.9 g/dL (11.7-16.6) 09/25/22 13:00 Hct 36.7 % (42.0-52.0) L 09/25/22 13:00 MCV 87.8 fl (80-94) 09/25/22 13:00 MCH 28.5 pg (28.0-34.0) 09/25/22 13:00 MCHC 32.4 g/dL (30.0-36.0) 09/25/22 13:00 RDW 17.2 % (12.1-15.1) H 09/25/22 13:00 Plt Count 336 10^3/cmm (130-400) 09/25/22 13:00 MPV 9.4 fL (7.4-10.4) 09/25/22 13:00 Neut % (Auto) 62.1 % 09/25/22 13:00 Lymph % (Auto) 23.0 % 09/25/22 13:00 Forrest % (Auto) 9.0 % 09/25/22 13:00 Eos % (Auto) 4.4 % 09/25/22 13:00 Baso % (Auto) 0.6 % 09/25/22 13:00 Neut # (Auto) 4.96 10^3/uL (1.8-7.7) 09/25/22 13:00 Lymph # (Auto) 1.8 10^3/uL (0.8-4.8) 09/25/22 13:00 Forrest # (Auto) 0.7 10^3/uL (0.2-0.9) 09/25/22 13:00 Eos # (Auto) 0.4 10^3/uL (0.0-0.8) 09/25/22 13:00 Baso # (Auto) 0.1 10^3/uL (0.0-0.1) 09/25/22 13:00 Nucleated RBC % (auto) 0 % 09/25/22 13:00 Nucleated RBCs # 0.0 /100WBC 09/25/22 13:00 PT 13.80 SECONDS (12.1-14.9) 09/25/22 13:00 INR 1.02 (0.8-1.2) 09/25/22 13:00 APTT 29.6 SECONDS (23.9-36.7) 09/25/22 13:00 Sodium 134 mmol/L (136-145) L 09/25/22 13:00 Potassium 3.9 mmol/L (3.5-5.1) 09/25/22 13:00 Chloride 99 mmol/L (98-107) 09/25/22 13:00 Carbon Dioxide 25 mmol/L (22-29) 09/25/22 13:00 Anion Gap 13.9 (5-19) 09/25/22 13:00 BUN 16 mg/dL (8-23) 09/25/22 13:00 Creatinine 0.8 mg/dL (0.7-1.2) 09/25/22 13:00 GFR Calculation Not Reportable 09/25/22 13:00 Glucose 181 mg/dL (65-115) H 09/25/22 13:00 Calculated Osmolality 284 mOsm/kg (285-295) L 09/25/22 13:00 Lactate 1.2 mmol/L (0.5-2.2) 09/25/22 13:00 Calcium 9.4 mg/dL (8.5-10.5) 09/25/22 13:00 Total Bilirubin 0.4 mg/dL (0.15-1.2) 09/25/22 13:00 AST 11 U/L (0-40) 09/25/22 13:00 ALT 24 U/L (0-41) 09/25/22 13:00 Alkaline Phosphatase 162 U/L (40-130) H 09/25/22 13:00 Troponin T Baseline 13 ng/L (0-15) 09/25/22 13:00 Troponin T 120 Minute 11.24 ng/L (0-15) 09/25/22 15:11 Delta Troponin T -1.76 ABS# (0-10) L 09/25/22 15:11 Total Protein 6.4 g/dL (6.6-8.7) L 09/25/22 13:00 Albumin 3.4 g/dL (3.5-5.2) L 09/25/22 13:00 Globulin 3.0 g/dL (1.3-4.6) 09/25/22 13:00 Lipase 18 U/L (13-60) 09/25/22 13:00 Influenza Type A Ag negative (Negative) 09/25/22 15:50 Influenza Type B Ag negative (Negative) 09/25/22 15:50 SARS-CoV-2 Ag (Rapid) negative (Negative) 09/25/22 15:50 Blood Type A Positive 09/25/22 13:31 Rho(D) Type Positive 09/25/22 13:31 Antibody Screen Negative 09/25/22 13:31 Discharge Plan Discharge Patient Disposition: Home Clinical Impression: Chest pain, Hematemesis, Esophagitis Condition: Stable Prescriptions: New Protonix 40 mg tablet,delayed release (DR/EC) 40 mg PO BID 14 Days Qty: 28 0RF ondansetron 4 mg tablet,disintegrating 4 mg PO Q8H PRN (Reason: nausea and vomiting) Qty: 15 0RF No Action metoprolol succinate 50 mg tablet extended release 24 hr 50 mg PO DAILY albuterol sulfate [ProAir HFA] 90 mcg/actuation HFA aerosol inhaler 2 puff inhalation Q4H PRN (Reason: Shortness Of Breath Or Wheezing) Qty: 8.5 6RF sumatriptan succinate 100 mg tablet See Rx Instructions .ROUTE .COMPLEX Qty: 9 2RF Dose Instruction: TAKE 1 TABLET BY MOUTH EVERY 2 HOURS NEEDED FOR MIGRAINE HEADACHE, MAX 2 TABLETS IN 24 HOURS Rx Instructions: TAKE 1 TABLET BY MOUTH EVERY 2 HOURS NEEDED FOR MIGRAINE HEADACHE, MAX 2 TABLETS IN 24 HOURS levocetirizine [Allergy Relief (levocetirizin)] 5 mg tablet 5 mg PO QAM Qty: 90 1RF metoprolol succinate 50 mg tablet extended release 24 hr 50 mg PO DAILY tamsulosin [Flomax] 0.4 mg capsule 0.4 mg PO BEDTIME montelukast 10 mg tablet 10 mg PO QPM rosuvastatin 10 mg tablet 10 mg PO QAM ipratropium-albuterol 0.5 mg-3 mg(2.5 mg base)/3 mL Solution For Nebulization 3 ml inhalation QID Qty: 360 0RF budesonide 0.5 mg/2 mL Suspension For Nebulization 0.5 mg inhalation BID Qty: 120 0RF aspirin 81 mg Tablet,Delayed Release (Dr/Ec) 162 mg PO QAM Discharge Orders: Discharge ED (Routine); Ordered 09/25/22 Ordered By: Chaka Gipson Referrals: Krystal Queen DO [Primary Care Provider] - Discharge Diet: Usual diet Discharge Activity: Increase activity as tolerated Patient Instructions: Chest Pain (ED), Diet for Stomach Ulcers and Gastritis (ED), Esophagitis (ED), Hematemesis (ED), Pain Management Activity Restrictions/Additional Instructions: Thank you for visiting the emergency department. You were seen in follow-up for chest discomfort and vomiting blood. The exact cause of your symptoms is unclear though as discussed can either be managed inpatient or outpatient. You are electing to have further outpatient management and I will message case management for follow-up for both endoscopy and further cardiac testing. I will prescribe antinausea medication as well as a proton pump inhibitor. Please follow-up with your primary care provider. Return to the emergency department for worsening symptoms or anything else that you are concerned about a feel needs emergency department evaluation. Coding Level of Care Code ED Senior Controls Analyst for Adrianna Fwaramis Exam Comprehensive
--- NOTE | 2022-09-25 12:13 | XRR_ITS ---
PROCEDURE INFORMATION: Exam: XR Chest Exam date and time: 09/25/2022 12:38 PM Age: 72 years old Clinical indication: Shortness of breath; Prior surgery; Surgery type: Port; Patient HX: HX of lung cancer; Additional info: SOB, hematemesis TECHNIQUE: Imaging protocol: Radiologic exam of the chest. Views: 1 view. COMPARISON: CR XR chest 1V portable [id number] 08/29/2022 11:49 AM FINDINGS: Tubes, catheters and devices: Left central line is in the SVC. Lungs: Unremarkable. No consolidation. Pleural spaces: Unremarkable. No pleural effusion. No pneumothorax. Heart/Mediastinum: Unremarkable. No cardiomegaly. Bones/joints: Unremarkable. Other findings: Comparison to prior examination similar findings seen XR/XR chest 1V portable [id number] IMPRESSION: 1. No acute findings. 2. Left central line in the SVC
--- NOTE | 2022-09-25 12:13 | ECG_ITS ---
[facility] Test Date: 2022-09-25 Pat Name: Raymundo Palm Department: Room: Gender: Male Client Services Director: : 1950 Requested By: Chaka Gipson Order Number: [id number] Chacho MD: Nadia Lynne M.D. Measurements Intervals [place] Rate: 83 P: 74 UT: 168 QRS: 82 QRSD: 89 T: 75 QT: 369 QTc: 434 Interpretive Statements SINUS RHYTHM MODERATE ST DEPRESSION [0.05+ mV ST DEPRESSION] Compared to ECG 08/29/2022 10:30:03 No significant changes Electronically Signed On 09-25-2022 12:50:53 DIRECTOR DIVERSITY by Nadia Lynne M.D. [email or web address]
--- NOTE | 2022-09-25 12:58 | CTR_ITS ---
PROCEDURE INFORMATION: Exam: CTA Abdomen and Pelvis With Contrast Exam date and time: 09/25/2022 1:59 PM Age: 72 years old Clinical indication: Abdominal pain; Prior surgery; Surgery type: Port; Patient HX: HX of lung cancer. Chest pain and epigastric pain with n/v. Vomiting blood. HX of lung cancer in remission x 1 year. HX of acescending aa; Additional info: Hematemesis/epigastric pa, HX lung cancer, HX acescending aa TECHNIQUE: Imaging protocol: Computed tomographic angiography of the abdomen and pelvis with contrast. 3D rendering (Not supervised by radiologist): MIP and/or 3D reconstructed images were created by the technologist. Radiation optimization: All CT scans at this facility use at least one of these dose optimization techniques: automated exposure control; mA and/or kV adjustment per patient size (includes targeted exams where dose is matched to clinical indication); or iterative reconstruction. Contrast material: OMNI 350; Contrast volume: 100 ml; Contrast route: INTRAVENOUS (IV); COMPARISON: CT angio chest abdomen pelvis 03/06/2018 3:21 AM RADIATION DOSE METRICS: Total DLP (mGy-cm): 1162.38 FINDINGS: Chest: The left perihilar region shows of tissue thickening measuring 32.6 mm x 47 mm. This finding appears to encase the left upper lobe pulmonary artery. This finding may represent a collapsed left upper lobe segment. Potential for a mass lesion should be ruled out. There is no evidence of filling defects in the pulmonary arteries the exam is negative for pulmonary embolism. Exam is negative for right heart strain. The esophagus is dilated with an air-fluid level measuring 19 mm x 28 mm. Aorta: The ascending aorta appears dilated with AP measurement of 48 mm at the level of the right pulmonary artery this finding corresponds to ascending thoracic aortic aneurysm. No aortic dissection. The abdominal aorta is calcified and ectatic Celiac trunk and mesenteric arteries: No occlusion or significant stenosis. Calcified densities are seen at the origin of the SMA. Renal arteries: No occlusion or significant stenosis. Calcified densities seen at the origin of the left renal artery. Right iliac arteries: No occlusion or significant stenosis. Ectatic, with calcifications Left iliac arteries: No occlusion or significant stenosis. Ectatic, with calcifications Liver: No mass. Gallbladder and bile ducts: Unremarkable. No calcified stones. No ductal dilation. Pancreas: Unremarkable. No mass. No ductal dilation. Spleen: Unremarkable. No splenomegaly. Adrenal glands: Unremarkable. No mass. Kidneys and ureters: Unremarkable. No solid mass. No hydronephrosis. Stomach and bowel: There is sigmoid colon diverticulosis. No bowel obstruction. No mucosal thickening. Appendix: The appendix is unremarkable in appearance. No evidence of appendicitis. Intraperitoneal space: Unremarkable. No free air. No significant fluid collection. Lymph nodes: Unremarkable. No enlarged lymph nodes. Urinary bladder: Unremarkable. No mass. Reproductive: Unremarkable as visualized. Bones/joints: No acute fracture. 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 New lines spondylolisthesis L5-S1. There is retrolisthesis L3-L4 a Soft tissues: Unremarkable. CT/CT angio chest abdomen pelvis IMPRESSION: 1. Negative for pulmonary embolism. 2. Ascending thoracic aortic aneurysm. 3. Left perihilar parenchymal density possible mass lesion 4. Ectatic abdominal aorta with scattered calcifications. 5. Mesenteric vessels and renal arteries do not show significant stenosis. 6. Negative for right heart strain. 7. Dilate fluid-filled esophagus. 8. Sigmoid colon diverticulosis. 9. Dorsolumbar spine osteoarthritis
[2022-09-25 13:01] VITALS: RESP 18; O2SAT 90
[2022-09-25] MEDS: morphine 4 mg/mL SDV 1 mL IVP (13:01)
[2022-09-25] MEDS: pantoprazole 40 mg SDV 80 MG IVP (13:06)
[2022-09-25] MEDS: ondansetron 2 mg/ML SDV 2 mL 4 MG IVP (13:08)
[2022-09-25] MEDS: sodium chloride 0.9% 1,000 ML 999 ML IV (13:10)
[2022-09-25 13:11] VITALS: BP 100/67; PULSE 77; O2SAT 92
[2022-09-25 13:15] VITALS: BP 106/80; PULSE 70; O2SAT 96
[2022-09-25 13:15] LABS: Basophils # 0.1 10^3/uL (0.0-0.1); Basophils % 0.6 %; Eosinophils # 0.4 10^3/uL (0.0-0.8); Eosinophils % 4.4 %; Hematocrit 36.7 % (42.0-52.0); Hemoglobin 11.9 g/dL (11.7-16.6); Lymphocytes # 1.8 10^3/uL (0.8-4.8); Mean Corpuscular HGB Conc 32.4 g/dL (30.0-36.0); Mean Corpuscular Hemoglobin 28.5 pg (28.0-34.0); Mean Corpuscular Volume 87.8 fl (80-94); Mean Platelet Volume 9.4 fL (7.4-10.4); Monocytes # 0.7 10^3/uL (0.2-0.9); Neutrophils # 4.96 10^3/uL (1.8-7.7); Neutrophils % 62.1 %; Nucleated Red Blood Cells % 0 %; Platelet Count 336 10^3/cmm (130-400); Red Blood Count 4.18 10^6/uL (4.1-5.3); Red Cell Distribution Width 17.2 % (12.1-15.1)
[2022-09-25 13:39] LABS: INR 1.02 (0.8-1.2); Partial Thromboplastin Time 29.6 SECONDS (23.9-36.7)
[2022-09-25 13:44] LABS: Troponin(5th) Baseline 13 ng/L (0-15)
[2022-09-25 13:47] LABS: Alanine Aminotransferase 24 U/L (0-41); Albumin Level 3.4 g/dL (3.5-5.2); Alkaline Phosphatase 162 U/L (40-130); Anion Gap 13.9 (5-19); Aspartate Amino Transferase 11 U/L (0-40); Blood Urea Nitrogen 16 mg/dL (8-23); Calcium 9.4 mg/dL (8.5-10.5); Carbon Dioxide 25 mmol/L (22-29); Chloride 99 mmol/L (98-107); Glucose 181 mg/dL (65-115); Lipase 18 U/L (13-60); Osmolality Calculated 284 mOsm/kg (285-295); Potassium 3.9 mmol/L (3.5-5.1); Sodium 134 mmol/L (136-145); Total Bilirubin 0.4 mg/dL (0.15-1.2); Total Protein 6.4 g/dL (6.6-8.7)
[2022-09-25 13:48] LABS: Lactate (Lactic Acid level) 1.2 mmol/L (0.5-2.2)
[2022-09-25] MEDS: iohexol 350 mg/mL 500 mL Btl (per mL) IV (14:12)
--- NOTE | 2022-09-25 14:13 | ECG_ITS ---
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 Measurements Intervals [place] Rate: 68 P: 68 [place]: 190 QRS: 66 QRSD: 88 T: 69 QT: 417 QTc: 446 Interpretive Statements SINUS RHYTHM Compared to ECG 09/25/2022 12:16:13 ST (T wave) deviation no longer present Electronically Signed On 09-25-2022 18:51:56 BUTT MAKER by Nadia Lynne M.D. [id number]
[2022-09-25 15:49] LABS: Troponin 5 2HR 11.24 ng/L (0-15)
[2022-09-25 16:13] LABS: Troponin 5 2HR Delta -1.76 ABS# (0-10)
[2022-09-25 16:31] LABS: SARS Covid-2 Antigen negative (Negative)
[2022-09-25 16:32] LABS: Influenza A by IFA negative (Negative); Influenza B by IFA negative (Negative)
[2022-09-25 16:40] VITALS: BP 124/88; PULSE 73; O2SAT 98
--- NOTE | 2022-09-26 13:41 | DCPLANNER ---
Addendum entered by Zoila Odom 10/31/22 13:15: Centralized scheduling sent case consultant message that patient no longer wants the stress test and echo cardiogram scheduled at this time. Addendum entered by Zoila Odom 09/26/22 13:47: casework manager also sent patients primary care physician notification that a stress test was ordered from the ER. Original Note: casework manager had message to schedule an outpatient stress test for patient. casework manager faxed signed order to centralize scheduling, who will zuri patient with appointment information.
== END 2022-09-25 16:58 | disposition home or self-care (01) ==
PROVIDERS: Emergency Provider Emergency Medicine; PCP Family Medicine
DX: R07.9 Chest pain, unspecified (principal); K92.0 Hematemesis; K20.90 Esophagitis, unspecified without bleeding; Z79.82 Long term (current) use of aspirin; Z20.822 Contact with and (suspected) exposure to COVID-19; F17.210 Nicotine dependence, cigarettes, uncomplicated; J44.9 Chronic obstructive pulmonary disease, unspecified; E11.9 Type 2 diabetes mellitus without complications; E78.5 Hyperlipidemia, unspecified; I10 Essential (primary) hypertension
CPT/HCPCS: 36415; 71045; 71275; 74174; 80053; 83605; 83690; 84484; 85025; 85610; 85730; 86850; 86900; 87426; 87804; 93005; 96361; 96374; 96375; 96376; 99285; C9113; J2270; J2405; J7030; Q9967

== ENCOUNTER 2022-09-28 09:03 | Oncology outpatient (recurring) (ONCR) | payer MEDICARE, MEDICAID, SELFPAY ==
[2022-09-28 10:47] LABS: Basophils # 0.1 10^3/uL (0.0-0.1); Basophils % 0.8 %; Eosinophils # 0.3 10^3/uL (0.0-0.8); Eosinophils % 4.3 %; Hematocrit 34.6 % (42.0-52.0); Hemoglobin 11.3 g/dL (11.7-16.6); Lymphocytes # 1.5 10^3/uL (0.8-4.8); Lymphocytes % 23.6 %; Mean Corpuscular HGB Conc 32.7 g/dL (30.0-36.0); Mean Corpuscular Hemoglobin 28.5 pg (28.0-34.0); Mean Corpuscular Volume 87.4 fl (80-94); Mean Platelet Volume 9.2 fL (7.4-10.4); Monocytes # 0.6 10^3/uL (0.2-0.9); Monocytes % 9.8 %; Neutrophils # 3.92 10^3/uL (1.8-7.7); Neutrophils % 60.9 %; Nucleated Red Blood Cells % 0 %; Platelet Count 331 10^3/cmm (130-400); Red Blood Count 3.96 10^6/uL (4.1-5.3); Red Cell Distribution Width 16.6 % (12.1-15.1); White Blood Count 6.4 10^3/uL (4.0-10.0)
[2022-09-28] MEDS: alteplase 1 mg/mL SDV 2 mL 2 MG INTRACATH (10:51)
[2022-09-28 11:04] LABS: Alanine Aminotransferase 17 U/L (0-41); Albumin Level 3.2 g/dL (3.5-5.2); Alkaline Phosphatase 153 U/L (40-130); Anion Gap 13.1 (5-19); Aspartate Amino Transferase 11 U/L (0-40); Blood Urea Nitrogen 14 mg/dL (8-23); Calcium 8.8 mg/dL (8.5-10.5); Carbon Dioxide 25 mmol/L (22-29); Chloride 104 mmol/L (98-107); Globulin 3.3 g/dL (1.3-4.6); Glucose 116 mg/dL (65-115); Osmolality Calculated 287 mOsm/kg (285-295); Potassium 4.1 mmol/L (3.5-5.1); Sodium 138 mmol/L (136-145); Total Bilirubin 0.3 mg/dL (0.15-1.2); Total Protein 6.5 g/dL (6.6-8.7)
== END 2022-10-20 23:59 | disposition home or self-care (01) ==
PROVIDERS: PCP Family Medicine; Visit Provider Internal Medicine Hematology & Oncology
DX: C34.12 Malignant neoplasm of upper lobe, left bronchus or lung (principal); J43.1 Panlobular emphysema; F17.210 Nicotine dependence, cigarettes, uncomplicated; Z92.3 Personal history of irradiation; Z92.21 Personal history of antineoplastic chemotherapy; R04.2 Hemoptysis; D64.9 Anemia, unspecified; Z79.899 Other long term (current) drug therapy; Z85.118 Personal history of other malignant neoplasm of bronchus and lung
CPT/HCPCS: 36591; 36593; 80053; 85025; 99214; J2997

== ENCOUNTER 2022-10-23 12:24 | Outpatient (CLI) | payer MEDICARE, MEDICAID, SELFPAY ==
--- NOTE | 2022-10-23 13:30 | CTR_ITS ---
PROCEDURE INFORMATION: Exam: CT Chest With Contrast; Diagnostic Exam date and time: 10/23/2022 12:55 PM Age: 72 years old Clinical indication: Condition or disease; Lung condition and disease; Cancer of the lung; Left; Lobe, upper; Follow-up oncological assessment; Patient HX: Follow up lung cancer, continued shortness of breath; Additional info: Follow up, just prior to next onc visit TECHNIQUE: Imaging protocol: Diagnostic computed tomography of the chest with contrast. Radiation optimization: All CT scans at this facility use at least one of these dose optimization techniques: automated exposure control; mA and/or kV adjustment per patient size (includes targeted exams where dose is matched to clinical indication); or iterative reconstruction. Contrast material: OMNIPAQUE 350; Contrast volume: 95 ml; Contrast route: INTRAVENOUS (IV); COMPARISON: CT chest w con* [id number] 08/24/2022 2:11 PM RADIATION DOSE METRICS: Total DLP (mGy-cm): 865.98 FINDINGS: Lungs: Bilateral hilar prominent interstitial markings suggestive of interstitial fibrosis. Emphysematous changes. Pleural spaces: Right lower lobe 6.6 cm focal airspace opacification abutting the medial pleura and right hilar structures, new compared to prior exam may reflect an infectious process, however, metastatic disease is not excluded. Heart: Unremarkable. No cardiomegaly. No pericardial effusion. Coronary arteries: Coronary artery atherosclerotic calcifications. Lymph nodes: Unremarkable. No enlarged lymph nodes. Vasculature: Left lower lobe medial segment dense airspace opacification measuring up to 5.5 cm with a low-density component contacting the aorta, posterior pleura and left main pulmonary artery may reflect an infectious process, however, metastatic disease not excluded, finding appears less prominent compared to prior exam. Ascending thoracic aorta dilation to 4.7 cm without rupture or dissection, similar to prior exam. Liver: Hepatic steatosis. Stomach and bowel: Distal esophageal and gastric cardia wall thickening may be due to nondistention, esophagitis/gastritis may also be a consideration as well as a possible infiltrative lesion depending on the clinical scenario. Bones/joints: Unremarkable. No acute fracture. Soft tissues: Unremarkable. CT/CT chest w con* [id number] IMPRESSION: 1. Right lower lobe 6.6 cm focal airspace opacification abutting the medial pleura and right hilar structures, new compared to prior exam may reflect an infectious process, however, metastatic disease is not excluded. 2. Left lower lobe medial segment dense airspace opacification measuring up to 5.5 cm with a low-density component contacting the aorta, posterior pleura and left main pulmonary artery may reflect an infectious process, however, metastatic disease not excluded, finding appears less prominent compared to prior exam. 3. Bilateral hilar prominent interstitial markings suggestive of interstitial fibrosis. 4. Ascending thoracic aorta dilation to 4.7 cm without rupture or dissection, similar to prior exam. 5. Coronary artery atherosclerotic calcifications. 6. Hepatic steatosis. 7. Distal esophageal and gastric cardia wall thickening may be due to nondistention, esophagitis/gastritis may also be a consideration as well as a possible infiltrative lesion depending on the clinical scenario. 8. Emphysematous changes. COMMENTS: In the absence of a history or active diagnosis of lung cancer, it is recommended that this patient with emphysema be evaluated for enrollment in a low dose CT lung cancer screening program.
== END 2022-10-23 12:25 | disposition home or self-care (01) ==
LOC: RAD 12:25
PROVIDERS: PCP Family Medicine; Visit Provider Internal Medicine Hematology & Oncology
DX: C34.12 Malignant neoplasm of upper lobe, left bronchus or lung (principal); J43.9 Emphysema, unspecified; K76.0 Fatty (change of) liver, not elsewhere classified; I25.10 Atherosclerotic heart disease of native coronary artery without angina pectoris
CPT/HCPCS: 71260; Q9967

== ENCOUNTER 2022-11-02 08:37 | Oncology outpatient (recurring) (ONCR) | payer MEDICARE, MEDICAID, SELFPAY | END 2022-11-20 23:59 | disposition home or self-care (01) | PROVIDERS: PCP Family Medicine; Visit Provider Internal Medicine Hematology & Oncology | DX: Z45.2 Encounter for adjustment and management of vascular access device; Z95.828 Presence of other vascular implants and grafts | CPT/HCPCS: 96523 ==

== ENCOUNTER 2022-11-21 08:38 | Emergency (ER) | payer MEDICARE, MEDICAID, SELFPAY ==
[2022-11-21 08:44] VITALS: BP 111/85; PULSE 99; RESP 18; TEMP 36.5; O2SAT 93; BMI 25.8
[2022-11-21 09:02] LABS: Basophils # 0.1 10^3/uL (0.0-0.1); Basophils % 0.7 %; Eosinophils # 0.2 10^3/uL (0.0-0.8); Eosinophils % 2.3 %; Hematocrit 37.9 % (42.0-52.0); Hemoglobin 11.6 g/dL (11.7-16.6); Lymphocytes # 2.7 10^3/uL (0.8-4.8); Lymphocytes % 28.6 %; Mean Corpuscular HGB Conc 30.6 g/dL (30.0-36.0); Mean Corpuscular Hemoglobin 26.5 pg (28.0-34.0); Mean Corpuscular Volume 86.7 fl (80-94); Mean Platelet Volume 8.8 fL (7.4-10.4); Monocytes # 0.8 10^3/uL (0.2-0.9); Monocytes % 7.9 %; Neutrophils # 5.67 10^3/uL (1.8-7.7); Neutrophils % 59.4 %; Nucleated Red Blood Cells % 0 %; Platelet Count 416 10^3/cmm (130-400); Red Blood Count 4.37 10^6/uL (4.1-5.3); Red Cell Distribution Width 17.8 % (12.1-15.1); White Blood Count 9.6 10^3/uL (4.0-10.0)
--- NOTE | 2022-11-21 09:04 | ED_ITS ---
HPI - Weakness General: Chief complaint: Weakness Stated complaint: N/C Source: patient and family Mode of arrival: EMS History of Present Illness: 72-year-old male presents emergency room with complaints of nausea vomiting and weakness. 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 His told me that he has remission lung cancer that metastasized to the liver however on review of the chart I do not see any evidence of diagnosed liver metastasis in the past he has had a couple recurrences of non-small cell lung cancer which she has been treated but is Dr. Bill initiate chemotherapy and radiation and immune therapy subsequently has had recurrent episodes treated with chemotherapy and his last CTs it looks like the lesions had regressed. Patient today is complaining of hematemesis coffee- ground emesis and some bright red blood this been going on for the last [address] done in September there was a 3.2 cm x 4.7 cm mass encasing left upper lobe pulmonary artery that was concerning, follow-up CT done in October 23 showed right lower lobe 6.6 cm area concerning for either infectious process or recurrence of pneumonia right lower lobe area had a lesion 5.7 cm. There is a 4.7 cm a sending thoracic aneurysm without rupture no mention of any liver involvement at that time. His biggest complaint today seems to be nausea and vomiting and diarrhea all with blood at times patient states he has streaking blood and blood on the toilet paper his says he has had large bloody stools intermittently since August. There is no mention of bloody stools but he did mention it September in the ER when he was seen he had some bloody emesis. He is not on any anticoagulation. Complaint: generalized weakness Onset (ago): week(s) Duration: intermittent Relieving factors: none Exacerbating factors: none Associated symptoms: Reports melena, decreased appetite and nausea; Denies chest pain, chills, confusion, diaphoresis, dysuria, easy bruising, fever(s), headache(s), myalgias, rash, short of breath, syncope or vomiting Review of Systems Const: Denies: fever(s), chills or diaphoresis Card: Denies: chest pain or syncope Resp: Reports: dyspnea and non-productive cough; Denies: productive cough GI: Reports: nausea and melena; Denies: vomiting : Denies: dysuria, urinary frequency or urinary urgency Neuro: Denies: headache(s) or confusion Iggy/Lymph: Denies: easy bruising PFSH ED PFSH: Medical History Angina pectoris, unspecified Ascending aortic aneurysm BPH (benign prostatic hyperplasia) COPD (chronic obstructive pulmonary disease) Diabetes mellitus Encounter for insertion of venous access port HLD (hyperlipidemia) HTN (hypertension) Migraine headache with aura Nicotine dependence, cigarettes, with unspecified nicotine-induced disorders NSCLC of left lung Pituitary macroadenoma He was seeing endo in [place]. Smoking addiction Surgical History H/O hernia repair History of bronchoscopy S/P hernia repair Family History Mother Cancer Father COPD (chronic obstructive pulmonary disease) CAD (coronary artery disease) Social History Smoking and tobacco status: current some day smoker cigarettes Packs smoked per day: 0.5 Years cigarettes smoked: 54 Smoking risk assessment/counseling performed?: Yes Alcohol intake: former Counseling given: No Counseling given: No Lives independently: Yes Household members: spouse Marital status: Current occupational status: retired History of recent travel: No Current gender identity: Male Physical Exam Const: COMMON NORMALS: no acute distress GENERAL APPEARANCE: cooperative and comfortable ORIENTATION/CONSCIOUSNESS: Yes awake, Yes oriented to person, Yes oriented to place and Yes oriented to time HENMT: COMMON NORMALS: normocephalic, atraumatic and hearing grossly normal bilaterally HEAD & SCALP: normocephalic and atraumatic Resp: COMMON NORMALS: normal respiratory effort, No retractions, No use of accessory muscles and clear to auscultation bilaterally AUSCULTATION: clear to auscultation bilaterally Cardio: COMMON NORMALS: regular rate, regular rhythm and No murmurs present (Cardio) RATE: regular rate RHYTHM: regular rhythm GI: COMMON NORMALS: Soft to palpation and No hepatosplenomegaly present AUSCULTATION: Yes normoactive bowel sounds PALPATION: Yes Soft to palpation, No Tenderness to palpation present (GI), No Guarding due to palpation present (GI) and Yes No hepatosplenomegaly present Extremity: COMMON NORMALS: normal to inspection, capillary refill normal, no clubbing, cyanosis or edema, no calf tenderness and no pedal edema Neuro: SENSORIUM/ORIENTATION: Yes oriented to person, Yes oriented to place and Yes oriented to time Skin: COMMON NORMALS: no rashes or lesions noted GENERAL SKIN EXAM: no rashes or lesions noted Course Vital Signs: Vital signs: Vital Signs Temperature 97.7 F 11/21/22 08:44 Pulse Rate 99 11/21/22 08:44 Respiratory Rate 18 11/21/22 08:44 Blood Pressure 118/81 11/21/22 14:12 Pulse Oximetry 95 11/21/22 14:12 Oxygen Delivery Me thod 11/21/22 13:48 Oxygen Flow Rate 2 11/21/22 13:48 MDM - Weakness Medical Decision Making Reviewed oncology notes extensively. At this time he is just being monitored. Hemoglobin is actually little bit improved electrolytes are good. He has been out of ondansetron. Additionally he was prescribed oxygen when he last left the hospital but there was some sort of logistical issue insurance company was not paying for it so he returned I do think he will benefit from we will do a home O2 evaluation or discharge home with ondansetron to use as needed he has a follow-up in the next week with Dr. Bill they can evaluate for possible EGD and colonoscopy. Medical Records I reviewed the patient's medical records. Lab Data I reviewed the patient's lab results. 11/21/22 08:40 11/21/22 08:40 Radiology Impressions Chest X-Ray 11/21/22 10:04 IMPRESSION: 1. No acute findings. 2. Low lung volumes left hemithorax 3. Hyperexpanded right lung Laboratory Results WBC 9.6 10^3/uL (4.0-10.0) 11/21/22 08:40 RBC 4.37 10^6/uL (4.1-5.3) 11/21/22 08:40 Hgb 11.6 g/dL (11.7-16.6) L 11/21/22 08:40 Hct 37.9 % (42.0-52.0) L 11/21/22 08:40 MCV 86.7 fl (80-94) 11/21/22 08:40 MCH 26.5 pg (28.0-34.0) L 11/21/22 08:40 MCHC 30.6 g/dL (30.0-36.0) 11/21/22 08:40 RDW 17.8 % (12.1-15.1) H 11/21/22 08:40 Plt Count 416 10^3/cmm (130-400) H 11/21/22 08:40 MPV 8.8 fL (7.4-10.4) 11/21/22 08:40 Neut % (Auto) 59.4 % 11/21/22 08:40 Lymph % (Auto) 28.6 % 11/21/22 08:40 [place] % (Auto) 7.9 % 11/21/22 08:40 Eos % (Auto) 2.3 % 11/21/22 08:40 Baso % (Auto) 0.7 % 11/21/22 08:40 Neut # (Auto) 5.67 10^3/uL (1.8-7.7) 11/21/22 08:40 Lymph # (Auto) 2.7 10^3/uL (0.8-4.8) 11/21/22 08:40 [place] # (Auto) 0.8 10^3/uL (0.2-0.9) 11/21/22 08:40 Eos # (Auto) 0.2 10^3/uL (0.0-0.8) 11/21/22 08:40 Baso # (Auto) 0.1 10^3/uL (0.0-0.1) 11/21/22 08:40 Nucleated RBC % (auto) 0 % 11/21/22 08:40 Nucleated RBCs # 0.0 /100WBC 11/21/22 08:40 Sodium 137 mmol/L (136-145) 11/21/22 08:40 Potassium 4.2 mmol/L (3.5-5.1) 11/21/22 08:40 Chloride 99 mmol/L (98-107) 11/21/22 08:40 Carbon Dioxide 27 mmol/L (22-29) 11/21/22 08:40 Anion Gap 15.2 (5-19) 11/21/22 08:40 BUN 16 mg/dL (8-23) 11/21/22 08:40 Creatinine 0.8 mg/dL (0.7-1.2) 11/21/22 08:40 GFR Calculation Not Reportable 11/21/22 08:40 Glucose 136 mg/dL (65-115) H 11/21/22 08:40 Calculated Osmolality 287 mOsm/kg (285-295) 11/21/22 08:40 Calcium 9.4 mg/dL (8.5-10.5) 11/21/22 08:40 Total Bilirubin 0.3 mg/dL (0.15-1.2) 11/21/22 08:40 AST 12 U/L (0-40) 11/21/22 08:40 ALT 10 U/L (0-41) 11/21/22 08:40 Alkaline Phosphatase 102 U/L (40-130) 11/21/22 08:40 Total Protein 7.9 g/dL (6.6-8.7) 11/21/22 08:40 Albumin 3.7 g/dL (3.5-5.2) 11/21/22 08:40 Globulin 4.2 g/dL (1.3-4.6) 11/21/22 08:40 Lipase 20 U/L (13-60) 11/21/22 08:40 Urine Color Yellow (Yellow) 11/21/22 09:25 Urine Appearance Hazy (CLEAR) A 11/21/22 09:25 Urine pH 5 (5-7) 11/21/22 09:25 Ur Specific [place] 1.025 (1.005-1.030) 11/21/22 09:25 Urine Protein Neg (Negative) 11/21/22 09:25 Urine Glucose (UA) Norm (Normal) 11/21/22 09:25 Urine Ketones 1+ (Negative) H 11/21/22 09:25 Urine Blood Neg (Negative) 11/21/22 09:25 Urine Nitrate Negative (Negative) 11/21/22 09:25 Urine Bilirubin 1+ (Negative) H 11/21/22 09:25 Urine Urobilinogen 1 mg/dL (Negative) H 11/21/22 09:25 Ur Leukocyte Esterase Negative (Negative) 11/21/22 09:25 Urine RBC None /hpf (0-2) 11/21/22 09:25 Urine WBC None /hpf (0-5) 11/21/22 09:25 Ur Squamous Epith Cells 5-10 /hpf (0-5) H 11/21/22 09:25 Amorphous Sediment Not Reportable 11/21/22 09:25 Urine Bacteria None /hpf (NONE) 11/21/22 09:25 Discharge Plan Discharge Patient Disposition: Home Clinical Impression: NSCLC of left lung, Nausea & vomiting, Hematochezia Condition: Stable Prescriptions: No Action albuterol sulfate [ProAir HFA] 90 mcg/actuation HFA aerosol inhaler 2 puff inhalation Q4H PRN (Reason: Shortness Of Breath Or Wheezing) Qty: 8.5 6RF sumatriptan succinate 100 mg tablet See Rx Instructions .ROUTE .COMPLEX Qty: 9 2RF Dose Instruction: TAKE 1 TABLET BY MOUTH EVERY 2 HOURS NEEDED FOR MIGRAINE HEADACHE, MAX 2 TABLETS IN 24 HOURS Rx Instructions: TAKE 1 TABLET BY MOUTH EVERY 2 HOURS NEEDED FOR MIGRAINE HEADACHE, MAX 2 TABLETS IN 24 HOURS ondansetron 4 mg tablet,disintegrating 4 mg PO Q8H PRN (Reason: nausea and vomiting) Qty: 15 0RF metoprolol succinate 50 mg tablet extended release 24 hr 50 mg PO DAILY tamsulosin [Flomax] 0.4 mg capsule 0.4 mg PO BEDTIME montelukast 10 mg tablet 10 mg PO QPM rosuvastatin 10 mg tablet 10 mg PO QAM ipratropium-albuterol 0.5 mg-3 mg(2.5 mg base)/3 mL Solution For Nebulization 3 ml inhalation QID Qty: 360 0RF budesonide 0.5 mg/2 mL Suspension For Nebulization 0.5 mg inhalation BID Qty: 120 0RF Allergy Relief (levocetirizin) 5 mg tablet 5 mg PO QAM PRN (Reason: Allergy Symptoms) aspirin 81 mg Tablet,Delayed Release (Dr/Ec) 324 mg PO QAM Discharge Orders: Discharge ED (Routine); Ordered 11/21/22 Ordered By: Stan Marroquin Other Ambulatory Orders: DME: Oxygen (Order) Location: None Selected Ordered By: Stan Marroquin Referrals: Krystal Queen DO [Primary Care Provider] - Patient Instructions: Opioid Safety, Pain Management Coding Level of Care Code ED Inner Tube Inserter for Chg Fwd Exam Detailed
[2022-11-21 09:14] LABS: Alanine Aminotransferase 10 U/L (0-41); Albumin Level 3.7 g/dL (3.5-5.2); Alkaline Phosphatase 102 U/L (40-130); Anion Gap 15.2 (5-19); Aspartate Amino Transferase 12 U/L (0-40); Blood Urea Nitrogen 16 mg/dL (8-23); Calcium 9.4 mg/dL (8.5-10.5); Carbon Dioxide 27 mmol/L (22-29); Chloride 99 mmol/L (98-107); Globulin 4.2 g/dL (1.3-4.6); Glucose 136 mg/dL (65-115); Lipase 20 U/L (13-60); Osmolality Calculated 287 mOsm/kg (285-295); Potassium 4.2 mmol/L (3.5-5.1); Sodium 137 mmol/L (136-145); Total Bilirubin 0.3 mg/dL (0.15-1.2); Total Protein 7.9 g/dL (6.6-8.7)
--- NOTE | 2022-11-21 10:04 | XRR_ITS ---
PROCEDURE INFORMATION: Exam: XR Chest Exam date and time: 11/21/2022 10:07 AM Age: 72 years old Clinical indication: Cough and dyspnea; Prior surgery; Surgery type: Port; Patient HX: History--cough, dyspnea, been in and out of the hospital since July, PT does have a HX of lung cancer but in remission; Additional info: Dyspnea/cough TECHNIQUE: Imaging protocol: Radiologic exam of the chest. Views: 1 view. COMPARISON: CT chest w con* [id number] 10/23/2022 12:55 PM FINDINGS: Lungs: The left lung shows decreased volume. There is hyperexpansion of the right lung No consolidation. Pleural spaces: Unremarkable. No pleural effusion. No pneumothorax. Heart/Mediastinum: Unremarkable. No cardiomegaly. Bones/joints: Unremarkable. XR/XR chest 1V portable [id number] IMPRESSION: 1. No acute findings. 2. Low lung volumes left hemithorax 3. Hyperexpanded right lung
[2022-11-21 10:59] LABS: Add Urine Microscopic? YES; Bilirubin Urine 1+ (Negative); Blood Urine Neg (Negative); Glucose Urine UA Norm (Normal); Ketones Urine 1+ (Negative); Leukocyte Esterase Urine Negative (Negative); Nitrate Urine Negative (Negative); Protein Urine Neg (Negative); Specific Gravity, Urine 1.025 (1.005-1.030); Urine Appearance Hazy (CLEAR); Urine Color Yellow (Yellow); Urobilinogen Urine 1 mg/dL (Negative); pH Urine 5 (5-7)
[2022-11-21 11:00] LABS: Add Urine Culture? No
[2022-11-21 11:30] VITALS: O2SAT 87; O2SAT 93
[2022-11-21 13:48] VITALS: BP 111/85; O2SAT 95
[2022-11-21 14:12] VITALS: BP 118/81; O2SAT 95
== END 2022-11-21 14:13 | disposition home or self-care (01) ==
PROVIDERS: Emergency Provider Family Medicine; PCP Family Medicine
DX: R11.2 Nausea with vomiting, unspecified (principal); K92.1 Melena; Z79.82 Long term (current) use of aspirin; J44.9 Chronic obstructive pulmonary disease, unspecified; E11.9 Type 2 diabetes mellitus without complications; E78.5 Hyperlipidemia, unspecified; I10 Essential (primary) hypertension; F17.210 Nicotine dependence, cigarettes, uncomplicated; C34.92 Malignant neoplasm of unspecified part of left bronchus or lung; Z92.21 Personal history of antineoplastic chemotherapy
CPT/HCPCS: 71045; 80053; 81001; 83690; 85025; 99284

== ENCOUNTER 2023-01-05 05:55 | Outpatient (CLI) | payer MEDICARE, MEDICAID, SELFPAY ==
--- NOTE | 2023-01-05 09:08 | PETR_ITS ---
PROCEDURE INFORMATION: Exam: PET/CT Skull Base to Mid-thigh Exam date and time: 01/05/2023 10:19 AM Age: 72 years old Clinical indication: Newly diagnosed esophageal cancer. Initial oncological staging assessment. 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 LABS AND CLINICAL REPORTS: Glucose: 134 mg/dl Treatment strategy for malignancy (PET staging): Initial Staging (PI) TECHNIQUE: Imaging protocol: Following at least four-hour fasting and following the injection of F-18-FDG, low dose CT images were obtained. Then, PET images were obtained. Attenuation corrected images were constructed using the CT scan. Fused images of PET and CT were reviewed. The standardized uptake values (SUV) reported below are maximum values within a region of interest, expressed in gm/ml. Exam includes orbital meatal line to mid-thigh. Radiopharmaceutical: 15.2 mCi F-18 FDG (Fluorodeoxyglucose), IV. Time of imaging post radiopharmaceutical administration: 46.1 minutes. Injection site: Left antecubital vein. COMPARISON: 1. CT chest 10/23/2022. 2. CTA chest abdomen pelvis 09/25/2022. 3. PET/CT 03/04/2021. FINDINGS: Tubes, catheters and devices: A left chest port is in good position with its tip the SVC/RA junction. Brain: Visualized brain has normal physiologic uptake. Pharynx: No abnormal uptake. Larynx: No abnormal uptake. Lungs, pleura and trachea: Abnormal FDG avidity at the posterior aspect of the left pulmonary hilum has an SUV max of 6.3 (image 4:56). It is suspicious for recurrent/residual squamous cell carcinoma. FDG avidity at the medial aspect of the left lower lobe at the level of the left pulmonary hilum has a straight lateral margin, which is consistent with radiation pneumonitis within the radiation port. A new small left pleural effusion is 1.0 cm in depth. Emphysematous changes. On the comparison CT chest 10/23/2022, there was dense consolidation at the medial aspect of the right lower lobe. It has 95% resolved (series 3, image 64). It must have been pneumonia. A discoid opacity in the posterolateral aspect of the left lower lobe is not FDG avid (series 3, image 66). Its SUV max is only 1.5. It is consistent with scarring and/or atelectasis. Heart: No cardiomegaly. No pericardial effusion. Mediastinal space: The known cancer in the distal esophagus and gastric cardia is 9.0 cm in length (series 4 images 62-85). It involves 5.5 cm of the distal esophagus and 3.5 cm of the proximal stomach. SUV max in the distal esophageal tumor is 5.2 (image for:72). SUV max in the proximal gastric tumor is 5.7 (image 4:78). Liver: No hepatic steatosis or lesions. Gallbladder and bile ducts: No abnormal uptake. Pancreas: No abnormal uptake. Spleen: No abnormal uptake. Adrenal glands: No abnormal uptake. Kidneys and ureters: Normal physiologic uptake. Stomach and bowel: Moderate diverticulosis of the descending and sigmoid colon without evidence of diverticulitis. Vasculature: Aneurysmal dilatation of the ascending aorta is 5.0 cm. There is moderate calcific atherosclerosis of the abdominal aorta and iliac arteries. There is no aneurysm. Lymph nodes: An FDG avid subcarinal mediastinal lymph node has a short axis of 1.1 cm and an SUV max of 3.6. Bones/joints: Moderate spinal degenerative changes. No FDG avid skeletal metastases. Soft tissues: No metabolically active areas. PET/PET skulltothigh INITIAL [id number] IMPRESSION: 1. The known cancer in the distal esophagus and gastric cardia is 9.0 cm in length. It involves 5.5 cm of the distal esophagus and 3.5 cm of the proximal stomach. SUV max in the distal esophagus is 5.2 (image 4:72) (previously 4.1 on 03/12/2020). SUV max in the proximal stomach is 5.7 (image 4:78). 2. Abnormal FDG avidity at the posterior aspect of the left pulmonary hilum has an SUV max of 6.3 (image 4:56). It is suspicious for recurrent/residual squamous cell carcinoma. 3. FDG avidity at the medial aspect of the left lower lobe at the level of the left pulmonary hilum has a straight lateral margin, which is consistent with radiation pneumonitis within the radiation port. 4. A mildly enlarged subcarinal lymph nodes is mildly FDG avid with an SUV max of 3.6 (previously 3.2 on 03/12/2020). 5. A new small left pleural effusion is 1.0 cm in depth. 6. Aneurysmal dilatation of the ascending aorta is 5.0 cm. 7. On the comparison CT chest 10/23/2022, there was dense consolidation at the medial aspect of the right lower lobe. Because it has 95% resolved, it must have been pneumonia.
== END 2023-01-05 05:56 | disposition home or self-care (01) ==
LOC: RAD 01-07 05:55
PROVIDERS: PCP Family Medicine; Visit Provider Internal Medicine Hematology & Oncology
DX: C34.12 Malignant neoplasm of upper lobe, left bronchus or lung (principal); J90 Pleural effusion, not elsewhere classified
CPT/HCPCS: 78815; A9552

== ENCOUNTER 2023-01-11 09:00 | Oncology outpatient (recurring) (ONCR) | payer MEDICARE, MEDICAID, SELFPAY ==
[2022-12-26 13:00] LABS: Basophils # 0.1 10^3/uL (0.0-0.1); Basophils % 1.2 %; Eosinophils # 0.2 10^3/uL (0.0-0.8); Eosinophils % 2.6 %; Hematocrit 32.5 % (42.0-52.0); Hemoglobin 9.7 g/dL (11.7-16.6); Lymphocytes # 2.2 10^3/uL (0.8-4.8); Lymphocytes % 28.7 %; Mean Corpuscular HGB Conc 29.8 g/dL (30.0-36.0); Mean Corpuscular Hemoglobin 25.3 pg (28.0-34.0); Mean Corpuscular Volume 84.9 fl (80-94); Mean Platelet Volume 9.2 fL (7.4-10.4); Monocytes # 0.6 10^3/uL (0.2-0.9); Monocytes % 7.5 %; Neutrophils # 4.59 10^3/uL (1.8-7.7); Neutrophils % 59.7 %; Nucleated Red Blood Cells % 0 %; Platelet Count 340 10^3/cmm (130-400); Red Blood Count 3.83 10^6/uL (4.1-5.3); Red Cell Distribution Width 18.8 % (12.1-15.1); White Blood Count 7.7 10^3/uL (4.0-10.0)
[2022-12-26 13:16] LABS: Albumin Level 3.2 g/dL (3.5-5.2); Alkaline Phosphatase 108 U/L (40-130); Anion Gap 11.2 (5-19); Aspartate Amino Transferase 20 U/L (0-40); Blood Urea Nitrogen 23 mg/dL (8-23); Calcium 8.7 mg/dL (8.5-10.5); Carbon Dioxide 24 mmol/L (22-29); Chloride 104 mmol/L (98-107); Globulin 3.4 g/dL (1.3-4.6); Glucose 139 mg/dL (65-115); Osmolality Calculated 286 mOsm/kg (285-295); Potassium 4.2 mmol/L (3.5-5.1); Sodium 135 mmol/L (136-145); Total Bilirubin 0.2 mg/dL (0.15-1.2); Total Protein 6.6 g/dL (6.6-8.7)
[2022-12-26 13:47] LABS: Alanine Aminotransferase 20 U/L (0-41)
[2022-12-26 15:39] LABS: Ferritin 55 ng/mL (30-400); Iron 39 ug/dL (59-158); Total Iron Binding Capacity 278 mcg/dl; Unsaturated Iron Binding 239 ug/dL (112-347)
[2022-12-26 15:56] LABS: Vitamin B12 437 pg/mL (232-1245)
== END 2023-01-18 23:59 | disposition home or self-care (01) ==
PROVIDERS: PCP Family Medicine; Visit Provider Internal Medicine Hematology & Oncology
DX: Z53.9 Procedure and treatment not carried out, unspecified reason
CPT/HCPCS: 36415; 80053; 82607; 82728; 83540; 83550; 85025; 96523; 99214

== ENCOUNTER 2023-01-11 09:02 | Inpatient (IN) | payer MEDICARE, MEDICAID, SELFPAY ==
--- NOTE | 2023-01-11 09:14 | XR_ITS ---
WS: [id number] EXAMINATION: XR chest 1V portable [id number] REASON FOR EXAM: dyspnea/cough COMPARISON: 11/21/2022 ORDER DATE: 01/11/2023 9:14 AM TECHNIQUE: A single, portable frontal chest x-ray was obtained. X-RAY FINDINGS: There is a triangular area of consolidation obscuring the elevated left lateral hemidiaphragm midport ion of the left heart border minor widening of the left paratracheal soft tissues unchanged. Vague in creased density in the left hilum. Port-A-Cath unchanged on the left. Right lung clear. . No evidenc e for pulmonary edema. Soft tissue and osseous structures are unremarkable. XR/XR chest 1V portable [id number] IMPRESSION: The peripheral left costophrenic angle consolidation includes differential diag nosis of pulmonary infarct, pleural-based mass, loculated fluid with atelectasi s, or pneumonia. Recommend a lateral chest view and/or chest CT imaging for fur ther assessment
--- NOTE | 2023-01-11 09:14 | ECG_ITS ---
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 Measurements Intervals [place] Rate: 107 P: 23 ID: [id number] QRS: 28 QRSD: 88 T: 57 QT: 351 QTc: 470 Interpretive Statements SINUS TACHYCARDIA ST DEVIATION AND MODERATE T-WAVE ABNORMALITY, CONSIDER ANTERIOR ISCHEMIA [-0.1+ mV T-WAVE IN V3/V4] Compared to ECG 09/25/2022 15:09:28 T-wave abnormality now present Possible ischemia now present Sinus rhythm no longer present Electronically Signed On 01-11-2023 23:01:34 CDT by Albert Jackson M.D. [email or web address]
[2023-01-11 09:19] VITALS: BP 110/79; PULSE 107; RESP 25; TEMP 36.8; O2SAT 94
[2023-01-11 09:23] LABS: ABG PCO2 35.6 mmHg (35-45); ABG PH Result 7.47 (7.35-7.45); Alveolar-Arterial Oxygen Gradi 5.5 mmHg (5-10); Arterial Blood Gas Hematocrit 34.6 % (42-52); Base Excess ABG 2.1 mmol/L (-2.0-2.0); Blood Gas Allen Test Pos; Blood Gas Operator Identificat WALCI; Blood Gas Sample Site Brachial, left; Blood Gas Sample Type Arterial; Carboxyhemoglobin 1.4 %THgb (0.4-20.1); HCO3 ABG 25.7 mmol/L (22-26); HGB O2 Sat 91.5 % (95-100); Ionized Calcium Level - ABG 1.2 mmol/L (1.1-1.4); Methemoglobin 0.4 % (0.4-1.5); Oxygen Device NRB; Oxygen Saturation ABG 93.2; PO2 ABG 62.2 mmHg (80.0-100.0); Potassium Level - ABG 3.1 mmol/L (3.5-5.0); Total Hemoglobin 11.3 g/dL (14-18)
--- NOTE | 2023-01-11 09:26 | W.ED.SOB ---
HPI - SOB/Dyspnea General: Chief Complaint: General Medical Stated Complaint: weakness Time Seen by Provider: 01/11/23 09:13 Source: patient Mode of arrival: wheelchair History of Present Illness: HPI Narrative: 72-year-old male with a history of esophageal cancer with metastasis to the lungs presents emergency room from the cancer center where he was poorly responsive requiring 15 L by mask to maintain his oxygen sats. On arrival here he is lethargic unable to answer question family member at the bedside and medical records give history. Patient has been intermittently vomiting blood that seem to actually have decreased but he continues to have progressively worsening symptoms. He recently had a PET scan. He was at the oncology center today to discuss PET scan results with his oncologist the plan was to shift to comfort care they had stopped all treatments for the cancer. MD elicited complaint: shortness of breath and cough Pertinent past history: COPD Onset (ago): day(s) Context: recent illness Timing: constant Severity: severe Exacerbating factors: nothing Relieving factors: nothing Known history of: COPD and other (Esophageal CA with mets to lungs) Associated symptoms: Reports no associated symptoms, cough and myalgias; Deny paresthesias, rash, sense of impending doom or other Treatment prior to arrival: oxygen Review of Systems General: Reports: ROS unobtainable due to mental status (Limited review of systems obtained from family at the bedside) Const: Reports: fatigue and malaise Resp: Reports: dyspnea and non-productive cough PFSH ED PFSH: Medical History Angina pectoris, unspecified Ascending aortic aneurysm BPH (benign prostatic hyperplasia) COPD (chronic obstructive pulmonary disease) Diabetes mellitus Encounter for insertion of venous access port HLD (hyperlipidemia) HTN (hypertension) Migraine headache with aura Nicotine dependence, cigarettes, with unspecified nicotine-induced disorders NSCLC of left lung Pituitary macroadenoma He was seeing endo in [place]. Smoking addiction Surgical History H/O hernia repair History of bronchoscopy S/P hernia repair Family History Mother Cancer Father COPD (chronic obstructive pulmonary disease) CAD (coronary artery disease) Social History Smoking and tobacco status: current some day smoker cigarettes Packs smoked per day: 0.5 Years cigarettes smoked: 54 Smoking risk assessment/counseling performed?: Yes Alcohol intake: former Counseling given: No Counseling given: No Lives independently: Yes Household members: spouse Marital status: Current occupational status: retired Current gender identity: Male Physical Exam Const: ORIENTATION/CONSCIOUSNESS: Yes awake HENMT: COMMON NORMALS: normocephalic, atraumatic and hearing grossly normal bilaterally HEAD & SCALP: normocephalic and atraumatic Resp: EFFORT & INSPECTION: Yes respiratory distress and Yes uses accessory muscles AUSCULTATION: wheezes Cardio: COMMON NORMALS: regular rate, regular rhythm and No murmurs present (Cardio) RATE: regular rate RHYTHM: regular rhythm GI: COMMON NORMALS: Soft to palpation and No hepatosplenomegaly present AUSCULTATION: Yes normoactive bowel sounds PALPATION: Yes Soft to palpation, No Tenderness to palpation present (GI), No Guarding due to palpation present (GI) and Yes No hepatosplenomegaly present Extremity: COMMON NORMALS: normal to inspection, capillary refill normal, no clubbing, cyanosis or edema, no calf tenderness and no pedal edema Skin: COMMON NORMALS: no rashes or lesions noted GENERAL SKIN EXAM: no rashes or lesions noted Course Vital Signs: Vital signs: Vital Signs Temperature 97.6 F 01/11/23 15:43 Pulse Rate 83 01/11/23 15:43 Respiratory Rate 18 01/11/23 15:43 Blood Pressure 101/72 01/11/23 15:43 Pulse Oximetry 92 01/11/23 14:13 Oxygen Delivery Me thod 01/11/23 15:43 Oxygen Flow Rate 6 01/11/23 15:43 MDM - SOB/Dyspnea Medical Decision Making Patient's chart reviewed. Labs and imaging reviewed from today and the recent PET scan. Discussed with the patient's oncologist Dr. iBll. Patient has acute cholecystitis its fairly impressive on the CT. He is not going to be a surgical candidate because of his overall poor health. The plan was for the patient to be enrolled in hospice after a visit with the oncologist today and confirmed that with Dr. Bill. Discussed with the family he is not a surgical candidate and he does have pretty significant gallbladder disease at this point in looks like he is septic from it. They are willing to treat with IV antibiotics and if he does not improve then transition to comfort care Dr. Bill recommended this as well. The other option would be just proceeding directly to comfort care. Given the degree of cholecystitis its seems unlikely he will improve without any kind of intervention. Discussed these options with him and family wishes to trial the antibiotics I discussed Dr. Kurtz orders written Medical Records I reviewed the patient's medical records. Lab Data I reviewed the patient's lab results. 01/11/23 09:19 01/11/23 09:19 Labs/Radiology: Radiology Impressions Chest X-Ray 01/11/23 09:14 IMPRESSION: The peripheral left costophrenic angle consolidation includes differential diagnosis of pulmonary infarct, pleural-based mass, loculated fluid with atelectasis, or pneumonia. Recommend a lateral chest view and/or chest CT imaging for further assessment Chest CTA 01/11/23 09:48 IMPRESSION: 1. Peripheral filling defect in the proximal left lower lobar artery. Probable extrinsic compression from the adjacent mass. Nonocclusive thromboembolism cannot be excluded. 2. Severe acute cholecystitis. 3. Intermediate density subcapsular fluid collection extending over the anterior right lobe of the liver to the gallbladder fossa. Possible subcapsular abscess. 4. Progressive volume loss in the left lower lobe and lingula with increased peripheral subpleural opacity suggesting atelectasis. 5. 5.3 cm ascending aortic aneurysm.In general, aortic diameters of 5.[address] patients at high risk for rupture and should be considered for intervention. If connective tissue diseases such as Marfan or Aimee-Danlos disease is known, then a diameter of 5 cm prompts consideration of prophylactic aortic root replacement. 6. Neoplastic findings in the thorax and upper abdomen are similar to 01/05/2023. ADDENDUM: 01/11/23 1219 THIS REPORT CONTAINS FINDINGS THAT MAY BE CRITICAL TO PATIENT CARE. The findings were verbally communicated via telephone conference with STAN MARROQUIN at 12:18 PM CDT on 01/11/2023. The findings were acknowledged and understood. Laboratory Results WBC 18.9 10^3/uL (4.0-10.0) H 01/11/23 09:19 RBC 4.35 10^6/uL (4.1-5.3) 01/11/23 09:19 Hgb 10.8 g/dL (11.7-16.6) L 01/11/23 09:19 Hct 34.6 % (42.0-52.0) L 01/11/23 09:19 MCV 79.5 fl (80-94) L 01/11/23 09:19 MCH 24.8 pg (28.0-34.0) L 01/11/23 09:19 MCHC 31.2 g/dL (30.0-36.0) 01/11/23 09:19 RDW 18.5 % (12.1-15.1) H 01/11/23 09:19 Plt Count 342 10^3/cmm (130-400) 01/11/23 09:19 MPV 9.6 fL (7.4-10.4) 01/11/23 09:19 Neut % (Auto) 89.9 % 01/11/23 09:19 Lymph % (Auto) 5.6 % 01/11/23 09:19 [place] % (Auto) 3.6 % 01/11/23 09:19 Eos % (Auto) 0.1 % 01/11/23 09:19 Baso % (Auto) 0.3 % 01/11/23 09:19 Neut # (Auto) 16.98 10^3/uL (1.8-7.7) H 01/11/23 09:19 Lymph # (Auto) 1.1 10^3/uL (0.8-4.8) 01/11/23 09:19 [place] # (Auto) 0.7 10^3/uL (0.2-0.9) 01/11/23 09:19 Eos # (Auto) 0.0 10^3/uL (0.0-0.8) 01/11/23 09:19 Baso # (Auto) 0.1 10^3/uL (0.0-0.1) 01/11/23 09:19 Nucleated RBC % (auto) 0 % 01/11/23 09:19 Nucleated RBCs # 0.0 /100WBC 01/11/23 09:19 Specimen Type Arterial 01/11/23 09:12 Sample Site Brachial, left 01/11/23 09:12 ABG pH 7.47 (7.35-7.45) H 01/11/23 09:12 ABG pCO2 35.6 mmHg (35-45) 01/11/23 09:12 ABG pO2 62.2 mmHg (80.0-100.0) L 01/11/23 09:12 ABG HCO3 25.7 mmol/L (22-26) 01/11/23 09:12 ABG O2 Saturation 93.2 01/11/23 09:12 ABG Base Excess 2.1 mmol/L (-2.0-2.0) H 01/11/23 09:12 Jovani Test Pos 01/11/23 09:12 A-a O2 Gradient 5.5 mmHg (5-10) 01/11/23 09:12 Hematocrit 34.6 % (42-52) L 01/11/23 09:12 Hgb O2 Saturation 91.5 % (95-100) L 01/11/23 09:12 Carboxyhemoglobin 1.4 %THgb (0.4-20.1) 01/11/23 09:12 Methemoglobin 0.4 % (0.4-1.5) 01/11/23 09:12 Total Hemoglobin 11.3 g/dL (14-18) L 01/11/23 09:12 Sodium 132.0 mmol/L (131-143) 01/11/23 09:12 Potassium 3.1 mmol/L (3.5-5.0) L 01/11/23 09:12 Glucose 176.0 mg/dL (70-115) H 01/11/23 09:12 Ionized Calcium 1.2 mmol/L (1.1-1.4) 01/11/23 09:12 O2 Delivery Device Nrb 01/11/23 09:12 O2 Liters/Min 15.0 % 01/11/23 09:12 Traffic Warehouse Supervisor ID [place] 01/11/23 09:12 Sodium 132 mmol/L (136-145) L 01/11/23 09:19 Potassium 3.3 mmol/L (3.5-5.1) L 01/11/23 09:19 Chloride 95 mmol/L (98-107) L 01/11/23 09:19 Carbon Dioxide 24 mmol/L (22-29) 01/11/23 09:19 Anion Gap 16.3 (5-19) 01/11/23 09:19 BUN 41 mg/dL (8-23) H 01/11/23 09:19 Creatinine 1.2 mg/dL (0.7-1.2) 01/11/23 09:19 GFR Calculation Not Reportable 01/11/23 09:19 Glucose 168 mg/dL (65-115) H 01/11/23 09:19 Calculated Osmolality 288 mOsm/kg (285-295) 01/11/23 09:19 Calcium 8.9 mg/dL (8.5-10.5) 01/11/23 09:19 Total Bilirubin 0.5 mg/dL (0.15-1.2) 01/11/23 09:19 AST 25 U/L (0-40) 01/11/23 09:19 ALT 21 U/L (0-41) 01/11/23 09:19 Alkaline Phosphatase 264 U/L (40-130) H 01/11/23 09:19 Total Protein 7.1 g/dL (6.6-8.7) 01/11/23 09:19 Albumin 2.7 g/dL (3.5-5.2) L 01/11/23 09:19 Globulin 4.4 g/dL (1.3-4.6) 01/11/23 09:19 Discharge Plan Discharge Patient Disposition: Admitted As Inpatient Admit Provider: Bonita Kurtz Clinical Impression: Adenocarcinoma of esophagus, Malignant neoplasm of upper lobe, left bronchus or lung, Acute cholecystitis Condition: Stable Coding Level of Care Code ED Tape Making Machine Operator for Adrianna Sanchez
[2023-01-11 09:40] VITALS: BP 99/66; O2SAT 96
[2023-01-11 09:44] LABS: Basophils # 0.1 10^3/uL (0.0-0.1); Basophils % 0.3 %; Eosinophils % 0.1 %; Hematocrit 34.6 % (42.0-52.0); Hemoglobin 10.8 g/dL (11.7-16.6); Lymphocytes # 1.1 10^3/uL (0.8-4.8); Lymphocytes % 5.6 %; Mean Corpuscular HGB Conc 31.2 g/dL (30.0-36.0); Mean Corpuscular Hemoglobin 24.8 pg (28.0-34.0); Mean Corpuscular Volume 79.5 fl (80-94); Mean Platelet Volume 9.6 fL (7.4-10.4); Monocytes # 0.7 10^3/uL (0.2-0.9); Monocytes % 3.6 %; Neutrophils # 16.98 10^3/uL (1.8-7.7); Neutrophils % 89.9 %; Nucleated Red Blood Cells % 0 %; Platelet Count 342 10^3/cmm (130-400); Red Blood Count 4.35 10^6/uL (4.1-5.3); Red Cell Distribution Width 18.5 % (12.1-15.1); White Blood Count 18.9 10^3/uL (4.0-10.0)
--- NOTE | 2023-01-11 09:48 | CTR_ITS ---
PROCEDURE INFORMATION: Exam: CTA Chest With Contrast Exam date and time: 01/11/2023 10:46 AM Age: 72 years old Clinical indication: Dyspnea and other: Epigastric pain; Additional info: Hypoxia, esophogeal CA w mets to lung. History of left lower lobe squamous cell carcinoma treated with chemo radiation. Other procedure information: . TECHNIQUE: Imaging protocol: Computed tomographic angiography of the chest with contrast. 3D rendering (Not supervised by radiologist): MIP and/or 3D reconstructed images were created by the technologist. Radiation optimization: All CT scans at this facility use at least one of these dose optimization techniques: automated exposure control; mA and/or kV adjustment per patient size (includes targeted exams where dose is matched to clinical indication); or iterative reconstruction. Contrast material: OMNI; Contrast volume: 100 ml; Contrast route: INTRAVENOUS (IV); REPORTING DATA: Count of CT and Cardiac NM exams in prior 12 months: This patient has received 6 known CTs and 0 known cardiac nuclear medicine studies in the 12 months prior to the current study. COMPARISON: 1. CT angio chest PE protcl [id number] 08/29/2022 11:[address] chest w con* [id number] 10/23/2022 12:55 PM [facility]. [id number] 01/05/2023 10:19 AM RADIATION DOSE METRICS: Total DLP (mGy-cm): 388.9 FINDINGS: Pulmonary arteries: There is a filling defect likely due to extrinsic compression of the proximal left lower lobar artery. The remainder of the pulmonary arteries are normal. Aorta: The ascending aorta is dilated to 5.3 cm. Lungs: Irregular nodules and subpleural scarring in the right upper lobe are stable. A nodule on axial series 6, image 23 measures 7 mm. Stable granulomas in right middle lobe. There is no consolidation. Moderate volume loss in the left lower lobe with increased subpleural scarring and atelectasis in the inferolateral left lower lobe. There is new subpleural opacity in the lingula, also suggesting atelectasis. There is stable soft tissue density occupying the right hilum and right lower lung partially surrounding the aorta, measuring in aggregate 8.0 x 3.3 cm, unchanged since the prior PET-CT. There is stable left perihilar reticular opacity consistent with radiation pneumonitis. Pleural spaces: Trace left pleural effusion. Heart: Heart size is normal. Trace pericardial effusion. Heart RV/LV ratio: 0.9 (normal) Coronary arteries: There is moderate coronary artery calcification. Mediastinal space: There is diffuse thickening of the distal esophagus and gastric cardia consistent with a known malignant neoplasm. There is lymphadenopathy in the upper abdomen adjacent to the upper stomach. Lymph nodes: No measurable enlarged mediastinal lymph nodes. Liver: There is an intermediate density subcapsular collection along the anterior right lobe of the liver measuring 4.6 x 1.6 cm which is new since 01/05/2023. This is probably complex fluid which extends along a tract over the anterior aspect of right lobe to the level of the gallbladder fossa. Gallbladder and bile ducts: Gallbladder is markedly dilated. The wall is markedly thickened and there is pericholecystic edema and mesenteric edema in the right upper quadrant. Bones/joints: Bones are unremarkable. Soft tissues: The extrathoracic soft tissues are unremarkable. CT/CT angio chest PE protcl [id number] IMPRESSION: 1. Peripheral filling defect in the proximal left lower lobar artery. Probable extrinsic compression from the adjacent mass. Nonocclusive thromboembolism cannot be excluded. 2. Severe acute cholecystitis. 3. Intermediate density subcapsular fluid collection extending over the anterior right lobe of the liver to the gallbladder fossa. Possible subcapsular abscess. 4. Progressive volume loss in the left lower lobe and lingula with increased peripheral subpleural opacity suggesting atelectasis. 5. 5.3 cm ascending aortic aneurysm.In general, aortic diameters of 5.[address] patients at high risk for rupture and should be considered for intervention. If connective tissue diseases such as Marfan or Aimee-Danlos disease is known, then a diameter of 5 cm prompts consideration of prophylactic aortic root replacement. 6. Neoplastic findings in the thorax and upper abdomen are similar to 01/05/2023.
[2023-01-11 09:58] LABS: Alanine Aminotransferase 21 U/L (0-41); Albumin Level 2.7 g/dL (3.5-5.2); Alkaline Phosphatase 264 U/L (40-130); Anion Gap 16.3 (5-19); Aspartate Amino Transferase 25 U/L (0-40); Blood Urea Nitrogen 41 mg/dL (8-23); Calcium 8.9 mg/dL (8.5-10.5); Carbon Dioxide 24 mmol/L (22-29); Chloride 95 mmol/L (98-107); Globulin 4.4 g/dL (1.3-4.6); Glucose 168 mg/dL (65-115); Osmolality Calculated 288 mOsm/kg (285-295); Potassium 3.3 mmol/L (3.5-5.1); Sodium 132 mmol/L (136-145); Total Bilirubin 0.5 mg/dL (0.15-1.2); Total Protein 7.1 g/dL (6.6-8.7)
--- NOTE | 2023-01-11 11:18 | PC.PHAR ---
PTS STS PT NO LONGER USES A NEBULIZER - ONLY USES INHALER AND HOME O2
[2023-01-11 14:13] VITALS: BP 98/62; O2SAT 92
[2023-01-11] MEDS: piperacillin-tazobactam 4.5 GM in sodium chloride 0.9% (plus) 50 ML IV (14:14)
[2023-01-11 15:43] VITALS: BP 101/72; PULSE 83; RESP 18; TEMP 36.4
[2023-01-11] MEDS: enoxaparin 40 mg/0.4 mL Syringe SUBCUT (16:50)
[2023-01-11] MEDS: fentaNYL 25 mcg Patch 1 PATCH TRANSDERMA (16:50)
[2023-01-11] MEDS: pantoprazole 40 mg SDV IVP (16:51)
[2023-01-11] MEDS: dextrose 5%-sod chloride 0.9% 1,000 ML 100 ML IV (16:58)
--- NOTE | 2023-01-11 19:31 | PM.HP ---
Providers/Chief Complaint Admitting Physician: Bonita Kurtz MD Primary Care Provider: Krystal Queen DO Chief Complaint: weakness History of Present Illness Raymundo Palm is a 72 year old male with PMH advanced lung cancer who has been sent from cancer treatment center for abdominal pain, nausea, intractable vomiting. He was acutely ill appearing on is visit there. In [facility] he has been found to have intermediate density subcapsular collection along the anterior right lobe of the liver measuring 4.6 x 1.6 cm which is new since 01/05/2023. This is probably complex fluid which extends along a tract overthe anterior aspect of right lobe to the level of the gallbladder fossa. Gallbladder and bile ducts: Gallbladder is markedly dilated. The wall is markedly thickened and there is pericholecystic edema and mesenteric edema in the right upper quadrant. In the ER, patient, his and ER physician discussed patient's GOC. it was made clear that without surgical intevrention or drainage for the above findings, patient is highly unlikley to have a significant improvement. Patient's and his outpatient oncologist Dr. Bill had earlier had a discussion about considering hospice. Patient indicated that he would like a trial of abx to see if his symptoms will be alleviated and should there be clinical deterioration he would like to transition to comfort care. He is currently unable to tolerate po medicatiosn. I have had a personal discussion with the patient that without surgical or IR drainage, empiric abx will be suboptimal treatment for his condition. He says he is ready to as he in so much pain. Would like to try conservative treatment for now Review of Systems General: Reports: 10 or more systems reviewed and unremarkable except in HPI and below Const: Denies: fever(s), chills or body aches Eyes: Denies: change in vision, blurry vision or photophobia ENMT: Reports: hoarseness; Denies: throat pain, enlarged tonsils, odynophagia or nasal congestion Card: Denies: chest pain, palpitations, irregular heart rhythm, edema, swelling of feet/ankles, lightheadedness, pre-syncope, dyspnea on exertion or orthopnea Resp: Denies: dyspnea, productive cough, non-productive cough, wheezing, stridor, pain on inspiration, change in phlegm color, hemoptysis or chest congestion GI: Denies: abdominal pain, nausea, vomiting, hematemesis, coffee ground emesis, dysphagia, heartburn, diarrhea, constipation, GI cramping, change in stool character, hematochezia or melena : Denies: flank pain, dysuria, urinary frequency, urinary urgency, urinary hesitancy or hematuria Musc: Denies: neck pain, back pain, extremity pain, joint swelling, joint warmth or deformity Neuro: Denies: headache(s), numbness in extremities, weakness in extremities, sensory changes, difficulty walking, frequent falls, dizziness, vertigo, behavioral changes, Slurred speech present or seizure-like activity Psych: Denies: anxiety, depression, suicidal ideation or homicidal ideation Endo: Denies: polyuria, polydipsia, tired all the time, cold intolerance or hot flashes Iggy/Lymph: Denies: easy bruising or easy bleeding Medications/Allergies Home Medications Medication Instructions Recorded Confirmed Last Taken Type promethazine 25 mg tablet 25 mg PO TID PRN nausea and 11/29/22 01/11/23 Unknown Rx vomiting #20 tabs albuterol sulfate 90 mcg/actuation 2 puff inhalation Q4H PRN 12/24/22 01/11/23 Unknown Rx aerosol inhaler (ProAir HFA) Shortness Of Breath Or Wheezing #8.5 grams levocetirizine 5 mg tablet 5 mg PO QAM PRN Allergy Symptoms 12/24/22 01/11/23 Unknown Rx (Allergy Relief (levocetirizine)) #90 tabs metoprolol succinate 25 mg 25 mg PO DAILY #90 tabs 12/24/22 01/11/23 Unknown Rx tablet,extended release 24 hr montelukast 10 mg tablet 10 mg PO QPM #90 tabs 12/24/22 01/11/23 Unknown Rx ondansetron 4 mg disintegrating See Rx Instructions .Route 12/24/22 01/11/23 Unknown Rx tablet .COMPLEX #30 tabs pantoprazole 40 mg tablet,delayed 40 mg PO BID #60 tabs 12/24/22 01/11/23 Unknown Rx release (Protonix) rosuvastatin 10 mg tablet 10 mg PO QAM #90 tabs 12/24/22 01/11/23 Unknown Rx sucralfate 1 gram tablet (Carafate) 1 g PO Q6H #120 tabs 12/24/22 01/11/23 Unknown Rx tamsulosin 0.4 mg capsule (Flomax) 0.4 mg PO BEDTIME #90 caps 12/24/22 01/11/23 Unknown Rx aspirin 81 mg tablet,delayed 162 mg PO QAM 12/26/22 01/11/23 Unknown History release ferrous sulfate 325 mg (65 mg 325 mg PO DAILY #30 tabs 01/01/23 01/11/23 Unknown Rx iron) tablet Allergies Allergy/AdvReac Type Severity Reaction Status Date / Time bee venom protein (honey bee) Allergy Severe Unknown Verified 01/11/23 11:14 gemfibrozil [From Lopid] Allergy Unknown Unknown Verified 01/11/23 11:14 niacin Allergy Unknown Unknown Verified 01/11/23 11:14 [From Niaspan Extended-Release] PFSH Acute PFSH: Medical History Angina pectoris, unspecified Ascending aortic aneurysm BPH (benign prostatic hyperplasia) COPD (chronic obstructive pulmonary disease) Diabetes mellitus Encounter for insertion of venous access port HLD (hyperlipidemia) HTN (hypertension) Migraine headache with aura Nicotine dependence, cigarettes, with unspecified nicotine-induced disorders NSCLC of left lung Pituitary macroadenoma He was seeing endo in [place] Smoking addiction Surgical History H/O hernia repair History of bronchoscopy S/P hernia repair Family History Mother Cancer Father COPD (chronic obstructive pulmonary disease) CAD (coronary artery disease) Social History Smoking and tobacco status: current some day smoker cigarettes Packs smoked per day: 0.5 Years cigarettes smoked: 54 Smoking risk assessment/counseling performed?: Yes Alcohol intake: former Counseling given: No Counseling given: No Lives independently: Yes Household members: spouse Marital status: Current occupational status: retired Current gender identity: Male Vitals/I&O/Wt Last Vital Signs Temp 97.6 F 01/11/23 15:43 Pulse 83 01/11/23 15:43 Resp 18 01/11/23 15:43 BP 101/72 01/11/23 15:43 Pulse Ox 92 01/11/23 14:13 O2 Del Method 01/11/23 15:43 O2 Flow Rate 6 01/11/23 15:43 Physical Exam Narrative: General: in distress 2/2 pain, AO x3 HEENT: PERRLA, pupils bilaterally equal and reactive, pallors not present Chest: Normal vesicular breath sounds, no added sounds, equal good air entry bilaterally CVS: S1-S2 regular, no murmurs, no tachycardia, no gallops, no rubs Abdomen: Soft, nontender, no organomegaly, bowel sounds present, TTP all over Neuro: No focal deficits, no facial deformity, AO x3, power 5/5 in all limbs Data 01/11/23 09:19 01/11/23 09:19 Micro: Microbiology 01/11/23 13:17 Blood Culture - Preliminary Blood SPECIMEN COLLECTED 01/11/23 13:17 Blood Culture - Preliminary Blood SPECIMEN COLLECTED A&P Assessment and plan (1) Abdominal abscess: (2) Acute cholecystitis: (3) Nausea: (4) Adenocarcinoma of esophagus: (5) Malignant neoplasm of upper lobe, left bronchus or lung: Plan 72 M with advanced lung ca, esophageal ca,advanced deconditioing who is currently not a candidate for further chemotherapeutic options p/w abdominal pain, nausea, vomiting and evidence of cholecystitis with subcapsular abscess. Please see discussion above regarding GOC we do not have any surgical or IR services available at this hospital currently We have informed the patient and family regarding the same Patient wishes at this time are to pursue conservative management hoping for improvement in his pain; if no improvement, consideration will be for comfort care managament Counselled that without drainage of abscess, he is unlikly to have significant benefit from abx alone, he understands but still wishes to proceed. Overall states that he is ready to . Start zosyn, IVF d5 NS , pain mgmt with fentanyl patch, prn morphine, continue home pain medications, scopolamine patch, prn zofran and monitor for improvement If patient tolerated po intake, plan to switch to Cipro and flagyl orally for treatment with transition to hospice at discharge Attestations Medical Necessity Statement*: > 2 midnight anticipated for above care Coding Level of Care Code Acute Code for Chg Fwd Diagnoses Abdominal abscess Acute cholecystitis K81.0 Nausea R11.0 Adenocarcinoma of esophagus C15.9 Malignant neoplasm of upper lobe, left bronchus or lung C34.12
[2023-01-11 20:00] VITALS: BP 98/70; PULSE 81; RESP 17; TEMP 36.7; O2SAT 100
[2023-01-11] MEDS: piperacillin-tazobactam 3.375 GM in sodium chloride 0.9% (plus) 50 ML IV (20:49)
[2023-01-11] MEDS: tamsulosin 0.4 mg Capsule PO (20:49)
[2023-01-11] MEDS: scopolamine 1.5 Patch 1 PATCH TRANSDERMA (20:54)
[2023-01-12] VITALS (8 sets, daily range): BP systolic 86–105; BP diastolic 59–75; PULSE 81–84; RESP 13–18; TEMP 36.3–37.2; O2SAT 94–98
[2023-01-12] MEDS: dextrose 5%-sod chloride 0.9% 1,000 ML 100 ML IV ×3 (01:25→20:41)
[2023-01-12] MEDS: piperacillin-tazobactam 3.375 GM in sodium chloride 0.9% (plus) 50 ML IV ×3 (04:16→20:39)
[2023-01-12 04:58] LABS: Basophils % 0.3 %; Eosinophils % 0.1 %; Hematocrit 33.2 % (42.0-52.0); Hemoglobin 10.2 g/dL (11.7-16.6); Lymphocytes # 0.9 10^3/uL (0.8-4.8); Lymphocytes % 5.8 %; Mean Corpuscular HGB Conc 30.7 g/dL (30.0-36.0); Mean Corpuscular Hemoglobin 24.6 pg (28.0-34.0); Monocytes # 0.7 10^3/uL (0.2-0.9); Monocytes % 4.2 %; Neutrophils # 14.12 10^3/uL (1.8-7.7); Nucleated Red Blood Cells % 0 %; Platelet Count 358 10^3/cmm (130-400); Red Blood Count 4.15 10^6/uL (4.1-5.3); Red Cell Distribution Width 18.8 % (12.1-15.1); White Blood Count 15.9 10^3/uL (4.0-10.0)
[2023-01-12 05:12] LABS: Alanine Aminotransferase 47 U/L (0-41); Albumin Level 2.5 g/dL (3.5-5.2); Alkaline Phosphatase 411 U/L (40-130); Anion Gap 11.9 (5-19); Aspartate Amino Transferase 70 U/L (0-40); Blood Urea Nitrogen 32 mg/dL (8-23); Calcium 8.5 mg/dL (8.5-10.5); Carbon Dioxide 28 mmol/L (22-29); Chloride 98 mmol/L (98-107); Glucose 156 mg/dL (65-115); Osmolality Calculated 290 mOsm/kg (285-295); Sodium 135 mmol/L (136-145); Total Bilirubin 0.4 mg/dL (0.15-1.2); Total Protein 6.5 g/dL (6.6-8.7)
[2023-01-12 05:23] LABS: Potassium 2.9 mmol/L (3.5-5.1)
[2023-01-12] MEDS: lidocaine 1% 5 ML in potassium chloride premix 100 ML 26.25 ML IV ×2 (06:42→14:43)
--- NOTE | 2023-01-12 17:19 | P.PN_ITS ---
Subjective Subjective: Patient states that his pain continues to be uncontrolled. He is however hungry and wishes to eat. Continues to have elevated WBCs. Hypokalemia today. He is more alert and awake today though, able to hold a conversation. Vitals/I&O/Wt Last Vital Signs Temp 97.7 F 01/12/23 16:00 Pulse 81 01/12/23 16:00 Resp 13 01/12/23 16:00 BP 105/74 01/12/23 16:00 Pulse Ox 97 01/12/23 16:00 O2 Del Method 01/12/23 16:00 O2 Flow Rate 5.5 01/12/23 16:00 01/12/23 01/12/23 01/12/23 06:59 14:59 22:59 Intake Total 895 / 945 1050 / 1050 Output Total 200 / 1200 Balance 695 / -255 1050 / 1050 Physical Exam Narrative: General: in distress 2/2 pain, AO x3 HEENT: PERRLA, pupils bilaterally equal and reactive, pallors not present Chest: Normal vesicular breath sounds, no added sounds, equal good air entry bilaterally CVS: S1-S2 regular, no murmurs, no tachycardia, no gallops, no rubs Abdomen: Soft, nontender, no organomegaly, bowel sounds present, TTP all over Neuro: No focal deficits, no facial deformity, AO x3, power 5/5 in all limbs Data 01/12/23 03:51 01/12/23 03:51 Micro: Microbiology 01/11/23 13:17 Blood Culture - Preliminary Blood NEGATIVE TO DATE 01/11/23 13:17 Blood Culture - Preliminary Blood NEGATIVE TO DATE A&P Assessment and plan (1) Abdominal abscess: (2) Acute cholecystitis: (3) Nausea: (4) Adenocarcinoma of esophagus: (5) Malignant neoplasm of upper lobe, left bronchus or lung: Plan With him again72 M with advanced lung ca, esophageal ca,advanced deconditioing who is currently not a candidate for further chemotherapeutic options p/w abdominal pain, nausea, vomiting and evidence of cholecystitis with subcapsular abscess. Patient continues to be in significant amount of pain. His is at bedside today. Extensively discussed his goals of care again. Discussed with him that should he wish for transition to hospice or comfort care measures, we could transition him to oral antibiotics today and that way his n.p.o. status would no longer be needed. He could have a diet per his choosing with the understanding that things will likely get worse on oral antibiotics alone without any drainage. we could check an interval CT in 3 to 4 weeks for improvement. He wishes to know if there are any minimally invasive interventions available as he is not a candidate for surgery. I discussed the option of placement of a biliary/abscess drain via IR , however did discuss frankly with him with that we do not have IR services available here and any such drain placement would likely require transfer to another hospital. Patient and his are in agreement to transfer to [place] or [place] for palliative purposes ``````````````` He wishes to try a drainage process as he hopes this will make his abdominal pain better. Continue zosyn, IVF d5 NS , pain mgmt with fentanyl patch, prn morphine, continue home pain medications, scopolamine patch, prn zofran and monitor for improvement They have declined a hospice referral at this time. Attestations Medical Necessity Statement*: iv abx fo cholecyststis, attempting transfer at outside facilities Coding Level of Care Code Acute Code for Chg Fwd High Time (I have spent over 75 minutes today having an extensive goals of care discussion with patient and his at bedside. Huge amount of time has also been spent in talking to other hospitals to consider placement of an IR guided drain for palliative purposes so that patient could have relief from his ) for a total of 75 minutes, includes reviewing past or interval history, examini ng/interviewing patient, placing orders, counseling patient/family/other support, updating patient/family/other support, discussing plan of care with staff, communicating with other healthcare providers, documenting encounter and coordinating care Diagnoses Abdominal abscess Acute cholecystitis K81.0 Nausea R11.0 Adenocarcinoma of esophagus C15.9 Malignant neoplasm of upper lobe, left bronchus or lung C34.12
[2023-01-12] MEDS: enoxaparin 40 mg/0.4 mL Syringe SUBCUT (18:01)
[2023-01-12 19:34] LABS: SARS Covid-2 Antigen negative (Negative)
[2023-01-12] MEDS: pantoprazole 40 mg SDV IVP (20:38)
[2023-01-12] MEDS: tamsulosin 0.4 mg Capsule PO (20:40)
[2023-01-13] VITALS (9 sets, daily range): BP systolic 90–110; BP diastolic 56–75; PULSE 78–89; RESP 16–21; TEMP 36.5–37.2; O2SAT 93–96
[2023-01-13] MEDS: piperacillin-tazobactam 3.375 GM in sodium chloride 0.9% (plus) 50 ML IV ×3 (05:15→20:22)
[2023-01-13] MEDS: dextrose 5%-sod chloride 0.9% 1,000 ML 100 ML IV ×2 (05:17→20:21)
[2023-01-13] MEDS: enoxaparin 40 mg/0.4 mL Syringe SUBCUT (15:37)
[2023-01-13] MEDS: pantoprazole 40 mg SDV IVP (15:39)
--- NOTE | 2023-01-13 18:29 | PM.PN ---
Subjective Subjective: patient states that his pain is better today. he is upset about not being able to eat but understands that its best to be NPO for his procedure tomorrow. Medications: Reviewed: Yes Vitals/I&O/Wt Last Vital Signs Temp 98.3 F 01/13/23 15:51 Pulse 84 01/13/23 15:51 Resp 16 01/13/23 15:51 BP 90/56 01/13/23 15:51 Pulse Ox 93 01/13/23 15:51 O2 Del Method 01/13/23 15:51 O2 Flow Rate 6 01/13/23 07:59 01/13/23 01/13/23 01/13/23 06:59 14:59 22:59 Intake Total 910 / 2986.667 50 / 50 Output Total 300 / 1300 Balance 610 / 1686.667 50 / 50 Physical Exam Narrative: General: chronically ill appearing male HEENT: PERRLA, pupils bilaterally equal and reactive, pallors not present Chest: B/ condcuted breath sounds CVS: S1-S2 regular, no murmurs, no tachycardia, no gallops, no rubs Abdomen: Soft, nontender, no organomegaly, bowel sounds present, TTP all over Neuro: No focal deficits, no facial deformity, AO x3, power 5/5 in all limbs Data 01/12/23 03:51 01/12/23 03:51 A&P Assessment and plan (1) Abdominal abscess: (2) Acute cholecystitis: (3) Nausea: (4) Adenocarcinoma of esophagus: (5) Malignant neoplasm of upper lobe, left bronchus or lung: Plan 72 M with advanced lung ca, esophageal ca,advanced deconditioing who is currently not a candidate for further chemotherapeutic options p/w abdominal pain, nausea, vomiting and evidence of cholecystitis with subcapsular abscess. This is new compared to PET scan from 01/05 Extensively discussed his goals of care during admission. He is aware that he is no longer a candidate for further cancer options. His oncologist recommended hospice, however is unwilling to transition at this time. Discussed with him that should he wish for transition to hospice or comfort care measures, we could transition him to oral antibiotics and discharge him to home.This way his n.p.o. status would no longer be needed. He could have a diet per his choosing with the understanding that things will likely get worse on oral antibiotics alone without any drainage of the abscess. We could check an interval CT in 3 to 4 weeks for improvement. He wishes to know if there are any minimally invasive interventions available as he is not a candidate for surgery. I discussed the option of placement of a biliary/abscess drain via IR , however did discuss frankly with him with that we do not have IR services available here and any such drain placement would likely require transfer to another hospital. Patient and his are in agreement to transfer to [place] or [place] for palliative purposes. While [facility] has accepted him as a patient, he is on waitlist with expected wait time of one to 6 days. Also discussed case with IR at [facility] and they will be able to place a gall bladder drain for the patient on Saturday morning at 7 Am and then send the patient back. ``````````````` He wishes to try a drainage process as he hopes this will make his abdominal pain better. Continue zosyn, IVF d5 NS , pain mgmt with fentanyl patch, prn morphine, continue home pain medications, scopolamine patch, prn zofran and monitor for improvement They have declined a hospice referral at this time. Attestations Medical Necessity Statement*: planned for IR procedure tomorrow at [facility] with planned readmission Coding Level of Care Code Acute Code for Chg Fwd Diagnoses Abdominal abscess Acute cholecystitis K81.0 Nausea R11.0 Adenocarcinoma of esophagus C15.9 Malignant neoplasm of upper lobe, left bronchus or lung C34.12
[2023-01-13] MEDS: morphine 4 mg/mL SDV 1 mL 2 MG IVP (18:30)
[2023-01-13 19:03] LABS: Basophils % 0.2 %; Eosinophils # 0.1 10^3/uL (0.0-0.8); Hematocrit 29.5 % (42.0-52.0); Lymphocytes # 1.1 10^3/uL (0.8-4.8); Mean Corpuscular HGB Conc 30.5 g/dL (30.0-36.0); Mean Corpuscular Hemoglobin 24.6 pg (28.0-34.0); Mean Corpuscular Volume 80.6 fl (80-94); Mean Platelet Volume 9.3 fL (7.4-10.4); Monocytes # 0.8 10^3/uL (0.2-0.9); Monocytes % 6.4 %; Neutrophils # 10.29 10^3/uL (1.8-7.7); Neutrophils % 81.5 %; Nucleated Red Blood Cells % 0 %; Platelet Count 351 10^3/cmm (130-400); Red Blood Count 3.66 10^6/uL (4.1-5.3); White Blood Count 12.6 10^3/uL (4.0-10.0)
[2023-01-13 19:08] LABS: INR 1.14 (0.8-1.2)
[2023-01-13 19:16] LABS: Alanine Aminotransferase 81 U/L (0-41); Albumin Level 2.3 g/dL (3.5-5.2); Alkaline Phosphatase 647 U/L (40-130); Anion Gap 12.4 (5-19); Aspartate Amino Transferase 85 U/L (0-40); Blood Urea Nitrogen 13 mg/dL (8-23); Carbon Dioxide 26 mmol/L (22-29); Chloride 100 mmol/L (98-107); Globulin 3.7 g/dL (1.3-4.6); Glucose 166 mg/dL (65-115); Osmolality Calculated 284 mOsm/kg (285-295); Potassium 3.4 mmol/L (3.5-5.1); Sodium 135 mmol/L (136-145); Total Bilirubin 0.3 mg/dL (0.15-1.2)
[2023-01-13] MEDS: tamsulosin 0.4 mg Capsule PO (20:22)
[2023-01-14 04:00] VITALS: BP 92/56; PULSE 82; RESP 18; TEMP 37.3; O2SAT 97
[2023-01-14 05:00] VITALS: BP 92/56; PULSE 82; RESP 18; TEMP 37.3; O2SAT 97
--- NOTE | 2023-01-14 05:01 | PC.NURSE ---
patient to be sent to [facility] for procedure then return to hospital. Confirmation obtained with Robe at [facility] transfer center.
== END 2023-01-14 04:30 | disposition short-term general hospital (02) | DRG 444 ==
LOC: ER 09:51 → MEDSURG 14:04
PROVIDERS: Admitting Provider Student in an Organized Health Care Education/Training Program; Emergency Provider Family Medicine; PCP Family Medicine; Visit Provider Student in an Organized Health Care Education/Training Program
DX: K81.0 Acute cholecystitis (principal); K65.1 Peritoneal abscess; C15.9 Malignant neoplasm of esophagus, unspecified; C78.02 Secondary malignant neoplasm of left lung; Z92.21 Personal history of antineoplastic chemotherapy; J44.9 Chronic obstructive pulmonary disease, unspecified; I71.40 Abdominal aortic aneurysm, without rupture, unspecified; E11.9 Type 2 diabetes mellitus without complications; E78.5 Hyperlipidemia, unspecified; I10 Essential (primary) hypertension; F17.210 Nicotine dependence, cigarettes, uncomplicated; D35.2 Benign neoplasm of pituitary gland
CPT/HCPCS: 36415; 36600; 71045; 71275; 80051; 80053; 82330; 82805; 85025; 85610; 87040; 87426; 93005; 96372; 99285; C9113; J1650; J2270; J2543; J3480; J7042; Q9967

== ENCOUNTER 2023-01-14 15:00 | Observation (INO) | payer MEDICARE, MEDICAID, SELFPAY ==
--- NOTE | 2023-01-14 16:40 | P.HP_ITS ---
Providers/Chief Complaint Admitting Physician: Bonita Kurtz MD Primary Care Provider: Krystal Queen DO Chief Complaint: Transfered back from [place] History of Present Illness Raymundo Palm is a 72 year old male Review of Systems General: Reports: 10 or more systems reviewed and unremarkable except in HPI and below Const: Denies: fever(s), chills, body aches, change in appetite or diaphoresis Card: Denies: palpitations, edema, swelling of feet/ankles, dyspnea on exertion, orthopnea or leg pain with exertion Resp: Denies: dyspnea, productive cough, wheezing or pain on inspiration GI: Reports: abdominal pain; Denies: nausea, vomiting, diarrhea or constipation : Denies: flank pain or difficulty urinating Musc: Denies: back pain, extremity pain or extremity swelling Neuro: Denies: headache(s), difficulty walking or confusion Medications/Allergies Home Medications Medication Instructions Recorded Confirmed Last Taken Type promethazine 25 mg tablet 25 mg PO TID PRN nausea and 11/29/22 01/11/23 Unknown Rx vomiting #20 tabs albuterol sulfate 90 mcg/actuation 2 puff inhalation Q4H PRN 12/24/22 01/11/23 Unknown Rx aerosol inhaler (ProAir HFA) Shortness Of Breath Or Wheezing #8.5 grams levocetirizine 5 mg tablet 5 mg PO QAM PRN Allergy Symptoms 12/24/22 01/11/23 Unknown Rx (Allergy Relief (levocetirizine)) #90 tabs metoprolol succinate 25 mg 25 mg PO DAILY #90 tabs 12/24/22 01/11/23 Unknown Rx tablet,extended release 24 hr montelukast 10 mg tablet 10 mg PO QPM #90 tabs 12/24/22 01/11/23 Unknown Rx ondansetron 4 mg disintegrating See Rx Instructions .Route 12/24/22 01/11/23 Unknown Rx tablet .COMPLEX #30 tabs pantoprazole 40 mg tablet,delayed 40 mg PO BID #60 tabs 12/24/22 01/11/23 Unknown Rx release (Protonix) rosuvastatin 10 mg tablet 10 mg PO QAM #90 tabs 12/24/22 01/11/23 Unknown Rx sucralfate 1 gram tablet (Carafate) 1 g PO Q6H #120 tabs 12/24/22 01/11/23 Unknown Rx tamsulosin 0.4 mg capsule (Flomax) 0.4 mg PO BEDTIME #90 caps 12/24/22 01/11/23 Unknown Rx aspirin 81 mg tablet,delayed 162 mg PO QAM 12/26/22 01/11/23 Unknown History release ferrous sulfate 325 mg (65 mg 325 mg PO DAILY #30 tabs 01/01/23 01/11/23 Unknown Rx iron) tablet Allergies Allergy/AdvReac Type Severity Reaction Status Date / Time bee venom protein (honey bee) Allergy Severe Unknown Verified 01/11/23 11:14 gemfibrozil [From Lopid] Allergy Unknown Unknown Verified 01/11/23 11:14 niacin Allergy Unknown Unknown Verified 01/11/23 11:14 [From Niaspan Extended-Release] PFSH Acute PFSH: Medical History Angina pectoris, unspecified Ascending aortic aneurysm BPH (benign prostatic hyperplasia) COPD (chronic obstructive pulmonary disease) Diabetes mellitus Encounter for insertion of venous access port HLD (hyperlipidemia) HTN (hypertension) Migraine headache with aura Nicotine dependence, cigarettes, with unspecified nicotine-induced disorders NSCLC of left lung Pituitary macroadenoma He was seeing endo in [place]. Smoking addiction Surgical History H/O hernia repair History of bronchoscopy S/P hernia repair Family History Mother Cancer Father COPD (chronic obstructive pulmonary disease) CAD (coronary artery disease) Social History Smoking and tobacco status: current some day smoker cigarettes Packs smoked per day: 0.5 Years cigarettes smoked: 54 Smoking risk assessment/counseling performed?: Yes Alcohol intake: former Counseling given: No Counseling given: No Lives independently: Yes Household members: spouse Marital status: Current occupational status: retired Current gender identity: Male Physical Exam Const: COMMON NORMALS: patient oriented x3 HENMT: COMMON NORMALS: normocephalic and atraumatic HEAD & SCALP: normocephalic and atraumatic Resp: COMMON NORMALS: normal respiratory effort, No retractions, No use of accessory muscles and clear to auscultation bilaterally EFFORT & INSPECTION: Yes symmetric chest movement AUSCULTATION: clear to auscultation bilaterally Cardio: COMMON NORMALS: regular rate, regular rhythm, S1 normal heart sound present, S2 normal heart sound present, No gallops present (Cardio), No murmurs present (Cardio), No rub (Cardio) and Peripheral pulses 2+ throughout RATE: regular rate RHYTHM: regular rhythm HEART SOUNDS: S1 normal heart sound present and S2 normal heart sound present PERIPHERAL PULSES: Peripheral pulses 2+ throughout GI: COMMON NORMALS: Normal to inspection, nondistended, normoactive bowel sounds present, Soft to palpation, non-tender, No hepatosplenomegaly present and no masses AUSCULTATION: Yes normoactive bowel sounds PALPATION: Yes Soft to palpation and Yes No hepatosplenomegaly present RECTAL EXAM: Yes deferred OTHER: PC DRAIN IN PLACE Extremity: COMMON NORMALS: no clubbing, cyanosis or edema and no pedal edema Neuro: COMMON NORMALS: patient oriented x3 A&P Assessment and plan (1) Abdominal abscess: (2) Acute cholecystitis: (3) Adenocarcinoma of esophagus: (4) Malignant neoplasm of upper lobe, left bronchus or lung: (5) Nausea: (6) COPD (chronic obstructive pulmonary disease): Qualifiers: COPD type: emphysema Emphysema type: panlobular Qualified Code(s): J43.1 - Panlobular emphysema (7) Diabetes mellitus: Qualifiers: Diabetes mellitus type: type 2 Diabetes mellitus half-way insulin use: without continuous churn buttermaker use Diabetes mellitus complication status: without complication Qualified Code(s): E11.9 - Type 2 diabetes mellitus without complications (8) BPH (benign prostatic hyperplasia): Qualifiers: Lower urinary tract symptom presence: symptoms present Lower urinary tract symptom detail: nocturia Qualified Code(s): N40.1 - Benign prostatic hyperplasia with lower urinary tract symptoms; R35.1 - Nocturia Coding Level of Care Code Acute Code for [facility] Diagnoses Abdominal abscess Acute cholecystitis K81.0 Adenocarcinoma of esophagus C15.9 Malignant neoplasm of upper lobe, left bronchus or lung C34.12 Nausea R11.0 COPD (chronic obstructive pulmonary disease) J43.1 COPD type: emphysema Emphysema type: panlobular Diabetes mellitus E11.9 Diabetes mellitus type: type 2 Diabetes mellitus half-way insulin use: without continuous churn buttermaker use Diabetes mellitus complication status: without complication BPH (benign prostatic hyperplasia) N40.1; R35.1 Lower urinary tract symptom presence: symptoms present Lower urinary tract symptom detail: nocturia
[2023-01-14 17:20] VITALS: PULSE 86; O2SAT 98
[2023-01-14] MEDS: enoxaparin 30 mg/0.3 mL Syringe SUBCUT (18:06)
[2023-01-14] MEDS: piperacillin-tazobactam 3.375 GM in sodium chloride 0.9% (plus) 50 ML IV ×2 (18:07→23:52)
[2023-01-14] MEDS: pantoprazole DR 40 mg Tablet PO (18:07)
[2023-01-14 19:10] VITALS: BP 111/74; PULSE 93; RESP 18; TEMP 37.1; O2SAT 95
--- NOTE | 2023-01-14 19:33 | PM.PN ---
Subjective Subjective: Patient was seen and examined this morning, after he returned from [facility], where he went in for the placement of PC drain. Postprocedure patient has done well, abdominal pain is better controlled. Patient wants to try and eat. Medications: Medication Review Details: Generic Name Dose Route Start Last Admin Trade Name [place] PRN Reason Stop Dose Admin Enoxaparin Sodium 30 mg 01/14/23 16:45 01/14/23 18:06 Enoxaparin 30 Mg /0.3 Ml Syringe SUBCUT 30 mg Q24H ANTONETTE Administration Piperacillin Sod/T azobactam 50 mls @ 12.5 mls /hr 01/14/23 16:45 01/14/23 18:07 Sod 3.375 gm/ So dium Chloride IV 12.5 mls/hr Q8H ANTONETTE Administration Protocol Pantoprazole Sodiu m 40 mg 01/14/23 18:00 01/14/23 18:[address] 40 Mg Tablet PO 40 mg BID ANTONETTE Administration Vitals/I&O/Wt Last Vital Signs Temp 98.8 F 01/14/23 19:10 Pulse 93 01/14/23 19:10 Resp 18 01/14/23 19:10 BP 111/74 01/14/23 19:10 Pulse Ox 95 01/14/23 19:10 O2 Del Method 01/14/23 17:20 O2 Flow Rate 5 01/14/23 17:20 Physical Exam Const: COMMON NORMALS: patient oriented x3 HENMT: COMMON NORMALS: normocephalic and atraumatic HEAD & SCALP: normocephalic and atraumatic Resp: COMMON NORMALS: clear to auscultation bilaterally EFFORT & INSPECTION: Yes symmetric chest movement AUSCULTATION: clear to auscultation bilaterally Cardio: COMMON NORMALS: regular rate, regular rhythm, S1 normal heart sound present, S2 normal heart sound present, No gallops present (Cardio), No murmurs present (Cardio), No rub (Cardio) and Peripheral pulses 2+ throughout RATE: regular rate RHYTHM: regular rhythm HEART SOUNDS: S1 normal heart sound present and S2 normal heart sound present PERIPHERAL PULSES: Peripheral pulses 2+ throughout GI: AUSCULTATION: Yes normoactive bowel sounds RECTAL EXAM: Yes deferred OTHER: PC Drain in place Extremity: COMMON NORMALS: no clubbing, cyanosis or edema and no pedal edema Neuro: COMMON NORMALS: patient oriented x3 A&P Assessment and plan (1) Abdominal abscess: (2) Acute cholecystitis: (3) Adenocarcinoma of esophagus: (4) Malignant neoplasm of upper lobe, left bronchus or lung: (5) Nausea: (6) COPD (chronic obstructive pulmonary disease): Qualifiers: COPD type: emphysema Emphysema type: panlobular Qualified Code(s): J43.1 - Panlobular emphysema (7) Diabetes mellitus: Qualifiers: Diabetes mellitus type: type 2 Diabetes mellitus correction insulin use: without watermelon harvesting supervisor use Diabetes mellitus complication status: without complication Qualified Code(s): E11.9 - Type 2 diabetes mellitus without complications (8) BPH (benign prostatic hyperplasia): Qualifiers: Lower urinary tract symptom presence: symptoms present Lower urinary tract symptom detail: nocturia Qualified Code(s): N40.1 - Benign prostatic hyperplasia with lower urinary tract symptoms; R35.1 - Nocturia Plan 72 M with advanced lung ca, esophageal ca,advanced deconditioing who is currently not a candidate for further chemotherapeutic options p/w abdominal pain, nausea, vomiting and evidence of cholecystitis with subcapsular abscess. This is new compared to PET scan from 01/05 Extensively discussed his goals of care during admission. He is aware that he is no longer a candidate for further cancer options. His oncologist recommended hospice, however is unwilling to transition at this time. ?Discussed with him that should he wish for transition to hospice or comfort care measures, we could transition him to oral antibiotics and discharge him to home.This way his n.p.o. status would no longer be needed.? He could have a diet per his choosing with the understanding that things will likely get worse on oral antibiotics alone without any drainage of the abscess. We could check an interval CT in 3 to 4 weeks for improvement. He wishes to know if there are any minimally invasive interventions available as he is not a candidate for surgery. I discussed the option of placement of a biliary/abscess drain via IR , however did discuss frankly with him with that we do not have IR services available here and any such drain placement would likely require transfer to another hospital.? Patient and his are in agreement to transfer to [place] or [place] for palliative purposes. While [facility] has accepted him as a patient, he is on waitlist with expected wait time of one to 6 days. Also discussed case with IR at [facility] and they will be able to place a gall bladder drain for the patient on Saturday morning at 7 Am and then send the patient back.? ``````````````` He wishes to try a drainage process as he hopes this will make his abdominal pain better. Continue zosyn, IVF d5 NS , pain mgmt with fentanyl patch, prn morphine, continue home pain medications, scopolamine patch, prn zofran and monitor for improvement They have declined a hospice referral at this time. Attestations Medical Necessity Statement*: Needs to be in hospital for pain control and safe discharge. Coding Level of Care Code 37152 Diagnoses Abdominal abscess Acute cholecystitis K81.0 Adenocarcinoma of esophagus C15.9 Malignant neoplasm of upper lobe, left bronchus or lung C34.12 Nausea R11.0 COPD (chronic obstructive pulmonary disease) J43.1 COPD type: emphysema Emphysema type: panlobular Diabetes mellitus E11.9 Diabetes mellitus type: type 2 Diabetes mellitus correction insulin use: without watermelon harvesting supervisor use Diabetes mellitus complication status: without complication BPH (benign prostatic hyperplasia) N40.1; R35.1 Lower urinary tract symptom presence: symptoms present Lower urinary tract symptom detail: nocturia
[2023-01-14 20:19] VITALS: PULSE 83; O2SAT 95
[2023-01-14] MEDS: sodium chloride 0.9% 1,000 ML 50 ML IV (20:21)
[2023-01-14 22:37] VITALS: RESP 16
[2023-01-14] MEDS: oxyCODONE-APAP 5-325 mg Tablet 1 TAB PO (22:37)
[2023-01-14 23:41] VITALS: BP 109/74; PULSE 100; RESP 18; TEMP 36.8; O2SAT 94
[2023-01-14 23:49] VITALS: RESP 16
[2023-01-14] MEDS: morphine 4 mg/mL SDV 1 mL 2 MG IVP (23:49)
[2023-01-15 03:48] VITALS: BP 113/77; PULSE 77; RESP 18; TEMP 36.3; O2SAT 98
[2023-01-15 05:46] LABS: Basophils % 0.4 %; Eosinophils # 0.2 10^3/uL (0.0-0.8); Eosinophils % 2.2 %; Hematocrit 29.1 % (42.0-52.0); Hemoglobin 8.8 g/dL (11.7-16.6); Lymphocytes # 1.2 10^3/uL (0.8-4.8); Lymphocytes % 11.5 %; Mean Corpuscular HGB Conc 30.2 g/dL (30.0-36.0); Mean Corpuscular Hemoglobin 24.5 pg (28.0-34.0); Mean Corpuscular Volume 81.1 fl (80-94); Mean Platelet Volume 9.4 fL (7.4-10.4); Monocytes # 0.7 10^3/uL (0.2-0.9); Neutrophils # 7.89 10^3/uL (1.8-7.7); Neutrophils % 75.9 %; Nucleated Red Blood Cells % 0 %; Platelet Count 368 10^3/cmm (130-400); Red Blood Count 3.59 10^6/uL (4.1-5.3); Red Cell Distribution Width 19.5 % (12.1-15.1); White Blood Count 10.4 10^3/uL (4.0-10.0)
[2023-01-15 06:03] LABS: Alanine Aminotransferase 73 U/L (0-41); Alkaline Phosphatase 634 U/L (40-130); Aspartate Amino Transferase 65 U/L (0-40); Blood Urea Nitrogen 9 mg/dL (8-23); Calcium 8.3 mg/dL (8.5-10.5); Carbon Dioxide 27 mmol/L (22-29); Chloride 105 mmol/L (98-107); Globulin 3.5 g/dL (1.3-4.6); Glucose 104 mg/dL (65-115); Osmolality Calculated 287 mOsm/kg (285-295); Sodium 139 mmol/L (136-145); Total Bilirubin 0.3 mg/dL (0.15-1.2); Total Protein 5.5 g/dL (6.6-8.7)
[2023-01-15 06:05] LABS: Anion Gap 10.7 (5-19); Potassium 3.7 mmol/L (3.5-5.1)
[2023-01-15 08:00] VITALS: BP 116/80; PULSE 81; PULSE 84; RESP 15; TEMP 37.1; O2SAT 92; O2SAT 96
--- NOTE | 2023-01-15 08:45 | PC.PHAR ---
Addendum entered by Rosemary Quinones 01/15/23 09:54: medications entered are from what ext med history shows has been filled recently and what was on previously entered med list from when pt was here last week Addendum entered by Rosemary Quinones 01/15/23 09:49: still no answer from pts Original Note: pt states his takes care of his medications-pts not in room with pt-called pts yamile [phone] left message
[2023-01-15] MEDS: piperacillin-tazobactam 3.375 GM in sodium chloride 0.9% (plus) 50 ML IV (09:48)
[2023-01-15] MEDS: pantoprazole DR 40 mg Tablet PO (09:49)
[2023-01-15 09:57] VITALS: RESP 18; O2SAT 98
[2023-01-15] MEDS: oxyCODONE-APAP 5-325 mg Tablet 1 TAB PO (09:57)
--- NOTE | 2023-01-15 10:33 | PC.CHAP ---
Pastoral Care Encounter/Spiritual Assessment Type of Contact [] Declined chief engineer visit [] Patient/Family/Request visit [] Outpatient visit [] Follow-up visit [] Physician referral [] Code/Alert [x] Routine visit [] Staff referral [] Actively dying [] Patient sleeping [x] Family support [] [] Out of room [] Palliative care [] [] Receiving care in room [] Pre-surgical visit [] Trauma [] Long length of stay [] ICU visit [] Other: Relational/Emotional Strength [x] Patient feels connected with others/family/visitors/staff [] Distress [] Loneliness/isolation [] Abandonment Spirituality of Patient [x] Person of Brianna [] Attends Temple of their Brianna [x] Believes in Prayer [] Reads Bible or Mu-Ism materials [] There are Spiritual issues to be addressed Laser Specialist Interventions [x] Prayer [] Active listening [] Non-anxious presence [x] Spiritual/emotional support [] Crisis/trauma care [] Spiritual counseling [] Bereavement support [] Provided bereavement packet [] Provided Bible/devotional materials [] Provided toy/stuffed animal, coloring book to patient or family member [] Provided Communion [] Anointing/[place] [] Salvation [x] Completed spiritual assessment [] Other: Impact on Illness or Injury [] Angry [] Fearful [] Anxious [] Often cries [] Exhaustion [] Unable to work [] Unable to attend orthodoxy [] Unable to walk/stand [] Unable to read [] Unable to drive [] Unable to eat/drink [] Unable to sleep [] Unable to be with family [] Patient intubated [] Other: Summary Time spent with patient 10 min
--- NOTE | 2023-01-15 11:48 | PM.DCS ---
Discharge Providers Date of Admission: 01/14/23 15:00 Date of Discharge: January 15, 2023 Attending Provider at Admission: Bonita Kurtz MD Attending Provider at Discharge: Eleazar Villalpando MD Primary Care Provider: Krystal Queen DO Diagnoses at Discharge Discharge Diagnosis (1) Abdominal abscess: Status: Acute (2) Acute cholecystitis: Status: Acute (3) Adenocarcinoma of esophagus: Status: Acute (4) Malignant neoplasm of upper lobe, left bronchus or lung: Status: Acute (5) Nausea: Status: Acute (6) COPD (chronic obstructive pulmonary disease): Status: Chronic Qualifiers: COPD type: emphysema Emphysema type: panlobular Qualified Code(s): J43.1 - Panlobular emphysema (7) Diabetes mellitus: Status: Chronic Qualifiers: Diabetes mellitus complication status: without complication Diabetes mellitus senior living insulin use: without senior living use Diabetes mellitus type: type 2 Qualified Code(s): E11.9 - Type 2 diabetes mellitus without complications (8) BPH (benign prostatic hyperplasia): Status: Acute Qualifiers: Lower urinary tract symptom detail: nocturia Lower urinary tract symptom presence: symptoms present Qualified Code(s): N40.1 - Benign prostatic hyperplasia with lower urinary tract symptoms; R35.1 - Nocturia Reason for Visit Reason for Visit: Transfered back from [facility] Hospital Course Hospital Course HPI: Bonita Kurtz MD Raymundo Palm is a 72 year old male with H advanced lung cancer who has been sent from cancer treatment center for abdominal pain, nausea, intractable vomiting. He was acutely ill appearing on is visit there. In [facility] ER he has been found to have?intermediate density subcapsular collection along the anterior right lobe of the liver measuring 4.6 x 1.6 cm which is new since 01/05/2023. This is probably complex fluid which extends along a tract overthe anterior aspect of right lobe to the level of the gallbladder fossa. Gallbladder and bile ducts: Gallbladder is markedly dilated. The wall is markedly thickened and there is pericholecystic edema and mesenteric edema in the right upper quadrant. In the ER, patient, his and ER physician discussed patient's GOC. it was made clear that without surgical intevrention or drainage for the above findings, patient is highly unlikley to have a significant improvement. Patient's and his outpatient oncologist Dr. Bill had earlier had a discussion about considering hospice. Patient indicated that he would like a trial of abx to see if his symptoms will be alleviated and should there be clinical deterioration he would like to transition to comfort care. He is currently unable to tolerate po medicatiosn. I have had a personal discussion with the patient that without surgical or IR drainage, empiric abx will be suboptimal treatment for his condition. He says he is ready to as he in so much pain. Would like to try conservative treatment for now. Hospital course: Patient was admitted for the management of cholecystitis with subcapsular abscess. He was initially kept on broad-spectrum antibiotics, IV fluids pain management, he was transferred to [facility] for placement of PC drain, and subsequently patient was transferred back to to [facility], patient tolerated the procedure well. He was tolerating p.o. intake, he was discharged on Metro and Cipro, as well as oral pain medication. Attempts were made to make outpatient surgery appointment for follow-up, unfortunately for now he will have to follow-up with his PCP, as no appointments were made because of insurance issues. Overall patient responded well to above medical management and is being discharged in stable condition to home. Physical Exam Const: COMMON NORMALS: patient oriented x3 HENMT: COMMON NORMALS: normocephalic and atraumatic HEAD & SCALP: normocephalic and atraumatic Resp: COMMON NORMALS: clear to auscultation bilaterally EFFORT & INSPECTION: Yes symmetric chest movement AUSCULTATION: clear to auscultation bilaterally Cardio: COMMON NORMALS: regular rate, regular rhythm, S1 normal heart sound present, S2 normal heart sound present, No gallops present (Cardio), No murmurs present (Cardio), No rub (Cardio) and Peripheral pulses 2+ throughout RATE: regular rate RHYTHM: regular rhythm HEART SOUNDS: S1 normal heart sound present and S2 normal heart sound present PERIPHERAL PULSES: Peripheral pulses 2+ throughout GI: AUSCULTATION: Yes normoactive bowel sounds RECTAL EXAM: Yes deferred OTHER: PC Drain in place Extremity: COMMON NORMALS: no clubbing, cyanosis or edema and no pedal edema Neuro: COMMON NORMALS: patient oriented x3 Discharge Data Studies Completed and Pending Laboratory Results WBC 10.4 10^3/uL (4.0-10.0) H 01/15/23 05:24 RBC 3.59 10^6/uL (4.1-5.3) L 01/15/23 05:24 Hgb 8.8 g/dL (11.7-16.6) L 01/15/23 05:24 Hct 29.1 % (42.0-52.0) L 01/15/23 05:24 MCV 81.1 fl (80-94) 01/15/23 05:24 MCH 24.5 pg (28.0-34.0) L 01/15/23 05:24 MCHC 30.2 g/dL (30.0-36.0) 01/15/23 05:24 RDW 19.5 % (12.1-15.1) H 01/15/23 05:24 Plt Count 368 10^3/cmm (130-400) 01/15/23 05:24 MPV 9.4 fL (7.4-10.4) 01/15/23 05:24 Neut % (Auto) 75.9 % 01/15/23 05:24 Lymph % (Auto) 11.5 % 01/15/23 05:24 Lyon % (Auto) 7.0 % 01/15/23 05:24 Eos % (Auto) 2.2 % 01/15/23 05:24 Baso % (Auto) 0.4 % 01/15/23 05:24 Neut # (Auto) 7.89 10^3/uL (1.8-7.7) H 01/15/23 05:24 Lymph # (Auto) 1.2 10^3/uL (0.8-4.8) 01/15/23 05:24 Lyon # (Auto) 0.7 10^3/uL (0.2-0.9) 01/15/23 05:24 Eos # (Auto) 0.2 10^3/uL (0.0-0.8) 01/15/23 05:24 Baso # (Auto) 0.0 10^3/uL (0.0-0.1) 01/15/23 05:24 Nucleated RBC % (auto) 0 % 01/15/23 05:24 Nucleated RBCs # 0.0 /100WBC 01/15/23 05:24 Sodium 139 mmol/L (136-145) 01/15/23 05:24 Potassium 3.7 mmol/L (3.5-5.1) 01/15/23 05:24 Chloride 105 mmol/L (98-107) 01/15/23 05:24 Carbon Dioxide 27 mmol/L (22-29) 01/15/23 05:24 Anion Gap 10.7 (5-19) 01/15/23 05:24 BUN 9 mg/dL (8-23) 01/15/23 05:24 Creatinine 0.6 mg/dL (0.7-1.2) L 01/15/23 05:24 GFR Calculation Not Reportable 01/15/23 05:24 Glucose 104 mg/dL (65-115) 01/15/23 05:24 Calculated Osmolality 287 mOsm/kg (285-295) 01/15/23 05:24 Calcium 8.3 mg/dL (8.5-10.5) L 01/15/23 05:24 Total Bilirubin 0.3 mg/dL (0.15-1.2) 01/15/23 05:24 AST 65 U/L (0-40) H 01/15/23 05:24 ALT 73 U/L (0-41) H 01/15/23 05:24 Alkaline Phosphatase 634 U/L (40-130) H 01/15/23 05:24 Total Protein 5.5 g/dL (6.6-8.7) L 01/15/23 05:24 Albumin 2.0 g/dL (3.5-5.2) L 01/15/23 05:24 Globulin 3.5 g/dL (1.3-4.6) 01/15/23 05:24 Vitals Last Vital Signs Temp 98.7 F 01/15/23 08:00 Pulse 81 01/15/23 08:00 Resp 18 01/15/23 09:57 BP 116/80 01/15/23 08:00 Pulse Ox 98 01/15/23 09:57 O2 Del Method 01/15/23 08:00 O2 Flow Rate 4 01/15/23 08:30 Discharge Plan Discharge Patient Disposition: Home Condition: Stable Prescriptions: New oxycodone-acetaminophen 5-325 mg Tablet 1 tab PO Q8H PRN (Reason: Severe Pain) 7 Days Qty: 20 0RF metronidazole 500 mg tablet 500 mg PO BID 14 Days Qty: 28 0RF ciprofloxacin HCl 500 mg tablet 500 mg PO BID Qty: 28 0RF acetaminophen 325 mg Tablet 650 mg PO Q6H PRN (Reason: Mild/Mod Pain Or Temp >/= 101) 14 Days Qty: 30 0RF Continued albuterol sulfate [ProAir HFA] 90 mcg/actuation HFA aerosol inhaler 2 puff inhalation Q4H PRN (Reason: Shortness Of Breath Or Wheezing) Qty: 8.5 6RF pantoprazole [Protonix] 40 mg tablet,delayed release (DR/EC) 40 mg PO BID Qty: 60 0RF sucralfate [Carafate] 1 gram tablet 1 g PO Q6H Qty: 120 0RF promethazine 25 mg tablet 25 mg PO TID PRN (Reason: nausea and vomiting) Qty: 20 0RF ferrous sulfate 325 mg (65 mg iron) tablet 325 mg PO DAILY Qty: 30 0RF montelukast 10 mg tablet 10 mg PO QPM Qty: 90 1RF metoprolol succinate 25 mg tablet extended release 24 hr 25 mg PO DAILY Qty: 90 0RF tamsulosin [Flomax] 0.4 mg capsule 0.4 mg PO BEDTIME Qty: 90 0RF rosuvastatin 10 mg tablet 10 mg PO QAM Qty: 90 0RF levocetirizine [Allergy Relief (levocetirizin)] 5 mg tablet 5 mg PO QAM PRN (Reason: Allergy Symptoms) Qty: 90 0RF aspirin 81 mg tablet,delayed release (DR/EC) 162 mg PO QAM ondansetron 4 mg tablet,disintegrating 4 mg PO Q8H PRN (Reason: Nausea And Vomiting) Discharge Orders: Discharge Order (Routine); Ordered 01/15/23 Ordered By: Eleazar Villalpando Referrals: Krystal Queen DO [Primary Care Provider] - 01/21/23 2:15 pm Patient Instructions: Ciprofloxacin (By mouth), Oxycodone/Acetaminophen (By mouth), Metronidazole (By mouth), Cholecystitis (GEN), Percutaneous Transhepatic Biliary Drainage (GEN), Opioid Safety Discharge Attestations Time Spent in Discharge Care*: less than 30 min Quality Metrics Clinical Quality Measures [ No reported AMI, CVA or VTE this stay] Coding Level of Care Code Acute Code for Chg Fwd Diagnoses Abdominal abscess Acute cholecystitis K81.0 Adenocarcinoma of esophagus C15.9 Malignant neoplasm of upper lobe, left bronchus or lung C34.12 Nausea R11.0 COPD (chronic obstructive pulmonary disease) J43.1 COPD type: emphysema Emphysema type: panlobular Diabetes mellitus E11.9 Diabetes mellitus complication status: without complication Diabetes mellitus senior living insulin use: without primer inserting machine adjuster use Diabetes mellitus type: type 2 BPH (benign prostatic hyperplasia) N40.1; R35.1 Lower urinary tract symptom detail: nocturia Lower urinary tract symptom presence: symptoms present
--- NOTE | 2023-01-15 14:02 | PC.NURSE ---
Discussed discharge with patient and spouse. Discussed medications, continued medications, follow up appointments and when to contact the physician. Spouse verbalized understanding.
[2023-01-15 14:05] VITALS: RESP 18; O2SAT 98
== END 2023-01-15 13:35 | disposition home or self-care (01) ==
PROVIDERS: Admitting Provider Student in an Organized Health Care Education/Training Program; PCP Family Medicine; Visit Provider Internal Medicine
DX: L02.211 Cutaneous abscess of abdominal wall (principal); K81.0 Acute cholecystitis; C15.9 Malignant neoplasm of esophagus, unspecified; C34.12 Malignant neoplasm of upper lobe, left bronchus or lung; R11.0 Nausea; J43.1 Panlobular emphysema; E11.9 Type 2 diabetes mellitus without complications; N40.1 Benign prostatic hyperplasia with lower urinary tract symptoms; R35.1 Nocturia
CPT/HCPCS: 36415; 80053; 85025; 96372; G0378; G0379; J1650; J2270; J2543; J7030

== ENCOUNTER 2023-01-28 08:14 | Emergency (ER) | payer MEDICARE, MEDICAID, SELFPAY ==
[2023-01-28 08:33] VITALS: BP 95/65; PULSE 112; TEMP 36.5; O2SAT 92; BMI 24.8
--- NOTE | 2023-01-28 08:50 | PC.PHAR ---
pts verified pts medications-states the pt finished the cipro 500mg bid for 14 days filled 01/15/23 and metronidazole 500mg bid for 14 days filled 01/15/23 finished on sat 01/26/23-pt had a percocet 5/325mg q8h prn filled 01/15/23 7d/s pts states the pt is out of the medication-
--- NOTE | 2023-01-28 09:26 | ED_ITS ---
HPI - General Adult General: Chief complaint: General Medical Stated complaint: Dr. Queen sent for a tube in his gallbladder Time Seen by Provider: 01/28/23 08:22 Source: patient Mode of arrival: ambulatory History of Present Illness: 72-year-old male presents to the emergency room with complaints of cholecystectomy drain. Patient has known metastatic lung cancer is not amenable to any treatment he was admitted here with cholecystitis with a abscess initially he did not want any treatment other to be on antibiotics he had previously talked to his oncologist about being on hospice. Onset (ago): minute(s) Associated symptoms: Deny chest pain, dyspnea, malaise, nausea, rash or vomiting Review of Systems Const: Denies: fever(s), chills, body aches, change in appetite, fatigue or malaise ENMT: Denies: throat pain, ear or mastoid pain, nasal discharge or nasal congestion Card: Denies: chest pain, edema, dyspnea on exertion or orthopnea Resp: Denies: dyspnea, productive cough or non-productive cough GI: Denies: abdominal pain, nausea, vomiting, hematemesis, coffee ground emesis, diarrhea, constipation, bloating, hematochezia or melena : Denies: flank pain, dysuria, urinary frequency or urinary urgency Skin/Breast: Denies: rash or pruritus PFSH ED PFSH: Medical History Abdominal abscess Acute cholecystitis Adenocarcinoma of esophagus Angina pectoris, unspecified Ascending aortic aneurysm BPH (benign prostatic hyperplasia) COPD (chronic obstructive pulmonary disease) Diabetes mellitus Encounter for insertion of venous access port HLD (hyperlipidemia) HTN (hypertension) Malignant neoplasm of upper lobe, left bronchus or lung (~07/09/18) Migraine headache with aura Nausea Nicotine dependence, cigarettes, with unspecified nicotine-induced disorders NSCLC of left lung Pituitary macroadenoma He was seeing endo in [place]. Smoking addiction Surgical History H/O hernia repair History of bronchoscopy S/P hernia repair Family History Mother Cancer Father COPD (chronic obstructive pulmonary disease) CAD (coronary artery disease) Social History Smoking and tobacco status: current some day smoker cigarettes Packs smoked per day: 0.5 Years cigarettes smoked: 54 Smoking risk assessment/counseling performed?: Yes Alcohol intake: former Counseling given: No Counseling given: No Lives independently: Yes Household members: spouse Marital status: Current occupational status: retired Current gender identity: Male Physical Exam Const: GENERAL APPEARANCE: cooperative and comfortable ORIENTATION/CONSCIOUSNESS: Yes awake, Yes oriented to person, Yes oriented to place and Yes oriented to time HENMT: COMMON NORMALS: normocephalic, atraumatic and hearing grossly normal bilaterally HEAD & SCALP: normocephalic and atraumatic Resp: COMMON NORMALS: normal respiratory effort, No retractions and No use of accessory muscles AUSCULTATION: rhonchi Cardio: COMMON NORMALS: regular rate, regular rhythm and No murmurs present (Cardio) RATE: regular rate RHYTHM: regular rhythm GI: COMMON NORMALS: Soft to palpation and No hepatosplenomegaly present AUSCULTATION: Yes normoactive bowel sounds PALPATION: Yes Soft to palpation, No Tenderness to palpation present (GI), No Guarding due to palpation present (GI) and Yes No hepatosplenomegaly present Extremity: COMMON NORMALS: normal to inspection, capillary refill normal, no clubbing, cyanosis or edema, no calf tenderness and no pedal edema Neuro: SENSORIUM/ORIENTATION: Yes oriented to person, Yes oriented to place and Yes oriented to time Skin: COMMON NORMALS: no rashes or lesions noted GENERAL SKIN EXAM: no rashes or lesions noted Course Vital Signs: Vital signs: Vital Signs Temperature 97.7 F 01/28/23 08:33 Pulse Rate 112 H 01/28/23 08:33 Blood Pressure 95/65 01/28/23 08:33 Pulse Oximetry 92 01/28/23 08:33 Oxygen Delivery Me thod 01/28/23 08:33 Oxygen Flow Rate 3 01/28/23 08:33 MDM - General Adult Medical Decision Making Patient has had a cholecystectomy drain in for 2 weeks. Discussed with radiology as well as on-call general surgery all of us agree at this point would not recommend removing any tube given his poor prognosis lung cancer this would likely only aggravate things I do not think this is specialized enough to not drain into the abdomen which I think would cause peritonitis if we were to remove it. We will leave it in place have him follow-up with surgery or primary care as an outpatient. Medical Records I reviewed the patient's medical records. Lab Data I reviewed the patient's lab results. 01/28/23 09:01/28/23 09: Laboratory Results WBC 7.7 10^3/uL (4.0-10.0) 01/28/23 09: RBC 4.60 10^6/uL (4.1-5.3) 01/28/23 09: Hgb 11.1 g/dL (11.7-16.6) L 01/28/23 09: Hct 37.1 % (42.0-52.0) L 01/28/23 09: MCV 80.7 fl (80-94) 01/28/23: MCH 24.1 pg (28.0-34.0) L 01/28/23 09: MCHC 29.9 g/dL (30.0-36.0) L 01/28/23 09: RDW 19.6 % (12.1-15.1) H 01/28/23 09: Plt Count 441 10^3/cmm (130-400) H 01/28/23 09: MPV 8.5 fL (7.4-10.4) 01/28/23 09: Neut % (Auto) 71.9 % 01/28/23 09: Lymph % (Auto) 18.1 % 01/28/23 09: [place] % (Auto) 7.4 % 01/28/23 09: Eos % (Auto) 1.3 % 01/28/23: Baso % (Auto) 0.8 % 01/28/23: Neut # (Auto) 5.53 10^3/uL (1.8-7.7) 01/28/23 09: Lymph # (Auto) 1.4 10^3/uL (0.8-4.8) 01/28/23 09: [place] # (Auto) 0.6 10^3/uL (0.2-0.9) 01/28/23 09: Eos # (Auto) 0.1 10^3/uL (0.0-0.8) 01/28/23 09: Baso # (Auto) 0.1 10^3/uL (0.0-0.1) 01/28/23 09:26 Nucleated RBC % (auto) 0 % 01/28/23 09:26 Nucleated RBCs # 0.0 /100WBC 01/28/23 09:26 Sodium 141 mmol/L (136-145) 01/28/23 09:26 Potassium 3.1 mmol/L (3.5-5.1) L 01/28/23 09:26 Chloride 105 mmol/L (98-107) 01/28/23 09:26 Carbon Dioxide 26 mmol/L (22-29) 01/28/23 09:26 Anion Gap 13.1 (5-19) 01/28/23 09:26 BUN 12 mg/dL (8-23) 01/28/23 09:26 Creatinine 0.8 mg/dL (0.7-1.2) 01/28/23 09:26 GFR Calculation Not Reportable 01/28/23 09:26 Glucose 146 mg/dL (65-115) H 01/28/23 09:26 Calculated Osmolality 294 mOsm/kg (285-295) 01/28/23 09:26 Calcium 8.6 mg/dL (8.5-10.5) 01/28/23 09:26 Total Bilirubin 0.3 mg/dL (0.15-1.2) 01/28/23 09:26 AST 8 U/L (0-40) 01/28/23 09:26 ALT < 5 U/L (0-41) 01/28/23 09:26 Alkaline Phosphatase 126 U/L (40-130) 01/28/23 09:26 Total Protein 6.6 g/dL (6.6-8.7) 01/28/23 09:26 Albumin 2.9 g/dL (3.5-5.2) L 01/28/23 09:26 Globulin 3.7 g/dL (1.3-4.6) 01/28/23 09:26 Lipase 43 U/L (13-60) 01/28/23 09:26 Discharge Plan Discharge Patient Disposition: Home Clinical Impression: NSCLC of left lung, Acute cholecystitis Condition: Stable Prescriptions: No Action albuterol sulfate [ProAir HFA] 90 mcg/actuation HFA aerosol inhaler 2 puff inhalation Q4H PRN (Reason: Shortness Of Breath Or Wheezing) Qty: 8.5 6RF pantoprazole [Protonix] 40 mg tablet,delayed release (DR/EC) 40 mg PO BID Qty: 60 0RF sucralfate [Carafate] 1 gram tablet 1 g PO Q6H Qty: 120 0RF promethazine 25 mg tablet 25 mg PO TID PRN (Reason: nausea and vomiting) Qty: 20 0RF ferrous sulfate 325 mg (65 mg iron) tablet 325 mg PO DAILY Qty: 30 0RF montelukast 10 mg tablet 10 mg PO QPM Qty: 90 1RF tamsulosin [Flomax] 0.4 mg capsule 0.4 mg PO BEDTIME Qty: 90 0RF rosuvastatin 10 mg tablet 10 mg PO QAM Qty: 90 0RF levocetirizine [Allergy Relief (levocetirizin)] 5 mg tablet 5 mg PO QAM PRN (Reason: Allergy Symptoms) Qty: 90 0RF metoprolol succinate 25 mg tablet extended release 24 hr 25 mg PO QAM aspirin 81 mg tablet,delayed release (DR/EC) 162 mg PO QAM ondansetron 4 mg tablet,disintegrating 4 mg PO Q8H PRN (Reason: Nausea And Vomiting) acetaminophen 325 mg Tablet 650 mg PO Q6H PRN (Reason: Mild/Mod Pain Or Temp >/= 101) 14 Days Qty: 30 0RF Discharge Orders: Discharge ED (Routine); Ordered 01/28/23 Ordered By: Stan Marroquin Referrals: Krystal Queen DO [Primary Care Provider] - Patient Instructions: Opioid Safety, Pain Management Activity Restrictions/Additional Instructions: You are seen today for question surrounding the gallbladder drain. It should not be removed at this point. In another 4 to 6 weeks it could be considered to be removed. Commend you follow-up with Dr. Queen when she can arrange for the drain to be removed at some point in the future. Coding Level of Care Code ED Manager Acquisition for Adrianna Sanchez
[2023-01-28 09:32] LABS: Basophils # 0.1 10^3/uL (0.0-0.1); Basophils % 0.8 %; Eosinophils # 0.1 10^3/uL (0.0-0.8); Eosinophils % 1.3 %; Hematocrit 37.1 % (42.0-52.0); Hemoglobin 11.1 g/dL (11.7-16.6); Lymphocytes # 1.4 10^3/uL (0.8-4.8); Lymphocytes % 18.1 %; Mean Corpuscular HGB Conc 29.9 g/dL (30.0-36.0); Mean Corpuscular Hemoglobin 24.1 pg (28.0-34.0); Mean Corpuscular Volume 80.7 fl (80-94); Mean Platelet Volume 8.5 fL (7.4-10.4); Monocytes # 0.6 10^3/uL (0.2-0.9); Monocytes % 7.4 %; Neutrophils # 5.53 10^3/uL (1.8-7.7); Neutrophils % 71.9 %; Nucleated Red Blood Cells % 0 %; Platelet Count 441 10^3/cmm (130-400); Red Cell Distribution Width 19.6 % (12.1-15.1); White Blood Count 7.7 10^3/uL (4.0-10.0)
[2023-01-28 09:52] LABS: Alanine Aminotransferase < 5 U/L (0-41); Albumin Level 2.9 g/dL (3.5-5.2); Alkaline Phosphatase 126 U/L (40-130); Anion Gap 13.1 (5-19); Aspartate Amino Transferase 8 U/L (0-40); Blood Urea Nitrogen 12 mg/dL (8-23); Calcium 8.6 mg/dL (8.5-10.5); Carbon Dioxide 26 mmol/L (22-29); Chloride 105 mmol/L (98-107); Globulin 3.7 g/dL (1.3-4.6); Glucose 146 mg/dL (65-115); Lipase 43 U/L (13-60); Osmolality Calculated 294 mOsm/kg (285-295); Potassium 3.1 mmol/L (3.5-5.1); Sodium 141 mmol/L (136-145); Total Bilirubin 0.3 mg/dL (0.15-1.2); Total Protein 6.6 g/dL (6.6-8.7)
== END 2023-01-28 10:36 | disposition home or self-care (01) ==
PROVIDERS: Emergency Provider Family Medicine; PCP Family Medicine
DX: K81.0 Acute cholecystitis (principal); Z79.82 Long term (current) use of aspirin; C78.00 Secondary malignant neoplasm of unspecified lung; Z85.01 Personal history of malignant neoplasm of esophagus; J44.9 Chronic obstructive pulmonary disease, unspecified; E11.9 Type 2 diabetes mellitus without complications; E78.5 Hyperlipidemia, unspecified; I10 Essential (primary) hypertension; F17.210 Nicotine dependence, cigarettes, uncomplicated
CPT/HCPCS: 36415; 80053; 83690; 85025; 99283